=== PATIENT | male | born 1965 | race Caucasian/White ===

== ENCOUNTER 2019-10-02 16:02 | Emergency (ER) | payer BC, SELFPAY ==
[2019-10-02 16:07] VITALS: BP 136/89; PULSE 62; RESP 18; TEMP 37.1; O2SAT 100
--- NOTE | 2019-10-02 16:33 | ED.GENADULT ---
HPI - General Adult General Chief complaint: Animal Bite Stated complaint: spider bite Time Seen by Provider: 10/02/19 16:09 Source: patient and family History of Present Illness HPI narrative: Patient is 53 years old white male woke up yesterday with some soreness at the back of the right lower leg, patient noticed a bite-like lesion. Patient did not see any insects or anything causing his bite. Patient suspecting spider. Patient denies any fever, chills, nausea, vomiting, abdominal pain, diaphoresis. Patient believes that he have brown recluse spider bite. Patient reports some itching and redness at the site of the bite. Related Data Home Medications Medication Instructions Recorded Confirmed atenolol 25 mg tablet 25 mg PO DAILY 04/25/19 04/25/19 brexpiprazole 0.5 mg tablet 0.5 mg PO DAILY 04/25/19 04/25/19 bupropion HCl 100 mg tablet 3 mg/kg PO DAILY tablet 04/25/19 04/25/19 buspirone 15 mg tablet 15 mg PO QID tablet 04/25/19 04/25/19 clonazepam 0.5 mg tablet 0.5 mg PO BID PRN tablet 04/25/19 04/25/19 dextroamphetamine-amphetamine ER 25 mg PO QAM 04/25/19 04/25/19 25 mg capsule,3 bead,ext release 24hr trazodone 50 mg tablet 50 mg PO DAILY PRN tablet 04/25/19 04/25/19 vilazodone 40 mg tablet 40 mg PO DAILY 04/25/19 04/25/19 vortioxetine 5 mg tablet 5 mg PO DAILY 04/25/19 04/25/19 Allergies Allergy/AdvReac Type Severity Reaction Status Date / Time No Known Allergies Allergy Verified 10/02/19 16:12 Review of Systems Review of Systems: Narrative: CONSTITUTIONAL: Denies fever, chills, or sweats. EYES: Denies visual changes, redness, or discharge. ENT: Denies rhinorrhea, congestion, sore throat, or otalgia. CARDIOVASCULAR: Denies chest pain, palpitations, or edema. RESPIRATORY: Denies cough or dyspnea. GASTROINTESTINAL: Denies abdominal pain, nausea, vomiting, or diarrhea. GENITOURINARY: Denies dysuria or hematuria. SKIN: Denies rash or itching. MUSCULOSKELETAL: Denies back pain, joint pain, or myalgia. NEUROLOGIC: Denies headache, numbness, or weakness. PSYCHIATRIC: Denies anxiety or depression. [facility] Past Medical History Medical History ADD (attention deficit disorder) Depression Hypertension Leukopenia Memory loss Raynauds disease Umbilical hernia Family History Family History Mother Depression Cancer of unknown origin Father Hypertension Esophageal cancer Social History Social History Smoking status: Never smoker Alcohol intake: current Exam Narrative: Exam Narrative: General appearance: Well-developed, well-nourished Skin: A bite-like lesion at the back of the right lower leg, 2 mm size surrounded by 5 x 7 cm erythema, warm to touch, diffusely tender, no discharge Head: Normocephalic, nontraumatic Eyes: Clear conjunctiva ENT: Oropharynx normal, ears normal, nose normal Neck: Supple, nontender Chest and respiratory: Airway patent, no respiratory distress, no accessory muscle use Heart: Regular rate/rhythm Abdomen: Soft, nontender, no organomegaly, quiet bowel sounds Vascular: Normal peripheral pulses, normal capillary refill. Musculoskeletal: Normal range of motion, nontender back Neurologic: Alert and oriented ?3, LAB NURSE is normal as tested, no gross motor deficit Course Course Emergency Course: Unchanged Vital Signs Vital signs: Vital Signs Temperature 37.1 C 10/02/19 16:07 Pulse Rate 62 10/02/19 16:07 Respiratory Rate 18 10/02/19 16:07 Blood Pressure 136/89 10/02/19 16:07 Pulse Oximetry 100 10/02/19 16:07 Temperature 37
== END 2019-10-02 16:54 | disposition home or self-care (01) ==
PROVIDERS: Emergency Provider Emergency Medicine; PCP Internal Medicine
DX: S80.861A Insect bite (nonvenomous), right lower leg, initial encounter (principal); W57.XXXA Bitten or stung by nonvenomous insect and other nonvenomous arthropods, initial encounter; F98.8 Other specified behavioral and emotional disorders with onset usually occurring in childhood and adolescence; F32.9 Major depressive disorder, single episode, unspecified; I10 Essential (primary) hypertension; I73.00 Raynaud's syndrome without gangrene
CPT/HCPCS: 99283

== ENCOUNTER 2019-10-06 11:15 | Emergency (ER) | payer BC, SELFPAY ==
[2019-10-06 11:28] VITALS: BP 141/93; PULSE 91; RESP 18; TEMP 36.9; O2SAT 99
[2019-10-06] MEDS: diphenhydrAMINE HCl INJ 50 MG/ML VIAL 25 MG IV PUSH (11:55)
[2019-10-06 11:59] LABS: Basophils Percent Auto 0.5 % (0.2-1.2); Eosinophils Absolute Auto 0.3 K/mm3 (0-0.3); Eosinophils Percent Auto 5.3 % (0-4.4); Hematocrit 39.9 % (42.0-52.0); Hemoglobin 14.2 g/dL (14.0-18.0); Immature Granulocyte Absolute 0.01 K/mm3 (0.00-0.031); Immature Granulocyte Percent A 0.2 % (0-0.5); Lymphocytes Absolute Auto 1.05 K/mm3 (0.9-3.2); Lymphocytes Percent Auto 17.5 % (18.3-44.2); Mean Corpuscular HGB Conc 35.6 g/dl (32-36); Mean Corpuscular Hemoglobin 32.5 pg (26-34); Mean Corpuscular Volume 91.3 fl (80-100); Mean Platelet Volume 11.1 fl (7.4-10.4); Monocytes Absolute Auto 0.6 K/mm3 (0.1-0.6); Monocytes Percent Auto 9.8 % (2.6-8.5); Neutrophils Percent Auto 66.7 % (45.5-73.1); Platelet Count Result 173 k/mm3 (150-375); Red Blood Count 4.37 M/mm3 (4.6-6.20); Red Cell Distribution Width 12.2 % (11.5-14.5)
[2019-10-06 12:16] LABS: Alanine Aminotransferase 41 U/L (4-50); Albumin Level 4.1 g/dL (3.5-5.1); Alkaline Phosphatase 56 U/L (38-126); Anion Gap 8.1 mmol/L (7-16); Aspartate Amino Transferase 43 U/L (17-59); Bilirubin,Total 0.5 mg/dL (0.2-1.3); Blood Urea Nitrogen 16 mg/dL (9-20); CRP 0.6 mg/dL (<1.0); Calcium 9.1 mg/dL (8.4-10.2); Carbon Dioxide 27 mmol/L (22-30); Chloride 105 mmol/L (98-107); Estimated CRCL calculation 77 ml/min; Estimated Glomerular Filt Rate > 60; Glucose 113 mg/dL (75-110); Potassium 4.1 mmol/L (3.4-5.0); Sodium 136 mmol/L (137-145)
[2019-10-06 12:30] VITALS: BP 126/82; PULSE 61; RESP 18; O2SAT 98
--- NOTE | 2019-10-06 12:35 | ED.SKABFB ---
HPI - Skin/Abscess/Foreign Bdy General Chief complaint: Skin/Abscess/Foreign Body Stated complaint: sent from urgent care/insect bite Time Seen by Provider: 10/06/19 11:25 Source: patient Mode of arrival: ambulatory Limitations: no limitations History of Present Illness HPI narrative: This patient is a 53 year old male who presents for evaluation possible right leg cellulitis. PAtient states he woke up with what appeared to be an insect bite to right calf. He developed redness to right calf at bite site on monday so he was evaluated in ER. He was diagnosed with cellulitis and discharged with keflex. He noticed that he had increased redness to right thigh so he went to a community care clinic. PAtient denies fever, nausea, vomiting or pain. He reports he has itching to the site of redness. MD complaint: rash Related Data Home Medications Medication Instructions Recorded Confirmed atenolol 25 mg tablet 25 mg PO DAILY 04/25/19 04/25/19 vilazodone 40 mg tablet 40 mg PO DAILY 04/25/19 04/25/19 bupropion HCl mg PO 10/06/19 dextroamphetamine-amphetamine PO 10/06/19 [Mydayis] trazodone 10/06/19 vortioxetine [Trintellix] 20 mg PO DAILY 10/06/19 Allergies Allergy/AdvReac Type Severity Reaction Status Date / Time No Known Allergies Allergy Verified 10/02/19 16:12 Review of Systems Review of Systems: All systems reviewed & are unremarkable except as noted in HPI and below Constitutional: Constitutional: Denies chills and Denies fever(s) Respiratory: Respiratory: Denies cough and Denies dyspnea Gastrointestinal: Gastrointestinal: Denies abdominal pain Integumentary/Breasts: Skin/Breast: Reports pruritus, Reports erythema and Reports rash [facility] Social History Social History Smoking status: Never smoker Alcohol intake: current Exam Const: General: no acute distress and alert Orientation/consciousness: patient oriented x3 Chest: Chest palpation & inspection: normal inspection of the chest Resp: Effort & Inspection: normal respiratory effort Auscultation: clear to auscultation bilaterally Cardio: Rate: regular rate Rhythm: regular rhythm Back/Spine/Pelvis: Back: no CVA tenderness Neuro: General: patient oriented x3 and moves all extremities Extrem: Other: right lower extremity with wound to right calf with mild erythema surround and blanching well demarcated area erythema to right thigh , no induration or tenderness. Psych: Mental Status: mental status grossly normal Affect: normal affect Course Reevaluation(s) Reevaluation #1: I have discussed wiht patient that this appears to be more of allergic/inflammatory rash than cellulitis. He will be discharged with clindamycin. I also discussed treatment of allergic reaction. His rash appears clearer. Date: 10/06/19 Time: 15:39 Vital Signs Vital signs: Vital Signs Temperature 98.5 F 10/06/19 11:28 Pulse Rate 91 10/06/19 11:28 Respiratory Rate 18 10/06/19 11:28 Blood Pressure 141/93 H 10/06/19 11:28 Pulse Oximetry 99 10/06/19 11:28 Temperature 98 F 10/06/19 16:21 Pulse Rate 63 10/06/19 16:21 Respiratory Rate 16 10/06/19 16:21 Blood Pressure 119/89 10/06/19 16:21 Pulse Oximetry 97 10/06/19 16:21 MDM - Skin/Abscess/Foreign Bdy Lab Data Result diagrams: 10/06/19 11:51 10/06/19 11:51 Labs: Lab Results 10/06/19 10/06/19 Range/Units 11:51 11:51 WBC 6.0 (4.5-10.0) K/mm3 RBC 4.37 L (4.6-6.20) M/mm3 Hgb 14.2 (14.0-18.0) g/dL Hct 39.9 L (42.0-52.0) % MCV 91.3 (80-100) fl MCH 32.5 (26-34) pg MCHC 35.6 (32-36) g/dl RDW 12.2 (11.5-14.5) % Plt Count 173 (150-375) k/mm3 MPV 11.1 H (7.4-10.4) fl Immature Gran % (Auto) 0.2 (0-0.5) % Neut % (Auto) 66.7 (45.5-73.1) % Lymph % (Auto) 17.5 L (18.3-44.2) % [place] % (Auto) 9.8 H (2.6-8.5) % Eos % (Auto) 5.3 H (0-4.4)
[2019-10-06] MEDS: CLINDAMYCIN 900 MG/NS 50 ML 900 MG/50 ML PIGGYBACK 50 MG IVPB (13:18)
[2019-10-06 13:30] VITALS: BP 130/91; PULSE 63; RESP 18; O2SAT 98
[2019-10-06 14:31] VITALS: BP 131/85; PULSE 64; RESP 16; TEMP 36.9; O2SAT 98
--- NOTE | 2019-10-06 15:00 | PC.NURSE ---
Updated patient and family. they have no concerns at this time.
[2019-10-06 16:21] VITALS: BP 119/89; PULSE 63; RESP 16; TEMP 36.6; O2SAT 97
== END 2019-10-06 16:22 | disposition home or self-care (01) ==
PROVIDERS: Emergency Provider General Practice; PCP Internal Medicine
DX: L03.115 Cellulitis of right lower limb (principal); R21 Rash and other nonspecific skin eruption
CPT/HCPCS: 36415; 80053; 85025; 86140; 96365; 96375; 99284; J1100; J1200

== ENCOUNTER 2022-01-28 08:10 | Outpatient (CLI) | payer BC, SELFPAY ==
[2022-01-28 13:05] LABS: Basophils Absolute Auto 0.1 K/mm3 (0.0-0.1); Basophils Percent Auto 1.1 % (0.2-1.2); Eosinophils Absolute Auto 0.2 K/mm3 (0-0.3); Eosinophils Percent Auto 3.5 % (0-4.4); Hemoglobin 15.1 g/dL (14.0-18.0); Immature Granulocyte Absolute 0.01 K/mm3 (0.00-0.031); Immature Granulocyte Percent A 0.2 % (0-0.5); Lymphocytes Absolute Auto 1.27 K/mm3 (0.9-3.2); Lymphocytes Percent Auto 23.4 % (18.3-44.2); Mean Corpuscular HGB Conc 33.6 g/dl (32-36); Mean Corpuscular Hemoglobin 31.9 pg (26-34); Mean Corpuscular Volume 94.9 fl (80-100); Monocytes Absolute Auto 0.5 K/mm3 (0.1-0.6); Monocytes Percent Auto 9.2 % (2.6-8.5); Neutrophils Absolute Auto 3.4 K/mm3 (1.3-6.7); Neutrophils Percent Auto 62.6 % (45.5-73.1); Platelet Count Result 193 k/mm3 (150-375); Red Blood Count 4.74 M/mm3 (4.6-6.20); Red Cell Distribution Width 12.1 % (11.5-14.5); White Blood Count 5.4 K/mm3 (4.5-10.0)
[2022-01-28 13:06] LABS: Alanine Aminotransferase 27 U/L (6-50); Albumin Level 4.3 g/dL (3.5-5.1); Alkaline Phosphatase 48 U/L (38-126); Anion Gap 9 mmol/L (8-16); Aspartate Amino Transferase 42 U/L (17-59); Bilirubin,Total 0.6 mg/dL (0.2-1.3); Blood Urea Nitrogen 21 mg/dL (9-20); Calcium 9.2 mg/dL (8.4-10.2); Carbon Dioxide 27 mmol/L (22-30); Chloride 103 mmol/L (98-107); Cholesterol 193 mg/dL (0-200); Estimated Glomerular Filt Rate > 60; Glucose 119 mg/dL (65-110); HDL Direct 50 mg/dL; Potassium 4.4 mmol/L (3.4-5.0); Sodium 139 mmol/L (137-145); Triglycerides 77 mg/dL (<150)
[2022-01-28 13:17] LABS: LDL Cholesterol Direct 111 mg/dL
[2022-01-28 13:37] LABS: Prostate Specific Antigen 0.9 ng/mL (< OR = 4.0)
[2022-01-31 11:54] LABS: Hemoglobin A1C 5.6 % (<5.7)
== END 2022-01-28 08:11 | disposition home or self-care (01) ==
LOC: ANHGOSHLAB 08:12
PROVIDERS: PCP Internal Medicine; Visit Provider Nurse Practitioner
DX: Z13.29 Encounter for screening for other suspected endocrine disorder (principal); Z13.220 Encounter for screening for lipoid disorders; Z12.5 Encounter for screening for malignant neoplasm of prostate; R73.09 Other abnormal glucose
CPT/HCPCS: 36415; 80053; 80061; 83036; 84153; 85025; G0103

== ENCOUNTER → 2022-01-28 08:33 | Outpatient (CLI) | payer BC, SELFPAY ==
--- NOTE | ~2022-01-28 | XR_ITS ---
XR knee LT 2V DATE: 01/28/2022 08:52 INDICATION: Left knee pain TECHNIQUE: [place] and lateral and standing AP views COMPARISON: None FINDINGS: Medial and lateral compartment joint spaces are well preserved. There is slight particular spurring of the medial femoral condyle and patella. Small suprapatellar knee joint effusion is sugges sim. No fracture or dislocation, periosteal reaction or bone destruction, radiopaque intra-articular loose body or chondrocalcinosis. IMPRESSION: Slight medial and patellofemoral osteoarthritis and small knee joint effusion Reviewed, dictated and finalized at location B. [facility] [employer] IMPRESSION: Slight medial and patellofemoral osteoarthritis and small knee join t effusion
== END ==
PROVIDERS: PCP Nurse Practitioner; Visit Provider Nurse Practitioner
DX: M17.12 Unilateral primary osteoarthritis, left knee (principal)
CPT/HCPCS: 73560

== ENCOUNTER 2023-02-07 10:13 | Outpatient (CLI) | payer BC, SELFPAY ==
[2023-02-07 14:06] LABS: Appearance Urine Clear (Clear); Bilirubin Urine Negative (Negative); Blood Urine Negative (Negative); Color Urine Yellow (Yellow); Glucose Urine UA Negative (Negative); Ketones Urine Negative (Negative); Leukocyte Esterase Ur Negative LEU/UL (NEGATIVE); Nitrate Urine Negative (Negative); Protein Urine Negative (Negative); Specific Grav Ur 1.018 (1.001-1.035); Urobilinogen Urine 0.2 mg/dL (<2.0); pH Urine 6.5 (5.0-9.0)
[2023-02-07 14:21] LABS: Add Urine Microscopic? NO
== END 2023-02-07 10:14 | disposition home or self-care (01) ==
LOC: ANHGOSHLAB 10:14
PROVIDERS: PCP Internal Medicine; Visit Provider Internal Medicine
DX: R30.0 Dysuria (principal)
CPT/HCPCS: 81003

== ENCOUNTER 2024-05-31 00:10 | Day surgery (SDC) | payer BC, SELFPAY ==
[2024-04-05 11:55] VITALS: BMI 28.5
[2024-05-27 12:09] VITALS: BMI 27.8
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
--- OUTSIDE RECORDS SUMMARY | 2024-05-31 00:12 | XMS_ITS | Clinical Summary ---
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 CONSUELO ZUNIGA MD Active Last Documented On 3 9:12AM ; [facility] Dissociative Identity Disorder 10/11/2017 WADE ZUNIGA MD Active Last Documented On 8 11:58PM ; [facility] Panic Disorder 07/11/2016 CONSUELO Colon Active Last Documented On 7 5:47PM ; [facility] Psychophysiological Insomnia 10/12/2015 CONSUELO ZUNIGA MD Active Last Documented On 7 6:07PM ; [facility] Col[facility] 03/27/2015 CONSUELO ZUNIGA MD Ac tive Last Documented On 6 10:15AM ; [facility] Chronic Fatigue Syndrome 10/03/2014 CONSUELO ZUNIGA MD Active Last Documented On 5 4:03PM ; [facility] Raynaud's Syndrome 10/03/2014 CONSUELO FLORES MD Active Last Documented On 5 3:39PM ; [facility] Systemic Lupus Erythematosus 10/03/2014 CONSUELO ZUNIGA MD Active Last Documented On 5 3:38PM ; [facility] Attention Deficit Disorder W ithout Hyperactivity 09/11/2012 CONSUELO ZUNIGA MD Active Last Documented On 5 6:05PM ; [facility] Dysthymic Disorder (Depressive Neurosis) 09/11/2012 CONSUELO ZUNIGA MD Active Last Documented On 3 10:29PM ; [facility] Generalized Anxiety Disorder 09/11/2012 CONSUELO ZUNIGA MD Active Last Documented On 4 11:21AM ; [facility] Major Depression, Recurrent 09/11/2012 CONSUELO ZUNIGA MD Active Last Documented On 3 4:50PM ; [facility] Plan of Treatment No Plan of Treatment Recorded Assessments Includes: Assessments from this encounter No Assessments Recorded Medical Equipment - Implanted Devices Includes: Current Devices No Medical Equipment Recorded Medications Includes: Medications discussed during this encounter and other current Medications Current Medications (continue as prescribed) Mydayis 37.5 MG Oral Capsule Extended Release 24 Hour 06/10/2022 Provider: CONSUELO ZUNIGA MD Diagnosis: Attention-defici t hyperactivity disorder, unspecified type 1 Capsule every morning Last Documented On 06/10/2022 3:26PM By Nelda Zuniga MD ; [facility] traZODone HCl 100 MG Oral Tablet 05/23/2022 Provider: CONSUELO ZUNIGA MD Diagnosis: Psychophysiologi c insomnia TAKE ONE AND ONE-HALF TABLET S AT BEDTIME DIRECTED Last Documented On 3 11:48AM By Nelda Zuniga MD ; [facility] KlonoPIN 0.5 MG Oral Tablet 05/16/2022 Provider: CONSUELO ZUNIGA MD Diagnosis: Panic disorder [ episodic paroxysmal anxiety] as directed 1 tab once a day as needed for severe anxiety/panic Last Documented On 05/16/2022 6:39PM By Nelda Zuniga MD ; [facility] Modafinil 200 MG Oral Tablet 05/16/2022 Provider: CONSUELO ZUNIGA MD Diagnosis: Obstructive slee p apnea (adult) (pediatric) as directed - 1 tab in am, 1 tab at noon Last Documented On 05/16/2022 6:39PM By Nelda Zuniga MD ; [facility] Atenolol 25 MG Oral Tablet 05/16/2022 Provider: CONSUELO ZUNIGA MD Diagnosis: Generalized anxi ety disorder One tablet three times a day Last Documented On 05/16/2022 6:34PM By Nelda Zuniga MD ; [facility] Mirtazapine 15 MG Oral Tablet 03/02/2022 Provider: CONSUELO ZUNIGA MD Diagnosis: Dysthymic disord er One tablet at bed time Last Documented On 03/02/2022 8:21PM By Nelda Zuniga MD ; [facility] Remeron 15 MG Oral Tablet 03/02/2022 Provider: CONSUELO ZUNIGA MD Diagnosis: Generalized anxi ety disorder One tablet at bed time Last Documented On 03/02/2022 8:20PM By Nelda Zuniga MD ; [facility] busPIRone HCl 15 MG Oral Tablet 11/11/2021 Provider: CONSUELO ZUNIGA MD Diagnosis: Generalized anxi ety disorder TAKE 1 TABLET FOUR TIMES A DAY Last Documented On 11/11/2021 5:17PM By Nelda Zuniga MD ; [facility] buPROPion HCl ER (XL) 150 MG Oral Tablet Extended Release 24 Hour 11/11/2021 Provider: CONSUELO ZUNIGA MD Diagnosis: Major depressive disorder, recurrent, moderate TAKE 3 TABLETS IN THE MORNIN G DIRECTED Last Documented On 11/11/2021 5:19PM By Nelda Zuniga MD ; [facility] Trintellix 20 MG Oral Tablet 08/20/2021 Provider: CONSUELO ZUNIGA MD Diagnosis: TAKE 1 TABLET EVERY MORNING Last Documented On 08/20/2021 8:58AM By Nelda Zuniga MD ; [facility] Viibryd 40 MG Oral Tablet 08/20/2021 Provider: CONSUELO ZUNIGA MD Diagnosis: Major depressive disorder, recurrent, unspecified 1 tablet every morning with food Last Documented On 08/20/2021 8:59AM By Nelda Zuniga MD ; [facility] Rexulti 1 MG Oral Tablet 04/06/2021 Provider: MET DANIELLE ZUNIGA MD Diagnosis: Major depressive disorder, recurrent, moderate One tablet daily Last Documented On 2 11:15AM By Nelda Zuniga MD ; [facility] Atenolol 25 MG Oral Tablet 11/10/2019 Provider: CONSUELO ZUNIGA MD Diagnosis: Generalized anxi ety disorder One tablet twice a day Last Documented On 11/10/2019 3:38PM By Nelda Zuniga MD ; [facility] buPROPion HCl ER (XL) 150 MG Oral Tablet Extended Release 24 Hour 10/24/2019 Provider: CONSUELO ZUNIGA MD Diagnosis: Major depressive disorder, recurrent, moderate TAKE 3 TABLETS IN THE MORNIN G DIRECTED Last Documented On 10/24/2019 3:42PM By Nelda Zuniga MD ; [facility] Trintellix 20 MG Oral Tablet 07/01/2019 Provider: CONSULEO ZUNIGA MD Diagnosis: Dysthymic disord er 1 tablet every morning Last Documented On 07/01/2019 2:34PM By Nelda Zuniga MD ; [facility] Glucosamine Sulfate 1000MG Oral Capsule 05/22/2017 Provider: Diagnosis: 1 a day Last Documented On 05/22/2017 5:23PM By Nelda Zuniga MD ; [facility] AmLODIPine Besylate 5 MG Tablet 01/15/2016 Provider: KELLI CAMPOS MD Diagnosis: 1 daily Last Documented On 7 8:48AM By DIONE LOVE LPN ; [facility] Medications Administered Includes: Administered Medications from this encounter No Administered Medications Recorded Results Includes: Results discussed during this encounter No Results Recorded For Specified Dates History of Present Illness Includes: History of Present Illness from this encounter No History of Present Illness Recorded Social History No Social History Recorded - Smoking Status Unknown Medical History Includes: Medical History addressed during this encounter No Medical History Recorded Family History Includes: Family History addressed during this encounter No Family History Recorded Review of Systems Includes: Review of Systems from this encounter No Review of Systems Recorded Mental Status Includes: Mental Status from this encounter No Mental Status Recorded Functional Status Includes: Functional Status from this encounter No Functional Status Recorded Physical Exam Includes: Physical Exam from this encounter No Physical Exam Recorded Allergies Includes: Active Allergies No Known Allergies Encounters Encounter Provider Location Date Check-In Time Check-Out Time Diagnosis TELEHEALTH CONSUELO ZUNIGA MD [facility] 3 4:30PM 11:59PM Insurance Includes: Active Insurance Policies Plan Name Member ID Group # Subscriber Relationship Effect sunday Dates 1 - [facility] [id number] DANIEL FLOWERS Self Clinical Notes Includes: Clinical Notes from this encounter No Clinical Notes Recorded
--- OUTSIDE RECORDS SUMMARY | 2024-05-31 00:12 | XMS_ITS ---
Care Plan - [facility] Created on: May 31, 2024 DANIEL FLOWERS : 1965 Sex: Male Author Organization [facility] Address [address] [place] [address] Phone Care Team Providers Care Cooker Chip Name Role Phone CHRISTOPHE MOODY, CONSUELO Conroy [phone] ANDRES MOODY, KELLI العراقي Primary Care Provider [phone]
--- OUTSIDE RECORDS SUMMARY | 2024-05-31 00:12 | XMS_ITS | Clinical Summary ---
Author Organization [facility] Address [address] [place] [address] Phone Care Team Providers Care Asphalt Paver Name Role Phone CONSUELO ZUNIGA MD Unavailable [phone] Reason for Visit and Chief Complaint * PHONE CALL Problems Includes: Problems addressed during this encounter and other active Problems Current Visit Onset Date Resolved Date Provider Conditio n Status Major Depression, Recurrent 09/11/2012 Active Last Documented On 3 5:46PM ; [facility] Past Visits Onset Date Resolved Date Provider Condition Status 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 Active Last Documented On 3 5:50PM ; [facility] Dissociative Identity Disorder 10/11/2017 Active Last Documented On 3 5:51PM ; [facility] Panic Disorder 07/11/2016 Active Last Documented On 3 5:50PM ; [facility] Psychophysiological Insomnia 10/12/2015 Active Last Documented On 3 5:50PM ; [facility] Colitis 03/27/2015 Active Last Documented On 3 5:49PM ; [facility] Chronic Fatigue Syndrome 10/03/2014 Active Last Documented On 3 5:48PM ; [facility] Raynaud's Syndrome 10/03/2014 Active Last Documented On 3 5:48PM ; [facility] Systemic Lupus Erythematosus 10/03/2014 Active Last Documented On 3 5:48PM ; [facility] Attention Deficit Disorder Without Hyperactivity 3 Active Last Documented On 3 5:46PM ; [facility] Dysthymic Disorder (Depressive Neurosis) 09/11/2012 Active Last Documented On 3 5:46PM ; [facility] Generalized Anxiety Disorder 09/11/2012 Active Last Documented On 3 5:46PM ; [facility] Plan of Treatment Future Appointments Date Time Location Provi gerald TELEHEALTH ADULT PSYCH ESTABLISHED 06/20/2024 4:40PM [facility] ZUNIGA MD Last Documented On 4 5:40PM ; [facility] Assessments Includes: Assessments from this encounter Findings - Major depression, recurrent - Last Documented On 05/01/2023 5:10PM ; [facility] Medical Equipment - Implanted Devices Includes: Current Devices No Medical Equipment Recorded Medications Includes: Medications discussed during this encounter and other current Medications New / Renewed during this visit CONSUELO ZUNIGA MD on 05/01/2023 Wellbutrin XL 150 MG Oral Tablet Extended Release 24 Hour Provider: CONSUELO ZUNIGA MD 30 day supply: 30 tablet, 0 refills Diagnosis: Major depressive disorder, recurrent, moderate 1 tablet every morning Pharmacy: [facility] ([facility]) [address], [id number] - Last Documented On 07/27/2023 3:54AM By Nelda Zuniga MD ; [facility] Wellbutrin XL 150 MG Oral Tablet Extended Release 24 Hour Provider: CONSUELO ZUNIGA MD 90 day supply: 90 tablet, 0 refills Diagnosis: Major depressive disorder, recurrent, moderate 1 tablet every morning Pharmacy: [facility] [address], [address] - Last Documented On 06/22/2023 2:13PM By Nelda Zuniga MD ; [facility] Current Medications (continue as prescribed) Mydayis 37.5 MG Oral Capsule Extended Release 24 Hour 08/31/2023 Provider: CONSUELO ZUNIGA MD Diagnosis: Attention-defici t hyperactivity disorder, unspecified type 1 Capsule every morning Last Documented On 08/31/2023 8:26PM By Nelda Zuniga MD ; [facility] buPROPion HCl ER (XL) 150 MG Oral Tablet Extended Release 24 Hour 07/26/2023 Provider: CONSUELO ZUNIGA MD Diagnosis: Major depressive disorder, recurrent, moderate TAKE 3 TABLETS IN THE MORNIN G DIRECTED Last Documented On 07/26/2023 5:41PM By Nelda Zuniga MD ; [facility] Modafinil 200 MG Oral Tablet 07/26/2023 Provider: CONSUELO ZUNIGA MD Diagnosis: Obstructive slee p apnea (adult) (pediatric) as directed - 1 tab in am, 1 tab at noon Last Documented On 07/26/2023 5:42PM By Nelda Zuniga MD ; [facility] Testosterone Cypionate 200 M G/ML Intramuscular Solution 07/11/2023 Provider: THALIA Valle Diagnosis: Last Documented On 07/27/2023 3:52AM By Nelda Zuniga MD ; [facility] KlonoPIN 0.5 MG Oral Tablet 07/05/2023 Provider: CONSUELO ZUNIGA MD Diagnosis: Panic disorder [ episodic paroxysmal anxiety] as directed 1 tab once a day as needed for severe anxiety/panic Last Documented On 07/06/2023 3:30AM By Nelda Zuniga MD ; [facility] Meloxicam 15 MG Oral Tablet 06/24/2023 Provider: LEOPOLDO SORENSON MD Diagnosis: 1 daily prn Last Documented On 07/26/2023 4:54PM By SIMONA DOUGLAS ; [facility] busPIRone HCl 15 MG Oral Tablet 06/22/2023 Provider: CONSUELO ZUNIGA MD Diagnosis: Generalized anxi ety disorder TAKE 1 TABLET FOUR TIMES A DAY Last Documented On 06/22/2023 2:12PM By Nelda Zuniga MD ; [facility] Atenolol 25 MG Oral Tablet 05/16/2023 Provider: CONSUELO ZUNIGA MD Diagnosis: Generalized anxi ety disorder TAKE 1 TABLET THREE TIMES A DAY Last Documented On 05/16/2023 12:20PM By Nelda Zuniga MD ; [facility] traZODone HCl 100 MG Oral Tablet 05/16/2023 Provider: CONSUELO ZUNIGA MD Diagnosis: Psychophysiologi c insomnia TAKE ONE AND ONE-HALF TABLET S AT BEDTIME DIRECTED Last Documented On 05/16/2023 12:20PM By Nelda Zuniga MD ; [facility] Testosterone Cypionate 200 M G/ML Intramuscular Solution 11/15/2022 Provider: KELLI CAMPOS MD Diagnosis: inject once a week Last Documented On 11/25/2022 5:34PM By Nelda Zuniga MD ; [facility] Glucosamine Sulfate 1000 MG OR CAPS 05/22/2017 Tori tonio: Diagnosis: 1 a day Last Documented On 07/09/2022 5:37PM By Nelda Zuniga MD ; [facility] amLODIPine Besylate 5 MG OR TABS 01/15/2016 Provider : Diagnosis: 1 daily Last Documented On 07/09/2022 5:37PM By DIONE LOVE LPN ; [facility] Past Medications on file Vilazodone HCl 40 MG Oral Tablet 11/25/2022 - 11/20/2023 Provider: CONSUELO ZUNIGA MD Diagnosis: Major depressive disorder, recurrent, unspecified 1 tablet every morning with food Last Documented On 11/25/2022 1:55PM By Nelda Zuniga MD ; [facility] Trintellix 20 MG Oral Tablet 09/20/2022 - 09/15/2023 Provider: CONSUELO ZUNIGA MD Diagnosis: Major depressive disorder, recurrent, moderate 1 tablet every morning Last Documented On 09/20/2022 3:33PM By Nelda Zuniga MD ; [facility] Sunosi 75 MG OR TABS 02/01/2021 - 03/03/2021 Provider: CONSUELO ZUNIGA MD Diagnosis: Narcolepsy witho ut cataplexy 1 tablet every morning Last Documented On 07/09/2022 5:37PM By Nelda Zuniga MD ; [facility] Rexulti 2 MG OR TABS 02/01/2021 - 03/03/2021 Provider: CONSUELO ZUNIGA MD Diagnosis: Major depressive disorder, recurrent, moderate One tablet daily Last Documented On 07/09/2022 5:37PM By Nelda Zuniga MD ; [facility] Medications Administered Includes: Administered Medications from this [...] Location Date Check-In Time Check-Out Time Diagnosis * PHONE CALL CONSUELO ZUNIGA MD [facility] 05/01/19 24 2:11PM 11:59PM Major Depression, Recurrent Insurance Includes: Active Insurance Policies Plan Name Member ID Group # Subscriber Relationship Effect sunday Dates 1 - [facility] [id number] DANIEL Perez FLOWERS Self Clinical Notes Includes: Clinical Notes from this encounter * Progress note Date Encounter Last Documented by 05/01/2023 * PHONE CALL Last documented on 05/01/2023; 5:10 PM, CONSUELO ZUNIGA MD; [facility] Active Problems & Conditions - Attention Deficit Disorder Without Hyperactivity - Chronic Fatigue Syndrome - Colitis - Dissociative Identity Disorder - Dysthymic Disorder (Depressive Neurosis) - Generalized Anxiety Disorder - Major Depression, Recurrent - Nonorganic Sleep Apnea Obstructive - Panic Disorder - Psychophysiological Insomnia - Raynaud's Syndrome - Systemic Lupus Erythematosus Chief Complaint Phone Call - Chief Concern: reason for call: Patient calling. He wants to know if Dr. Zuniga can put him back on the Wellbutrin XL. He said that the Auvelity is not working out for him and he would like the Wellbutrin back. pt phone # for return call: [phone] date/initials: 05/01/23 bk Current Medication - amLODIPine Besylate 5 MG Tablet One tablet daily 1 daily, 90 days, 0 refills - Auvelity 45-105 MG Oral Tablet Extended Release as directed - 1 tab in am and 1 tab at 3 pm, 30 days, 3 refills - buPROPion HCl ER (XL) 150 MG Tablet Extended Release 24 Hour TAKE 3 TABLETS IN THE MORNING DIRECTED, 90 days, 3 refills - busPIRone HCl 15 MG Tablet TAKE 1 TABLET FOUR TIMES A DAY, 90 days, 3 refills - [facility] Glucosamine Sulfate 1000 MG Capsule as directed 1 a day, 0 days, 0 refills - Mirtazapine 15 MG Oral Tablet TAKE 1 TABLET AT BEDTIME, 90 days, 3 refills - Modafinil 200 MG Tablet as directed as directed - 1 tab in am, 1 tab at noon, 90 days, 1 refills - Mydayis 37.5 MG Oral Capsule Extended Release 24 Hour 1 Capsule every morning, 30 days, 0 refills - Rexulti 1 MG Tablet One tablet daily One tablet daily, 90 days, 3 refills - Testosterone Cypionate 200 MG/ML Intramuscular Solution as directed inject once a week, 28 days, 0 refills - traZODone HCl 100 MG Oral Tablet as directed 1 and a half tablets at bedtime, 90 days, 1 refills - Trintellix 20 MG Oral Tablet 1 tablet every morning, 90 days, 3 refills - Vilazodone HCl 40 MG Oral Tablet 1 tablet every morning with food, 90 days, 3 refills User Defined 4 Previous Psychiatric Hospitalizations: [place], [place] 10/15/18. Previous Psychiatric Treatments: He saw Eddy Baca for counseling in the past. Andriy Coughlin -- did not help him so he stopped seeing him 12/2018 Ellen Knox - referral made on 01/2021 for therapy/counseling for stress mgt Previous Psychiatric Medications: Sertraline 200 mg daily---felt like a Zombie---but took it from 1992 to 1993---also caused tremors. Prozac -- he had a negative response instead of Zoloft Ambien -- had to be d/c due to occ. sleep related behaviors. Focalin and Strattera -- did not help. Adderall XR -- not helping anymore, developed tolerance to it Rexulti 1 mg -- causing constipation 01/2019 but still taking it Sunosi 75 mg (samples) - did not make much difference -- 02/01/21 - 02/10/21 - discontinued Allergies - No Known Allergies Assessment - Major depression, recurrent Plan StartCited - Major depressive disorder, recurrent, moderate Wellbutrin XL 150 MG tablet 1 tablet every morning, 90 days, 0 refills Wellbutrin XL 150 MG tablet 1 tablet every morning, 30 days, 0 refills EndCited StartCited - Other PHY ORDER/COMMENT That is fine. He may stop the Auvelity but will have to start from scartch with his wellbutrin XL 150 mg 1 tab in am for 2 - 4 weeks then 300 mg 1 tab in am therafter and stay with 300 mg until seen. ROBERT ORDER/COMMENT I sent Wellbutrin XL 150 mg 1 tab in am #90 days to [facility] unless he wants to send it locally to his local pharmacist. Please relay above and let me know. ROBERT ORDER/COMMENT I called patient and left a voicemail about this. I asked him to please return my call. bk ROBERT ORDER/COMMENT I called pt again and this time he answered the phone. I informed him to d/c Ramiro and start Wellbutrin XL 150 mg 1 tab in am until I see him on his next appt on 05/10 since he has to start from scratch to preven side effects. He wanted 1 month supply to be sent to the local pharmacy. Pt voiced understanding of the instruction and appreciated the rtn call. EndCited
--- OUTSIDE RECORDS SUMMARY | 2024-05-31 00:13 | XMS_ITS | Continuity of Care Document ---
Author Organization [facility] Address [address] [place] [address] Phone Care Team Providers Care Physicist [employer] Name Role Phone Temitope Denis Unavailable Unavailable Allergies, Adverse Reactions, Alerts Substance Reaction Status Criticality No Known Allergies Active No Inform ation Medications Medication Instructions Dosage Effective Dates (start - stop) Status Comments Concerta 36 mg tablet,extended release - Active buspirone 15 mg tablet - Active Viibryd 40 mg tablet - Active zolpidem ER 12.5 mg tablet,extended release,multiphase - Active amlodipine 5 mg tablet - Active trazodone 100 mg tablet - Active bupropion HCl SR 150 mg tablet,sustained-release - Active Procedures Procedure Date OFFICE/OUTPATIENT VISIT EST OFFICE/OUTPATIENT VISIT EST OFFICE/OUTPATIENT VISIT [facility] Advance Directives Directive Yes / No Effective Date File Name No Information Encounters Encounter Description Practice Location Reason(s) For Visit Diagnoses Date Provider Providers Copied on Encounter OFFICE/OUTPAT IENT VISIT [facility], [address] [place] [address], [id number], tel:[phone] [facility] Follow Up of Shady elbows (chief complaint) Elbow arthritis 0-201 5 Fezeferino Linn. [address] [place] [address], [id number]. tel:[phone] OFFICE/OUTPAT IENT VISIT EST [facility], [address] [place] [address], [id number], tel:[phone] [facility] f/u bilateral elbows (chief complaint) Elbow arthritis Apr-2 3-201 5 Fehringer Temitope. [address], [place], [place], [id number]. tel:[phone] OFFICE/OUTPAT IENT VISIT [facility], [address], [place], [address], [place] tel:[phone] [facility] eval bilateral elbows (chief complaint) Elbow arthritis b-0 5-201 5 Fehringer Temitope. [address], [place], [place], [id number]. tel:[phone] Referring Provider: Moreno Tanner, [address], [place], [address]. tel:[phone] Family History Family Member Type Diagnosis Age At Onset Father Problem (finding) Alive and well Payers Payer name Insurance type Covered alliance party ID Authoriza tion(s) No Information Social History Type Description Quantity Date Captured Comments Alcohol Use Details Unknown Caffeine Use Details Unknown Tobacco Use Status Never smoked tobacco 2014 Smoking Status Never smoker Non-Smoking Tobacco Use Details : No Details Available : No Details Available Sex Male Chief Complaint And Reason For Visit From encounter dated '05/30/2014 08:00'. Follow Up of Shady elbows (chief complaint) Reason For Referral Reason For Referral No Information History Of Present Illness Encounter Date Complaint History Of Prese nt Illness Follow Up of Shady elbows f/u bilateral elbows eval bilateral elbows Functional Status Date Functional Assessmen t No Information Instructions Date Instruction Additional Infor mation No Information Assessments Type Assessment Date assessment Elbow arthritis Patient Care Teams Name Effective Dates (start - stop) Status Members No Information
--- OUTSIDE RECORDS SUMMARY | 2024-05-31 00:13 | XMS_ITS | Clinical Summary ---
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 Last Documented On 3 5:50PM ; [facility] Dissociative Identity Disorder 10/11/2017 Active Last Documented On 3 5:51PM ; [facility] Panic Disorder 07/11/2016 Active Last Documented On 3 5:50PM ; [facility] Psychophysiological Insomnia 10/12/2015 Active Last Documented On 3 5:50PM ; [facility] Colitis 03/27/2015 Active Last Documented On 3 5:49PM ; [facility] Chronic Fatigue Syndrome 10/03/2014 Active Last Documented On 3 5:48PM ; [facility] Raynaud's Syndrome 10/03/2014 Active Last Documented On 3 5:48PM ; [facility] Systemic Lupus Erythematosus 10/03/2014 Active Last Documented On 3 5:48PM ; [facility] Attention Deficit Disorder Without Hyperactivity 3 Active Last Documented On 3 5:46PM ; [facility] Dysthymic Disorder (Depressive Neurosis) 09/11/2012 Active Last Documented On 3 5:46PM ; [facility] Generalized Anxiety Disorder 09/11/2012 Active Last Documented On 3 5:46PM ; [facility] Major Depression, Recurrent 09/11/2012 Active Last Documented On 3 5:46PM ; [facility] Plan of Treatment Future Appointments Date Time Location Provi gerald [facility] EST[facility]LISHED 06/20/2024 4:40PM [facility] ZUNIGA MD Last Documented On 4 5:40PM ; [facility] Assessments Includes: Assessments from this encounter No Assessments Recorded Medical Equipment - Implanted Devices Includes: Current Devices No Medical Equipment Recorded Medications Includes: Medications discussed during this encounter and other current Medications Discontinued / Stopped on this date CONSUELO ZUNIGA MD on 01/12/2023 Mydayis 37.5 MG Oral Capsule Extended Release 24 Hour Provider: CONSUELO ZUNIGA MD Diagnosis: Attention-defici t hyperactivity disorder, unspecified type Last Documented On 02/28/2023 5:39PM By Nelda Zuniga MD ; [facility] Current Medications (continue as prescribed) Mydayis 37.5 MG Oral Capsule Extended Release 24 Hour 08/31/2023 Provider: CONSUELO ZUNIGA MD Diagnosis: Attention-defici t hyperactivity disorder, unspecified type 1 Capsule every morning Last Documented On 08/31/2023 8:26PM By Nelda Zuniga MD ; [facility] buPROPion HCl ER (XL) 150 MG Oral Tablet Extended Release 24 Hour 07/26/2023 Provider: CONSUELO ZUNIGA MD Diagnosis: Major depressive disorder, recurrent, moderate TAKE 3 TABLETS IN THE MORNIN G DIRECTED Last Documented On 07/26/2023 5:41PM By Nelda Zuniga MD ; [facility] Modafinil 200 MG Oral Tablet 07/26/2023 Provider: CONSUELO ZUNIGA MD Diagnosis: Obstructive slee p apnea (adult) (pediatric) as directed - 1 tab in am, 1 tab at noon Last Documented On 07/26/2023 5:42PM By Nelda Zuniga MD ; [facility] Testosterone Cypionate 200 M G/ML Intramuscular Solution 07/11/2023 Provider: THALIA Valle Diagnosis: Last Documented On 07/27/2023 3:52AM By Nelda Zuniga MD ; [facility] KlonoPIN 0.5 MG Oral Tablet 07/05/2023 Provider: CONSUELO ZUNIGA MD Diagnosis: Panic disorder [ episodic paroxysmal anxiety] as directed 1 tab once a day as needed for severe anxiety/panic Last Documented On 07/06/2023 3:30AM By Nleda Zuniga MD ; [facility] Meloxicam 15 MG Oral Tablet 06/24/2023 Provider: LEOPOLDO SORENSON MD Diagnosis: 1 daily prn Last Documented On 07/26/2023 4:54PM By SIMONA DOUGLAS ; [facility] busPIRone HCl 15 MG Oral Tablet 06/22/2023 Provider: CONSUELO ZUNIGA MD Diagnosis: Generalized anxi ety disorder TAKE 1 TABLET FOUR TIMES A DAY Last Documented On 06/22/2023 2:12PM By Nelda Zuniga MD ; [facility] Atenolol 25 MG Oral Tablet 05/16/2023 Provider: CONSUELO ZUNIGA MD Diagnosis: Generalized anxi ety disorder TAKE 1 TABLET THREE TIMES A DAY Last Documented On 05/16/2023 12:20PM By Nelda Zuniga MD ; [facility] traZODone HCl 100 MG Oral Tablet 05/16/2023 Provider: CONSUELO ZUNIGA MD Diagnosis: Psychophysiologi c insomnia TAKE ONE AND ONE-HALF TABLET S AT BEDTIME DIRECTED Last Documented On 05/16/2023 12:20PM By Nelda Zuniga MD ; [facility] Testosterone Cypionate 200 M G/ML Intramuscular Solution 11/15/2022 Provider: KELLI CAMPOS MD Diagnosis: inject once a week Last Documented On 11/25/2022 5:34PM By Nelda Zuniga MD ; [facility] Glucosamine Sulfate 1000 MG OR CAPS 05/22/2017 Tori hoder: Diagnosis: 1 a day Last Documented On 07/09/2022 5:37PM By Nelda Zuniga MD ; [facility] amLODIPine Besylate 5 MG OR TABS 01/15/2016 Provider : Diagnosis: 1 daily Last Documented On 07/09/2022 5:37PM By DIONE LOVE LPN ; [facility] Medications Administered Includes: Administered Medications from this [...] Allergies Includes: Active Allergies No Known Allergies Insurance Includes: Active Insurance Policies Plan Name Member ID Group # Subscriber Relationship Effect sunday Dates 1 - [facility] [id number] DANIEL FLOWERS Self Clinical Notes Includes: Clinical Notes from this encounter No Clinical Notes Recorded
--- OUTSIDE RECORDS SUMMARY | 2024-05-31 00:13 | XMS_ITS | Referral Summary ---
Author Organization [facility] [address] [facility] Address [address] [place] [address] Care Team Providers Care Rehabilitation Aide/Scheduler Name Role Phone Nikko Lara DO Primary Care Provider [phone] Allergies No known active allergies Medications amLODIPine (NORVASC) 5 mg tablet 07/29/2019 Active atenoloL (TENORMIN) 25 mg tablet 09/23/2019 Active buPROPion XL (WELLBUTRIN XL) 150 mg 24 hr tablet 09/23/2019 Active Mydayis 37.5 mg capsule, ER triphasic 24 hr TK 1 C PO QAM 09/11/2019 Active traZODone (DESYREL) 100 mg tablet 09/23/2019 Active triamcinolone (KENALOG) 0.5 % cream NICHELLE EXT AA BID 10/02/2019 Active Viibryd 40 mg tablet 09/23/2019 Active Trintellix 20 mg tablet 07/01/2019 Active Active Problems Problem Noted Date Diagnosed Date Diverticulitis 01/15/2024 Positive antinuclear antibody 10/29/2014 Lateral epicondylitis 10/29/2014 Immunizations Immunization Administration Dates Next Due Influenza, Trivalent, Preservative Free, Intramu scular 12/19/2023 Social History Tobacco Use Types Packs/Day Years Used Date Smoking Tobacco: Never Smokeless Tobacco: Never Personal Safety Answer Date Recorded Have you ever been in or are you currently in a harmful physical or emotional relationship or is someone making you feel afraid or unsafe? Denies 01/15/2024 Sex and Gender Information Value Date Recorded Sex Assigned at Not on file Legal Sex Male 1:23 AM PICKLE PUMPER Gender Identity Not on file Sexual Orientation Not on file Last Filed Vital Signs Vital Sign Reading Time Taken Comments Blood Pressure 152/84 01/17/2024 9:35 AM PICKLE PUMPER Pulse 67 01/17/2024 9:35 AM PICKLE PUMPER Temperature 36.4 C (97.6 F) 01/17/2024 3:49 AM PICKLE PUMPER Respiratory Rate 16 01/17/2024 3:49 AM PICKLE PUMPER Oxygen Saturation 98% 01/17/2024 3:49 AM PICKLE PUMPER Inhaled Oxygen Concentration - - Weight 91.4 kg (201 lb 9.6 oz) 01/15/2024 6:10 A M PICKLE PUMPER Height 182.9 cm (6') 01/15/2024 6:10 AM PICKLE PUMPER Body Mass Index 27.34 01/15/2024 6:10 AM PICKLE PUMPER Plan of Treatment Not on file Insurance [employer] Advance Directives For more information, please contact: [phone] * Full Code (Latest Code Status on File) Date Activated Date Inactivated Comments 01/15/2024 5:55 AM 01/17/2024 2:31 PM Care Teams Rehabilitation Aide/Scheduler Relationship Specialty Start Date End Date Nikko Lara DO PCP - General 05/14/12
--- OUTSIDE RECORDS SUMMARY | 2024-05-31 00:13 | XMS_ITS | Clinical Summary ---
Author Organization [address] Address [address] [place] [address] Care Team Providers Care Publications Designer Name Role Phone Nikko Lara DO Primary Care Provider [phone] Allergies No known active allergies Medications amLODIPine [...] Influenza, Trivalent, Preservative Free, Intramu scular 12/19/2023 Surgical History Surgery Date Site/Laterality Comments HERNIA REPAIR KELOID EXCISION Medical History Medical History Date Comments Anxiety Depression Disassociation disorder Social History Tobacco Use Types Packs/Day Years [...] on file Legal Sex Male 1:23 AM CLINICAL GENETICIST Gender Identity Not on file Sexual Orientation Not on file Obstetrics History Last Filed Vital Signs Vital Sign Reading Time Taken Comments Blood Pressure 152/84 01/17/2024 9:35 AM CLINICAL GENETICIST Pulse 67 01/17/2024 9:35 AM CLINICAL GENETICIST Temperature 36.4 C (97.6 F) 01/17/2024 3:49 AM CLINICAL GENETICIST Respiratory Rate 16 01/17/2024 3:49 AM CLINICAL GENETICIST Oxygen Saturation 98% 01/17/2024 3:49 AM CLINICAL GENETICIST Inhaled Oxygen Concentration - - Weight 91.4 kg (201 lb 9.6 oz) 01/15/2024 6:10 A M CLINICAL GENETICIST Height 182.9 cm (6') 01/15/2024 6:10 AM CLINICAL GENETICIST Body Mass Index 27.34 01/15/2024 6:10 AM CLINICAL GENETICIST Plan of Treatment Health Maintenance Due Date Last Done Comments Colon Cancer Screening-Colonoscopy 1966 Depression Screening 1966 Hepatitis C Screening 1966 Prostate Cancer Screening-PSA 1966 DTaP/Tdap/Td Vaccine (1 - Tdap) 1977 Hepatitis B Screening 1984 Regular Well Visit/Exam 18-64 1984 Zoster Vaccine (2 of 2) 05/13/2023 03/18/2023 Covid-19 Vaccine ( season) 2023 03/18/2023, 05/08/2021, 06/19/2020, Additional history exists Influenza Vaccine Completed 12/19/2023, 03/18/2023 Pneumococcal vaccine <65 Aged Out No longer eligible based on patient's age to complete this topic [place] [address] [employer] Advance Directives For more information, please contact: [phone] * Full Code (Latest Code Status on File) Date Activated Date Inactivated Comments 01/15/2024 5:55 AM 01/17/2024 2:31 PM Care Teams Publications Designer Relationship Specialty Start Date End Date Nikko Lara DO PCP - General 05/14/12
--- OUTSIDE RECORDS SUMMARY | 2024-05-31 00:13 | XMS_ITS | Clinical Summary ---
Author Organization [facility] Address [address] [place] [address] Phone Care Team Providers Care Nurse Supervisor Name Role Phone Nikko Lara DO Primary Care Provider Active Problems Problem Noted Date Diagnosed Date Dissociative identity disorder 05/15/2018 Persistent depressive disorder 05/04/2018 Social History Tobacco Use Types Packs/Day Years Used Date Smoking Tobacco: Never Smokeless Tobacco: Never Alcohol Use Standard Drinks/Week Comments Yes 2 (1 standard drink = 0.6 oz pure alcohol) drinks maybre two times month 4 beers in social situation Sexually Active Control Partners Comments Yes Female Sex and Gender Information Value Date Recorded Sex Assigned at Not on file Legal Sex Male 7:57 PM CDT Gender Identity Not on file Sexual Orientation Not on file Plan of Treatment Health Maintenance Due Date Last Done Comments Hepatitis C Virus (HCV) Screening 1966 TdaP Immunization 1966 Hepatitis B Immunization (1 of 3 - 19+ 3-dose series) 1985 Colonoscopy 10/20/2011 Colorectal Cancer Screening 10/20/2011 Cologuard 2016 Immunochemical Fecal Occult Blood 2016 Pneumococcal Immunization (5 0+ years) (1 of 1 - PCV) 2016 Zoster Immunization (1 of 2) 2016 Influenza Immunization (#1) 2023 SARS-COV-2 Immunization (3 - 2023-25 season) 2023 06/19/2020, 05/15/2020 Respiratory Syncytial Virus (RSV) Immunization (Adult) (1 - 1-dose 75+ series) 2041 Meningococcal Immunization (ACWY) Aged Out No longer eligible b ased on patient's age to complete this topic Rotavirus Immunization Aged Out No lo nger eligible based on patient's age to complete this topic Insurance [facility] Member Subscriber Plan / Payer (Ef fective 2011-Present) Name:Daniel Flowers Relation to Subscriber:Self Name:Daniel Flowers Payer ID:[id number] Type:Not on file Address: [place] [id number] Care Teams Nurse Supervisor Relationship Specialty Start Date End Date Nikko Lara DO [facility] [place] [address] PCP - General Internal Medicine 04/10/18
--- OUTSIDE RECORDS SUMMARY | 2024-05-31 00:13 | XMS_ITS ---
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 Last Documented On 3 5:50PM ; [facility] Dissociative Identity Disorder 10/11/2017 Active Last Documented On 3 5:51PM ; [facility] Panic Disorder 07/11/2016 Active Last Documented On 3 5:50PM ; [facility] Nonorganic Sleep Apnea Obstructive 12/12/2015 Unknown Resolved Last Documented On 3 5:50PM ; [facility] Psychophysiological Insomnia 10/12/2015 Active Last Documented On 3 5:50PM ; [facility] Colitis 03/27/2015 Active Last Documented On 3 5:49PM ; [facility] Chronic Fatigue Syndrome 10/03/2014 Active Last Documented On 3 5:48PM ; [facility] Raynaud's Syndrome 10/03/2014 Active Last Documented On 3 5:48PM ; [facility] Systemic Lupus Erythematosus 10/03/2014 Active Last Documented On 3 5:48PM ; [facility] Anxiety Disorder Nos 09/11/2012 Inac tive Last Documented On 3 5:46PM ; [facility] Attention Deficit Disorder Without Hyperactivity 3 Active Last Documented On 3 5:46PM ; [facility] Dysthymic Disorder (Depressive Neurosis) 09/11/2012 Active Last Documented On 3 5:46PM ; [facility] Generalized Anxiety Disorder 09/11/2012 Active Last Documented On 3 5:46PM ; [facility] Major Depression, Recurrent 09/11/2012 Active Last Documented On 3 5:46PM ; [facility] Plan of Treatment Findings Encounter Date Clinical summary transmitted to referring provider electronically with reasonable certainty of receipt TELEHEALTH ADULT PSYCH ESTABLISHED with CONSUELO ZUNIGA MD 07/26/2023 Last Documented On 4 3:58AM ; [facility] Referred to: Sleep Specialis t -- Home Sleep Study to r/o [facility] -- [facility] - 07/26/23 TELEHEALTH ADULT PSYCH ESTABLISHED with CONSUELO ZUNIGA MD 07/26/2023 Last Documented On 4 3:58AM ; [facility] Transition in care, clinical summary provided TELEHEALTH ADULT PSYCH ESTABLISHED with CONSUELO ZUNIGA MD 07/26/2023 Last Documented On 4 3:58AM ; [facility] Referrals To Diagnosis [facility] Obstructive slee p apnea (adult) (pediatric) Last Documented On 4 11:00AM ; [facility] Future Appointments Date Time Location Provi gerald TELEHEALTH ADULT PSYCH ESTABLISHED 06/20/2024 4:40PM [facility] ZUNIGA MD Last Documented On 4 5:40PM ; [facility] Education and Decision Aids were provided during visit for: Calming techniques such as b reathing exercises/meditation and other relaxation techniques Last Documented On 4 3:29AM ; [facility] Patient counseling I discuss ed risk, benefits, and side effects of sleep aid - Quviviq including the possibility of sleep related behaviors i.e. sleepwalking, sleeptalking, sleepdriving, etc... Pt verbalized understanding Last Documented On 4 6:12PM ; [facility] Discussed good sleep hygiene habits Last Documented On 4 6:12PM ; [facility] Calming techniques such as b reathing exercises/meditation and other relaxation techniques Last Documented On 3 8:32PM ; [facility] Assessments Includes: Assessments for all patient encounters Findings Encounter Date Attention deficit disorder w ithout hyperactivity TELEHEALTH ADULT PSYCH ESTABLISHED with CONSUELO ZUNIGA MD 07/26/2023 Last Documented On 4 3:58AM ; [facility] Dissociative identity disorder TELEHEALT H ADULT PSYCH ESTABLISHED with CONSUELO ZUNIGA MD 07/26/2023 Last Documented On 4 3:58AM ; [facility] Dysthymic disorder TELEHEALTH ADULT PSY CH ESTABLISHED with CONSUELO ZUNIGA MD 07/26/2023 Last Documented On 4 3:58AM ; [facility] Generalized anxiety disorder TELEHEALTH ADULT PSYCH ESTABLISHED with CONSUELO ZUNIGA MD 07/26/2023 Last Documented On 4 3:58AM ; [facility] Major depression, recurrent TELEHEALTH A DULT PSYCH ESTABLISHED with CONSUELO ZUNIGA MD 07/26/2023 Last Documented On 4 3:58AM ; [facility] Obstructive sleep apnea TELEHEALTH ADULT PSYCH ESTABLISHED with CONSUELO ZUNIGA MD 07/26/2023 Last Documented On 4 3:58AM ; [facility] Panic disorder TELEHEALTH ADULT PSY CH ESTABLISHED with CONSUELO ZUNIGA MD 07/26/2023 Last Documented On 4 3:58AM ; [facility] Psychophysiological insomnia TELEHEALTH ADULT PSYCH ESTABLISHED with CONSUELO ZUNIGA MD 07/26/2023 Last Documented On 4 3:58AM ; [facility] Attention deficit disorder w ithout hyperactivity TELEHEALTH ADULT PSYCH ESTABLISHED with CONSUELO ZUNIGA MD 05/10/2023 Last Documented On 4 6:21PM ; [facility] Dissociative identity disorder TELEHEALT H ADULT PSYCH ESTABLISHED with CONSUELO ZUNIGA MD 05/10/2023 Last Documented On 4 6:21PM ; [facility] Dysthymic disorder TELEHEALTH ADULT PSY CH ESTABLISHED with CONSUELO ZUNIGA MD 05/10/2023 Last Documented On 4 6:21PM ; [facility] Generalized anxiety disorder TELEHEALTH ADULT PSYCH ESTABLISHED with CONSUELO ZUNIGA MD 05/10/2023 Last Documented On 4 6:21PM ; [facility] Major depression, recurrent TELEHEALTH A DULT PSYCH ESTABLISHED with CONSUELO ZUNIGA MD 05/10/2023 Last Documented On 4 6:21PM ; [facility] Obstructive sleep apnea TELEHEALTH ADULT PSYCH ESTABLISHED with CONSUELO ZUNIGA MD 05/10/2023 Last Documented On 4 6:21PM ; [facility] Panic disorder TELEHEALTH ADULT PSY CH ESTABLISHED with CONSUELO ZUNIGA MD 05/10/2023 Last Documented On 4 6:21PM ; [facility] Psychophysiological insomnia TELEHEALTH ADULT PSYCH ESTABLISHED with CONSUELO ZUNIGA MD 05/10/2023 Last Documented On 4 6:21PM ; [facility] Major depression, recurrent * PHONE CALL with ME JESUSITA ZUNIGA MD 05/01/2023 Last Documented On 4 5:10PM ; [facility] Attention deficit disorder w ithout hyperactivity TELEHEALTH ADULT PSYCH ESTABLISHED with CONSUELO ZUNIGA MD 11/25/2022 Last Documented On 3 8:38PM ; [facility] Dissociative identity disorder TELEHEALT H ADULT PSYCH ESTABLISHED with CONSUELO ZUNIGA MD 11/25/2022 Last Documented On 3 8:38PM ; [facility] Dysthymic disorder TELEHEALTH ADULT PSY CH ESTABLISHED with CONSUELO ZUNIGA MD 11/25/2022 Last Documented On 3 8:38PM ; [facility] Generalized anxiety disorder TELEHEALTH ADULT PSYCH ESTABLISHED with CONSUELO ZUNIGA MD 11/25/2022 Last Documented On 3 8:38PM ; [facility] Major depression, recurrent TELEHEALTH A DULT PSYCH ESTABLISHED with CONSUELO ZUNIGA MD 11/25/2022 Last Documented On 3 8:38PM ; [facility] Obstructive sleep apnea TELEHEALTH ADULT PSYCH ESTABLISHED with CONSUELO ZUNIGA MD 11/25/2022 Last Documented On 3 8:38PM ; [facility] Panic disorder TELEHEALTH ADULT PSY CH ESTABLISHED with CONSUELO ZUNIGA MD 11/25/2022 Last Documented On 3 8:38PM ; [facility] Psychophysiological insomnia TELEHEALTH ADULT PSYCH ESTABLISHED with CONSUELO ZUNIGA MD 11/25/2022 Last Documented On 3 8:38PM ; [facility] Attention deficit disorder w ithout hyperactivity TELEHEALTH ADULT PSYCH ESTABLISHED with CONSUELO ZUNIGA MD 10/11/2022 Last Documented On 3 8:24AM ; [facility] Dissociative identity disorder TELEHEALT H ADULT PSYCH ESTABLISHED with CONSUELO ZUNIGA MD 10/11/2022 Last Documented On 3 8:24AM ; [facility] Dysthymic disorder TELEHEALTH ADULT PSY CH ESTABLISHED with CONSUELO ZUNIGA MD 10/11/2022 Last Documented On 3 8:24AM ; [facility] Generalized anxiety disorder TELEHEALTH ADULT PSYCH ESTABLISHED with CONSUELO ZUNIGA MD 10/11/2022 Last Documented On 3 8:24AM ; [facility] Major depression, recurrent TELEHEALTH A DULT PSYCH ESTABLISHED with CONSUELO ZUNIGA MD 10/11/2022 Last Documented On 3 8:24AM ; [facility] Obstructive sleep apnea TELEHEALTH ADULT PSYCH ESTABLISHED with CONSUELO ZUNIGA MD 10/11/2022 Last Documented On 3 8:24AM ; [facility] Panic disorder TELEHEALTH ADULT PSY CH ESTABLISHED with CONSUELO ZUNIGA MD 10/11/2022 Last Documented On 3 8:24AM ; [facility] Psychophysiological insomnia TELEHEALTH ADULT PSYCH ESTABLISHED with CONSUELO ZUNIGA MD 10/11/2022 Last Documented On 3 8:24AM ; [facility] Attention deficit disorder w ithout hyperactivity TELEHEALTH with CONSUELO ZUNIGA MD 07/12/2022 Last Documented On 3 10:43AM ; [facility] Dissociative identity disorder TELEHEALTH with Nayely ZUNIGA MD 07/12/2022 Last Documented On 3 10:43AM ; [facility] Dysthymic disorder TELEHEALTH with CONSUELO PAYAN MD 07/12/2022 Last Documented On 3 10:43AM ; [facility] Generalized anxiety disorder TELEHEALTH with MET DANIELLE ZUNIGA MD 07/12/2022 Last Documented On 3 10:43AM ; [facility] Major depression, recurrent TELEHEALTH with SENA ZUNIGA MD 07/12/2022 Last Documented On 3 10:43AM ; [facility] Obstructive sleep apnea TELEHEALTH with CONSUELO ZUNIGA MD 07/12/2022 Last Documented On 3 10:43AM ; [facility] Panic disorder TELEHEALTH with CONSUELO PAINTING MD 07/12/2022 Last Documented On 3 10:43AM ; [facility] Psychophysiological insomnia TELEHEALTH with MET DANIELLE ZUNIGA MD 07/12/2022 Last Documented On 3 10:43AM ; [facility] Instructions Includes: Instructions for all patient encounters Education and Decision Aids were provided during visit for: Calming techniques such as b reathing exercises/meditation and other relaxation techniques Last Documented On 4 3:29AM ; [facility] Patient counseling I discuss ed risk, benefits, and side effects of sleep aid - Quviviq including the possibility of sleep related behaviors i.e. sleepwalking, sleeptalking, sleepdriving, etc... Pt verbalized understanding Last Documented On 4 6:12PM ; [facility] Discussed good sleep hygiene habits Last Documented On 4 6:12PM ; [facility] Calming techniques such as b reathing exercises/meditation and other relaxation techniques Last Documented On 3 8:32PM ; [facility] Medical Equipment - Implanted Devices Includes: Current and historical Devices No Medical Equipment Recorded Medications Includes: Current and historical Medications Current Medications (continue as prescribed) Mydayis 37.5 MG Oral Capsule Extended Release 24 Hour 08/31/2023 Provider: CONSUELO ZUNIGA MD Diagnosis: Attention-defici t hyperactivity disorder, unspecified type 1 Capsule every morning Last Documented On 08/31/2023 8:26PM By Nelda Zuniga MD ; [facility] buPROPion HCl ER (XL) 150 MG Oral Tablet Extended Release 24 Hour 07/26/2023 Provider: CONSUELO ZUNIGA MD Diagnosis: Major depressive disorder, recurrent, moderate TAKE 3 TABLETS IN THE MORNIN G DIRECTED Last Documented On 07/26/2023 5:41PM By Nelda Zuniga MD ; [facility] Modafinil 200 MG Oral Tablet 07/26/2023 Provider: CONSUELO ZUNIGA MD Diagnosis: Obstructive slee p apnea (adult) (pediatric) as directed - 1 tab in am, 1 tab at noon Last Documented On 07/26/2023 5:42PM By Nelda Zuniga MD ; [facility] Testosterone Cypionate 200 M G/ML Intramuscular Solution 07/11/2023 Provider: THALIA Valle Diagnosis: Last Documented On 07/27/2023 3:52AM By Nelda Zuniga MD ; [facility] KlonoPIN 0.5 MG Oral Tablet 07/05/2023 Provider: CONSUELO ZUNIGA MD Diagnosis: Panic disorder [ episodic paroxysmal anxiety] as directed 1 tab once a day as needed for severe anxiety/panic Last Documented On 07/06/2023 3:30AM By Nelda Zuniga MD ; [facility] Meloxicam 15 MG Oral Tablet 06/24/2023 Provider: LEOPOLDO SORENSON MD Diagnosis: 1 daily prn Last Documented On 07/26/2023 4:54PM By SIMONA DOUGLAS ; [facility] busPIRone HCl 15 MG Oral Tablet 06/22/2023 Provider: CONSUELO ZUNIGA MD Diagnosis: Generalized anxi ety disorder TAKE 1 TABLET FOUR TIMES A DAY Last Documented On 06/22/2023 2:12PM By Nelda Zuniga MD ; [facility] Atenolol 25 MG Oral Tablet 05/16/2023 Provider: CONSUELO ZUNIGA MD Diagnosis: Generalized anxi ety disorder TAKE 1 TABLET THREE TIMES A DAY Last Documented On 05/16/2023 12:20PM By Nelda Zuniga MD ; [facility] traZODone HCl 100 MG Oral Tablet 05/16/2023 Provider: CONSUELO ZUNIGA MD Diagnosis: Psychophysiologi c insomnia TAKE ONE AND ONE-HALF TABLET S AT BEDTIME DIRECTED Last Documented On 05/16/2023 12:20PM By Nelda Zuniga MD ; [facility] Testosterone Cypionate 200 M G/ML Intramuscular Solution 11/15/2022 Provider: KELLI LARA MD Diagnosis: inject once a week Last Documented On 11/25/2022 5:34PM By Nelda Zuniga MD ; [facility] Glucosamine Sulfate 1000 MG OR CAPS 05/22/2017 Tori vicder: Diagnosis: 1 a day Last Documented On 07/09/2022 5:37PM By Nelda Zuniga MD ; [facility] amLODIPine Besylate 5 MG OR TABS 01/15/2016 Provider : Diagnosis: 1 daily Last Documented On 07/09/2022 5:37PM By DIONE LOVE LPN ; [facility] Past Medications on file Mydayis 37.5 MG Oral Capsule Extended Release 24 Hour 07/26/2023 - 08/31/2023 Provider: CONSUELO ZUNIGA MD Diagnosis: Attention-defici t hyperactivity disorder, unspecified type 1 Capsule every morning Last Documented On 08/31/2023 8:22PM By Nelda Zuniga MD ; [facility] Mydayis 37.5 MG Oral Capsule Extended Release 24 Hour 06/23/2023 - 07/26/2023 Provider: CONSUELO ZUNIGA MD Diagnosis: Attention-defici t hyperactivity disorder, unspecified type 1 Capsule every morning Last Documented On 07/26/2023 5:36PM By Nelda Zuniga MD ; [facility] Wellbutrin XL 150 MG Oral Tablet Extended Release 24 Hour 06/22/2023 - 07/27/2023 Provider: CONSUELO ZUNIGA MD Diagnosis: Major depressive disorder, recurrent, moderate 1 tablet every morning Last Documented On 07/27/2023 3:54AM By Nelda Zuniga MD ; [facility] Mydayis 37.5 MG Oral Capsule Extended Release 24 Hour 05/22/2023 - 06/23/2023 Provider: CONSUELO ZUNIGA MD Diagnosis: Attention-defici t hyperactivity disorder, unspecified type 1 Capsule every morning Last Documented On 06/23/2023 1:47PM By Nelda Zuniga MD ; [facility] Quviviq 50 MG Oral Tablet 05/10/2023 - 07/27/2023 Provider: CONSUELO ZUNIGA MD Diagnosis: Psychophysiologi c insomnia as directed - 1 tab at bedti me as needed for sleep Last Documented On 07/27/2023 3:53AM By Nelda Zuniga MD ; [facility] Wellbutrin XL 150 MG Oral Tablet Extended Release 24 Hour 05/01/2023 - 07/27/2023 Provider: CONSUELO ZUNIGA MD Diagnosis: Major depressive disorder, recurrent, moderate 1 tablet every morning Last Documented On 07/27/2023 3:54AM By Nelda Zuniga MD ; [facility] Wellbutrin XL 150 MG Oral Tablet Extended Release 24 Hour 05/01/2023 - 06/22/2023 Provider: CONSUELO ZUNIGA MD Diagnosis: Major depressive disorder, recurrent, moderate 1 tablet every morning Last Documented On 06/22/2023 2:13PM By Nelda Zuniga MD ; [facility] Mydayis 37.5 MG Oral Capsule Extended Release 24 Hour 04/14/2023 - 05/22/2023 Provider: CONSUELO ZUNIGA MD Diagnosis: Attention-defici t hyperactivity disorder, unspecified type 1 Capsule every morning Last Documented On 05/22/2023 4:27PM By Nelda Zuniga MD ; [facility] Mydayis 37.5 MG Oral Capsule Extended Release 24 Hour 02/28/2023 - 04/14/2023 Provider: CONSUELO ZUNIGA MD Diagnosis: Attention-defici t hyperactivity disorder, unspecified type 1 Capsule every morning Last Documented On 04/14/2023 11:23AM By Nelda Zuniga MD ; [facility] Auvelity 45-105 MG Oral Tablet Extended Release 01/23/2023 - 05/10/2023 Provider: CONSUELO PAINTING MD Diagnosis: Major depressive disorder, recurrent, moderate as directed - 1 tab in am and 1 tab at 3 pm Last Documented On 05/10/2023 4:59PM By Nelda Zuniga MD ; [facility] Mydayis 37.5 MG Oral Capsule Extended Release 24 Hour 01/12/2023 - 02/28/2023 Provider: CONSUELO ZUNIGA MD Diagnosis: Attention-defici t hyperactivity disorder, unspecified type 1 Capsule every morning Last Documented On 02/28/2023 5:39PM By Nelda Zuniga MD ; [facility] Mydayis 37.5 MG Oral Capsule Extended Release 24 Hour 12/05/2022 - 01/12/2023 Provider: CONSUELO ZUNIGA MD Diagnosis: Attention-defici t hyperactivity disorder, unspecified type 1 Capsule every morning Last Documented On 01/12/2023 6:38PM By Nelda Zuniga MD ; [facility] Vilazodone HCl 40 MG Oral Tablet 11/25/2022 - 11/20/2023 Provider: CONSUELO ZUNIGA MD Diagnosis: Major depressive disorder, recurrent, unspecified 1 tablet every morning with food Last Documented On 11/25/2022 1:55PM By Nelda Zuniga MD ; [facility] traZODone HCl 100 MG Oral Tablet 11/25/2022 - 05/16/2023 Provider: CONSUELO ZUNIGA MD Diagnosis: Psychophysiologi c insomnia as directed 1 and a half tab lets at bedtime Last Documented On 05/16/2023 12:20PM By Nelda Zuniag MD ; [facility] Vilazodone HCl 40 MG Oral Tablet 11/25/2022 - 11/25/2022 Provider: Diagnosis: Major depressive disorder, recurrent, unspecified 1 tablet every morning with food Last Documented On 11/25/2022 4:42PM By SIMONA DOUGLAS ; [facility] traZODone HCl 100 MG Oral Tablet 11/25/2022 - 11/26/19 Provider: Diagnosis: Psychophysiologi c insomnia 1 and a half tablets at bedtime Last Documented On 11/25/2022 4:42PM By SIMONA DOUGLAS ; [facility] Mydayis 37.5 MG Oral Capsule Extended Release 24 Hour 11/01/2022 - 12/05/2022 Provider: CONSUELO ZUNIGA MD Diagnosis: Attention-defici t hyperactivity disorder, unspecified type 1 Capsule every morning Last Documented On 12/05/2022 3:54PM By Nelda Zuniga MD ; [facility] KlonoPIN 0.5 MG Oral Tablet 10/31/2022 - 07/05/2023 Provider: CONSUELO PAINTING MD Diagnosis: Panic disorder [episodic paroxysmal anxiety] as directed 1 tab once a day as needed for severe anxiety/panic Last Documented On 07/05/2023 3:02PM By Nelda Zuniga MD ; [facility] Auvelity 45-105 MG Oral Tablet Extended Release 10/11/2022 - 01/23/2023 Provider: CONSUELO PAINTING MD Diagnosis: Major depressive disorder, recurrent, moderate as directed - 1 tab in am fo r 2 weeks then 1 tab in am and 1 tab at 3 pm Last Documented On 01/23/2023 10:56AM By Nelda Zuniga MD ; [facility] Mirtazapine 15 MG Oral Tablet 10/03/2022 - 07/27/2023 Provider: CONSUELO PAINTING MD Diagnosis: Dysthymic disord er TAKE 1 TABLET AT BEDTIME Last Documented On 07/27/2023 3:53AM By Nelda Zuniga MD ; [facility] Mydayis 37.5 MG Oral Capsule Extended Release 24 Hour 09/26/2022 - 11/01/2022 Provider: CONSUELO ZUNIGA MD Diagnosis: Attention-defici t hyperactivity disorder, unspecified type 1 Capsule every morning Last Documented On 11/01/2022 8:41AM By Nelda Zuniga MD ; [facility] Trintellix 20 MG Oral Tablet 09/20/2022 - 09/21/2022 P rovider: Diagnosis: Major depressive disorder, recurrent, moderate 1 tablet every morning Last Documented On 09/21/2022 11:11AM By SANDEE KAUR ; [facility] Atenolol 25 MG Oral Tablet 09/20/2022 - 09/21/2022 Pro vider: Diagnosis: Generalized anxi ety disorder 1 tablet three times a day Last Documented On 09/21/2022 11:11AM By SANDEE KAUR ; [facility] Trintellix 20 MG Oral Tablet 09/20/2022 - 09/15/2023 Provider: CONSUELO ZUNIGA MD Diagnosis: Major depressive disorder, recurrent, moderate 1 tablet every morning Last Documented On 09/20/2022 3:33PM By Nelda Zuniga MD ; [facility] Atenolol 25 MG Oral Tablet 09/20/2022 - 05/16/2023 Provider: CONSUELO ZUNIGA MD Diagnosis: Generalized anxi ety disorder One tablet three times a day Last Documented On 05/16/2023 12:20PM By Nelda Zuniga MD ; [facility] KlonoPIN 0.5 MG Oral Tablet 08/23/2022 - 10/31/2022 Provider: CONSUELO PAINTING MD Diagnosis: Panic disorder [episodic paroxysmal anxiety] as directed 1 tab once a day as needed for severe anxiety/panic Last Documented On 10/31/2022 4:51PM By Nelda Zuniga MD ; [facility] Mydayis 37.5 MG Oral Capsule Extended Release 24 Hour 08/23/2022 - 09/26/2022 Provider: CONSUELO ZUNIGA MD Diagnosis: Attention-defici t hyperactivity disorder, unspecified type 1 Capsule every morning Last Documented On 09/26/2022 1:59PM By Nelda Zuniga MD ; [facility] Mirtazapine 15 MG Oral Tablet 07/22/2022 - 10/03/2022 Provider: CONSUELO PAINTING MD Diagnosis: Dysthymic disord er One tablet at bed time Last Documented On 10/03/2022 12:53PM By Nelda Zuniga MD ; [facility] Mydayis 37.5 MG Oral Capsule Extended Release 24 Hour 07/12/2022 - 08/23/2022 Provider: CONSUELO ZUNIGA MD Diagnosis: Attention-defici t hyperactivity disorder, unspecified type 1 Capsule every morning Last Documented On 08/23/2022 8:07AM By Nelda Zuniga MD ; [facility] Mydayis 37.5 MG OR CP24 06/10/2022 - 07/12/2022 Provider: CONSUELO ZUNIGA MD Diagnosis: Attention-defici t hyperactivity disorder, unspecified type 1 Capsule every morning Last Documented On 07/12/2022 5:46PM By Nelda Zuniga MD ; [facility] traZODone HCl 100 MG OR TABS 05/23/2022 - 11/25/2022 Provider: CONSUELO ZUNIGA MD Diagnosis: Psychophysiologi c insomnia TAKE ONE AND ONE-HALF TABLET S AT BEDTIME DIRECTED Last Documented On 11/25/2022 4:44PM By SIMONA DOUGLAS ; [facility] Atenolol 25 MG OR TABS 05/16/2022 - 09/21/2022 Provider: CONSUELO ZUNIGA MD Diagnosis: Generalized anxi ety disorder One tablet three times a day Last Documented On 09/21/2022 11:10AM By SANDEE KAUR ; [facility] Modafinil 200 MG OR TABS 05/16/2022 - 07/26/2023 Provider: CONSUELO ZUNIGA MD Diagnosis: Obstructive slee p apnea (adult) (pediatric) as directed - 1 tab in am, 1 tab at noon Last Documented On 07/26/2023 5:38PM By Nelda Zuniga MD ; [facility] KlonoPIN 0.5 MG OR TABS 05/16/2022 - 08/23/2022 Provider: CONSUELO PAINTING MD Diagnosis: Panic disorder [episodic paroxysmal anxiety] as directed 1 tab once a day as needed for severe anxiety/panic Last Documented On 08/23/2022 8:02AM By Nelda Zuniga MD ; [facility] Modafinil 200 MG OR TABS 05/12/2022 - 05/16/2022 Provider: CONSUELO ZUNIGA MD Diagnosis: Major depressive disorder, recurrent, moderate 1 tablet every morning Last Documented On 07/09/2022 5:37PM By Nelda Zuniga MD ; [facility] Mydayis 37.5 MG OR CP24 05/06/2022 - 06/10/2022 Provider: CONSUELO ZUNIGA MD Diagnosis: Attention-defici t hyperactivity disorder, unspecified type 1 Capsule every morning Last Documented On 07/09/2022 5:37PM By Nedla Zuniga MD ; [facility] Modafinil 200 MG OR TABS 04/11/2022 - 05/12/2022 Provider: CONSUELO ZUNIGA MD Diagnosis: Major depressive disorder, recurrent, moderate 1 tablet every morning Last Documented On 07/09/2022 5:37PM By Nelda Zuniga MD ; [facility] Mydayis 37.5 MG OR CP24 03/31/2022 - 05/06/2022 Provider: CONSUELO ZUNIGA MD Diagnosis: Attention-defici t hyperactivity disorder, unspecified type 1 Capsule every morning Last Documented On 07/09/2022 5:37PM By Nelda Zuniga MD ; [facility] KlonoPIN 0.5 MG OR TABS 03/08/2022 - 05/16/2022 Provider: CONSUELO PAINTING MD Diagnosis: Panic disorder [episodic paroxysmal anxiety] as directed 1 tab 2 x a day as needed for anxiety Last Documented On 07/09/2022 5:37PM By Nelda Zuniga MD ; [facility] Mirtazapine 15 MG OR TABS 03/02/2022 - 07/22/2022 Provider: CONSUELO PAINTING MD Diagnosis: Dysthymic disord er One tablet at bed time Last Documented On 07/22/2022 4:30PM By Nelda Zuniga MD ; [facility] Remeron 15 MG OR TABS 03/02/2022 - 10/20/2022 Provider: CONSUELO PAINTING MD Diagnosis: Generalized anxi ety disorder One tablet at bed time Last Documented On 10/20/2022 4:51PM By SANDEE KAUR ; [facility] Mydayis 37.5 MG OR CP24 02/17/2022 - 03/31/2022 Provider: CONSUELO ZUNIGA MD Diagnosis: Attention-defici t hyperactivity disorder, unspecified type 1 Capsule every morning Last Documented On 07/09/2022 5:37PM By Nelda Zuniga MD ; [facility] KlonoPIN 0.5 MG OR TABS 01/31/2022 - 03/01/2022 Provider: CONSUELO PAINTING MD Diagnosis: Panic disorder [episodic paroxysmal anxiety] as directed 1 tab 2 x a day as needed for anxiety Last Documented On 07/09/2022 5:37PM By Nelda Zuniga MD ; [facility] Mydayis 37.5 MG OR CP24 01/11/2022 - 02/17/2022 Provider: CONSUELO ZUNIGA MD Diagnosis: Attention-defici t hyperactivity disorder, unspecified type 1 Capsule every morning Last Documented On 07/09/2022 5:37PM By Nelda Zuniga MD ; [facility] Mydayis 37.5 MG OR CP24 12/07/2021 - 01/11/2022 Provider: CONSUELO ZUNIGA MD Diagnosis: Attention-defici t hyperactivity disorder, unspecified type 1 Capsule every morning Last Documented On 07/09/2022 5:37PM By Nelda Zuniga MD ; [facility] busPIRone HCl 15 MG OR TABS 11/11/2021 - 06/22/2023 Provider: CONSUELO ZUNIGA MD Diagnosis: Generalized anxi ety disorder TAKE 1 TABLET FOUR TIMES A DAY Last Documented On 06/22/2023 2:11PM By Nelda Zuniga MD ; [facility] buPROPion HCl ER (XL) 150 MG OR TB24 11/11/2021 - 07/26/2023 Provider: CONSUELO ZUNIGA MD Diagnosis: Major depressive disorder, recurrent, moderate TAKE 3 TABLETS IN THE MORNING DIRECTED Last Documented On 07/26/2023 5:40PM By Nelda Zuniga MD ; [facility] Mydayis 37.5 MG OR CP24 10/28/2021 - 12/07/2021 Provider: CONSUELO ZUNIGA MD Diagnosis: Attention-defici t hyperactivity disorder, unspecified type 1 Capsule every morning Last Documented On 07/09/2022 5:37PM By Nelda Zuniga MD ; [facility] Mydayis 37.5 MG OR CP24 09/22/2021 - 10/28/2021 Provider: CONSUELO ZUNIGA MD Diagnosis: Attention-defici t hyperactivity disorder, unspecified type 1 Capsule every morning Last Documented On 07/09/2022 5:37PM By Nelda Zuniga MD ; [facility] Viibryd 40 MG OR TABS 08/20/2021 - 11/25/2022 Provider: CONSUELO PAINTING MD Diagnosis: Major depressive disorder, recurrent, unspecified 1 tablet every morning with food Last Documented On 11/25/2022 4:42PM By SIMONA DOUGLAS ; [facility] Trintellix 20 MG OR TABS 08/20/2021 - 09/21/2022 Provi gerald: CONSUELO ZUNIGA MD Diagnosis: TAKE 1 TABLET EVERY MORNING Last Documented On 09/21/2022 11:11AM By SANDEE KAUR ; [facility] Mydayis 37.5 MG OR CP24 08/20/2021 - 09/22/2021 Provider: CONSUELO ZUNIGA MD Diagnosis: Attention-defici t hyperactivity disorder, unspecified type 1 Capsule every morning Last Documented On 07/09/2022 5:37PM By Nelda Zuniga MD ; [facility] Atenolol 25 MG OR TABS 08/02/2021 - 05/16/2022 Provider: CONSUELO ZUNIGA MD Diagnosis: Generalized anxi ety disorder TAKE 1 TABLET TWICE A DAY Last Documented On 07/09/2022 5:37PM By Nelda Zuniga MD ; [facility] Mydayis 37.5 MG OR CP24 07/16/2021 - 08/20/2021 Provider: CONSUELO ZUNIGA MD Diagnosis: Attention-defici t hyperactivity disorder, unspecified type 1 Capsule every morning Last Documented On 07/09/2022 5:37PM By Nelda Zuniga MD ; [facility] KlonoPIN 0.5 MG OR TABS 06/11/2021 - 01/31/2022 Provider: CONSUELO PAINTING MD Diagnosis: Panic disorder [episodic paroxysmal anxiety] as directed 1 tab 2 x a day as needed for anxiety Last Documented On 07/09/2022 5:37PM By Nelda Zuniga MD ; [facility] Mydayis 37.5 MG OR CP24 06/11/2021 - 07/16/2021 Provider: CONSUELO ZUNIGA MD Diagnosis: Attention-defici t hyperactivity disorder, unspecified type 1 Capsule every morning Last Documented On 07/09/2022 5:37PM By Nelda Zuniga MD ; [facility] Mydayis 37.5 MG OR CP24 05/07/2021 - 06/11/2021 Provider: CONSUELO ZUNIGA MD Diagnosis: Attention-defici t hyperactivity disorder, unspecified type 1 Capsule every morning Last Documented On 07/09/2022 5:37PM By Nelda Zuniga MD ; [facility] Rexulti 1 MG OR TABS 04/06/2021 - 07/27/2023 Provider: CONSUELO ZUNIGA MD Diagnosis: Major depressive disorder, recurrent, moderate One tablet daily Last Documented On 07/27/2023 3:51AM By Nelda Zuniga MD ; [facility] Rexulti 1 MG OR TABS 04/06/2021 - 11/16/2021 Provider: Diagnosis: Major depressive disorder, recurrent, moderate 1 tablet daily Last Documented On 07/09/2022 5:37PM By SANDEE KAUR ; [facility] Rexulti 1 MG OR TABS 04/05/2021 - 11/16/2021 Provider: CONSUELO ZUNIGA MD Diagnosis: Major depressive disorder, recurrent, moderate TAKE 1 TABLET DAILY Last Documented On 07/09/2022 5:37PM By Nelda Zuniga MD ; [facility] Mydayis 37.5 MG OR CP24 03/30/2021 - 05/07/2021 Provider: CONSUELO ZUNIGA MD Diagnosis: Attention-defici t hyperactivity disorder, unspecified type 1 Capsule every morning Last Documented On 07/09/2022 5:37PM By Nelda Zuniga MD ; [facility] Atenolol 25 MG OR TABS 03/25/2021 - 08/02/2021 Provide r: CONSUELO ZUNIGA MD Diagnosis: TAKE 1 TABLET TWICE A DAY Last Documented On 07/09/2022 5:37PM By Nelda Zuniga MD ; [facility] traZODone HCl 100 MG OR TABS 03/01/2021 - 05/23/2022 Provider: CONSUELO ZUNIGA MD Diagnosis: Psychophysiologi c insomnia TAKE ONE AND ONE-HALF TABLET S AT BEDTIME DIRECTED Last Documented On 07/09/2022 5:37PM By Nelda Zuniga MD ; [facility] Mydayis 37.5 MG OR CP24 02/26/2021 - 03/25/2021 Provid er: CONSUELO ZUNIGA MD Diagnosis: 1 Capsule every morning Last Documented On 07/09/2022 5:37PM By Nelda Zuniga MD ; [facility] Sunosi 75 MG OR TABS 02/01/2021 - 03/03/2021 Provider: CONSUELO ZUNIGA MD Diagnosis: Narcolepsy witho ut cataplexy 1 tablet every morning Last Documented On 07/09/2022 5:37PM By Nelda Zuniga MD ; [facility] Rexulti 2 MG OR TABS 02/01/2021 - 03/03/2021 Provider: CONSUELO ZUNIGA MD Diagnosis: Major depressive disorder, recurrent, moderate One tablet daily Last Documented On 07/09/2022 5:37PM By Nelda Zuniag MD ; [facility] KlonoPIN 0.5 MG OR TABS 01/22/2021 - 06/11/2021 Provider: CONSUELO PAINTING MD Diagnosis: Panic disorder [episodic paroxysmal anxiety] as directed 1 tab 2 x a day as needed for anxiety Last Documented On 07/09/2022 5:37PM By Nelda Zuniga MD ; [facility] Mydayis 37.5 MG OR CP24 01/22/2021 - 02/26/2021 Provid er: CONSUELO ZUNIGA MD Diagnosis: 1 Capsule every morning Last Documented On 07/09/2022 5:37PM By Nelda Zuniga MD ; [facility] Mydayis 37.5 MG OR CP24 12/21/2020 - 01/22/2021 Provid er: CONSUELO ZUNIGA MD Diagnosis: 1 Capsule every morning Last Documented On 07/09/2022 5:37PM By Nelda Zuniga MD ; [facility] Mydayis 37.5 MG OR CP24 11/17/2020 - 12/21/2020 Provid er: OCNSUELO ZUNIGA MD Diagnosis: 1 Capsule every morning Last Documented On 07/09/2022 5:37PM By Nelda Zuniga MD ; [facility] busPIRone HCl 15 MG OR TABS 11/16/2020 - 11/11/2021 Provider: CONSUELO ZUNIGA MD Diagnosis: Generalized anxi ety disorder TAKE 1 TABLET FOUR TIMES A DAY Last Documented On 07/09/2022 5:37PM By Nelda Zuniga MD ; [facility] buPROPion HCl ER (XL) 150 MG OR TB24 11/16/2020 - 11/11/2021 Provider: CONSUELO PAINTING MD Diagnosis: TAKE 3 TABLETS IN THE MORNING DIRECTED Last Documented On 07/09/2022 5:37PM By Nelda Zuniga MD ; [facility] Mydayis 37.5 MG OR CP24 2020 - 11/17/2020 Provid er: CONSUELO ZUNIGA MD Diagnosis: 1 Capsule every morning Last Documented On 07/09/2022 5:37PM By Nelda Zuniga MD ; [facility] Mydayis 37.5 MG OR CP24 09/16/2020 - 2020 Provid er: CONSUELO ZUNIGA MD Diagnosis: 1 Capsule every morning Last Documented On 07/09/2022 5:37PM By Nelda Zuniga MD ; [facility] Mydayis 37.5 MG OR CP24 08/12/2020 - 09/16/2020 Provider: CONSUELO ZUNIGA MD Diagnosis: Attention-defici t hyperactivity disorder, unspecified type 1 Capsule every morning Last Documented On 07/09/2022 5:37PM By Nelda Zuniga MD ; [facility] Atenolol 25 MG OR TABS 07/10/2020 - 03/25/2021 Provide r: CONSUELO ZUNIGA MD Diagnosis: TAKE 1 TABLET TWICE A DAY Last Documented On 07/09/2022 5:37PM By Nelda Zuniga MD ; [facility] Trintellix 20 MG OR TABS 07/10/2020 - 08/20/2021 Provi gerald: CONSUELO ZUNIGA MD Diagnosis: 1 tablet every morning Last Documented On 07/09/2022 5:37PM By Nelda Zuniga MD ; [facility] Viibryd 40 MG OR TABS 07/10/2020 - 08/20/2021 Provider: CONSUELO PAINTING MD Diagnosis: Major depressive disorder, recurrent, unspecified TAKE 1 TABLET EVERY MORNING WITH FOOD Last Documented On 07/09/2022 5:37PM By Nelda Zuniga MD ; [facility] Mydayis 37.5 MG OR CP24 07/09/2020 - 08/12/2020 Provider: CONSUELO ZUNIGA MD Diagnosis: Attention-defici t hyperactivity disorder, unspecified type 1 Capsule every morning Last Documented On 07/09/2022 5:37PM By Nelda Zuniga MD ; [facility] Mydayis 37.5 MG OR CP24 06/11/2020 - 07/09/2020 Provider: CONSUELO ZUNIGA MD Diagnosis: Attention-defici t hyperactivity disorder, unspecified type 1 Capsule every morning Last Documented On 07/09/2022 5:37PM By Nelda Zuniga MD ; [facility] KlonoPIN 0.5 MG OR TABS 06/11/2020 - 01/22/2021 Provider: CONSUELO PAINTING MD Diagnosis: Panic disorder [episodic paroxysmal anxiety] as directed 1 tab 2 x a day as needed for anxiety Last Documented On 07/09/2022 5:37PM By Nelda Zuniga MD ; [facility] Mydayis 37.5 MG OR CP24 05/04/2020 - 06/11/2020 Provider: CONSUELO ZUNIGA MD Diagnosis: Attention-defici t hyperactivity disorder, unspecified type 1 Capsule every morning Last Documented On 07/09/2022 5:37PM By Nelda Zuniga MD ; [facility] Rexulti 1 MG OR TABS 04/16/2020 - 03/25/2021 Provider: CONSUELO ZUNIGA MD Diagnosis: Major depressive disorder, recurrent, moderate TAKE 1 TABLET DAILY Last Documented On 07/09/2022 5:37PM By Nleda Zuniga MD ; [facility] Mydayis 37.5 MG OR CP24 03/31/2020 - 05/04/2020 Provider: CONSUELO ZUNIGA MD Diagnosis: Attention-defici t hyperactivity disorder, unspecified type 1 Capsule every morning Last Documented On 07/09/2022 5:37PM By Nelda Zuniga MD ; [facility] Deplin 15 15-90.314 MG OR CAPS 03/16/2020 - 08/02/2021 Provider: CONSUELO ZUNIGA MD Diagnosis: Major depressive disorder, recurrent, unspecified TAKE 1 CAPSULE BY MOUTH EVER Y MORNING DIRECTED Last Documented On 07/09/2022 5:37PM By Nelda Zuniga MD ; [facility] traZODone HCl 100 MG OR TABS 02/24/2020 - 03/01/2021 Provider: COSNUELO ZUNIGA MD Diagnosis: Psychophysiologi c insomnia TAKE ONE AND ONE-HALF TABLET S AT BEDTIME DIRECTED Last Documented On 07/09/2022 5:37PM By Nelda Zuniga MD ; [facility] Mydayis 37.5 MG OR CP24 02/24/2020 - 03/31/2020 Provider: CONSUELO ZUNIGA MD Diagnosis: Attention-defici t hyperactivity disorder, unspecified type 1 Capsule every morning Last Documented On 07/09/2022 5:37PM By Nelda Zuniga MD ; [facility] Mydayis 37.5 MG OR CP24 01/29/2020 - 02/24/2020 Provider: CONSUELO ZUNIGA MD Diagnosis: Attention-defici t hyperactivity disorder, unspecified type 1 Capsule every morning Last Documented On 07/09/2022 5:37PM By Nelda Zuniga MD ; [facility] Mydayis 37.5 MG OR CP24 12/23/2019 - 01/29/2020 Provider: CONSUELO ZUNIGA MD Diagnosis: Attention-defici t hyperactivity disorder, unspecified type 1 Capsule every morning Last Documented On 07/09/2022 5:37PM By Nelda Zuniga MD ; [facility] Mydayis 37.5 MG OR CP24 11/19/2019 - 12/23/2019 Provider: CONSUELO ZUNIGA MD Diagnosis: Attention-defici t hyperactivity disorder, unspecified type 1 Capsule every morning Last Documented On 07/09/2022 5:37PM By Nelda Zuniga MD ; [facility] Mydayis 37.5 MG OR CP24 11/19/2019 - 11/19/2019 Provider: CONSUELO ZUNIGA MD Diagnosis: Attention-defici t hyperactivity disorder, unspecified type 1 Capsule every morning Last Documented On 07/09/2022 5:37PM By Nelda Zuniga MD ; [facility] Atenolol 25 MG OR TABS 11/10/2019 - 09/21/2022 Provider: CONSUELO ZUNIGA MD Diagnosis: Generalized anxi ety disorder One tablet twice a day Last Documented On 09/21/2022 11:11AM By SANDEE KAUR ; [facility] busPIRone HCl 15 MG OR TABS 10/24/2019 - 11/16/2020 Provider: CONSUELO ZUNIGA MD Diagnosis: Generalized anxi ety disorder TAKE 1 TABLET FOUR TIMES A DAY Last Documented On 07/09/2022 5:37PM By Nelda Zuniga MD ; [facility] buPROPion HCl ER (XL) 150 MG OR TB24 10/24/2019 - 11/25/2022 Provider: CONSUELO ZUNIGA MD Diagnosis: Major depressive disorder, recurrent, moderate TAKE 3 TABLETS IN THE MORNING DIRECTED Last Documented On 11/25/2022 4:43PM By SIMONA DOUGLAS ; [facility] Mydayis 37.5 MG OR CP24 10/23/2019 - 11/19/2019 Provider: CONSUELO ZUNIGA MD Diagnosis: Attention-defici t hyperactivity disorder, unspecified type 1 Capsule every morning Last Documented On 07/09/2022 5:37PM By Nelda Zuniga MD ; [facility] Mydayis 37.5 MG OR CP24 09/09/2019 - 10/23/2019 Provider: CONSUELO ZUNIGA MD Diagnosis: Attention-defici t hyperactivity disorder, unspecified type 1 Capsule every morning Last Documented On 07/09/2022 5:37PM By Nedla Zuniga MD ; [facility] Mydayis 25 MG OR CP24 08/30/2019 - 10/23/2019 Provider: CONSUELO ZUNIGA MD Diagnosis: Attention-defici t hyperactivity disorder, unspecified type 1 Capsule every morning Last Documented On 07/09/2022 5:37PM By Nelda Zuniga MD ; [facility] Mydayis 25 MG OR CP24 07/26/2019 - 08/30/2019 Provider: CONSUELO ZUNIGA MD Diagnosis: Attention-defici t hyperactivity disorder, unspecified type 1 Capsule every morning Last Documented On 07/09/2022 5:37PM By Nelda Zuniga MD ; [facility] Trintellix 20 MG OR TABS 07/01/2019 - 11/25/2022 Provider: CONSUELO PAINTING MD Diagnosis: Dysthymic disord er 1 tablet every morning Last Documented On 11/25/2022 4:42PM By SIMONA DOUGLAS ; [facility] Viibryd 40 MG OR TABS 07/01/2019 - 07/10/2020 Provider: CONSUELO PAINTING MD Diagnosis: Major depressive disorder, recurrent, unspecified TAKE 1 TABLET EVERY MORNING WITH FOOD Last Documented On 07/09/2022 5:37PM By Nelda Zuniga MD ; [facility] Mydayis 25 MG OR CP24 06/25/2019 - 07/26/2019 Provider: CONSUELO ZUNIGA MD Diagnosis: Attention-defici t hyperactivity disorder, unspecified type 1 Capsule every morning Last Documented On 07/09/2022 5:37PM By Nelda Zuniga MD ; [facility] buPROPion HCl ER (XL) 150 MG OR TB24 06/03/2019 - 10/24/2019 Provider: CONSUELO ZUNIGA MD Diagnosis: Major depressive disorder, recurrent, moderate TAKE 3 TABLETS IN THE MORNING DIRECTED Last Documented On 07/09/2022 5:37PM By Nelda Zuniga MD ; [facility] buPROPion HCl ER (XL) 150 MG OR TB24 06/01/2019 - 06/03/2019 Provider: CONSUELO ZUNIGA MD Diagnosis: Major depressive disorder, recurrent, moderate as directed 3 tablets in am Last Documented On 07/09/2022 5:37PM By Nelda Zuniga MD ; [facility] KlonoPIN 0.5 MG OR TABS 05/23/2019 - 06/11/2020 Provider: CONSUELO PAINTING MD Diagnosis: Panic disorder [episodic paroxysmal anxiety] as directed 1 tab 2 x a day as needed for anxiety Last Documented On 07/09/2022 5:37PM By Nelda Zuniga MD ; [facility] Deplin 15 15-90.314 MG OR CAPS 05/09/2019 - 03/16/2020 Provider: CONSUELO ZUNIGA MD Diagnosis: Major depressive disorder, recurrent, unspecified TAKE 1 CAPSULE BY MOUTH EVER Y MORNING DIRECTED Last Documented On 07/09/2022 5:37PM By Nelda Zuniga MD ; [facility] Mydayis 25 MG OR CP24 05/07/2019 - 06/25/2019 Provider: CONSUELO ZUNIGA MD Diagnosis: Attention-defici t hyperactivity disorder, unspecified type 1 Capsule every morning Last Documented On 07/09/2022 5:37PM By Nelda Zuniga MD ; [facility] Mydayis 25 MG OR CP24 04/22/2019 - 05/07/2019 Provider: CONSUELO ZUNIGA MD Diagnosis: Attention-defici t hyperactivity disorder, unspecified type 1 Capsule every morning Last Documented On 07/09/2022 5:37PM By Nelda Zuniga MD ; [facility] Rexulti 1 MG OR TABS 04/08/2019 - 04/16/2020 Provider: CONSUELO ZUNIGA MD Diagnosis: Major depressive disorder, recurrent, moderate One tablet daily Last Documented On 07/09/2022 5:37PM By Nelda Zuniga MD ; [facility] Mydayis 25 MG OR CP24 03/21/2019 - 04/22/2019 Provider: CONSUELO ZUNIGA MD Diagnosis: Attention-defici t hyperactivity disorder, unspecified type 1 Capsule every morning Last Documented On 07/09/2022 5:37PM By Nelda Zuniga MD ; [facility] Atenolol 25 MG OR TABS 03/18/2019 - 09/09/2019 Provider: CONSUELO ZUNIGA MD Diagnosis: Generalized anxi ety disorder One tablet twice a day Last Documented On 07/09/2022 5:37PM By Nelda Zuniga MD ; [facility] Rexulti 1 MG OR TABS 03/18/2019 - 04/08/2019 Provider: CONSUELO ZUNIGA MD Diagnosis: Major depressive disorder, recurrent, moderate One tablet daily Last Documented On 07/09/2022 5:37PM By Nelda Zuniga MD ; [facility] Viibryd 40 MG OR TABS 02/25/2019 - 07/01/2019 Provider: CONSUELO PAINTING MD Diagnosis: Major depressive disorder, recurrent, unspecified TAKE 1 TABLET EVERY MORNING WITH FOOD Last Documented On 07/09/2022 5:37PM By Nelda Zuniga MD ; [facility] Trintellix 20 MG OR TABS 02/25/2019 - 07/01/2019 Provider: CONSUELO PAINTING MD Diagnosis: Dysthymic disord er 1 tablet every morning Last Documented On 07/09/2022 5:37PM By Nelda Zuniga MD ; [facility] Mydayis 25 MG OR CP24 02/05/2019 - 03/21/2019 Provider: CONSUELO ZUNIGA MD Diagnosis: Attention-defici t hyperactivity disorder, unspecified type 1 Capsule every morning Last Documented On 07/09/2022 5:37PM By Nelda Zuniga MD ; [facility] Viibryd 40 MG OR TABS 01/14/2019 - 02/05/2019 Provider: CONSUELO PAINTING MD Diagnosis: Major depressive disorder, recurrent, unspecified TAKE 1 TABLET EVERY MORNING WITH FOOD Last Documented On 07/09/2022 5:37PM By Nelda Zuniga MD ; [facility] traZODone HCl 100 MG OR TABS 01/14/2019 - 02/24/2020 Provider: CONSUELO ZUNIGA MD Diagnosis: Psychophysiologi c insomnia TAKE ONE AND ONE-HALF TABLET S AT BEDTIME DIRECTED Last Documented On 07/09/2022 5:37PM By Nelda Zuniga MD ; [facility] busPIRone HCl 15 MG OR TABS 01/14/2019 - 10/24/2019 Provider: CONSUELO ZUNIGA MD Diagnosis: Generalized anxi ety disorder TAKE 1 TABLET FOUR TIMES A DAY Last Documented On 07/09/2022 5:37PM By Nelda Zuniga MD ; [facility] KlonoPIN 0.5 MG OR TABS 01/14/2019 - 05/23/2019 Provider: CONSUELO PAINTING MD Diagnosis: Panic disorder [episodic paroxysmal anxiety] as directed 1 tab 2 x a day as needed for anxiety Last Documented On 07/09/2022 5:37PM By Nelda Zuniga MD ; [facility] buPROPion HCl ER (XL) 150 MG OR TB24 01/14/2019 - 05/07/2019 Provider: CONSUELO ZUNIGA MD Diagnosis: Major depressive disorder, recurrent, moderate as directed 3 tablets in am Last Documented On 07/09/2022 5:37PM By Nelda Zuniga MD ; [facility] Rexulti 1 MG OR TABS 12/10/2018 - 03/18/2019 Provider: CONSUELO ZUNIGA MD Diagnosis: Major depressive disorder, recurrent, moderate One tablet daily -- $0 coupo n given on 12/10/18 Last Documented On 07/09/2022 5:37PM By Nelda Zuniga MD ; [facility] Mydayis 25 MG OR CP24 12/10/2018 - 02/05/2019 Provider: CONSUELO ZUNIGA MD Diagnosis: Attention-defici t hyperactivity disorder, unspecified type 1 Capsule every morning Last Documented On 07/09/2022 5:37PM By Nelda Zuniga MD ; [facility] Trintellix 20 MG OR TABS 12/10/2018 - 02/05/2019 Provider: CONSUELO PAINTING MD Diagnosis: Dysthymic disord er 1 tablet every morning Last Documented On 07/09/2022 5:37PM By Nelda Zuniga MD ; [facility] Mydayis 25 MG OR CP24 12/04/2018 - 12/10/2018 Provider: CONSUELO ZUNIGA MD Diagnosis: Attention-defici t hyperactivity disorder, unspecified type 1 Capsule every morning Last Documented On 07/09/2022 5:37PM By Nelda Zuniga MD ; [facility] Mydayis 25 MG OR CP24 10/23/2018 - 12/04/2018 Provider: CONSUELO ZUNIGA MD Diagnosis: Attention-defici t hyperactivity disorder, unspecified type 1 Capsule every morning Last Documented On 07/09/2022 5:37PM By Nelda Zuniga MD ; [facility] Trintellix 20 MG OR TABS 10/23/2018 - 12/10/2018 Provider: CONSUELO PAINTING MD Diagnosis: Dysthymic disord er 1 tablet every morning Last Documented On 07/09/2022 5:37PM By Nelda Zuniga MD ; [facility] Viibryd 40 MG OR TABS 10/23/2018 - 12/10/2018 Provider: CONSUELO PAINTING MD Diagnosis: Major depressive disorder, recurrent, moderate TAKE 1 TABLET EVERY MORNING WITH FOOD Last Documented On 07/09/2022 5:37PM By Nelda Zuniga MD ; [facility] traZODone HCl 100 MG OR TABS 10/23/2018 - 12/10/2018 Provider: CONSUELO ZUNIGA MD Diagnosis: Psychophysiologi c insomnia TAKE ONE AND ONE-HALF TABLET S AT BEDTIME DIRECTED Last Documented On 07/09/2022 5:37PM By Nelda Zuniga MD ; [facility] busPIRone HCl 15 MG OR TABS 10/23/2018 - 12/10/2018 Provider: CONSUELO ZUNIGA MD Diagnosis: Dissociative sharda ntity disorder TAKE 1 TABLET FOUR TIMES A DAY Last Documented On 07/09/2022 5:37PM By Nelda Zuniga MD ; [facility] Deplin 15 15-90.314 MG OR CAPS 10/23/2018 - 05/09/2019 Provider: CONSUELO ZUNIGA MD Diagnosis: Major depressive disorder, recurrent, unspecified as directed -- 1 cap in am Last Documented On 07/09/2022 5:37PM By Nelda Zuniga MD ; [facility] Atenolol 25 MG OR TABS 10/23/2018 - 03/18/2019 Provider: CONSUELO ZUNIGA MD Diagnosis: Generalized anxi ety disorder One tablet twice a day Last Documented On 07/09/2022 5:37PM By Nelda Zuniga MD ; [facility] buPROPion HCl ER (XL) 150 MG OR TB24 10/23/2018 - 12/10/2018 Provider: CONSUELO ZUNIGA MD Diagnosis: Major depressive disorder, recurrent, unspecified as directed 3 tablets in am Last Documented On 07/09/2022 5:37PM By Nelda Zuniga MD ; [facility] KlonoPIN 0.5 MG OR TABS 10/23/2018 - 12/10/2018 Provider: CONSUELO PAINTING MD Diagnosis: Panic disorder [episodic paroxysmal anxiety] as directed 1 tab 2 x a day as needed for anxiety Last Documented On 07/09/2022 5:37PM By Nelda Zuniga MD ; [facility] Rexulti 0.5 MG OR TABS 10/23/2018 - 02/05/2019 Provider: CONSUELO ZUNIGA MD Diagnosis: Major depressive disorder, recurrent, moderate as directed -- 0.5 mg a day for 1 week then 1 mg a day thereafter given 6 weeks samples Last Documented On 07/09/2022 5:37PM By Nelda Zuniga MD ; [facility] Mydayis 25 MG OR CP24 09/12/2018 - 10/23/2018 Provider: CONSUELO ZUNIGA MD Diagnosis: Attention-defici t hyperactivity disorder, unspecified type 1 Capsule every morning Last Documented On 07/09/2022 5:37PM By Nelda Zuniga MD ; [facility] KlonoPIN 0.5 MG OR TABS 09/12/2018 - 10/23/2018 Provider: CONSUELO PAINTING MD Diagnosis: Panic disorder [episodic paroxysmal anxiety] as directed 1 tab 2 x a day as needed for anxiety Last Documented On 07/09/2022 5:37PM By Nelda Zuniga MD ; [facility] Mydayis 25 MG OR CP24 08/23/2018 - 09/12/2018 Provider: CONSUELO ZUNIGA MD Diagnosis: Attention-defici t hyperactivity disorder, unspecified type 1 Capsule every morning Last Documented On 07/09/2022 5:37PM By Nelda Zuniga MD ; [facility] Mydayis 25 MG OR CP24 07/25/2018 - 08/23/2018 Provider: CONSUELO ZUNIGA MD Diagnosis: Attention-defici t hyperactivity disorder, unspecified type 1 Capsule every morning Last Documented On 07/09/2022 5:37PM By Nelda Zuniga MD ; [facility] Atenolol 25 MG OR TABS 07/05/2018 - 10/23/2018 Provider: CONSUELO ZUNIGA MD Diagnosis: Generalized anxi ety disorder TAKE 1 TABLET DAILY Last Documented On 07/09/2022 5:37PM By Nelda Zuniga MD ; [facility] Viibryd 40 MG OR TABS 06/11/2018 - 10/23/2018 Provider: CONSUELO PAINTING MD Diagnosis: Major depressive disorder, recurrent, moderate TAKE 1 TABLET EVERY MORNING WITH FOOD Last Documented On 07/09/2022 5:37PM By Nelda Zuniga MD ; [facility] traZODone HCl 100 MG OR TABS 06/11/2018 - 10/23/2018 Provider: CONSUELO ZUNIGA MD Diagnosis: Psychophysiologi c insomnia TAKE ONE AND ONE-HALF TABLET S AT BEDTIME DIRECTED Last Documented On 07/09/2022 5:37PM By Nelda Zuniga MD ; [facility] busPIRone HCl 15 MG OR TABS 06/11/2018 - 10/23/2018 Provider: CONSUELO ZUNIGA MD Diagnosis: Generalized anxi ety disorder TAKE 1 TABLET FOUR TIMES A DAY Last Documented On 07/09/2022 5:37PM By Nelda Zuniga MD ; [facility] Deplin 15 15-90.314 MG OR CAPS 06/11/2018 - 10/23/2018 Provider: CONSUELO ZUNIGA MD Diagnosis: Major depressive disorder, recurrent, unspecified as directed -- 1 cap in am Last Documented On 07/09/2022 5:37PM By Nelda Zuniga MD ; [facility] Trintellix 20 MG OR TABS 06/11/2018 - 10/23/2018 Provider: CONSUELO PAINTING MD Diagnosis: Dysthymic disord er 1 tablet every morning Last Documented On 07/09/2022 5:37PM By Nelda Zuniga MD ; [facility] buPROPion HCl ER (XL) 150 MG OR TB24 06/11/2018 - 10/23/2018 Provider: CONSUELO ZUNIGA MD Diagnosis: Major depressive disorder, recurrent, unspecified as directed 3 tablets in am Last Documented On 07/09/2022 5:37PM By Nelda Zuniga MD ; [facility] KlonoPIN 0.5 MG OR TABS 06/11/2018 - 09/12/2018 Provider: CONSUELO PAINTING MD Diagnosis: Panic disorder [episodic paroxysmal anxiety] as directed 1 tab 2 x a day as needed for anxiety Last Documented On 07/09/2022 5:37PM By Nelda Zuniga MD ; [facility] Mydayis 25 MG OR CP24 06/04/2018 - 07/25/2018 Provider: CONSUELO ZUNIGA MD Diagnosis: Attention-defici t hyperactivity disorder, unspecified type 1 Capsule every morning Last Documented On 07/09/2022 5:37PM By Nelda Zuniga MD ; [facility] buPROPion HCl ER (XL) 150 MG OR TB24 05/23/2018 - 06/04/2018 Provider: CONSUELO ZUNIGA MD Diagnosis: Major depressive disorder, recurrent, unspecified as directed 3 tablets in am Last Documented On 07/09/2022 5:37PM By Nelda Zuniga MD ; [facility] KlonoPIN 0.5 MG OR TABS 05/23/2018 - 06/04/2018 Provider: CONSUELO PAINTING MD Diagnosis: Panic disorder [episodic paroxysmal anxiety] as directed 1 tab 2 x a day as needed for anxiety Last Documented On 07/09/2022 5:37PM By Nelda Zuniga MD ; [facility] Mydayis 25 MG OR CP24 05/23/2018 - 06/04/2018 Provider: CONSUELO ZUNIGA MD Diagnosis: Attention-defici t hyperactivity disorder, unspecified type 1 Capsule every morning Last Documented On 07/09/2022 5:37PM By Nelda Zuniga MD ; [facility] buPROPion HCl ER (XL) 150 MG OR TB24 04/03/2018 - 05/23/2018 Provider: CONSUELO ZUNIGA MD Diagnosis: Major depressive disorder, recurrent, unspecified as directed 3 tablets in am Last Documented On 07/09/2022 5:37PM By Nelda Zuniga MD ; [facility] Trintellix 20 MG OR TABS 04/03/2018 - 06/04/2018 Provider: CONSUELO PAINTING MD Diagnosis: Dysthymic disord er 1 tablet every morning Last Documented On 07/09/2022 5:37PM By Nelda Zuniga MD ; [facility] Viibryd 40 MG OR TABS 04/03/2018 - 06/04/2018 Provider: CONSUELO PAINTING MD Diagnosis: Major depressive disorder, recurrent, moderate TAKE 1 TABLET EVERY MORNING WITH FOOD Last Documented On 07/09/2022 5:37PM By Nelda Zuniga MD ; [facility] traZODone HCl 100 MG OR TABS 04/03/2018 - 06/04/2018 Provider: CONSUELO ZUNIGA MD Diagnosis: Psychophysiologi c insomnia TAKE ONE AND ONE-HALF TABLET S AT BEDTIME DIRECTED Last Documented On 07/09/2022 5:37PM By Nelda Zuniga MD ; [facility] busPIRone HCl 15 MG OR TABS 04/03/2018 - 06/04/2018 Provider: CONSUELO ZUNIGA MD Diagnosis: Dissociative sharda ntity disorder TAKE 1 TABLET FOUR TIMES A DAY Last Documented On 07/09/2022 5:37PM By Nelda Zuniga MD ; [facility] Deplin 15 15-90.314 MG OR CAPS 04/03/2018 - 06/04/2018 Provider: CONSUELO ZUNIGA MD Diagnosis: Major depressive disorder, recurrent, unspecified as directed -- 1 cap in am Last Documented On 07/09/2022 5:37PM By Nelda Zuniga MD ; [facility] KlonoPIN 0.5 MG OR TABS 04/03/2018 - 05/23/2018 Provider: CONSUELO PAINTING MD Diagnosis: Panic disorder [episodic paroxysmal anxiety] as directed 1 tab 2 x a day as needed for anxiety Last Documented On 07/09/2022 5:37PM By Nelda Zuniga MD ; [facility] Atenolol 25 MG OR TABS 04/02/2018 - 07/05/2018 Provider: CONSUELO ZUNIGA MD Diagnosis: Generalized anxi ety disorder TAKE 1 TABLET DAILY Last Documented On 07/09/2022 5:37PM By Nelda Zuniga MD ; [facility] Mydayis 25 MG OR CP24 04/02/2018 - 05/23/2018 Provider: CONSUELO ZUNIGA MD Diagnosis: Attention-defici t hyperactivity disorder, unspecified type 1 Capsule every morning Last Documented On 07/09/2022 5:37PM By Nelda Zuniga MD ; [facility] Mydayis 25 MG OR CP24 02/27/2018 - 04/02/2018 Provider: CONSUELO ZUNIGA MD Diagnosis: Attention-defici t hyperactivity disorder, unspecified type 1 Capsule every morning Last Documented On 07/09/2022 5:37PM By Nelda Zuniga MD ; [facility] Trintellix 20 MG OR TABS 02/03/2018 - 04/02/2018 Provider: CONSUELO PAINTING MD Diagnosis: Dysthymic disord er 1 tablet every morning Last Documented On 07/09/2022 5:37PM By Nelda Zuniga MD ; [facility] buPROPion HCl ER (XL) 150 MG OR TB24 01/30/2018 - 04/02/2018 Provider: CONSUELO ZUNIGA MD Diagnosis: Major depressive disorder, recurrent, unspecified as directed 3 tablets in am Last Documented On 07/09/2022 5:37PM By Nelda Zuniga MD ; [facility] Viibryd 40 MG OR TABS 01/30/2018 - 04/02/2018 Provider: CONSUELO PAINTING MD Diagnosis: Generalized anxi ety disorder TAKE 1 TABLET EVERY MORNING WITH FOOD Last Documented On 07/09/2022 5:37PM By Nelda Zuniga MD ; [facility] Trintellix 20 MG OR TABS 01/30/2018 - 01/29/2018 Provider: CONSUELO ZUNIGA MD Diagnosis: Major depressive disorder, recurrent, moderate 1 tablet every morning Last Documented On 07/09/2022 5:37PM By Nelda Zuniga MD ; [facility] traZODone HCl 100 MG OR TABS 01/30/2018 - 04/02/2018 Provider: CONSUELO ZUNIGA MD Diagnosis: Psychophysiologi c insomnia TAKE ONE AND ONE-HALF TABLET S AT BEDTIME DIRECTED Last Documented On 07/09/2022 5:37PM By Nelda Zuniga MD ; [facility] busPIRone HCl 15 MG OR TABS 01/30/2018 - 04/02/2018 Provider: CONSUELO ZUNIGA MD Diagnosis: Generalized anxi ety disorder TAKE 1 TABLET FOUR TIMES A DAY Last Documented On 07/09/2022 5:37PM By Nelda Zuniga MD ; [facility] Deplin 15 15-90.314 MG OR CAPS 01/30/2018 - 04/02/2018 Provider: CONSUELO ZUNIGA MD Diagnosis: Major depressive disorder, recurrent, unspecified as directed -- 1 cap in am Last Documented On 07/09/2022 5:37PM By Nelda Zuniga MD ; [facility] Deplin 15 15-90.314 MG OR CAPS 01/30/2018 - 02/05/2019 Provider: CONSUELO ZUNIGA MD Diagnosis: Major depressive disorder, recurrent, moderate 1 Capsule every morning Last Documented On 07/09/2022 5:37PM By Nelda Zuniga MD ; [facility] KlonoPIN 0.5 MG OR TABS 01/29/2018 - 04/02/2018 Provider: CONSUELO PAINTING MD Diagnosis: Panic disorder [episodic paroxysmal anxiety] as directed 1 tab 2 x a day as needed for anxiety Last Documented On 07/09/2022 5:37PM By Nelda Zuniga MD ; [facility] Mydayis 25 MG OR CP24 01/29/2018 - 02/27/2018 Provider: CONSUELO ZUNIGA MD Diagnosis: Attention-defici t hyperactivity disorder, unspecified type 1 Capsule every morning Last Documented On 07/09/2022 5:37PM By Nelda Zuniga MD ; [facility] Mydayis 25 MG OR CP24 01/08/2018 - 01/29/2018 Provider: CONSUELO ZUNIGA MD Diagnosis: Attention-defici t hyperactivity disorder, unspecified type 1 Capsule every morning Last Documented On 07/09/2022 5:37PM By Nelda Zuniga MD ; [facility] Atenolol 25 MG OR TABS 01/04/2018 - 04/02/2018 Provide r: CONSUELO ZUNIGA MD Diagnosis: TAKE 1 TABLET DAILY Last Documented On 07/09/2022 5:37PM By Nelda Zuniga MD ; [facility] Mydayis 25 MG OR CP24 12/06/2017 - 01/08/2018 Provider: CONSUELO ZUNIGA MD Diagnosis: Attention-defici t hyperactivity disorder, unspecified type 1 Capsule every morning Last Documented On 07/09/2022 5:37PM By Nelda Zuniga MD ; [facility] busPIRone HCl 15 MG OR TABS 11/20/2017 - 01/29/2018 Pr ovider: CONSUELO ZUNIGA MD Diagnosis: TAKE 1 TABLET FOUR TIMES A DAY Last Documented On 07/09/2022 5:37PM By Nelda Zuniga MD ; [facility] Mydayis 25 MG OR CP24 10/31/2017 - 12/06/2017 Provider: CONSUELO ZUNIGA MD Diagnosis: Attention-defici t hyperactivity disorder, unspecified type 1 Capsule every morning Last Documented On 07/09/2022 5:37PM By Nelda Zuniga MD ; [facility] traZODone HCl 100 MG OR TABS 10/01/2017 - 01/29/2018 Provider: CONSUELO ZUNIGA MD Diagnosis: Psychophysiologi c insomnia TAKE ONE AND ONE-HALF TABLET S AT BEDTIME DIRECTED Last Documented On 07/09/2022 5:37PM By Nelda Zuniga MD ; [facility] Trintellix 20 MG OR TABS 10/01/2017 - 01/29/2018 Provider: CONSUELO ZUNIGA MD Diagnosis: Major depressive disorder, recurrent, moderate 1 tablet every morning Last Documented On 07/09/2022 5:37PM By Nelda Zuniga MD ; [facility] Viibryd 40 MG OR TABS 10/01/2017 - 01/29/2018 Provider: CONSUELO PAINTING MD Diagnosis: Major depressive disorder, recurrent, moderate TAKE 1 TABLET EVERY MORNING WITH FOOD Last Documented On 07/09/2022 5:37PM By Nelda Zuniga MD ; [facility] busPIRone HCl 15 MG OR TABS 10/01/2017 - 11/20/2017 Provider: CONSUELO ZUNIGA MD Diagnosis: Generalized anxi ety disorder as directed --1 tab 4 x a day Last Documented On 07/09/2022 5:37PM By Nelda Zuniga MD ; [facility] KlonoPIN 0.5 MG OR TABS 10/01/2017 - 01/29/2018 Provider: CONSUELO ZUNIGA MD Diagnosis: Panic disorder [episodic paroxysmal anxiety] as directed 1 tab 2 x a day as needed only for panic/anxiety -- called in 30 on 09/18/17 to [facility] Last Documented On 07/09/2022 5:37PM By Nelda Zuniga MD ; [facility] Mydayis 25 MG OR CP24 09/28/2017 - 10/31/2017 Provider: CONSUELO ZUNIGA MD Diagnosis: Attention-defici t hyperactivity disorder, unspecified type 1 Capsule every morning Last Documented On 07/09/2022 5:37PM By Nelda Zuniga MD ; [facility] KlonoPIN 0.5 MG OR TABS 09/18/2017 - 09/28/2017 Provider: CONSUELO ZUNIGA MD Diagnosis: Panic disorder [episodic paroxysmal anxiety] as directed 1 tab 2 x a day as needed only for panic/anxiety -- called in 30 on 09/18/17 to [facility] Last Documented On 07/09/2022 5:37PM By Nelda Zuniga MD ; [facility] Mydayis 25 MG OR CP24 09/18/2017 - 09/28/2017 Provider: CONSUELO ZUNIGA MD Diagnosis: Attention-defici t hyperactivity disorder, unspecified type 1 Capsule every morning Last Documented On 07/09/2022 5:37PM By Nelda Zuniga MD ; [facility] traZODone HCl 100 MG OR TABS 08/13/2017 - 09/28/2017 Tori elizalde: CONSUELO ZUNIGA MD Diagnosis: TAKE ONE AND ONE-HALF TABLETS AT BEDTIME DIRE CTED Last Documented On 07/09/2022 5:37PM By Nelda Zuniga MD ; [facility] Mydayis 25 MG OR CP24 08/11/2017 - 09/18/2017 Provider: CONSUELO ZUNIGA MD Diagnosis: Attention-defici t hyperactivity disorder, unspecified type 1 Capsule every morning Last Documented On 07/09/2022 5:37PM By Nelda Zuniga MD ; [facility] KlonoPIN 0.5 MG OR TABS 08/11/2017 - 09/18/2017 Provider: CONSUELO PAINTING MD Diagnosis: Panic disorder [episodic paroxysmal anxiety] as directed 1 tab 2 x a day as needed only for panic/anxiety -- called in 30 on 08/11/17 Last Documented On 07/09/2022 5:37PM By Nelda Zuniga MD ; [facility] Mydayis 25 MG OR CP24 07/10/2017 - 08/11/2017 Provider: CONSUELO ZUNIGA MD Diagnosis: Attention-defici t hyperactivity disorder, unspecified type 1 Capsule every morning Last Documented On 07/09/2022 5:37PM By Nelda Zuniga MD ; [facility] Viibryd 40 MG OR TABS 05/23/2017 - 09/28/2017 Provider: CONSUELO PAINTING MD Diagnosis: Major depressive disorder, recurrent, moderate TAKE 1 TABLET EVERY MORNING WITH FOOD Last Documented On 07/09/2022 5:37PM By Nelda Zuniga MD ; [facility] traZODone HCl 100 MG OR TABS 05/23/2017 - 08/13/2017 Provider: CONSUELO ZUNIGA MD Diagnosis: Psychophysiologi c insomnia TAKE ONE AND ONE-HALF TABLET S AT BEDTIME DIRECTED Last Documented On 07/09/2022 5:37PM By Nelda Zuniga MD ; [facility] busPIRone HCl 15 MG OR TABS 05/23/2017 - 09/28/2017 Provider: CONSUELO ZUNIGA MD Diagnosis: Generalized anxi ety disorder as directed --1 tab 4 x a day Last Documented On 07/09/2022 5:37PM By Nelda Zuniga MD ; [facility] Trintellix 20 MG OR TABS 05/23/2017 - 09/28/2017 Provider: CONSUELO ZUNIGA MD Diagnosis: Major depressive disorder, recurrent, moderate TAKE DIRECTED Last Documented On 07/09/2022 5:37PM By Nelda Zuniga MD ; [facility] KlonoPIN 0.5 MG OR TABS 05/23/2017 - 08/11/2017 Provider: CONSUELO PAINTING MD Diagnosis: Panic disorder [episodic paroxysmal anxiety] as directed 1 tab 2 x a day as needed only for panic/anxiety -- called in 30 on 02/15/17 -- has 20 left as of 05/22/17 Last Documented On 07/09/2022 5:37PM By Nelda Zuniga MD ; [facility] Mydayis 25 MG OR CP24 05/22/2017 - 07/10/2017 Provider: CONSUELO ZUNIGA MD Diagnosis: Attention-defici t hyperactivity disorder, unspecified type 1 Capsule every morning Last Documented On 07/09/2022 5:37PM By Nelda Zuniga MD ; [facility] buPROPion HCl ER (XL) 150 MG OR TB24 05/22/2017 - 01/29/2018 Provider: CONSUELO ZUNIGA MD Diagnosis: Major depressive disorder, recurrent, unspecified as directed 3 tablets in am Last Documented On 07/09/2022 5:37PM By Nelda Zuniga MD ; [facility] Trintellix 20 MG OR TABS 04/26/2017 - 05/22/2017 Provi gerald: CONSUELO ZUNIGA MD Diagnosis: TAKE DIRECTED Last Documented On 07/09/2022 5:37PM By Nelda Zuniga MD ; [facility] Atenolol 25 MG OR TABS 04/26/2017 - 01/04/2018 Provide r: CONSUELO ZUNIGA MD Diagnosis: TAKE 1 TABLET DAILY Last Documented On 07/09/2022 5:37PM By Nelda Zuniga MD ; [facility] Viibryd 40 MG OR TABS 04/26/2017 - 05/22/2017 Provider : CONSUELO ZUNIGA MD Diagnosis: TAKE 1 TABLET EVERY MORNING WITH FOOD Last Documented On 07/09/2022 5:37PM By Nelda Zuniga MD ; [facility] traZODone HCl 100 MG OR TABS 04/26/2017 - 05/22/2017 Tori elizalde: CONSUELO ZUNIGA MD Diagnosis: TAKE ONE AND ONE-HALF TABLETS AT BEDTIME DIRE CTED Last Documented On 07/09/2022 5:37PM By Nelda Zuniga MD ; [facility] Mydayis 25 MG OR CP24 04/25/2017 - 05/22/2017 Provider: CONSUELO ZUNIGA MD Diagnosis: Attention-defici t hyperactivity disorder, unspecified type 1 Capsule every morning Last Documented On 07/09/2022 5:37PM By Nelda Zuniga MD ; [facility] Mydayis 25 MG OR CP24 03/29/2017 - 04/25/2017 Provider: CONSUELO ZUNIGA MD Diagnosis: Attention-defici t hyperactivity disorder, unspecified type 1 Capsule every morning Last Documented On 07/09/2022 5:37PM By Nelda Zuniga MD ; [facility] KlonoPIN 0.5 MG OR TABS 02/16/2017 - 05/22/2017 Provider: CONSUELO PAINTING MD Diagnosis: Panic disorder [episodic paroxysmal anxiety] as directed 1 tab 2 x a day as needed only for panic/anxiety -- called in 30 on 02/15/17 Last Documented On 07/09/2022 5:37PM By Nelda Zuniga MD ; [facility] Mydayis 25 MG OR CP24 02/15/2017 - 03/29/2017 Provider: CONSUELO ZUNIGA MD Diagnosis: Attention-defici t hyperactivity disorder, unspecified type 1 Capsule every morning Last Documented On 07/09/2022 5:37PM By Nelda Zuniga MD ; [facility] buPROPion HCl ER (XL) 150 MG OR TB24 01/16/2017 - 05/22/2017 Provider: CONSUELO ZUNIGA MD Diagnosis: Major depressive disorder, recurrent, unspecified as directed 3 tablets in am Last Documented On 07/09/2022 5:37PM By Nelda Zuniga MD ; [facility] Trintellix 20 MG OR TABS 01/16/2017 - 04/26/2017 Provider: CONSUELO PAINTING MD Diagnosis: Dysthymic disord er One tablet daily Last Documented On 07/09/2022 5:37PM By Nelda Zuniga MD ; [facility] busPIRone HCl 15 MG OR TABS 01/16/2017 - 05/22/2017 Provider: CONSUELO ZUNIGA MD Diagnosis: Generalized anxi ety disorder as directed --1 tab 4 x a day Last Documented On 07/09/2022 5:37PM By Nelda Zuniga MD ; [facility] Viibryd 40 MG OR TABS 01/16/2017 - 04/26/2017 Provider: CONSUELO PAINTING MD Diagnosis: Major depressive disorder, recurrent, moderate 1 tablet every morning with food Last Documented On 07/09/2022 5:37PM By Nelda Zuniga MD ; [facility] Mydayis 25 MG OR CP24 01/12/2017 - 02/15/2017 Provider: CONSUELO ZUNIGA MD Diagnosis: Attention-defici t hyperactivity disorder, unspecified type 1 Capsule every morning Last Documented On 07/09/2022 5:37PM By Nelda Zuniga MD ; [facility] Mydayis 25 MG OR CP24 12/13/2016 - 01/12/2017 Provider: CONSUELO ZUNIGA MD Diagnosis: Attention-defici t hyperactivity disorder, unspecified type 1 Capsule every morning Last Documented On 07/09/2022 5:37PM By Nelda Zuniga MD ; [facility] KlonoPIN 0.5 MG OR TABS 11/11/2016 - 02/16/2017 Provider: CONSUELO PAINTING MD Diagnosis: Panic disorder [episodic paroxysmal anxiety] as directed 1 tab 2 x a day as needed only for panic/anxiety -- called in 30 on 08/24/16 -- has 7 tabs left as of 11/11/16 Last Documented On 07/09/2022 5:37PM By Nelda Zuniga MD ; [facility] buPROPion HCl ER (XL) 150 MG OR TB24 11/11/2016 - 01/12/2017 Provider: CONSUELO ZUNIGA MD Diagnosis: Major depressive disorder, recurrent, unspecified as directed 3 tablets in am Last Documented On 07/09/2022 5:37PM By Nelda Zuniga MD ; [facility] Mydayis 25 MG OR CP24 11/11/2016 - 12/13/2016 Provider: CONSUELO ZUNIGA MD Diagnosis: Attention-defici t hyperactivity disorder, unspecified type 1 Capsule every morning Last Documented On 07/09/2022 5:37PM By Nelda Zuniga MD ; [facility] Atenolol 25 MG OR TABS 11/11/2016 - 04/26/2017 Provider: CONSUELO ZUNIGA MD Diagnosis: Generalized anxi ety disorder TAKE 1 TABLET DAILY Last Documented On 07/09/2022 5:37PM By Nelda Zuniga MD ; [facility] Viibryd 40 MG OR TABS 11/11/2016 - 01/12/2017 Provider: CONSUELO PAINTING MD Diagnosis: Major depressive disorder, recurrent, moderate 1 tablet every morning with food Last Documented On 07/09/2022 5:37PM By Nelda Zuniga MD ; [facility] busPIRone HCl 15 MG OR TABS 11/11/2016 - 01/12/2017 Provider: CONSUELO ZUNIGA MD Diagnosis: Generalized anxi ety disorder as directed --1 tab 4 x a day Last Documented On 07/09/2022 5:37PM By Nelda Zuniga MD ; [facility] Nuvigil 250 MG OR TABS 11/11/2016 - 01/12/2017 Provider: CONSUELO ZUNIGA MD Diagnosis: Obstructive slee p apnea (adult) (pediatric) as directed --1 tab in am -- pt got it in 03/2016 but did not refill again Last Documented On 07/09/2022 5:37PM By Nelda Zuniga MD ; [facility] traZODone HCl 100 MG OR TABS 11/11/2016 - 04/26/2017 Provider: CONSUELO ZUNIGA MD Diagnosis: Psychophysiologi c insomnia as directed -- 1 and 1/2 tab at bedtime Last Documented On 07/09/2022 5:37PM By Nelda Zuniga MD ; [facility] Trintellix 20 MG OR TABS 11/11/2016 - 01/12/2017 Provider: CONSUELO PAINTING MD Diagnosis: Dysthymic disord er One tablet daily Last Documented On 07/09/2022 5:37PM By Nelda Zuniga MD ; [facility] buPROPion HCl ER (XL) 150 MG OR TB24 11/07/2016 - 11/11/2016 Provider: CONSUELO ZUNIGA MD Diagnosis: Major depressive disorder, recurrent, unspecified as directed 3 tablets in am Last Documented On 07/09/2022 5:37PM By Nelda Zuniga MD ; [facility] Atenolol 25 MG OR TABS 11/07/2016 - 11/11/2016 Provider: CONSUELO ZUNIGA MD Diagnosis: Generalized anxi ety disorder TAKE 1 TABLET DAILY Last Documented On 07/09/2022 5:37PM By Nelda Zuniga MD ; [facility] KlonoPIN 0.5 MG OR TABS 10/14/2016 - 11/11/2016 Provider: CONSUELO ZUNIGA MD Diagnosis: Generalized anxi ety disorder as directed 1 tab 2 x a day as needed only for panic/anxiety -- called in 30 on 08/24/16 -- has meds Last Documented On 07/09/2022 5:37PM By Nelda Zuniga MD ; [facility] buPROPion HCl ER (XL) 150 MG OR TB24 10/14/2016 - 11/07/2016 Provider: CONSUELO ZUNIGA MD Diagnosis: Major depressive disorder, recurrent, unspecified as directed 3 tablets in am Last Documented On 07/09/2022 5:37PM By Nelda Zuniga MD ; [facility] Trintellix 20 MG OR TABS 10/14/2016 - 11/11/2016 Provider: CONSUELO PAINTING MD Diagnosis: Dysthymic disord er as directed Last Documented On 07/09/2022 5:37PM By Nelda Zuniga MD ; [facility] traZODone HCl 100 MG OR TABS 10/14/2016 - 11/11/2016 Provider: CONSUELO ZUNIGA MD Diagnosis: Psychophysiologi c insomnia as directed -- 1 and 1/2 tab at bedtime Last Documented On 07/09/2022 5:37PM By Nelda Zuniga MD ; [facility] busPIRone HCl 15 MG OR TABS 10/14/2016 - 11/11/2016 Provider: CONSUELO ZUNIGA MD Diagnosis: Generalized anxi ety disorder as directed --1 tab 4 x a day Last Documented On 07/09/2022 5:37PM By Nelda Zuniga MD ; [facility] Viibryd 40 MG OR TABS 10/14/2016 - 11/11/2016 Provider: CONSUELO PAINTING MD Diagnosis: Major depressive disorder, recurrent, moderate 1 tablet every morning with food Last Documented On 07/09/2022 5:37PM By Nelda Zuniga MD ; [facility] Adderall 20 MG OR TABS 10/13/2016 - 11/11/2016 Provider: CONSUELO ZUNIGA MD Diagnosis: Attention-defici t hyperactivity disorder, unspecified type as directed --- 1 tab in am, 1 tab at noon Last Documented On 07/09/2022 5:37PM By Nelda Zuniga MD ; [facility] Mydayis 25 MG OR CP24 10/13/2016 - 11/11/2016 Provider: CONSUELO ZUNIGA MD Diagnosis: Attention-defici t hyperactivity disorder, unspecified type 1 Capsule every morning Last Documented On 07/09/2022 5:37PM By Nelda Zuniga MD ; [facility] buPROPion HCl ER (XL) 150 MG OR TB24 09/09/2016 - 10/13/2016 Provider: CONSUELO ZUNIGA MD Diagnosis: Major depressive disorder, recurrent, unspecified as directed 3 tablets in am Last Documented On 07/09/2022 5:37PM By Nelda Zuniga MD ; [facility] Adderall 20 MG OR TABS 09/09/2016 - 10/13/2016 Provider: CONSUELO ZUNIGA MD Diagnosis: Attention-defici t hyperactivity disorder, unspecified type as directed --- 1 tab in am, 1 tab at noon Last Documented On 07/09/2022 5:37PM By Nelda Zuniga MD ; [facility] KlonoPIN 0.5 MG OR TABS 09/09/2016 - 10/13/2016 Provider: CONSUELO ZUNIGA MD Diagnosis: Generalized anxi ety disorder as directed 1 tab 2 x a day as needed only for panic/anxiety -- called in on 08/24/16 Last Documented On 07/09/2022 5:37PM By Nelda Zuniga MD ; [facility] traZODone HCl 100 MG OR TABS 09/09/2016 - 10/13/2016 Provider: CONSUELO ZUNIGA MD Diagnosis: Psychophysiologi c insomnia as directed -- 1 and 1/2 tab at bedtime Last Documented On 07/09/2022 5:37PM By Nelda Zuniga MD ; [facility] Trintellix 20 MG OR TABS 09/09/2016 - 10/13/2016 Provider: CONSUELO PAINTING MD Diagnosis: Dysthymic disord er as directed Last Documented On 07/09/2022 5:37PM By Nelda Zuniga MD ; [facility] busPIRone HCl 15 MG OR TABS 09/09/2016 - 10/13/2016 Provider: CONSUELO ZUNIGA MD Diagnosis: Generalized anxi ety disorder as directed --1 tab 4 x a day Last Documented On 07/09/2022 5:37PM By Nelda Zuniga MD ; [facility] Viibryd 40 MG OR TABS 09/09/2016 - 10/13/2016 Provider: CONSUELO PAINTING MD Diagnosis: Major depressive disorder, recurrent, moderate 1 tablet every morning with food Last Documented On 07/09/2022 5:37PM By Nelda Zuniga MD ; [facility] Nuvigil 250 MG OR TABS 09/09/2016 - 11/11/2016 Provider: CONSUELO ZUNIGA MD Diagnosis: Obstructive slee p apnea (adult) (pediatric) as directed --1 tab in am -- pt got it in 03/2016 but did not refill again Last Documented On 07/09/2022 5:37PM By Nelda Zuniga MD ; [facility] KlonoPIN 0.5 MG OR TABS 08/24/2016 - 08/18/2016 Provider: CONSUELO ZUNIGA MD Diagnosis: Generalized anxi ety disorder as directed 1 tab 2 x a day as needed only for panic/anxiety -- called in 30 on 08/24/16 Last Documented On 07/09/2022 5:37PM By Nelda Zuniga MD ; [facility] Focalin 10 MG OR TABS 08/18/2016 - 11/11/2016 Provider: CONSUELO ZUNIGA MD Diagnosis: Attention-defici t hyperactivity disorder, unspecified type as directed -- 1 tab at noon Last Documented On 07/09/2022 5:37PM By Nelda Zuniga MD ; [facility] Adderall 20 MG OR TABS 08/02/2016 - 08/18/2016 Provider: CONSUELO ZUNIGA MD Diagnosis: Attention-defici t hyperactivity disorder, unspecified type as directed --- 1 tab in am, 1 tab at noon Last Documented On 07/09/2022 5:37PM By Nelda Zuniga MD ; [facility] buPROPion HCl ER (XL) 150 MG OR TB24 07/13/2016 - 08/18/2016 Provider: CONSUELO ZUNIGA MD Diagnosis: Major depressive disorder, recurrent, unspecified as directed 3 tablets in am Last Documented On 07/09/2022 5:37PM By Nelda Zuniga MD ; [facility] KlonoPIN 0.5 MG OR TABS 06/19/2016 - 08/24/2016 Provider: CONSUELO ZUNIGA MD Diagnosis: Generalized anxi ety disorder as directed 1 tab 2 x a day as needed only for panic/anxiety --used it only 4 x as of 05/06/16 Last Documented On 07/09/2022 5:37PM By Nelda Zuniga MD ; [facility] buPROPion HCl ER (XL) 150 MG OR TB24 06/19/2016 - 07/13/2016 Provider: CONSUELO ZUNIGA MD Diagnosis: Major depressive disorder, recurrent, unspecified as directed 3 tablets in am Last Documented On 07/09/2022 5:37PM By Nelda Zuniga MD ; [facility] Nuvigil 250 MG OR TABS 06/19/2016 - 08/18/2016 Provider: CONSUELO ZUNIGA MD Diagnosis: Obstructive slee p apnea (adult) (pediatric) as directed --1 tab in am Last Documented On 07/09/2022 5:37PM By Nelda Zuniga MD ; [facility] Trintellix 20 MG OR TABS 06/19/2016 - 08/18/2016 Provider: CONSUELO PAINTING MD Diagnosis: Dysthymic disord er as directed Last Documented On 07/09/2022 5:37PM By Nelda Zuniga MD ; [facility] busPIRone HCl 15 MG OR TABS 06/19/2016 - 08/18/2016 Provider: CONSUELO ZUNIGA MD Diagnosis: Generalized anxi ety disorder as directed --1 tab 4 x a day Last Documented On 07/09/2022 5:37PM By Nelda Zuniga MD ; [facility] Viibryd 40 MG OR TABS 06/19/2016 - 08/18/2016 Provider: CONSUELO PAINTING MD Diagnosis: Major depressive disorder, recurrent, moderate 1 tablet every morning with food Last Documented On 07/09/2022 5:37PM By Nelda Zuniga MD ; [facility] Adderall 20 MG OR TABS 06/16/2016 - 08/02/2016 Provider: CONSUELO ZUNIGA MD Diagnosis: Attention-defici t hyperactivity disorder, unspecified type as directed --- 1 tab in am, 1 tab at noon Last Documented On 07/09/2022 5:37PM By Nelda Zuniga MD ; [facility] Adderall 20 MG OR TABS 05/06/2016 - 06/16/2016 Provider: CONSUELO ZUNIGA MD Diagnosis: Attention-defici t hyperactivity disorder, unspecified type as directed --- 1 tab in am, 1 tab at noon Last Documented On 07/09/2022 5:37PM By Nelda Zuniga MD ; [facility] Belsomra 15 MG OR TABS 05/06/2016 - 08/18/2016 Provider: CONSUELO ZUNIGA MD Diagnosis: Psychophysiologi c insomnia One tablet at bed time -- gi roney 15 tabs samples on 05/06/16 Last Documented On 07/09/2022 5:37PM By Nelda Zuniga MD ; [facility] Viibryd 40 MG OR TABS 04/26/2016 - 05/06/2016 Provider : CONSUELO ZUNIGA MD Diagnosis: Dysthymic disord er 1 tablet every morning with food Last Documented On 07/09/2022 5:37PM By Nelda Zuniga MD ; [facility] Atenolol 25 MG OR TABS 04/26/2016 - 11/07/2016 Provider: CONSUELO ZUNIGA MD Diagnosis: Generalized anxi ety disorder TAKE 1 TABLET DAILY Last Documented On 07/09/2022 5:37PM By Nelda Zuniga MD ; [facility] Belsomra 10 MG OR TABS 03/26/2016 - 06/19/2016 Provider: CONSUELO ZUNIGA MD Diagnosis: Psychophysiologi c insomnia as directed --10 mg at hs or 15 mg at hs or 20 mg at hs -- given 6 tabs each dose --total of 18 tabs samples Last Documented On 07/09/2022 5:37PM By Nelda Zuniga MD ; [facility] Nuvigil 250 MG OR TABS 03/26/2016 - 05/06/2016 Provider: CONSUELO ZUNIGA MD Diagnosis: Obstructive slee p apnea (adult) (pediatric) as directed --1 tab in am Last Documented On 07/09/2022 5:37PM By Nelda Zuniga MD ; [facility] traZODone HCl 100 MG OR TABS 03/25/2016 - 08/18/2016 Provider: CONSUELO PAINTING MD Diagnosis: Oth insomnia not due to a substance or known physiol cond as directed -- 1 and 1/2 tab at bedtime Last Documented On 07/09/2022 5:37PM By Nelda Zuniga MD ; [facility] Adderall 20 MG OR TABS 03/25/2016 - 05/06/2016 Provider: CONSUELO ZUNIGA MD Diagnosis: Attention-defici t hyperactivity disorder, unspecified type as directed --- 1 tab in am, 1 tab at noon Last Documented On 07/09/2022 5:37PM By Nelda Zuniga MD ; [facility] Nuvigil 250 MG OR TABS 03/25/2016 - 03/25/2016 Provider: CONSUELO ZUNIGA MD Diagnosis: Attention-defici t hyperactivity disorder, unspecified type as directed --1 tab in am Last Documented On 07/09/2022 5:37PM By Nelda Zuniga MD ; [facility] Trintellix 20 MG OR TABS 03/25/2016 - 05/06/2016 Provider: CONSUELO ZUNIGA MD Diagnosis: Major depressive disorder, recurrent, moderate as directed Last Documented On 07/09/2022 5:37PM By Nelda Zuniga MD ; [facility] KlonoPIN 0.5 MG OR TABS 03/25/2016 - 05/06/2016 Provider: CONSUELO ZUNIGA MD Diagnosis: Generalized anxi ety disorder as directed 1 tab 2 x a day as needed only for panic/anxiety Last Documented On 07/09/2022 5:37PM By Nelda Zuniga MD ; [facility] Adderall XR 20 MG OR CP24 03/01/2016 - 03/25/2016 Provider: CONSUELO ZUNIGA MD Diagnosis: Attention-defici t hyperactivity disorder, unspecified type 1 Capsule every morning Last Documented On 07/09/2022 5:37PM By Nelda Zuniga MD ; [facility] Adderall XR 20 MG OR CP24 01/27/2016 - 03/01/2016 Provider: CONSUELO ZUNIGA MD Diagnosis: Attention-defici t hyperactivity disorder, unspecified type 1 Capsule every morning Last Documented On 07/09/2022 5:37PM By Nelda Zuniga MD ; [facility] Viibryd 40 MG OR TABS 12/28/2015 - 04/26/2016 Provider : CONSUELO ZUNIGA MD Diagnosis: Dysthymic disord er 1 tablet every morning with food Last Documented On 07/09/2022 5:37PM By Nelda Zuniga MD ; [facility] Trintellix 10 MG OR TABS 12/28/2015 - 06/19/2016 Provider: CONSUELO ZUNIGA MD Diagnosis: Major depressive disorder, recurrent, moderate One tablet daily Last Documented On 07/09/2022 5:37PM By Nelda Zuniga MD ; [facility] KlonoPIN 0.5 MG OR TABS 12/25/2015 - 03/25/2016 Provider: CONSUELO ZUNIGA MD Diagnosis: Generalized anxi ety disorder as directed 1 tab a day as n eeded only for panic/anxiety Last Documented On 07/09/2022 5:37PM By Nelda Zuniga MD ; [facility] Adderall XR 20 MG OR CP24 12/25/2015 - 01/27/2016 Provider: CONSUELO ZUNIGA MD Diagnosis: Attention-defici t hyperactivity disorder, unspecified type 1 Capsule every morning Last Documented On 07/09/2022 5:37PM By Nelda Zuniga MD ; [facility] Adderall XR 20 MG OR CP24 11/17/2015 - 12/25/2015 Provider: CONSUELO ZUNIGA MD Diagnosis: Attention-defici t hyperactivity disorder, unspecified type 1 Capsule every morning Last Documented On 07/09/2022 5:37PM By Nelda Zuniga MD ; [facility] busPIRone HCl 15 MG OR TABS 10/23/2015 - 05/06/2016 Provider: CONSUELO ZUNIGA MD Diagnosis: Generalized anxi ety disorder as directed --1 tab 4 x a day Last Documented On 07/09/2022 5:37PM By Nelda Zuniga MD ; [facility] Atenolol 25 MG OR TABS 10/23/2015 - 04/26/2016 Provider: CONSUELO ZUNIGA MD Diagnosis: Generalized anxi ety disorder One tablet daily Last Documented On 07/09/2022 5:37PM By Nelda Zuniga MD ; [facility] Viibryd 40 MG OR TABS 10/22/2015 - 12/25/2015 Provider : CONSUELO ZUNIGA MD Diagnosis: Dysthymic disord er 1 tablet every morning with food Last Documented On 07/09/2022 5:37PM By Nelda Zuniga MD ; [facility] Trintellix 10 MG OR TABS 10/22/2015 - 12/25/2015 Provider: CONSUELO ZUNIGA MD Diagnosis: Major depressive disorder, recurrent, moderate One tablet daily Last Documented On 07/09/2022 5:37PM By Nelda Zuniga MD ; [facility] buPROPion HCl ER (XL) 150 MG OR TB24 10/21/2015 - 05/06/2016 Provider: CONSUELO ZUNIGA MD Diagnosis: Major depressive disorder, recurrent, unspecified as directed 3 tablets in am Last Documented On 07/09/2022 5:37PM By Nelda Zuniga MD ; [facility] busPIRone HCl 15 MG OR TABS 10/21/2015 - 10/23/2015 Provider: CONSUELO ZUNIGA MD Diagnosis: Generalized anxi ety disorder One tablet four times a day Last Documented On 07/09/2022 5:37PM By Nelda Zuniga MD ; [facility] Adderall XR 20 MG OR CP24 10/21/2015 - 11/17/2015 Provider: CONSUELO ZUNIGA MD Diagnosis: Attention-defici t hyperactivity disorder, unspecified type 1 Capsule every morning Last Documented On 07/09/2022 5:37PM By Nelda Zuniga MD ; [facility] Nuvigil 150 MG OR TABS 10/21/2015 - 03/25/2016 Provider: CONSUELO ZUNIGA MD Diagnosis: Attention-defici t hyperactivity disorder, unspecified type 1 tablet every morning Last Documented On 07/09/2022 5:37PM By Nelda Zuniga MD ; [facility] KlonoPIN 0.5 MG OR TABS 09/23/2015 - 12/25/2015 Provider: CONSUELO ZUNIGA MD Diagnosis: Generalized anxi ety disorder as directed 1 tab a day as n eeded only for panic/anxiety -- called in 30 to [facility] on 09/08/15 by BK Last Documented On 07/09/2022 5:37PM By Nelda Zuniga MD ; [facility] buPROPion HCl ER (XL) 150 MG OR TB24 09/23/2015 - 10/21/2015 Provider: CONSUELO ZUNIGA MD Diagnosis: Major depressive disorder, recurrent, unspecified as directed 3 tablets in am Last Documented On 07/09/2022 5:37PM By Nelda Zuniga MD ; [facility] Trintellix 10 MG OR TABS 09/23/2015 - 10/21/2015 Provider: CONSUELO ZUNIGA MD Diagnosis: Major depressive disorder, recurrent, moderate One tablet daily Last Documented On 07/09/2022 5:37PM By Nelda Zuniga MD ; [facility] Adderall XR 20 MG OR CP24 09/23/2015 - 12/25/2015 Provider: CONSUELO ZUNIGA MD Diagnosis: Attention-defici t hyperactivity disorder, unspecified type 1 Capsule every morning Last Documented On 07/09/2022 5:37PM By Nelda Zuniga MD ; [facility] KlonoPIN 0.5 MG OR TABS 09/08/2015 - 09/23/2015 Provider: CONSUELO ZUNIGA MD Diagnosis: Generalized anxi ety disorder as directed 1 tab a day as n eeded only for panic/anxiety -- called in 30 to [facility] on 09/08/15 by BK Last Documented On 07/09/2022 5:37PM By Nelda Zuniga MD ; [facility] Concerta 36 MG OR TBCR 09/07/2015 - 10/21/2015 Provider: CONSUELO ZUNIGA MD Diagnosis: Attn-defct hyper activity disorder, predom inattentive type as directed 1 tab in am then 1 tab at noon Last Documented On 07/09/2022 5:37PM By Nelda Zuniga MD ; [facility] Brintellix 10 MG OR TABS 08/06/2015 - 10/21/2015 Provider: CONSUELO ZUNIGA MD Diagnosis: Major depressive disorder, recurrent, unspecified One tablet daily Last Documented On 07/09/2022 5:37PM By Nelda Zuniga MD ; [facility] KlonoPIN 0.5 MG OR TABS 08/06/2015 - 09/07/2015 Provider: CONSUELO ZUNIGA MD Diagnosis: Generalized anxi ety disorder as directed 1 tab a day as n eeded only for panic/anxiety ---[facility] -- pt requesting 30 tabs next time Last Documented On 07/09/2022 5:37PM By Nelda Zungia MD ; [facility] Concerta 36 MG OR TBCR 08/06/2015 - 09/07/2015 Provider: CONSUELO ZUNIGA MD Diagnosis: Attn-defct hyper activity disorder, predom inattentive type as directed 1 tab in am then 1 tab at noon Last Documented On 07/09/2022 5:37PM By Nelda Zuniga MD ; [facility] Concerta 36 MG OR TBCR 07/30/2015 - 08/05/2015 Provider: CONSUELO ZUNIGA MD Diagnosis: Attn-defct hyper activity disorder, predom inattentive type as directed 1 tab in am then 1 tab at noon Last Documented On 07/09/2022 5:37PM By Nelda Zuniga MD ; [facility] KlonoPIN 0.5 MG OR TABS 07/17/2015 - 08/05/2015 Provider: CONSUELO ZUNIGA MD Diagnosis: Generalized anxi ety disorder as directed 1 tab a day as n eeded only for panic/anxiety ---[facility] 07/[facility]/15 Last Documented On 07/09/2022 5:37PM By Nelda Zuniga MD ; [facility] buPROPion HCl ER (XL) 150 MG OR TB24 07/17/2015 - 09/23/2015 Provider: CONSUELO ZUNIGA MD Diagnosis: Major depressive disorder, recurrent, unspecified as directed 3 tablets in am Last Documented On 07/09/2022 5:37PM By Nelda Zuniga MD ; [facility] traZODone HCl 100 MG OR TABS 07/16/2015 - 03/25/2016 Provider: CONSUELO PAINTING MD Diagnosis: Oth insomnia not due to a substance or known physiol cond as directed -- 1 and 1/2 tab at bedtime Last Documented On 07/09/2022 5:37PM By Nelda Zuniga MD ; [facility] Concerta 36 MG OR TBCR 06/23/2015 - 07/30/2015 Provider: CONSUELO ZUNIGA MD Diagnosis: Attn-defct hyper activity disorder, predom inattentive type as directed 1 tab in am then 1 tab at noon Last Documented On 07/09/2022 5:37PM By Nelda Zuniga MD ; [facility] Concerta 36 MG OR TBCR 05/14/2015 - 06/23/2015 Provider: CONSUELO ZUNIGA MD Diagnosis: Attn-defct hyper activity disorder, predom inattentive type as directed 1 tab in am then 1 tab at noon Last Documented On 07/09/2022 5:37PM By Nelda Zuniga MD ; [facility] Silenor 6 MG OR TABS 04/13/2015 - 08/05/2015 Provider: CONSUELO ZUNIGA MD Diagnosis: Psychophysiologi c insomnia One tablet at bed time as ne eded for sleep Last Documented On 07/09/2022 5:37PM By Nelda Zuniga MD ; [facility] Concerta 36 MG OR TBCR 04/13/2015 - 05/14/2015 Provider: CONSUELO ZUNIGA MD Diagnosis: Attn-defct hyper activity disorder, predom inattentive type as directed 1 tab in am then 1 tab at noon Last Documented On 07/09/2022 5:37PM By Nelda Zuniga MD ; [facility] KlonoPIN 0.5 MG OR TABS 04/12/2015 - 07/17/2015 Provider: CONSUELO ZUNIGA MD Diagnosis: Generalized anxi ety disorder as directed 1 tab a day as n eeded only for panic/anxiety ---[facility] Last Documented On 07/09/2022 5:37PM By Nelda Zuniga MD ; [facility] Atenolol 25 MG OR TABS 04/10/2015 - 10/23/2015 Provider: CONSUELO ZUNIGA MD Diagnosis: Generalized anxi ety disorder One tablet daily Last Documented On 07/09/2022 5:37PM By Nelda Zuniga MD ; [facility] Viibryd 40 MG OR TABS 04/10/2015 - 10/21/2015 Provider : CONSUELO ZUNIGA MD Diagnosis: Dysthymic disord er 1 tablet every morning with food Last Documented On 07/09/2022 5:37PM By Nelda Zuniga MD ; [facility] KlonoPIN 0.5 MG OR TABS 03/30/2015 - 04/12/2015 Provider: CONSUELO ZUNIGA MD Diagnosis: Generalized anxi ety disorder as directed 1 tab a day as n eeded only for panic/anxiety --phoned in 15 on 02/10/15 Last Documented On 07/09/2022 5:37PM By Nelda Zuniga MD ; [facility] Brintellix 10 MG OR TABS 03/27/2015 - 08/05/2015 Provider: CONSUELO ZUNIGA MD Diagnosis: Major depressive disorder, recurrent, unspecified One tablet daily Last Documented On 07/09/2022 5:37PM By Nelda Zuniga MD ; [facility] busPIRone HCl 15 MG OR TABS 03/27/2015 - 10/21/2015 Provider: CONSUELO ZUNIGA MD Diagnosis: Generalized anxi ety disorder One tablet four times a day Last Documented On 07/09/2022 5:37PM By Nelda Zuniga MD ; [facility] traZODone HCl 100 MG OR TABS 03/27/2015 - 07/16/2015 Provider: CONSUELO PAINTING MD Diagnosis: Oth insomnia not due to a substance or known physiol cond as directed 1 and 1/2 at bedtime Last Documented On 07/09/2022 5:37PM By Nelda Zuniga MD ; [facility] buPROPion HCl ER (XL) 150 MG OR TB24 03/27/2015 - 07/17/2015 Provider: CONSUELO ZUNIGA MD Diagnosis: Major depressive disorder, recurrent, unspecified as directed 3 tablets in am Last Documented On 07/09/2022 5:37PM By Nelda Zuniga MD ; [facility] Concerta 36 MG OR TBCR 03/27/2015 - 04/13/2015 Provider: CONSUELO ZUNIGA MD Diagnosis: Attn-defct hyper activity disorder, predom inattentive type as directed 1 tab in am then 1 tab at noon Last Documented On 07/09/2022 5:37PM By Nelda Zuniga MD ; [facility] Concerta 36 MG OR TBCR 02/20/2015 - 03/27/2015 Provider: CONSUELO ZUNIGA MD Diagnosis: Attn-defct hyper activity disorder, predom inattentive type as directed 1 tab in am then 1 tab at noon Last Documented On 07/09/2022 5:37PM By Nelda Zuniga MD ; [facility] Concerta 36 MG OR TBCR 02/16/2015 - 02/20/2015 Provider: CONSUELO ZUNIGA MD Diagnosis: Attn-defct hyper activity disorder, predom inattentive type as directed 1 tab in am then 1 tab at noon Last Documented On 07/09/2022 5:37PM By Nelda Zuniga MD ; [facility] KlonoPIN 0.5 MG OR TABS 02/10/2015 - 03/27/2015 Provider: CONSUELO ZUNIGA MD Diagnosis: Generalized anxi ety disorder as directed 1 tab a day as n eeded only for panic/anxiety --phoned in 15 on 02/10/15 Last Documented On 07/09/2022 5:37PM By Nelda Zuniga MD ; [facility] Brintellix 10 MG OR TABS 02/09/2015 - 03/27/2015 Provider: CONSUELO ZUNIGA MD Diagnosis: Major depressive disorder, recurrent, unspecified One tablet daily Last Documented On 07/09/2022 5:37PM By Nelda Zuniga MD ; [facility] Concerta 36 MG OR TBCR 01/08/2015 - 02/16/2015 Provider: CONSUELO ZUNIGA MD Diagnosis: Attn-defct hyper activity disorder, predom inattentive type as directed 1 tab in am then 1 tab at noon Last Documented On 07/09/2022 5:37PM By Nelda Zuniga MD ; [facility] Silenor 6 MG OR TABS 12/12/2014 - 04/13/2015 Provider: CONSUELO ZUNIGA MD Diagnosis: Psychophysiologi c insomnia One tablet at bed time as ne eded for sleep Last Documented On 07/09/2022 5:37PM By Nelda Zuniga MD ; [facility] Concerta 36 MG OR TBCR 12/02/2014 - 01/08/2015 Provider: CONSUELO ZUNIGA MD Diagnosis: Attn-defct hyper activity disorder, predom inattentive type as directed 1 tab in am then 1 tab at noon Last Documented On 07/09/2022 5:37PM By Nelda Zuniga MD ; [facility] KlonoPIN 0.5 MG OR TABS 11/26/2014 - 02/10/2015 Provider: CONSUELO ZUNIGA MD Diagnosis: Generalized anxi ety disorder as directed 1 tab a day as n eeded only for panic/anxiety --phoned in 15 on 11/26/14 Last Documented On 07/09/2022 5:37PM By Nelda Zuniga MD ; [facility] Concerta 36 MG OR TBCR 10/27/2014 - 12/02/2014 Provider: CONSUELO ZUNIGA MD Diagnosis: ATTN DEFIC NONHY PERACT as directed 1 tab in am then 1 tab at noon Last Documented On 07/09/2022 5:37PM By Nelda Zuniga MD ; [facility] KlonoPIN 0.5 MG OR TABS 10/17/2014 - 11/26/2014 Provider: CONSUELO ZUNIGA MD Diagnosis: GENERALIZED ANXI ETY DIS as directed 1 tab a day as n eeded only for panic/anxiety --phoned in 20 on 10/17/14 Last Documented On 07/09/2022 5:37PM By Nelda Zuniga MD ; [facility] Concerta 36 MG OR TBCR 10/04/2014 - 10/27/2014 Provider: CONSUELO ZUNIGA MD Diagnosis: ATTN DEFIC NONHY PERACT as directed 1 tab in am then 1 tab at noon Last Documented On 07/09/2022 5:37PM By Nelda Zuniga MD ; [facility] traZODone HCl 100 MG OR TABS 10/04/2014 - 03/27/2015 Provider: CONSUELO PAINTING MD Diagnosis: PERSISTENT INSOM DORETHA as directed 1 and 1/2 at bedtime Last Documented On 07/09/2022 5:37PM By Nelda Zuniga MD ; [facility] Viibryd 40 MG OR TABS 10/04/2014 - 04/10/2015 Provider : CONSUELO ZUNIGA MD Diagnosis: DYSTHYMIC DISORD ER 1 tablet every morning with food Last Documented On 07/09/2022 5:37PM By Nelda Zuniga MD ; [facility] Nuvigil 150 MG OR TABS 10/03/2014 - 03/27/2015 Provider: CONSUELO PAINTING MD Diagnosis: CHRONIC FATIGUE SYNDROME 1 tablet every morning Last Documented On 07/09/2022 5:37PM By Nelda Zuniga MD ; [facility] busPIRone HCl 15 MG OR TABS 10/03/2014 - 03/27/2015 Provider: CONSUELO ZUNIGA MD Diagnosis: GENERALIZED ANXI ETY DIS One tablet four times a day Last Documented On 07/09/2022 5:37PM By Nelda Zuniga MD ; [facility] Brintellix 10 MG OR TABS 10/03/2014 - 02/09/2015 Provider: CONSUELO ZUNIGA MD Diagnosis: MAJOR DEPRESSION DISORDER/RECURRENT One tablet daily Last Documented On 07/09/2022 5:37PM By Nelda Zuniga MD ; [facility] Concerta 36 MG OR TBCR 09/24/2014 - 10/03/2014 Provider: CONSUELO ZUNIGA MD Diagnosis: ATTN DEFIC NONHY PERACT as directed 1 tab in am then 1 tab at noon Last Documented On 07/09/2022 5:37PM By Nelda Zuniga MD ; [facility] Atenolol 25 MG OR TABS 08/20/2014 - 04/10/2015 Provider: CONSUELO ZUNIGA MD Diagnosis: GENERALIZED ANXI ETY DIS One tablet daily Last Documented On 07/09/2022 5:37PM By Nelda Zuniga MD ; [facility] KlonoPIN 0.5 MG OR TABS 08/20/2014 - 10/17/2014 Provider: CONSUELO ZUNIGA MD Diagnosis: GENERALIZED ANXI ETY DIS as directed 1 tab a day as n eeded only for panic/anxiety --phoned in 20 on 08/20/14 Last Documented On 07/09/2022 5:37PM By Nelda Zuniga MD ; [facility] Concerta 36 MG OR TBCR 08/20/2014 - 09/24/2014 Provider: CONSUELO ZUNIGA MD Diagnosis: ATTN DEFIC NONHY PERACT as directed 1 tab in am then 1 tab at noon Last Documented On 07/09/2022 5:37PM By Nelda Zuniga MD ; [facility] KlonoPIN 0.5 MG OR TABS 07/14/2014 - 08/20/2014 Provider: CONSUELO ZUNIGA MD Diagnosis: GENERALIZED ANXI ETY DIS as directed 1 tab a day as n eeded only for panic/anxiety --phoned in 20 on 07/14/14 Last Documented On 07/09/2022 5:37PM By Nelda Zuniga MD ; [facility] Atenolol 25 MG OR TABS 07/10/2014 - 08/20/2014 Provider: CONSUELO ZUNIGA MD Diagnosis: GENERALIZED ANXI ETY DIS One tablet daily Last Documented On 07/09/2022 5:37PM By Nelda Zuniga MD ; [facility] buPROPion HCl ER (XL) 150 MG OR TB24 06/26/2014 - 03/27/2015 Provider: CONSUELO ZUNIGA MD Diagnosis: MAJOR DEPRESSION DISORDER/RECURRENT as directed 3 tablets in am Last Documented On 07/09/2022 5:37PM By Nelda Zuniga MD ; [facility] Silenor 6 MG OR TABS 06/26/2014 - 12/12/2014 Provider: CONSUELO ZUNIGA MD Diagnosis: PERSISTENT INSOM DORETHA 1 at bedtime as needed for sleep Last Documented On 07/09/2022 5:37PM By Nelda Zuniga MD ; [facility] Viibryd 40 MG OR TABS 06/26/2014 - 10/03/2014 Provider: CONSUELO PAINTING MD Diagnosis: MAJOR DEPRESSION DISORDER/RECURRENT 1 tablet every morning with food Last Documented On 07/09/2022 5:37PM By Nelda Zuniga MD ; [facility] busPIRone HCl 15 MG OR TABS 06/26/2014 - 10/03/2014 Provider: CONSUELO ZUNIGA MD Diagnosis: GENERALIZED ANXI ETY DIS One tablet four times a day Last Documented On 07/09/2022 5:37PM By Nelda Zuniga MD ; [facility] KlonoPIN 0.5 MG OR TABS 06/26/2014 - 07/14/2014 Provider: CONSUELO ZUNIGA MD Diagnosis: GENERALIZED ANXI ETY DIS as directed 1 tab a day as n eeded only for panic/anxiety -- has meds Last Documented On 07/09/2022 5:37PM By Nelda Zuniga MD ; [facility] Concerta 36 MG OR TBCR 06/26/2014 - 08/20/2014 Provider: CONSUELO ZUNIGA MD Diagnosis: ATTN DEFIC NONHY PERACT as directed 1 tab in am then 1 tab at noon Last Documented On 07/09/2022 5:37PM By Nelda Zuniga MD ; [facility] Concerta 36 MG OR TBCR 06/17/2014 - 06/26/2014 Provider: CONSUELO ZUNIGA MD Diagnosis: ATTN DEFIC NONHY PERACT as directed 1 tab in am then 1 tab at noon Last Documented On 07/09/2022 5:37PM By Nelda Zuniga MD ; [facility] KlonoPIN 0.5 MG OR TABS 05/16/2014 - 06/26/2014 Provider: CONSUELO ZUNIGA MD Diagnosis: GENERALIZED ANXI ETY DIS 1 tab a day as needed only f or panic/anxiety Last Documented On 07/09/2022 5:37PM By Nelda Zuniga MD ; [facility] Zolpidem Tartrate ER 12.5 MG OR TBCR 05/02/2014 - 06/26/2014 Provider: CONSUELO PAINTING MD Diagnosis: PERSISTENT INSOM DORETHA faxed to pharmacy that this was stopped due to sleep eating Last Documented On 07/09/2022 5:37PM By Nelda Zuniga MD ; [facility] buPROPion HCl ER (XL) 150 MG OR TB24 04/30/2014 - 06/26/2014 Provider: CONSUELO ZUNIGA MD Diagnosis: MAJOR DEPRESSION DISORDER/RECURRENT 3 tablets in am Last Documented On 07/09/2022 5:37PM By Nelda Zuniga MD ; [facility] busPIRone HCl 15 MG OR TABS 04/30/2014 - 06/26/2014 Provider: CONSUELO ZUNIGA MD Diagnosis: GENERALIZED ANXI ETY DIS Last Documented On 07/09/2022 5:37PM By Nelda Zuniga MD ; [facility] Concerta 36 MG OR TBCR 04/30/2014 - 06/17/2014 Provider: CONSUELO ZUNIGA MD Diagnosis: ATTN DEFIC NONHY PERACT 1 tab in am then 1 tab at noon Last Documented On 07/09/2022 5:37PM By Nelda Zuniga MD ; [facility] Silenor 6 MG OR TABS 04/30/2014 - 06/26/2014 Provider: CONSUELO ZUNIGA MD Diagnosis: PERSISTENT INSOM DORETHA 1/2 to 1 at bedtime as needed for sleep Last Documented On 07/09/2022 5:37PM By Nelda Zuniga MD ; [facility] traZODone HCl 100 MG OR TABS 04/30/2014 - 10/03/2014 Provider: CONSUELO PAINTING MD Diagnosis: PERSISTENT INSOM DORETHA 1 and 1/2 at bedtime Last Documented On 07/09/2022 5:37PM By Nelda Zuniga MD ; [facility] KlonoPIN 0.5 MG OR TABS 03/31/2014 - 05/16/2014 Provider: CONSUELO ZUNIGA MD Diagnosis: GENERALIZED ANXI ETY DIS 1 tab a day as needed only f or panic/anxiety Last Documented On 07/09/2022 5:37PM By Nelda Zuniga MD ; [facility] Concerta 36 MG OR TBCR 03/29/2014 - 04/30/2014 Provider: CONSUELO ZUNIGA MD Diagnosis: ATTN DEFIC NONHY PERACT 1 tab in am then 1 tab at noon Last Documented On 07/09/2022 5:37PM By Nelda Zuniga MD ; [facility] Atenolol 25 MG OR TABS 03/14/2014 - 07/10/2014 Provider: CONSUELO ZUNIGA MD Diagnosis: GENERALIZED ANXI ETY DIS Last Documented On 07/09/2022 5:37PM By Nelda Zuniga MD ; [facility] Atenolol 25 MG OR TABS 03/10/2014 - 03/14/2014 Provider: CONSUELO ZUNIGA MD Diagnosis: GENERALIZED ANXI ETY DIS Last Documented On 07/09/2022 5:37PM By Nelda Zuniga MD ; [facility] buPROPion HCl ER (XL) 150 MG OR TB24 02/26/2014 - 04/30/2014 Provider: CONSUELO ZUNIGA MD Diagnosis: MAJOR DEPRESSION DISORDER/RECURRENT 3 tablets in am Last Documented On 07/09/2022 5:37PM By Nelda Zuniga MD ; [facility] Viibryd 40 MG OR TABS 02/26/2014 - 06/26/2014 Provider: CONSUELO PAINTING MD Diagnosis: MAJOR DEPRESSION DISORDER/RECURRENT Last Documented On 07/09/2022 5:37PM By Nelda Zuniga MD ; [facility] KlonoPIN 0.5 MG OR TABS 02/26/2014 - 03/31/2014 Provider: CONSUELO ZUNIGA MD Diagnosis: GENERALIZED ANXI ETY DIS 1 tab a day as needed only f or panic/anxiety Last Documented On 07/09/2022 5:37PM By Nelda Zuniga MD ; [facility] Concerta 36 MG OR TBCR 02/26/2014 - 03/29/2014 Provider: CONSUELO ZUNIGA MD Diagnosis: ATTN DEFIC NONHY PERACT 1 tab in am then 1 tab at noon Last Documented On 07/09/2022 5:37PM By Nelda Zuniga MD ; [facility] traZODone HCl 100 MG OR TABS 02/26/2014 - 04/30/2014 Provider: CONSUELO PAINTING MD Diagnosis: PERSISTENT INSOM DORETHA 2 at bedtime as needed for s leep -- takes 1 at night Last Documented On 07/09/2022 5:37PM By Nelda Zuniga MD ; [facility] busPIRone HCl 15 MG OR TABS 01/31/2014 - 04/30/2014 Provider: CONSUELO ZUNIGA MD Diagnosis: GENERALIZED ANXI ETY DIS Last Documented On 07/09/2022 5:37PM By Nelda Zuniga MD ; [facility] busPIRone HCl 15 MG OR TABS 01/30/2014 - 01/31/2014 Provider: CONSUELO ZUNIGA MD Diagnosis: GENERALIZED ANXI ETY DIS Last Documented On 07/09/2022 5:37PM By Nelda Zuniga MD ; [facility] KlonoPIN 0.5 MG OR TABS 01/27/2014 - 02/26/2014 Provider: CONSUELO ZUNIGA MD Diagnosis: GENERALIZED ANXI ETY DIS 1 tab a day as needed only f or panic/anxiety Last Documented On 07/09/2022 5:37PM By Nelda Zuniga MD ; [facility] Atenolol 25 MG OR TABS 01/03/2014 - 03/10/2014 Provider: CONSUELO ZUNIGA MD Diagnosis: GENERALIZED ANXI ETY DIS Last Documented On 07/09/2022 5:37PM By Nelda Zuniga MD ; [facility] Viibryd 40 MG OR TABS 01/03/2014 - 02/26/2014 Provider: CONSUELO PAINTING MD Diagnosis: MAJOR DEPRESSION DISORDER/RECURRENT Last Documented On 07/09/2022 5:37PM By Nelda Zuniga MD ; [facility] traZODone HCl 100 MG OR TABS 01/03/2014 - 02/26/2014 Provider: CONSUELO PAINTING MD Diagnosis: PERSISTENT INSOM DORETHA 2 at bedtime as needed for s leep -- will try 1 and 1/2 tab at night since 2 is too much for him Last Documented On 07/09/2022 5:37PM By Nelda Zuniga MD ; [facility] Concerta 36 MG OR TBCR 01/03/2014 - 02/26/2014 Provider: CONSUELO ZUNIGA MD Diagnosis: ATTN DEFIC NONHY PERACT 1 tab in am then 1 tab at noon Last Documented On 07/09/2022 5:37PM By Nelda Zuniga MD ; [facility] busPIRone HCl 15 MG OR TABS 09/27/2013 - 01/30/2014 Provider: CONSUELO ZUNIGA MD Diagnosis: GENERALIZED ANXI ETY DIS Last Documented On 07/09/2022 5:37PM By Nelda Zuniga MD ; [facility] Zolpidem Tartrate ER 12.5 MG OR TBCR 09/27/2013 - 05/02/2014 Provider: CONSUELO PAINTING MD Diagnosis: PERSISTENT INSOM DORETHA Last Documented On 07/09/2022 5:37PM By Nelda Zuniga MD ; [facility] Concerta 36 MG OR TBCR 09/27/2013 - 01/03/2014 Provider: CONSUELO ZUNIGA MD Diagnosis: ATTN DEFIC NONHY PERACT 1 tab in am then 1 tab at noon Last Documented On 07/09/2022 5:37PM By Nelda Zuniga MD ; [facility] Viibryd 40 MG OR TABS 09/27/2013 - 01/03/2014 Provider: CONSUELO PAINTING MD Diagnosis: MAJOR DEPRESSION DISORDER/RECURRENT Last Documented On 07/09/2022 5:37PM By Nelda Zuniga MD ; [facility] buPROPion HCl ER (XL) 150 MG OR TB24 09/27/2013 - 02/26/2014 Provider: CONSUELO ZUNIGA MD Diagnosis: MAJOR DEPRESSION DISORDER/RECURRENT 3 tablets in am Last Documented On 07/09/2022 5:37PM By Nelda Zuniga MD ; [facility] traZODone HCl 100 MG OR TABS 09/27/2013 - 01/03/2014 Provider: CONSUELO PAINTING MD Diagnosis: PERSISTENT INSOM DORETHA 2 at bedtime as needed for s leep -- will try 1 and 1/2 tab at night since 2 is too much for him Last Documented On 07/09/2022 5:37PM By Nelda Zuniga MD ; [facility] busPIRone HCl 15 MG OR TABS 09/16/2013 - 09/27/2013 Provider: CONSUELO ZUNIGA MD Diagnosis: GENERALIZED ANXI ETY DIS TAKE 1 TABLET FOUR TIMES A DAY Last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
--- OUTSIDE RECORDS SUMMARY | 2024-05-31 00:13 | XMS_ITS | Clinical Summary ---
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 Name Role Phone CONSUELO ZUNIGA MD Unavailable [phone] Reason for Visit and Chief Complaint The Chief Complaint is: follow up for depression, anxiety and panic Problems Includes: Problems addressed during this encounter and other active Problems Current Visit Onset Date Resolved Date Provider Conditio n Status 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 Active Last Documented On 3 5:50PM ; [facility] Dissociative Identity Disorder 10/11/2017 Active Last Documented On 3 5:51PM ; [facility] Panic Disorder 07/11/2016 Active Last Documented On 3 5:50PM ; [facility] Nonorganic Sleep Apnea Obstructive 12/12/2015 Unknown Resolved Last Documented On 3 5:50PM ; [facility] Psychophysiological Insomnia 10/12/2015 Active Last Documented On 3 5:50PM ; [facility] Attention Deficit Disorder Without Hyperactivity 3 Active Last Documented On 3 5:46PM ; [facility] Dysthymic Disorder (Depressive Neurosis) 09/11/2012 Active Last Documented On 3 5:46PM ; [facility] Generalized Anxiety Disorder 09/11/2012 Active Last Documented On 3 5:46PM ; [facility] Major Depression, Recurrent 09/11/2012 Active Last Documented On 3 5:46PM ; [facility] Past Visits Onset Date Resolved Date Provider Condition Status Colitis 03/27/2015 Active Last Documented On 3 5:49PM ; [facility] Chronic Fatigue Syndrome 10/03/2014 Active Last Documented On 3 5:48PM ; [facility] Raynaud's Syndrome 10/03/2014 Active Last Documented On 3 5:48PM ; [facility] Systemic Lupus Erythematosus 10/03/2014 Active Last Documented On 3 5:48PM ; [facility] Plan of Treatment Major Depressive Disorder - Rexulti 1 mg 1 tab daily, Auvelity 1 tab 2 x a day, Viibryd 40 mg 1 tab in the morning Dysthymic Disorder - Trintellix 20 mg 1 tab in the morning Generalized Anxiety Disorder - Buspar 15 mg 1 tab 4 times a day and Atenolol 25 mg 1 tab 3 x a day (increased on 05/16/22), Mirtazapine 15 mg 1 tab at bedtime for mood/anxiety, to help with appetite since he lost 14 lbs as of 03/01/22 and to also help counteract/relieve GI issues associated with his anxiety - he now gained 7 lbs back -- may use as needed only since he said that he tends to get hungry Attention Deficit Disorder - Mydayis 37.5 mg 1 capsule in the morning Panic Disorder - Klonopin 0.5 mg 1 tab a day as needed for anxiety/panic Mild Cognitive Impairment - L-methylfolate 15 mg 1 tab in am Psychophysiological Insomnia - Trazodone 100 mg 1 and 1/2 tabs at bedtime R/O FUENTES - pt snores and has hypersomnia - Modafinil 200 mg 1 tab in am as needed for alertness/motivation Pt was referred to [facility] last 01/2021 for counseling/stress mgt. - Last Documented On 11/25/2022 8:38PM ; [facility] Future Appointments Date Time Location Provi gerald TELEHEALTH ADULT PSYCH ESTABLISHED 06/20/2024 4:40PM [facility]TABATHA ZUNIGA MD Last Documented On 4 5:40PM ; [facility] Education and Decision Aids were provided during visit for: Calming techniques such as b reathing exercises/meditation and other relaxation techniques Last Documented On 3 8:32PM ; [facility] Assessments Includes: Assessments from this encounter Findings - Obstructive sleep apnea - Last Documented On 11/25/2022 8:38PM ; [facility] - Attention deficit disorder without hyperactivity - Last Documented On 11/25/2022 8:38PM ; [facility] - Major depression, recurrent - Last Documented On 11/25/2022 8:38PM ; [facility] - Dysthymic disorder - Last Documented On 11/25/2022 8:38PM ; [facility] - Psychophysiological insomnia - Last Documented On 11/25/2022 8:38PM ; [facility] - Generalized anxiety disorder - Last Documented On 11/25/2022 8:38PM ; [facility] - Panic disorder - Last Documented On 11/25/2022 8:38PM ; [facility] - Dissociative identity disorder - Last Documented On 11/25/2022 8:38PM ; [facility] Instructions Includes: Instructions from this encounter Education and Decision Aids were provided during visit for: Calming techniques such as b reathing exercises/meditation and other relaxation techniques Last Documented On 8:32PM ; [facility] Medical Equipment - Implanted Devices Includes: Current Devices No Medical Equipment Recorded Medications Includes: Medications discussed during this encounter and other current Medications Discontinued / Stopped on this date on 11/25/2022 Vilazodone HCl 40 MG Oral Tablet Provider : Diagnosis: Major depressive disorder, recurrent, unspecified Last Documented On 11/25/2022 4:42PM By SIMONA DOUGLAS ; [facility] traZODone HCl 100 MG Oral Tablet Provider : Diagnosis: Psychophysiologi c insomnia Last Documented On 11/25/2022 4:42PM By SIMONA DOUGLAS ; [facility] traZODone HCl 100 MG OR TABS Provider: CONSUELO ZUNIGA MD Diagnosis: Psychophysiologi c insomnia Last Documented On 11/25/2022 4:44PM By SIMONA DOUGLAS ; [facility] Viibryd 40 MG OR TABS Provider: ROSALIA ZUNIGA MD Diagnosis: Major depressive disorder, recurrent, unspecified Last Documented On 11/25/2022 4:42PM By SIMONA DOUGLAS ; [facility] buPROPion HCl ER (XL) 150 MG OR TB24 Provider: CONSUELO ZUNIGA MD Diagnosis: Major depressive disorder, recurrent, moderate Last Documented On 11/25/2022 4:43PM By SIMONA DOUGLAS ; [facility] Trintellix 20 MG OR TABS Provider: MET DANIELLE ZUNIGA MD Diagnosis: Dysthymic disord er Last Documented On 11/25/2022 4:42PM By SIMONA DOUGLAS ; [facility] Current Medications (continue as prescribed) Mydayis 37.5 MG Oral Capsule Extended Release 24 Hour 08/31/2023 Provider: CONSUELO ZUNIGA MD Diagnosis: Attention-defici t hyperactivity disorder, unspecified type 1 Capsule every morning Last Documented On 08/31/2023 8:26PM By Nelda Zuniga MD ; [facility] buPROPion HCl ER (XL) 150 MG Oral Tablet Extended Release 24 Hour 07/26/2023 Provider: CONSUELO ZUNIGA MD Diagnosis: Major depressive disorder, recurrent, moderate TAKE 3 TABLETS IN THE MORNIN G DIRECTED Last Documented On 07/26/2023 5:41PM By Nelda Zuniga MD ; [facility] Modafinil 200 MG Oral Tablet 07/26/2023 Provider: CONSUELO ZUNIGA MD Diagnosis: Obstructive slee p apnea (adult) (pediatric) as directed - 1 tab in am, 1 tab at noon Last Documented On 07/26/2023 5:42PM By Nelda Zuniga MD ; [facility] Testosterone Cypionate 200 M G/ML Intramuscular Solution 07/11/2023 Provider: THALIA Valle Diagnosis: Last Documented On 07/27/2023 3:52AM By Nelda Zuniga MD ; [facility] KlonoPIN 0.5 MG Oral Tablet 07/05/2023 Provider: CONSUELO ZUNIGA MD Diagnosis: Panic disorder [ episodic paroxysmal anxiety] as directed 1 tab once a day as needed for severe anxiety/panic Last Documented On 07/06/2023 3:30AM By Nelda Zuniga MD ; [facility] Meloxicam 15 MG Oral Tablet 06/24/2023 Provider: LEOPOLDO SORENSON MD Diagnosis: 1 daily prn Last Documented On 07/26/2023 4:54PM By SIMONA DOUGLAS ; [facility] busPIRone HCl 15 MG Oral Tablet 06/22/2023 Provider: CONSUELO ZUNIGA MD Diagnosis: Generalized anxi ety disorder TAKE 1 TABLET FOUR TIMES A DAY Last Documented On 06/22/2023 2:12PM By Nelda Zuniga MD ; [facility] Atenolol 25 MG Oral Tablet 05/16/2023 Provider: CONSUELO ZUNIGA MD Diagnosis: Generalized anxi ety disorder TAKE 1 TABLET THREE TIMES A DAY Last Documented On 05/16/2023 12:20PM By Nelda Zuniga MD ; [facility] traZODone HCl 100 MG Oral Tablet 05/16/2023 Provider: CONSUELO ZUNIGA MD Diagnosis: Psychophysiologi c insomnia TAKE ONE AND ONE-HALF TABLET S AT BEDTIME DIRECTED Last Documented On 05/16/2023 12:20PM By Nelda Zuniga MD ; [facility] Testosterone Cypionate 200 M G/ML Intramuscular Solution 11/15/2022 Provider: KELLI LARA MD Diagnosis: inject once a week Last Documented On 11/25/2022 5:34PM By Nelda Zuniga MD ; [facility] Glucosamine Sulfate 1000 MG OR CAPS 05/22/2017 P vicder: Diagnosis: 1 a day Last Documented On 07/09/2022 5:37PM By Nelda Zuniga MD ; [facility] amLODIPine Besylate 5 MG OR TABS 01/15/2016 Provider : Diagnosis: 1 daily Last Documented On 07/09/2022 5:37PM By DIONE LOVE LPN ; [facility] Past Medications on file Vilazodone HCl 40 MG Oral Tablet 11/25/2022 - 11/20/2023 Provider: CONSUELO ZUNIGA MD Diagnosis: Major depressive disorder, recurrent, unspecified 1 tablet every morning with food Last Documented On 11/25/2022 1:55PM By Nelda Zuniga MD ; [facility] Trintellix 20 MG Oral Tablet 09/20/2022 - 09/15/2023 Provider: CONSUELO ZUNIGA MD Diagnosis: Major depressive disorder, recurrent, moderate 1 tablet every morning Last Documented On 09/20/2022 3:33PM By Nelda Zuniga MD ; [facility] Sunosi 75 MG OR TABS 02/01/2021 - 03/03/2021 Provider: CONSUELO ZUNIGA MD Diagnosis: Narcolepsy witho ut cataplexy 1 tablet every morning Last Documented On 07/09/2022 5:37PM By Nelda Zuniga MD ; [facility] Rexulti 2 MG OR TABS 02/01/2021 - 03/03/2021 Provider: CONSUELO ZUNIGA MD Diagnosis: Major depressive disorder, recurrent, moderate One tablet daily Last Documented On 07/09/2022 5:37PM By Nelda Zuniga MD ; [facility] Medications Administered Includes: Administered Medications from this encounter No Administered Medications Recorded Vital Signs Includes: Vital Signs from this encounter Vital Name 11/25/2022 04:46P Blood Pressure Sitting L 150/107 BP Cuff Size Regular Pulse Rate-Sitting (bpm) 62 Pulse Rhythm Regular Height (in) 72 Weight (lb) 205 Body Mass Index 27.8 Body Surface Area 2.2 Note: self reported vitals Last Documented: On 11/25/2022 4:46PM ; [facility] Results Includes: Results discussed during this encounter No Results Recorded For Specified Dates History of Present Illness Includes: History of Present Illness from this encounter EFRAIN FLOWERS is a 57 year old male. - Allergy list reviewed - Past medical history reviewed - Medication list reviewed Pt is just stressed with work since there were quite a few workers who have quit. 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 The morale of his workplace has gone down. Elier thinks that there is lack of manpower/management support in his work place. He has reported work issues to the higher ups but nothing has been done about it. He only gets depressed when he thinks about work. When he come home, he tries not to affect his since she is already burdened with caring for his parents who has moved to his house. He gets anxious/stressed but more due to work situation. He takes Klonopin prn 1 - 2 week, but at times he may not take any. He still has about 20 left from 30 tabs from last 10/2022. Overall his psych meds Trintellix, Auvelity etc... are helping. He was asked to go ahead and taper off the Wellbutrin XL. At times he is not as motivated david when tired. He has been overeating snacks like oreos when stressed out. He can concentrate and focus with the Mydayis but he gets distracted and inattentive when stressed out. He denied panic attacks. He denied suicidal thoughts. No delusions/hallucinations. He is hoping to take a vacation break in Nov since he still has the pack up and organize his previous old house to sell. MENTAL STATUS EXAM: Sensorium - alert, oriented to name, place, and time Attitude - cooperative Gait - ambulatory Sleep - good Interest/Energy/Motivation - good - but some says tired and not as motivated Guilt/Worthlessness - absent Concentration/Attention Span - able to focus and concentrate unless stressed Memory Recall - fairly good Appetite - good - tends to overeat when stressed, on 10/11/22 pt weighed 195 lbs and on 11/25/22 he weighed 205 lbs so he gained 10 lbs Suicidal Thoughts - absent Homicidal Thoughts - absent Delusions - absent Hallucinations - absent Appearance - casually groomed Motor Behavior - calm Eye Contact - intermittent Speech - fluent Mood - gets stressed and down but more due to work situation otherwise mood is fine Affect - anxious about work issues Thought Process - coherent Insight and Judgment - intact Social History Description Last Updated Caffeine use: Daily coffee c onsumption -- drinks 1 cup of coffee every morning, no soda or tea.Alcohol: Alcohol use - will 3-6 beers every night and was asked to please abstain from alcohol since ETOH is a [employer] depressant.Drug Use: Drug use marijuana he tried a couple of times but has not used for quite awhile.Work: 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 11/25/2022 Last Documented On 3 4:32PM ; [facility] Tobacco non-user 11/25/2022 Last Documented On 3 8:38PM ; [facility] Smoking Status Unknown Procedures and Surgical History Includes: Procedures from this encounter Procedures Code Diagnosis Performing Provider Service L ocation Service Date education and instructions Last Documented On 3 4:32PM ; [facility] supportive care and encourag ement--given positive reinforcement to keep patient motivated and active Last Documented On 3 4:50PM ; [facility] ~* Call [phone] and /or go t o the nearest emergency room or call me if suicidal/homicidal ideation or other serious concerns arise. ~ ~* I gave instructions to call me should there be any questions or concerns. ~ ~* Patient voiced understanding and agreed to treatment plan Last Documented On 3 4:45PM ; [facility] dangerousness assessment: no suicide risk 3085F Last Documented On 3 4:32PM ; [facility] use of tobacco assessment performed 1000F Last Documented On 3 4:32PM ; [facility] patient screened for future fall risk: documentation of any fall with injury in past year - no recent falls 1100F Last Documented On 3 4:32PM ; [facility] review of medications documented 1160F Last Documented On 3 4:32PM ; [facility] assessment of suicide risk performed - n ot suicidal Last Documented On 3 4:45PM ; [facility] screening for adult depressi on: impression and score - please see above for treatment and PHQ score Last Documented On 3 4:32PM ; [facility] standardized depression screening: posit sunday for symptoms Last Documented On 3 4:32PM ; [facility] encouragement to exercise - balanced rhonda l plan, low fat low carb diet Last Documented On 3 8:32PM ; [facility] Clinical summary provided to patient Last Documented On 3 4:32PM ; [facility] PHQ-9: total score 6 Last Documented On 3 8:32PM ; [facility] Medical History Includes: Medical History addressed during this encounter Description Last Updated Primary Care Provider: Dr. Darlene Hernandez, DMD -- Dentist.Diagnoses:Low testosterone levels -- started injections 10/2022 Mouth cyst - growth in mouth removed 06/02/20 -- given Amoxil 875 mg, Ibuprofen 800 mg and Tramadol 50 mg. Raynaud's syndrome --taking amlodipine for this --given by Dr. Lara. ColitisIrritable bowel syndrome. Keloid scar -- removal ( on left ear lobe) 03/[address] Rivers in [place], [place]. Systemic lupus erythematosus. 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 Pt had PT for both arms and elbow -- 04/2014ScoliosisBunion -- right foot. Dysthymic disorder. Toxic reaction to venom of spider - on 10/02/19 -- given Keflex 500 mg and Triamcinolone cream 0.05 % by Dr. Valente and on 10/06/19 he was seen at [facility] ER by Dr. Self and given Clindamycin 150 mg -- for spider bite on right calfProcedural: Coronavirus 2019-nCoV vaccine - Moderna #1 06/2020 #2 07/2020 #3 2Procedural: Colonoscopy - 2018 -- no polyps 11/25/2022 Last Documented On 3 4:48PM ; [facility] Family History Includes: Family History addressed during this encounter Description Last Updated Maternal: Depression -- [facility], Dx with Lymphoma, DEBORAH Polyneuropathy and Waldenstroms Disorder 11/25/2022 Last Documented On 3 4:32PM ; [facility] Review of Systems Includes: Review of Systems from this encounter Systemic: Not feeling poorly (malaise). No fever, no chills, and no night sweats. Recent weight change. Head: No headache and no sinus pain. [...] TELEHEALTH ADULT PSYCH ESTABLISHED CONSUELO ZUNIGA MD [facility] 11/26/19 4:31PM 11:59PM Major Depression, Recurrent,Dys thymic Disorder (Depressive Neurosis),Gen eralized Anxiety Disorder,Diss ociative Identity Disorder,Nono rganic Sleep Apnea Obstructive,P sychophysiolo gical Insomnia,Atte ntion Deficit Disorder Without Hyperactivity ,Panic Disorder Insurance Includes: Active Insurance Policies Plan Name Member ID Group # Subscriber Relationship Effect sunday Dates 1 - [facility] [id number] DANIEL FLOWERS Self Clinical Notes Includes: Clinical Notes from this encounter * Progress note Date Encounter Last Documented by 11/25/2022 TELEHEALTH ADULT PSYCH ESTABLISH ED Last documented on 11/25/2022; 8:38 PM, CONSUELO ZUNIGA MD; [facility] Top of Document Medication psychotherapy 30 minutes Patient gave verbal consent for Telehealth 11/25/22. Location of patient: patient's home Location of provider: provider's office Patient was alone for the session. This visit was conducted with use of interactive audio and video telecommunication system with real time communication between the patient and the provider. Patient consent for virtual visit obtained today. Total time spent with patient via audio and video telecommunication 30 minutes. Active Problems & Conditions - Attention [...] history reviewed - Medication list reviewed Pt is just stressed with work since there were quite a few workers who have quit. 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 The morale of his workplace has gone down. Elier thinks that there is lack of manpower/management support in his work place. He has reported work issues to the higher ups but nothing has been done about it. He only gets depressed when he thinks about work. When he come home, he tries not to affect his since she is already burdened with caring for his parents who has moved to his house. He gets anxious/stressed but more due to work situation. He takes Klonopin prn 1 - 2 week, but at times he may not take any. He still has about 20 left from 30 tabs from last 10/2022. Overall his psych meds Trintellix, Auvelity etc... are helping. He was asked to go ahead and taper off the Wellbutrin XL. At times he is not as motivated david when tired. He has been overeating snacks like oreos when stressed out. He can concentrate and focus with the Mydayis but he gets distracted and inattentive when stressed out. He denied panic attacks. He denied suicidal thoughts. No delusions/hallucinations. He is hoping to take a vacation break in Nov since he still has the pack up and organize his previous old house to sell. MENTAL STATUS EXAM: Sensorium - alert, oriented to name, place, and time Attitude - cooperative Gait - ambulatory Sleep - good Interest/Energy/Motivation - good - but some says tired and not as motivated Guilt/Worthlessness - absent Concentration/Attention Span - able to focus and concentrate unless stressed Memory Recall - fairly good Appetite - good - tends to overeat when stressed, on 10/11/22 pt weighed 195 lbs and on 11/25/22 he weighed 205 lbs so he gained 10 lbs Suicidal Thoughts - absent Homicidal Thoughts - absent Delusions - absent Hallucinations - absent Appearance - casually groomed Motor Behavior - calm Eye Contact - intermittent Speech - fluent Mood - gets stressed and down but more due to work situation otherwise mood is fine Affect - anxious about work issues Thought Process - coherent Insight and Judgment - intact Current Medication - amLODIPine Besylate 5 MG Tablet One tablet daily 1 daily, 90 days, 0 refills - Atenolol 25 MG Oral Tablet One tablet three times a day, 90 days, 1 refills - Auvelity 45-105 MG Oral Tablet Extended Release as directed - 1 tab in am for 2 weeks then 1 tab in am and 1 tab at 3 pm, 30 days, 1 refills - buPROPion HCl ER (XL) 150 [...] severe anxiety/panic, 30 days, 0 refills - Mirtazapine 15 [...] with food, 90 days, 3 refills - - No side effects reported- No motor side effects reported i.e., no extrapyramidal side effects and no tardive dyskinesia. AIMS - 0 Past Medical/Surgical History Primary Care Provider: Dr. Kelli Hernandez, DMD -- Dentist. Diagnoses: Low testosterone levels -- started injections 10/2022 Mouth cyst - growth in mouth removed 06/02/20 -- given Amoxil 875 mg, Ibuprofen 800 mg and Tramadol 50 mg. Raynaud's syndrome --taking amlodipine for this --given by Dr. Lara. Colitis Irritable bowel syndrome. Keloid scar -- removal ( on left ear lobe) 03/[address] Rivers in [place], [place]. Systemic lupus erythematosus. Strain of muscle, [...] and on 10/06/19 he was seen at [facility] ER by Dr. Self and given Clindamycin 150 mg -- for spider bite on right calf Procedural: - Coronavirus 2019-nCoV vaccine - Moderna #1 06/2020 #2 07/2020 #3 04/2021 Procedural: - Colonoscopy - 2018 -- no polyps User Defined 4 Previous Psychiatric Hospitalizations: [place], [place] 10/15/18. Previous Psychiatric Treatments: He saw [...] difference -- 02/01/21 - 02/10/21 - discontinued Social History Tobacco use: Tobacco non-user. Caffeine use: Daily coffee consumption -- drinks 1 cup of coffee every morning, no soda or tea. Alcohol: Alcohol use - will 3-6 beers every night and was asked to please abstain from alcohol since ETOH is a [employer] depressant. Drug Use: Drug use marijuana he tried a couple of times but has not used for quite awhile. 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 Marital: Marital history -- . He was born in [facility] and raised in [place]. 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 Allergies - No Known Allergies Family History Maternal: Depression -- mother, Dx with Lymphoma, DEBORAH Polyneuropathy and Waldenstroms Disorder Review Of Systems Systemic: Not feeling poorly (malaise). No fever, no chills, and no night sweats. Recent weight change. Head: No headache and no sinus pain. [...] no rash. Physical Findings - Vitals taken 11/25/2022 04:46 pm self reported vitals BP-Sitting L 150/107 mmHg BP Cuff Size Regular Pulse Rate-Sitting 62 bpm Pulse Rhythm Regular Height 72 in Weight 205 lbs Body Mass Index 27.8 kg/m2 Body Surface Area 2.2 m2 Tests Educational Testing: Questionnaires PHQ-9: Value PHQ-9: total score 6 Assessment - Obstructive sleep apnea - Attention deficit disorder without hyperactivity - Major depression, recurrent - Dysthymic disorder - Psychophysiological insomnia - Generalized anxiety disorder - Panic disorder - Dissociative identity disorder Therapy - Dangerousness assessment: no suicide risk. - Supportive care and encouragement--given positive reinforcement to keep patient motivated and active. - Encouragement to exercise - balanced meal plan, low fat low carb diet. - Education and instructions. - Assessment of suicide risk performed - not suicidal - Clinical summary provided to patient. * Call [phone] and /or go to the nearest emergency room or call me if suicidal/homicidal ideation or other serious concerns arise. * I gave instructions to call me should there be any questions or concerns. * Patient voiced understanding and agreed to treatment plan. Counseling/Education - Calming techniques such as breathing exercises/meditation and other relaxation techniques Plan StartCited - Other Follow-up 02/28/23 EndCited Major Depressive Disorder - Rexulti 1 mg 1 tab daily, Auvelity 1 tab 2 x a day, Viibryd 40 mg 1 tab in the morning Dysthymic Disorder - Trintellix 20 mg 1 tab in the morning Generalized Anxiety Disorder - Buspar 15 mg 1 tab 4 times a day and Atenolol 25 mg 1 tab 3 x a day (increased on 05/16/22), Mirtazapine 15 mg 1 tab at bedtime for mood/anxiety, to help with appetite since he lost 14 lbs as of 03/01/22 and to also help counteract/relieve GI issues associated with his anxiety - he now gained 7 lbs back -- may use as needed only since he said that he tends to get hungry Attention Deficit Disorder - Mydayis 37.5 mg 1 capsule in the morning Panic Disorder - Klonopin 0.5 mg 1 tab a day as needed for anxiety/panic Mild Cognitive Impairment - L-methylfolate 15 mg 1 tab in am Psychophysiological Insomnia - Trazodone 100 mg 1 and 1/2 tabs at bedtime R/O FUENTES - pt snores and has [...]
--- OUTSIDE RECORDS SUMMARY | 2024-05-31 00:13 | XMS_ITS | Clinical Summary ---
Author Organization [facility] Address [address] [place] [address] Phone Care Team Providers Care Biomedical Specialist Name Role Phone CHRISTOPHE MOODY, CONSUELO LEE Unavailable [phone] KELLI LARA MD Primary Care Provider [phone] Reason for Visit and Chief Complaint The Chief Complaint is: follow up for depression, anxiety and panic Problems Includes: Problems addressed during this encounter and other active Problems Current Visit Onset Date Resolved Date Provider Conditio n Status 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 CONSUELO ZUNIGA MD Active Last Documented On 3 9:12AM ; [facility] Dissociative Identity Disorder 10/11/2017 WADE ZUNIGA MD Active Last Documented On 8 11:58PM ; [facility] Panic Disorder 07/11/2016 CONSUELO Colon Active Last Documented On 7 5:47PM ; [facility] Nonorganic Sleep Apnea Obstructive 12/12/2015 Unknown M YELITZA ZUNIGA MD Resolved Last Documented On 9 5:03PM ; [facility] Psychophysiological Insomnia 10/12/2015 CONSUELO ZUNIGA MD Active Last Documented On 7 6:07PM ; [facility] Attention Deficit Disorder W ithout Hyperactivity 09/11/2012 CONSUELO ZUNIGA MD Active Last Documented On 5 6:05PM ; [facility] Dysthymic Disorder (Depressive Neurosis) 09/11/2012 CONSUELO ZUNIGA MD Active Last Documented On 3 10:29PM ; [facility] Generalized Anxiety Disorder 09/11/2012 CONSUELO ZUNIGA MD Active Last Documented On 4 11:21AM ; [facility] Major Depression, Recurrent 09/11/2012 CONSUELO ZUNIGA MD Active Last Documented On 3 4:50PM ; [facility] Past Visits Onset Date Resolved Date Provider Condition Status Colitis 03/27/2015 CONSUELO ZUNIGA MD Ac tive Last Documented On 6 10:15AM ; [facility] Chronic Fatigue Syndrome 10/03/2014 CONSUELO ZUNIGA MD Active Last Documented On 5 4:03PM ; [facility] Raynaud's Syndrome 10/03/2014 CONSUELO FLORES MD Active Last Documented On 5 3:39PM ; [facility] Systemic Lupus Erythematosus 10/03/2014 CONSUELO ZUNIGA MD Active Last Documented On 5 3:38PM ; [facility] Plan of Treatment Major Depressive Disorder - Rexulti 1 mg 1 tab daily and Bupropion XL 150 mg 3 tablets in the morning, Viibryd 40 mg 1 tab in the morning Dysthymic Disorder - Trintellix 20 mg 1 tab in the morning, add Modafinil 200 mg 1/2 - 1 tab in am to help with alertness/motivation (04/11/22) Generalized Anxiety Disorder - Buspar 15 mg 1 tab 4 times a day and Atenolol 25 mg 1 tab twice a day, Mirtazapine 15 mg 1 tab at bedtime for mood/anxiety, to help with appetite since he lost 14 lbs as of 03/01/22 and to also help counteract/relieve GI issues associated with his anxiety - he now gained 7 lbs back -- may use as needed only. Attention Deficit Disorder - Mydayis 37.5 mg 1 capsule in the morning Panic Disorder - Klonopin 0.5 mg 1 tab a day as needed for anxiety/panic Psychophysiological Insomnia - Trazodone 100 mg 1 and 1/2 tabs at bedtime R/O FUENTES - pt snores and has hypersomnia - Modafinil 200 mg 1 tab in am as needed for alertness/motivation Pt was referred to [facility] last 01/2021 for counseling/stress mgt. 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 Last Documented On 3 9:15AM ; [facility] Assessments Includes: Assessments from this encounter Findings - Obstructive sleep apnea - Last Documented On 04/12/2022 9:17AM ; [facility] - Attention deficit disorder without hyperactivity - Last Documented On 04/12/2022 9:17AM ; [facility] - Major depression, recurrent - Last Documented On 04/12/2022 9:17AM ; [facility] - Dysthymic disorder - Last Documented On 04/12/2022 9:17AM ; [facility] - Psychophysiological insomnia - Last Documented On 04/12/2022 9:17AM ; [facility] - Generalized anxiety disorder - Last Documented On 04/12/2022 9:17AM ; [facility] - Panic disorder - Last Documented On 04/12/2022 9:17AM ; [facility] - Dissociative identity disorder - Last Documented On 04/12/2022 9:17AM ; [facility] Instructions Includes: Instructions from this encounter Education and Decision Aids were provided during visit for: Discussed calming techniques such as breathing exercises and other relaxation techniques Last Documented On 3 5:13PM ; [facility] Discussed good sleep hygiene habits - abstain from alcohol even though it is just casual since this cannot be combined with psych meds and 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 Last Documented On 3 9:15AM ; [facility] Medical Equipment - Implanted Devices Includes: Current Devices No Medical Equipment Recorded Medications Includes: Medications discussed during this encounter and other current Medications New / Renewed during this visit CONSUELO ZUNIGA MD on 04/11/2022 Modafinil 200 MG Oral Tablet Provider: CONSUELO ZUNIGA MD 30 day supply: 30 tablet, 3 refills Diagnosis: Major depressive disorder, recurrent, moderate 1 tablet every morning Pharmacy: [facility], [id number] - Last Documented On 12:30PM By Nelda Zuniga MD ; [facility] Current Medications (continue as prescribed) Mydayis 37.5 MG Oral Capsule Extended Release 24 Hour 06/10/2022 Provider: CONSUELO ZUNIGA MD Diagnosis: Attention-defici t hyperactivity disorder, unspecified type 1 Capsule every morning Last Documented On 06/10/2022 3:26PM By Nelda Zuniga MD ; [facility] traZODone HCl 100 MG Oral Tablet 05/23/2022 Provider: CONSUELO ZUNIGA MD Diagnosis: Psychophysiologi c insomnia TAKE ONE AND ONE-HALF TABLET S AT BEDTIME DIRECTED Last Documented On 11:48AM By Nelda Zuniga MD ; [facility] KlonoPIN 0.5 MG Oral Tablet 05/16/2022 Provider: CONSUELO ZUNIGA MD Diagnosis: Panic disorder [ episodic paroxysmal anxiety] as directed 1 tab once a day as needed for severe anxiety/panic Last Documented On 05/16/2022 6:39PM By Nelda Zuniga MD ; [facility] Modafinil 200 MG Oral Tablet 05/16/2022 Provider: CONSUELO ZUNIGA MD Diagnosis: Obstructive slee p apnea (adult) (pediatric) as directed - 1 tab in am, 1 tab at noon Last Documented On 05/16/2022 6:39PM By Nelda Zuniga MD ; [facility] Atenolol 25 MG Oral Tablet 05/16/2022 Provider: CONSUELO ZUNIGA MD Diagnosis: Generalized anxi ety disorder One tablet three times a day Last Documented On 05/16/2022 6:34PM By Nelda Zuniga MD ; [facility] Mirtazapine 15 MG Oral Tablet 03/02/2022 Provider: CONSUELO ZUNIGA MD Diagnosis: Dysthymic disord er One tablet at bed time Last Documented On 03/02/2022 8:21PM By Nelda Zuniga MD ; [facility] Remeron 15 MG Oral Tablet 03/02/2022 Provider: CONSUELO ZUNIGA MD Diagnosis: Generalized anxi ety disorder One tablet at bed time Last Documented On 03/02/2022 8:20PM By Nelda Zuniga MD ; [facility] busPIRone HCl 15 MG Oral Tablet 11/11/2021 Provider: CONSUELO ZUNIGA MD Diagnosis: Generalized anxi ety disorder TAKE 1 TABLET FOUR TIMES A DAY Last Documented On 11/11/2021 5:17PM By Nelda Zuniga MD ; [facility] buPROPion HCl ER (XL) 150 MG Oral Tablet Extended Release 24 Hour 11/11/2021 Provider: CONSUELO ZUNIGA MD Diagnosis: Major depressive disorder, recurrent, moderate TAKE 3 TABLETS IN THE MORNIN G DIRECTED Last Documented On 11/11/2021 5:19PM By Nelda Zuniga MD ; [facility] Trintellix 20 MG Oral Tablet 08/20/2021 Provider: CONSUELO ZUNIGA MD Diagnosis: TAKE 1 TABLET EVERY MORNING Last Documented On 08/20/2021 8:58AM By Nelda Zuniga MD ; [facility] Viibryd 40 MG Oral Tablet 08/20/2021 Provider: CONSUELO ZUNIGA MD Diagnosis: Major depressive disorder, recurrent, unspecified 1 tablet every morning with food Last Documented On 08/20/2021 8:59AM By Nelda Zuniga MD ; [facility] Rexulti 1 MG Oral Tablet 04/06/2021 Provider: MET DANIELLE ZUNIGA MD Diagnosis: Major depressive disorder, recurrent, moderate One tablet daily Last Documented On 11:15AM By Nelda Zuniga MD ; [facility] Atenolol 25 MG Oral Tablet 11/10/2019 Provider: CONSUELO ZUNIGA MD Diagnosis: Generalized anxi ety disorder One tablet twice a day Last Documented On 11/10/2019 3:38PM By Nelda Zuniga MD ; [facility] buPROPion HCl ER (XL) 150 MG Oral Tablet Extended Release 24 Hour 10/24/2019 Provider: CONSUELO ZUNIGA MD Diagnosis: Major depressive disorder, recurrent, moderate TAKE 3 TABLETS IN THE MORNIN G DIRECTED Last Documented On 10/24/2019 3:42PM By Nelda Zuniga MD ; [facility] Trintellix 20 MG Oral Tablet 07/01/2019 Provider: CONSUELO ZUNIGA MD Diagnosis: Dysthymic disord er 1 tablet every morning Last Documented On 07/01/2019 2:34PM By Nelda Zuniga MD ; [facility] Glucosamine Sulfate 1000MG Oral Capsule 05/22/2017 Provider: Diagnosis: 1 a day Last Documented On 05/22/2017 5:23PM By Nelda Zuniga MD ; [facility] AmLODIPine Besylate 5 MG Tablet 01/15/2016 Provider: KELLI LARA MD Diagnosis: 1 daily Last Documented On 7 8:48AM By DIONE LOVE LPN ; [facility] Past Medications on file Sunosi 75 MG Oral Tablet 02/01/2021 - 03/03/2021 Provider: CONSUELO PAINTING MD Diagnosis: Narcolepsy witho ut cataplexy 1 tablet every morning Last Documented On 02/01/2021 7:54PM By Nelda Zuniga MD ; [facility] Rexulti 2 MG Oral Tablet 02/01/2021 - 03/03/2021 Provider: CONSUELO PAINTING MD Diagnosis: Major depressive disorder, recurrent, moderate One tablet daily Last Documented On 02/01/2021 7:53PM By Nelda Zuniga MD ; [facility] Medications Administered Includes: Administered Medications from this encounter No Administered Medications Recorded Vital Signs Includes: Vital Signs from this encounter Vital Name 04/11/2022 05:32P Blood Pressure Sitting L 115/105 BP Cuff Size Regular Pulse Rate-Sitting (bpm) 60 Pulse Rhythm Regular Height (in) 72 Weight (lb) 202 Body Mass Index 27.4 Body Surface Area 2.1 Note: self reported vitals Last Documented: On 04/11/2022 5:34PM ; [facility] Results Includes: Results discussed during this encounter No Results Recorded For Specified Dates History of Present Illness Includes: History of Present Illness from this encounter EFRAIN FLOWERS is a 56 year old male. - Allergy list reviewed - Past medical history reviewed - Medication list reviewed Pt has been feeling depressed and anxious due to situation with her mother and stepfather who are still in [place]. The plan was to have them move back to his home but his just told him earlier that his mother had a stroke and is in the hospital so his mother may need to go to a half-way facility for rehab. Elier said that his mother has right sided weakness and if so he said that he and his cannot take care of his mother in that health situation and this is making him more stressed/anxious. His stepfather has COPD and is on 02. He had to take Klonopin at least on 4 episodes the past 2 weeks which helped calm him down. Pt denied having any mood swings. Pt has been easily annoyed/short tempered more so around people when they do stupid things or when he hears something in social media. Pt has not been as motivated in general in doing daily tasks. He still goes to work but his interest in hobbies like photography has gone down. Sleep has been good but at times has trouble staying asleep. Pt has been napping/sleeping too much during the daytime on weekends. Pt has been feeling tired. Appetite is getting better. He gained 7 lbs since last visit due to the Remeron given for anxiety. Pt at times feels bad about self. Pt is able to focus and concentrate for the most part with Mydayis but at times can get distracted and inattentive david when stressed. Pt denied having any psychomotor restlessness. Pt feels helpless at times but denied suicidal thoughts. Pt denied having any delusions/hallucinations. Overall the combination of Trintellix, Viibryd, Bupropion are still helping his mood along with Buspar for anxiety. He had to stop the Remeron since he was hungry all the time but it helped counteract the nausea and other GI issues relating to his anxiety so he can take it as needed for anxiety relating to GI issues. 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 I discussed about adding Modafinil as needed only to see if this will help him maintain alertness and indirectly help with his motivation. He said that he occ snores and has excessive daytime tiredness/sleepiness. Pt denied motor side effects from Rexulti. NO TD noted/reported. MENTAL STATUS EXAM: Sensorium - alert, oriented to name, place, and time Attitude - cooperative Gait - ambulatory Sleep - difficulty staying asleep at times Interest/Energy/Motivation - not as motivated, hard to get up out of bed david on weekends but still goes to work Guilt/Worthlessness - absent Concentration/Attention Span - able to focus and concentrate with Mydayis except when anxious Memory Recall - fairly good Appetite - better - on 03/01/22 pt weighed 195 lbs and on 04/11/22 he weighed 202 lbs so he gained 5 lbs Suicidal Thoughts - absent Homicidal Thoughts - absent Delusions - absent Hallucinations - absent Appearance - casually groomed Motor Behavior - somewhat tense Eye Contact - intermittent Speech - fluent Mood - still gets down and anxious due to her mother's health situation Affect - anxious, worried about her mother Thought Process - coherent Insight and Judgment - intact Social History Description Last Updated Alcohol use - will drink a 1 2 pack of beer over 3 days time in a week and was asked to please abstain from alcohol 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 He has completed trade school. 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[employer] 02/02/2018 Last Documented On 3 5:13PM ; [facility] Marital history -- 03/27/2015 Last Documented On 3 5:13PM ; [facility] Smoking status : Never smoked 09/11/2012 Last Documented On 3 5:13PM ; [facility] Procedures and Surgical History Includes: Procedures from this encounter Procedures Code Diagnosis Performing Provider Service L ocation Service Date education and instructions Last Documented On 3 5:13PM ; [facility] I discussed the risks, benef its and side effects of Rexulti to the patient including the possibility of metabolic and motor side effects such as tardive dyskinesia Last Documented On 3 5:31PM ; [facility] dangerousness assessment: suicide risk -not suic idal 3085F Last Documented On 3 5:13PM ; [facility] use of tobacco assessment performed 1000F Last Documented On 3 5:13PM ; [facility] patient screened for future fall risk - no recen t falls 3288F Last Documented On 3 5:13PM ; [facility] review of medications documented 1160F Last Documented On 3 5:13PM ; [facility] screening for adult depressi on: impression and score - please see above treatment and PHQ score Last Documented On 3 5:13PM ; [facility] standardized depression screening: posit sunday for symptoms Last Documented On 3 5:13PM ; [facility] encouragement to exercise Last Documented On 3 5:13PM ; [facility] Counseling on new medication : I discussed the risks, benefits and side effects of Modafinil . Patient verbalized understanding and agreed to treatment Last Documented On 3 9:13AM ; [facility] Clinical summary provided to patient Last Documented On 3 5:13PM ; [facility] PHQ-9: total score 10 Last Documented On 3 9:13AM ; [facility] Medical History Includes: Medical History addressed during this encounter Description Last Updated History of coronavirus 2019- nCoV vaccine - Moderna #1 06/2020 #2 07/2020 #3 04/202108/02/2021 Last Documented On 3 5:13PM ; [facility] History of mouth cyst - grow th in mouth removed 06/02/20 -- given Amoxil 875 mg, Ibuprofen 800 mg and Tramadol 50 mg 09/29/2020 Last Documented On 3 5:13PM ; [facility] Primary Care Provider: Dr. Darlene Lara ~Dr. Len Hernandez, [facility] -- Dentist 09/29/2020 Last Documented On 3 5:13PM ; [facility] History of toxic reaction to venom of spider - on 10/02/19 -- given Keflex 500 mg and Triamcinolone cream 0.05 % by Dr. Valente and on 10/06/19 he was seen at [facility] ER by Dr. Hopkins and given Clindaymycin 150 mg -- for spider bite on right calf 10/23/2019 Last Documented On 3 5:13PM ; [facility] History of colonoscopy - 2017 -- no poly ps 02/25/2019 Last Documented On 3 5:13PM ; [facility] History of irritable bowel syndrome 01/12 Last Documented On 3 5:13PM ; [facility] History of keloid scar -- re moval ( on left ear lobe) 03/[address] 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 Pt had PT for both arms and elbow -- 04/201401/29/2018 Last Documented On 3 5:13PM ; [facility] History of Raynaud's syndrom e --taking amlodipine for this --given by Dr. Barcenas 11/11/2016 Last Documented On 3 5:13PM ; [facility] History of colitis 03/27/2015 Last Documented On 3 5:13PM ; [facility] History of systemic lupus erythematosus 10/03/2014 Last Documented On 3 5:13PM ; [facility] History of dysthymic disorder 12/12/2012 Last Documented On 3 5:13PM ; [facility] Family History Includes: Family History addressed during this encounter Description Last Updated Maternal history of depressi on -- mother, Dx with Lymphoma, DEBORAH Polyneuropathy and Waldenstroms Disorder 09/28/2017 Last Documented On 3 5:13PM ; [facility] Review of Systems Includes: Review of Systems from this encounter Systemic: Feeling poorly (malaise) - occasionally tired. No fever and no chills. Night sweats. Head: No headache and no sinus pain. Neck: No neck pain. Neck stiffness. Eyes: Vision problems. No itching of the eyes and no eye pain. Otolaryngeal: No hearing loss and no earache. Tinnitus. No nasal discharge. Postnasal drip. No hoarseness and no sore throat. Cardiovascular: No chest pain or discomfort, no palpitations, and the heart rate was not fast. Pulmonary: No dyspnea. Cough. No wheezing. Gastrointestinal: No heartburn. Nausea, vomiting, and diarrhea. No constipation. Genitourinary: No increase in urinary frequency. No dysuria. Endocrine: No polydipsia and no excessive sweating. Libido has changed. Musculoskeletal: No muscle aches and no localized joint pain. Stiffness localized to one or more joints. Neurological: No dizziness, no vertigo, no fainting, [...] Check-Out Time Diagnosis [employer] CONSUELO ZUNIGA MD [facility] 04/11/19 23 5:13PM 11:59PM Major Depression, Recurrent,Dysth ymic Disorder (Depressive Neurosis),Gener alized Anxiety Disorder,Dissoc iative Identity Disorder,Psycho physiological Insomnia,Attent ion Deficit Disorder Without Hyperactivity,P anic Disorder,Nonorg anic Sleep Apnea Obstructive Insurance Includes: Active Insurance Policies Plan Name Member ID Group # Subscriber Relationship Effect sunday Dates 1 - [facility] [id number] DANIEL FLOWERS Self Clinical Notes Includes: Clinical Notes from this encounter No Clinical Notes Recorded
--- OUTSIDE RECORDS SUMMARY | 2024-05-31 00:14 | XMS_ITS ---
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
--- OUTSIDE RECORDS SUMMARY | 2024-05-31 00:14 | XMS_ITS | Clinical Summary ---
Author Organization [facility] Address [address] [place] [address] Phone Care Team Providers Care Vice President Regulatory Name Role Phone CONSUELO ZUNIGA MD Unavailable [phone] Reason for Visit and Chief Complaint The Chief Complaint is: follow up for depression, anxiety and panic Problems Includes: Problems addressed during this encounter and other active Problems Current Visit Onset Date Resolved Date Provider Conditio n Status 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 Active Last Documented On 3 5:50PM ; [facility] Dissociative Identity Disorder 10/11/2017 Active Last Documented On 3 5:51PM ; [facility] Panic Disorder 07/11/2016 Active Last Documented On 3 5:50PM ; [facility] Nonorganic Sleep Apnea Obstructive 12/12/2015 Unknown Resolved Last Documented On 3 5:50PM ; [facility] Psychophysiological Insomnia 10/12/2015 Active Last Documented On 3 5:50PM ; [facility] Attention Deficit Disorder Without Hyperactivity 3 Active Last Documented On 3 5:46PM ; [facility] Dysthymic Disorder (Depressive Neurosis) 09/11/2012 Active Last Documented On 3 5:46PM ; [facility] Generalized Anxiety Disorder 09/11/2012 Active Last Documented On 3 5:46PM ; [facility] Major Depression, Recurrent 09/11/2012 Active Last Documented On 3 5:46PM ; [facility] Past Visits Onset Date Resolved Date Provider Condition Status Colitis 03/27/2015 Active Last Documented On 3 5:49PM ; [facility] Chronic Fatigue Syndrome 10/03/2014 Active Last Documented On 3 5:48PM ; [facility] Raynaud's Syndrome 10/03/2014 Active Last Documented On 3 5:48PM ; [facility] Systemic Lupus Erythematosus 10/03/2014 Active Last Documented On 3 5:48PM ; [facility] Plan of Treatment Major Depressive Disorder - Rexulti 1 mg 1 tab daily, Bipropion XL 150 mg 1 tab in am, Viibryd 40 mg 1 tab [...] 1 tab in am Psychophysiological Insomnia - Quviviq 50 mg 1 tab at bedtime as needed for sleep, Trazodone 100 mg 1 and 1/2 tabs at bedtime R/O FUENTES - pt snores and has hypersomnia - Modafinil 200 mg 1 tab in am as needed for alertness/motivation Pt was referred to [facility] last 01/2021 for counseling/stress mgt. - Last Documented On 05/24/2023 6:21PM ; [facility] Future Appointments Date Time Location [facility] TELEHEALTH ADULT PSYCH ESTABLISHED 06/20/2024 4:40PM [facility]-TABATHA ZUNIGA MD Last Documented On 4 5:40PM ; [facility] Education and Decision Aids were provided during visit for: Patient counseling I discuss ed risk, benefits, and side effects of sleep aid - Quviviq including the possibility of sleep related behaviors i.e. sleepwalking, sleeptalking, sleepdriving, etc... Pt verbalized understanding Last Documented On 4 6:12PM ; [facility] Discussed good sleep hygiene habits Last Documented On 4 6:12PM ; [facility] Assessments Includes: Assessments from this encounter Findings - Obstructive sleep apnea - Last Documented On 05/24/2023 6:21PM ; [facility] - Attention deficit disorder without hyperactivity - Last Documented On 05/24/2023 6:21PM ; [facility] - Major depression, recurrent - Last Documented On 05/24/2023 6:21PM ; [facility] - Dysthymic disorder - Last Documented On 05/24/2023 6:21PM ; [facility] - Psychophysiological insomnia - Last Documented On 05/24/2023 6:21PM ; [facility] - Generalized anxiety disorder - Last Documented On 05/24/2023 6:21PM ; [facility] - Panic disorder - Last Documented On 05/24/2023 6:21PM ; [facility] - Dissociative identity disorder - Last Documented On 05/24/2023 6:21PM ; [facility] Instructions Includes: Instructions from this encounter Education and Decision Aids were provided during visit for: Patient counseling I discuss ed risk, benefits, and side effects of sleep aid - Quviviq including the possibility of sleep related behaviors i.e. sleepwalking, sleeptalking, sleepdriving, etc... Pt verbalized understanding Last Documented On 6:12PM ; [facility] Discussed good sleep hygiene habits Last Documented On 6:12PM ; [facility] Medical Equipment - Implanted Devices Includes: Current Devices No Medical Equipment Recorded Medications Includes: Medications discussed during this encounter and other current Medications Discontinued / Stopped on this date CONSUELO ZUNIGA MD on 01/23/2023 Auvelity 45-105 MG Oral Tablet Extended Release Provider: CONSUELO PAINTING MD Diagnosis: Major depressive disorder, recurrent, moderate Last Documented On 05/10/2023 4:59PM By Nelda Zuniga MD ; [facility] New / Renewed during this visit CONSUELO ZUNIGA MD on 05/10/2023 Quviviq 50 MG Oral Tablet Provider: CONSUELO ZUNIGA MD 30 day supply: 30 tablet, 3 refills Diagnosis: Psychophysiologic insomnia as directed - 1 tab at bedti dc as needed for sleep Pharmacy: [facility] [address] , [facility], [phone] - Last Documented On 07/27/2023 3:53AM By Nelda Zuniga MD ; [facility] Current Medications (continue as prescribed) Mydayis 37.5 MG Oral Capsule Extended Release 24 Hour 08/31/2023 Provider: CONSUELO ZUNIGA MD Diagnosis: Attention-defici t hyperactivity disorder, unspecified type 1 Capsule every morning Last Documented On 08/31/2023 8:26PM By Nelda Zuniga MD ; [facility] buPROPion HCl ER (XL) 150 MG Oral Tablet Extended Release 24 Hour 07/26/2023 Provider: CONSUELO ZUNIGA MD Diagnosis: Major depressive disorder, recurrent, moderate TAKE 3 TABLETS IN THE MORNIN G DIRECTED Last Documented On 07/26/2023 5:41PM By Nelda Zuniga MD ; [facility] Modafinil 200 MG Oral Tablet 07/26/2023 Provider: CONSUELO ZUNIGA MD Diagnosis: Obstructive slee p apnea (adult) (pediatric) as directed - 1 tab in am, 1 tab at noon Last Documented On 07/26/2023 5:42PM By Nelda Zuniga MD ; [facility] Testosterone Cypionate 200 M G/ML Intramuscular Solution 07/11/2023 Provider: THALIA Valle Diagnosis: Last Documented On 07/27/2023 3:52AM By Nelda Zuniga MD ; [facility] KlonoPIN 0.5 MG Oral Tablet 07/05/2023 Provider: CONSUELO ZUNIGA MD Diagnosis: Panic disorder [ episodic paroxysmal anxiety] as directed 1 tab once a day as needed for severe anxiety/panic Last Documented On 07/06/2023 3:30AM By Nelad Zuniga MD ; [facility] Meloxicam 15 MG Oral Tablet 06/24/2023 Provider: LEOPOLDO SORENSON MD Diagnosis: 1 daily prn Last Documented On 07/26/2023 4:54PM By SIMONA DOUGLAS ; [facility] busPIRone HCl 15 MG Oral Tablet 06/22/2023 Provider: CONSUELO ZUNIGA MD Diagnosis: Generalized anxi ety disorder TAKE 1 TABLET FOUR TIMES A DAY Last Documented On 06/22/2023 2:12PM By Nelda Zuniga MD ; [facility] Atenolol 25 MG Oral Tablet 05/16/2023 Provider: CONSUELO ZUNIGA MD Diagnosis: Generalized anxi ety disorder TAKE 1 TABLET THREE TIMES A DAY Last Documented On 05/16/2023 12:20PM By Nelda Zuniga MD ; [facility] traZODone HCl 100 MG Oral Tablet 05/16/2023 Provider: CONSUELO ZUNIGA MD Diagnosis: Psychophysiologi c insomnia TAKE ONE AND ONE-HALF TABLET S AT BEDTIME DIRECTED Last Documented On 05/16/2023 12:20PM By Nelda Zuniga MD ; [facility] Testosterone Cypionate 200 M G/ML Intramuscular Solution 11/15/2022 Provider: KELLI LARA MD Diagnosis: inject once a week Last Documented On 11/25/2022 5:34PM By Nelda Zuniga MD ; [facility] Glucosamine Sulfate 1000 MG OR CAPS 05/22/2017 P vicder: Diagnosis: 1 a day Last Documented On 07/09/2022 5:37PM By Nelda Zuniga MD ; [facility] amLODIPine Besylate 5 MG OR TABS 01/15/2016 Provider : Diagnosis: 1 daily Last Documented On 07/09/2022 5:37PM By DIONE LOVE LPN ; [facility] Past Medications on file Vilazodone HCl 40 MG Oral Tablet 11/25/2022 - 11/20/2023 Provider: CONSUELO ZUNIGA MD Diagnosis: Major depressive disorder, recurrent, unspecified 1 tablet every morning with food Last Documented On 11/25/2022 1:55PM By Nelda Zuniga MD ; [facility] Trintellix 20 MG Oral Tablet 09/20/2022 - 09/15/2023 Provider: CONSUELO ZUNIGA MD Diagnosis: Major depressive disorder, recurrent, moderate 1 tablet every morning Last Documented On 09/20/2022 3:33PM By Nelda Zuniga MD ; [facility] Sunosi 75 MG OR TABS 02/01/2021 - 03/03/2021 Provider: CONSUELO ZUNIGA MD Diagnosis: Narcolepsy witho ut cataplexy 1 tablet every morning Last Documented On 07/09/2022 5:37PM By Nelda Zuniga MD ; [facility] Rexulti 2 MG OR TABS 02/01/2021 - 03/03/2021 Provider: CONSUELO ZUNIGA MD Diagnosis: Major depressive disorder, recurrent, moderate One tablet daily Last Documented On 07/09/2022 5:37PM By Nelda Zuniga MD ; [facility] Medications Administered Includes: Administered Medications from this encounter No Administered Medications Recorded Vital Signs Includes: Vital Signs from this encounter Vital Name 05/10/2023 04:47P Blood Pressure Sitting L 147/97 BP Cuff Size Regular Pulse Rate-Sitting (bpm) 74 Pulse Rhythm Regular Height (in) 72 Weight (lb) 210 Body Mass Index 28.5 Body Surface Area 2.2 Note: self reported vitals Last Documented: On 05/10/2023 4:47PM ; [facility] Results Includes: Results discussed during this encounter No Results Recorded For Specified Dates History of Present Illness Includes: History of Present Illness from this encounter EFRAIN FLOWERS is a 57 year old male. - Allergy list reviewed - Past medical history reviewed - Medication list reviewed Myles reported that he has been stressed and anxious but more so because he has to take care of his mother and step-father who are now living at his place because he and his moved them from [place] to his place. However, it is hard at times, especially on weekends to adjust since his parents are consuming the whole house, i.e. they would just stay in the living room and watch TV all day so he and his really do not have any type of privacy. At times he gets frustrated and irritated with his home situation. He said that he has been busy with work while his Nikky is the one making the sacrifice to take care of his mother who has dementia and at times, can be repetitive and hard to get along with. About 2 months ago, he said that he changed job to a smaller company so he said that he is less stressed and the job is not as demanding as what he had before with the larger company. 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 Overall, his psych meds are helping. There are days where he is tired and not as motivated. At times, he has trouble falling asleep and staying asleep. He gets tired. Appetite is good. He tends to overeat at times. He is still able to focus and concentrate with Mydayis. He denied having any psychomotor restlessness. He denied having any suicidal thoughts. No delusions or hallucinations. He said that he is taking Trazodone but there are nights where he is really not sleeping so I discussed about a trial of Quviviq 50 mg one at bedtime as needed for sleep. He was asked to still watch out for any sleep related behaviors but if he has side effects such as what he had with the Ambien that he needs to stop it immediately. MENTAL STATUS EXAM: Sensorium - alert, oriented to name, place, and time Attitude - cooperative Gait - ambulatory Sleep - difficulty falling asleep and staying asleep -- bad dreams -- night sweats Interest/Energy/Motivation - tired and at times not as motivated Guilt/Worthlessness - absent Concentration/Attention Span - able to focus and concentrate Memory Recall - fairly good Appetite - good - overeating at times, on 11/25/22 pt weighed 205 lbs and on 05/10/23 he weighed 210 lbs so he gained 5 lbs Suicidal Thoughts - absent Homicidal Thoughts - absent Delusions - absent Hallucinations - absent Appearance - casually groomed Motor Behavior - calm Eye Contact - intermittent Speech - fluent Mood - not as down although he still gets anxious and stressed Affect - somewhat anxious Thought Process - coherent Insight and Judgment - intact Social History Description Last Updated Caffeine use: Daily coffee c onsumption -- drinks 1 cup of coffee on Monday and Monday mornings, no soda or tea.Alcohol: Alcohol use - will have an occasional beer on the weekend and was asked to please abstain from alcohol since ETOH is a ROAD OILER depressant.Drug Use: Drug use marijuana he tried a couple of times but has not used for quite awhile.Work: 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 05/10/2023 Last Documented On 4 4:50PM ; [facility] Tobacco non-user 05/10/2023 Last Documented On 4 6:21PM ; [facility] Smoking Status Unknown Procedures and Surgical History Includes: Procedures from this encounter Procedures Code Diagnosis Performing Provider Service L ocation Service Date education and instructions Last Documented On 4 4:32PM ; [facility] supportive care and encourag ement--given positive reinforcement to keep patient motivated and active, supportive listening provided, continue calming techniques - meditation, breathing exercises, reinforced some coping strategies, encouraged good sleep hygiene habits Last Documented On 4 6:08PM ; [facility] ~* Call [phone] and /or go t o the nearest emergency room or call me if suicidal/homicidal ideation or other serious concerns arise. ~ ~* I gave instructions to call me should there be any questions or concerns. ~ ~* Patient voiced understanding and agreed to treatment plan Last Documented On 4 4:46PM ; [facility] dangerousness assessment: no suicide risk 3085F Last Documented On 4 4:32PM ; [facility] use of tobacco assessment performed 1000F Last Documented On 4 4:46PM ; [facility] patient screened for future fall risk: documentation of any fall with injury in past year - no recent falls 1100F Last Documented On 4 4:46PM ; [facility] review of medications documented 1160F Last Documented On 4 4:46PM ; [facility] assessment of suicide risk performed - n ot suicidal Last Documented On 4 4:46PM ; [facility] screening for adult depressi on: impression and score - please see above for treatment and PHQ score Last Documented On 4 4:46PM ; [facility] standardized depression screening: posit sunday for symptoms Last Documented On 4 4:46PM ; [facility] encouragement to exercise - balanced rhonda l plan, low fat low carb diet Last Documented On 4 4:46PM ; [facility] Clinical summary provided to patient Last Documented On 4 4:32PM ; [facility] PHQ-9: total score 10 Last Documented On 4 2:51PM ; [facility] Medical History Includes: Medical History addressed during this encounter Description Last Updated Primary Care Provider: Dr. Darlene Hernandez, [facility] -- Dentist.Diagnoses:Low testosterone levels -- started injections 10/2022 Mouth cyst - growth in mouth removed 06/02/20 -- given Amoxil 875 mg, Ibuprofen 800 mg and Tramadol 50 mg. Raynaud's syndrome --taking amlodipine for this --given by Dr. Lara. ColitisIrritable bowel syndrome. Keloid scar -- removal ( on left ear lobe) 03/[address] Rivers in [place], [place]. Systemic lupus erythematosus. Strain of muscle, [...] and on 10/06/19 he was seen at [facility] ER by Dr. Self and given Clindamycin 150 mg -- for spider bite on right calfCold symptoms -- given Augmentin 875 mg and Tessalon Perles 100 mg 03/22/23 and given Cipro 500 mg and Flagyl 500 mg 01/17/23Procedural: Coronavirus 2019-nCoV vaccine - Moderna #1 06/2020 #2 07/2020 #3 2Procedural: Colonoscopy - 2018 -- no polyps 05/10/2023 Last Documented On 4 4:54PM ; [facility] Family History Includes: Family History addressed during this encounter Description Last Updated Maternal: Depression -- moth er, Dx with Lymphoma, DEBORAH Polyneuropathy and Waldenstroms Disorder 05/10/2023 Last Documented On 4 4:32PM ; [facility] Review of Systems Includes: Review of Systems from this encounter Systemic: Not feeling poorly (malaise). No fever and no chills. Night sweats. Head: No headache and no sinus pain. Neck: No neck pain and no neck stiffness. Eyes: No vision problems, no itching of the eyes, and no eye pain. Otolaryngeal: No hearing loss and no earache. Tinnitus. No nasal discharge, no hoarseness, and no sore throat. Cardiovascular: No chest pain or discomfort, no palpitations, and the heart rate was not fast. Pulmonary: No dyspnea, no cough, and no wheezing. Gastrointestinal: No heartburn. No nausea, no vomiting, no diarrhea, and no constipation. Genitourinary: No increase in urinary frequency. No dysuria. Endocrine: No polydipsia and no excessive sweating. Musculoskeletal: Muscle aches, pain localized to one or more joints, and joint stiffness localized to one or more joints. Neurological: [...] TELEHEALTH ADULT PSYCH ESTABLISHED CONSUELO ZUNIGA MD [facility] 05/10/19 24 4:31PM 11:59PM Major Depression, Recurrent,Dys thymic Disorder (Depressive Neurosis),Gen eralized Anxiety Disorder,Diss ociative Identity Disorder,Nono rganic Sleep Apnea Obstructive,P sychophysiolo gical Insomnia,Atte ntion Deficit Disorder Without Hyperactivity ,Panic Disorder Insurance Includes: Active Insurance Policies Plan Name Member ID Group # Subscriber Relationship Effect sunday Dates 1 - [facility] [id number] MYLES FLOWERS Self Clinical Notes Includes: Clinical Notes from this encounter * Progress note Date Encounter Last Documented by 05/10/2023 TELEHEALTH ADULT PSYCH ESTABLISH ED Last documented on 05/24/2023; 6:21 PM, CONSUELO ZUNIGA MD; [facility] Top of Document Medication psychotherapy 45 minutes Patient gave verbal consent for Telehealth 04/20/23. Location of patient: patient's home Location of [...] anxiety and panic. History of Present Illness MYLES FLOWERS is a 57 year old male. - Allergy list reviewed - Past medical history reviewed - Medication list reviewed Myles reported that he has been stressed and anxious but more so because he has to take care of his mother and step-father who are now living at his place because he and his moved them from [place] to his place. However, it is hard at times, especially on weekends to adjust since his parents are consuming the whole house, i.e. they would just stay in the living room and watch TV all day so he and his really do not have any type of privacy. At times he gets frustrated and irritated with his home situation. He said that he has been busy with work while his Nikky is the one making the sacrifice to take care of his mother who has dementia and at times, can be repetitive and hard to get along with. About 2 months ago, he said that he changed job to a smaller company so he said that he is less stressed and the job is not as demanding as what he had before with the larger company. 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 Overall, his psych meds are helping. There are days where he is tired and not as motivated. At times, he has trouble falling asleep and staying asleep. He gets tired. Appetite is good. He tends to overeat at times. He is still able to focus and concentrate with Mydayis. He denied having any psychomotor restlessness. He denied having any suicidal thoughts. No delusions or hallucinations. He said that he is taking Trazodone but there are nights where he is really not sleeping so I discussed about a trial of Quviviq 50 mg one at bedtime as needed for sleep. He was asked to still watch out for any sleep related behaviors but if he has side effects such as what he had with the Ambien that he needs to stop it immediately. MENTAL STATUS EXAM: Sensorium - alert, oriented to name, place, and time Attitude - cooperative Gait - ambulatory Sleep - difficulty falling asleep and staying asleep -- bad dreams -- night sweats Interest/Energy/Motivation - tired and at times not as motivated Guilt/Worthlessness - absent Concentration/Attention Span - able to focus and concentrate Memory Recall - fairly good Appetite - good - overeating at times, on 11/25/22 pt weighed 205 lbs and on 05/10/23 he weighed 210 lbs so he gained 5 lbs Suicidal Thoughts - absent Homicidal Thoughts - absent Delusions - absent Hallucinations - absent Appearance - casually groomed Motor Behavior - calm Eye Contact - intermittent Speech - fluent Mood - not as down although he still gets anxious and stressed Affect - somewhat anxious Thought Process - coherent Insight and Judgment - intact Current Medication - amLODIPine Besylate 5 MG Tablet One tablet daily 1 daily, 90 days, 0 refills - buPROPion HCl ER (XL) 150 [...] Hour 1 tablet every morning, 90 days, 0 refills - - No side effects reported Past Medical/Surgical History Primary Care Provider: Dr. Kelli Hernandez, [facility] -- Dentist. Diagnoses: Low testosterone levels -- started injections 10/2022 Mouth cyst - growth in mouth removed 06/02/20 -- given Amoxil 875 mg, Ibuprofen 800 mg and Tramadol 50 mg. Raynaud's syndrome --taking amlodipine for this --given by Dr. Lara. Colitis Irritable bowel syndrome. Keloid scar -- removal ( on left ear lobe) 03/[address] Rivers in [place], [place]. Systemic lupus erythematosus. Strain of muscle, [...] and on 10/06/19 he was seen at [facility] ER by Dr. Self and given Clindamycin [...] polyps User Defined 4 Previous Psychiatric Hospitalizations: [place], [place] 10/15/18. Previous Psychiatric Treatments: He saw [...] Rexulti 1 mg -- causing constipation 01/2019 -- not taking 04/2023 Sunosi 75 mg (samples) - did not make much difference -- 02/01/21 - 02/10/21 - discontinued Auvelity -- did not help -- stopped 05/01/2023 Modafinil 200 mg -- not taking -- 04/2023 Mirtazapine - 03/04 -- has discontinued Social History Tobacco use: Tobacco non-user. Caffeine use: Daily coffee consumption -- drinks 1 cup of coffee on Monday and Monday mornings, no soda or tea. Alcohol: Alcohol use - will have an occasional beer on the weekend and was asked to please abstain from alcohol since ETOH is a ROAD OILER depressant. Drug Use: Drug use marijuana he tried a couple of times but has not used for quite awhile. 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 Marital: Marital history -- . He was born in [facility] and raised in [place]. 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 Allergies - No Known Allergies Family History Maternal: Depression -- mother, Dx with Lymphoma, DEBORAH Polyneuropathy and Waldenstroms Disorder Review Of Systems Systemic: Not feeling poorly (malaise). No fever and no chills. Night sweats. Head: No headache and no sinus pain. Neck: No neck pain and no neck stiffness. Eyes: No vision problems, no itching of the eyes, and no eye pain. Otolaryngeal: No hearing loss and no earache. Tinnitus. No nasal discharge, no hoarseness, and no sore throat. Cardiovascular: No chest pain or discomfort, no palpitations, and the heart rate was not fast. Pulmonary: No dyspnea, no cough, and no wheezing. Gastrointestinal: No heartburn. No nausea, no vomiting, no diarrhea, and no constipation. Genitourinary: No increase in urinary frequency. No dysuria. Endocrine: No polydipsia and no excessive sweating. Musculoskeletal: Muscle aches, pain localized to one or more joints, and joint stiffness localized to one or more joints. Neurological: No dizziness, no vertigo, no fainting, and no motor disturbances. Skin: No pruritus. No skin lesions and no rash. Physical Findings - Vitals taken 05/10/2023 04:47 pm self reported vitals BP-Sitting L 147/97 mmHg BP Cuff Size Regular Pulse Rate-Sitting 74 bpm Pulse Rhythm Regular Height 72 in Weight 210 lbs Body Mass Index 28.5 kg/m2 Body Surface Area 2.2 m2 Tests Educational Testing: Questionnaires PHQ-9: Value PHQ-9: total score 10 Assessment - Obstructive sleep apnea - Attention deficit disorder without hyperactivity - Major depression, recurrent - Dysthymic disorder - Psychophysiological insomnia - Generalized anxiety disorder - Panic disorder - Dissociative identity disorder Therapy - Dangerousness assessment: no suicide risk. - Supportive care and encouragement--given positive reinforcement to keep patient motivated and active, supportive listening provided, continue calming techniques - meditation, breathing exercises, reinforced some coping strategies, encouraged good sleep hygiene habits. - Encouragement to exercise - balanced meal plan, low fat low carb diet. - Education and instructions. - Assessment of suicide risk performed - not suicidal - Clinical summary provided to patient. * Call [phone] and /or go to the nearest emergency room or call me if suicidal/homicidal ideation or other serious concerns arise. * I gave instructions to call me should there be any questions or concerns. * Patient voiced understanding and agreed to treatment plan. Counseling/Education - Discussed good sleep hygiene habits - Patient counseling I discussed risk, benefits, and side effects of sleep aid - Quviviq including the possibility of sleep related behaviors i.e. sleepwalking, sleeptalking, sleepdriving, etc... Pt verbalized understanding Plan StartCited - Other Follow-up 07/26/23 EndCited StartCited - Psychophysiologic insomnia Quviviq 50 MG tablet as directed - 1 tab at bedtime as needed for sleep, 30 days, 3 refills EndCited Major Depressive Disorder - Rexulti 1 mg 1 tab daily, Bipropion XL 150 mg 1 tab in am, Viibryd 40 mg 1 tab [...] 1 tab in am Psychophysiological Insomnia - Quviviq 50 mg 1 tab at bedtime as needed for sleep, Trazodone 100 mg 1 and 1/2 tabs [...]
--- OUTSIDE RECORDS SUMMARY | 2024-05-31 00:14 | XMS_ITS | Clinical Summary ---
Author Organization [facility] Address [address] [place] [address] Phone Care Team Providers Care Environmental Sustainability Manager Name Role Phone CONSUELO ZUNIGA MD Unavailable [phone] Reason for Visit and Chief Complaint The Chief Complaint is: follow up for depression, anxiety and panic Problems Includes: Problems addressed during this encounter and other active Problems Current Visit Onset Date Resolved Date Provider Conditio n Status 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 Active Last Documented On 3 5:50PM ; [facility] Dissociative Identity Disorder 10/11/2017 Active Last Documented On 3 5:51PM ; [facility] Panic Disorder 07/11/2016 Active Last Documented On 3 5:50PM ; [facility] Nonorganic Sleep Apnea Obstructive 12/12/2015 Unknown Resolved Last Documented On 3 5:50PM ; [facility] Psychophysiological Insomnia 10/12/2015 Active Last Documented On 3 5:50PM ; [facility] Attention Deficit Disorder Without Hyperactivity 3 Active Last Documented On 3 5:46PM ; [facility] Dysthymic Disorder (Depressive Neurosis) 09/11/2012 Active Last Documented On 3 5:46PM ; [facility] Generalized Anxiety Disorder 09/11/2012 Active Last Documented On 3 5:46PM ; [facility] Major Depression, Recurrent 09/11/2012 Active Last Documented On 3 5:46PM ; [facility] Past Visits Onset Date Resolved Date Provider Condition Status Colitis 03/27/2015 Active Last Documented On 3 5:49PM ; [facility] Chronic Fatigue Syndrome 10/03/2014 Active Last Documented On 3 5:48PM ; [facility] Raynaud's Syndrome 10/03/2014 Active Last Documented On 3 5:48PM ; [facility] Systemic Lupus Erythematosus 10/03/2014 Active Last Documented On 3 5:48PM ; [facility] Plan of Treatment - Referred to: Sleep Specialist -- Home Sleep Study to r/o FUENTES -- [facility] - 07/26/23 - Last Documented On 07/27/2023 3:58AM ; [facility] - Transition in care, clinical summary provided - Last Documented On 07/27/2023 3:58AM ; [facility] - Clinical summary transmitted to referring provider electronically with reasonable certainty of receipt - Last Documented On 07/27/2023 3:58AM ; [facility] Major Depressive Disorder - Rexulti 1 mg [...] for counseling/stress mgt. - Last Documented On 07/27/2023 3:58AM ; [facility] Referrals To Diagnosis Sleep Study-[facility] Obstructive slee p apnea (adult) (pediatric) Last Documented On 4 11:00AM ; [facility] Future Appointments Date Time Location Provi gerald TELEHEALTH ADULT PSYCH ESTABLISHED 06/20/2024 4:40PM [facility]-TABATHA ZUNIGA MD Last Documented On 4 5:40PM ; [facility] Education and Decision Aids were provided during visit for: Calming techniques such as b reathing exercises/meditation and other relaxation techniques Last Documented On 4 3:29AM ; [facility] Assessments Includes: Assessments from this encounter Findings - Obstructive sleep apnea - Last Documented On 07/27/2023 3:58AM ; [facility] - Attention deficit disorder without hyperactivity - Last Documented On 07/27/2023 3:58AM ; [facility] - Major depression, recurrent - Last Documented On 07/27/2023 3:58AM ; [facility] - Dysthymic disorder - Last Documented On 07/27/2023 3:58AM ; [facility] - Psychophysiological insomnia - Last Documented On 07/27/2023 3:58AM ; [facility] - Generalized anxiety disorder - Last Documented On 07/27/2023 3:58AM ; [facility] - Panic disorder - Last Documented On 07/27/2023 3:58AM ; [facility] - Dissociative identity disorder - Last Documented On 07/27/2023 3:58AM ; [facility] Instructions Includes: Instructions from this encounter Education and Decision Aids were provided during visit for: Calming techniques such as b reathing exercises/meditation and other relaxation techniques Last Documented On 4 3:29AM ; [facility] Medical Equipment - Implanted Devices Includes: Current Devices No Medical Equipment Recorded Medications Includes: Medications discussed during this encounter and other current Medications New / Renewed during this visit CONSUELO ZUNIGA MD on 07/26/2023 buPROPion HCl ER (XL) 150 MG Oral Tablet Extended Release 24 Hour Provider: CONSUELO ZUNIGA MD 90 day supply: 270 tablet, 3 refills Diagnosis: Major depressive disorder, recurrent, moderate TAKE 3 TABLETS IN THE MORNIN G DIRECTED Pharmacy: [facility] [address] [place] [address], [phone] - Last Documented On 07/26/2023 5:41PM By Nelda Zuniga MD ; [facility] Modafinil 200 MG Oral Tablet Provider: CONSUELO ZUNIGA MD 90 day supply: 180 tablet, 1 refills Diagnosis: Obstructive sleep apnea (adult) (pediatric) as directed - 1 tab in am, 1 tab at noon Pharmacy: [facility] [address] [place] [address], [phone] - Last Documented On 07/26/2023 5:42PM By Nelda Zuniga MD ; [facility] Mydayis 37.5 MG Oral Capsule Extended Release 24 Hour Provider: CONSUELO ZUNIGA MD 30 day supply: 30 capsule, 0 refills Diagnosis: Attention-deficit hyperactivity disorder, unspecified type 1 Capsule every morning Pharmacy: [facility] [address] [place] [address], [phone] - Last Documented On 08/31/2023 8:22PM By Nelda Zuniga MD ; [facility] Current Medications (continue as prescribed) Mydayis 37.5 MG Oral Capsule Extended Release 24 Hour 08/31/2023 Provider: CONSUELO ZUNIGA MD Diagnosis: Attention-defici t hyperactivity disorder, unspecified type 1 Capsule every morning Last Documented On 08/31/2023 8:26PM By Nelda Zuniga MD ; [facility] Testosterone Cypionate 200 M G/ML Intramuscular Solution 07/11/2023 Provider: THALIA Valle Diagnosis: Last Documented On 07/27/2023 3:52AM By Nelda Zuniga MD ; [facility] KlonoPIN 0.5 MG Oral Tablet 07/05/2023 Provider: CONSUELO ZUNIGA MD Diagnosis: Panic disorder [ episodic paroxysmal anxiety] as directed 1 tab once a day as needed for severe anxiety/panic Last Documented On 07/06/2023 3:30AM By Nelda Zuniga MD ; [facility] Meloxicam 15 MG Oral Tablet 06/24/2023 Provider: LEOPOLDO COOMBS MD Diagnosis: 1 daily prn Last Documented On 07/26/2023 4:54PM By SIMONA DOUGLAS ; [facility] busPIRone HCl 15 MG Oral Tablet 06/22/2023 Provider: CONSUELO ZUNIGA MD Diagnosis: Generalized anxi ety disorder TAKE 1 TABLET FOUR TIMES A DAY Last Documented On 06/22/2023 2:12PM By Nelda Zuniga MD ; [facility] Atenolol 25 MG Oral Tablet 05/16/2023 Provider: CONSUELO ZUNIGA MD Diagnosis: Generalized anxi ety disorder TAKE 1 TABLET THREE TIMES A DAY Last Documented On 05/16/2023 12:20PM By Nelda Zuniga MD ; [facility] traZODone HCl 100 MG Oral Tablet 05/16/2023 Provider: CONSUELO ZUNIGA MD Diagnosis: Psychophysiologi c insomnia TAKE ONE AND ONE-HALF TABLET S AT BEDTIME DIRECTED Last Documented On 05/16/2023 12:20PM By Nelda Zuniga MD ; [facility] Testosterone Cypionate 200 M G/ML Intramuscular Solution 11/15/2022 Provider: KELLI LARA MD Diagnosis: inject once a week Last Documented On 11/25/2022 5:34PM By Nelda Zuniga MD ; [facility] Glucosamine Sulfate 1000 MG OR CAPS 05/22/2017 P roxiomyder: Diagnosis: 1 a day Last Documented On 07/09/2022 5:37PM By Nelda Zuniga MD ; [facility] amLODIPine Besylate 5 MG OR TABS 01/15/2016 Provider : Diagnosis: 1 daily Last Documented On 07/09/2022 5:37PM By DIONE LOVE LPN ; [facility] Past Medications on file Vilazodone HCl 40 MG Oral Tablet 11/25/2022 - 11/20/2023 Provider: CONSUELO ZUNIGA MD Diagnosis: Major depressive disorder, recurrent, unspecified 1 tablet every morning with food Last Documented On 11/25/2022 1:55PM By Nelda Zuniga MD ; [facility] Trintellix 20 MG Oral Tablet 09/20/2022 - 09/15/2023 Provider: CONSUELO ZUNIGA MD Diagnosis: Major depressive disorder, recurrent, moderate 1 tablet every morning Last Documented On 09/20/2022 3:33PM By Nelda Zuniga MD ; [facility] Sunosi 75 MG OR TABS 02/01/2021 - 03/03/2021 Provider: CONSUELO ZUNIGA MD Diagnosis: Narcolepsy witho ut cataplexy 1 tablet every morning Last Documented On 07/09/2022 5:37PM By Nelda Zuniga MD ; [facility] Rexulti 2 MG OR TABS 02/01/2021 - 03/03/2021 Provider: CONSUELO ZUNIGA MD Diagnosis: Major depressive disorder, recurrent, moderate One tablet daily Last Documented On 07/09/2022 5:37PM By Nelda Zuniga MD ; [facility] Medications Administered Includes: Administered Medications from this encounter No Administered Medications Recorded Vital Signs Includes: Vital Signs from this encounter Vital Name 07/26/2023 04:57P Blood Pressure Sitting L 135/86 BP Cuff Size Regular Pulse Rate-Sitting (bpm) 70 Pulse Rhythm Regular Height (in) 72 Weight (lb) 215 Body Mass Index 29.2 Body Surface Area 2.2 Note: self reported vitals Last Documented: On 07/26/2023 4:58PM ; [facility] Results Includes: Results discussed during [...] recommended getting a home sleep study through [facility] to r/o FUENTES and PLMs. 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 He has completed trade school. 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 07/27/2023 Last Documented On 4 3:51AM ; [facility] Tobacco non-user 07/26/2023 Last Documented On 4 3:58AM ; [facility] Smoking Status Unknown Procedures and Surgical History Includes: Procedures from this encounter Procedures Code Diagnosis Performing Provider Service Location Service Date PSYCHOTHERAPY 45 MIN W/ PT-WHEN PERFMD WITH E/ (TELEMEDICINE SERVICE [facility]IA [employer]) 59693 Major depressive disorder, recurrent, moderate, Dysthymic disorder, Generalized anxiety disorder, Attention-deficit hyperactivity disorder, unspecified type CONSUELO ZUNIGA MD [facility]-PSY 07/26/2023 Last Documented On 4 9:25AM ; [facility] education and instructions Last Documented On 4 4:41PM ; [facility] supportive care and encourag ement--given positive reinforcement to keep patient motivated and active, supportive listening, continue meditation, walking, exercise, breathing exercises etc.. Last Documented On 4 3:40AM ; [facility] ~* Call [phone] and /or go t o the nearest emergency room or call me if suicidal/homicidal ideation or other serious concerns arise. ~ ~* I gave instructions to call me should there be any questions or concerns. ~ ~* Patient voiced understanding and agreed to treatment plan Last Documented On 4 4:56PM ; [facility] dangerousness assessment: no suicide risk 3085F Last Documented On 4 4:41PM ; [facility] use of tobacco assessment performed 1000F Last Documented On 4 4:41PM ; [facility] patient screened for future fall risk: documentation of any fall with injury in past year - no recent falls 1100F Last Documented On 4 4:41PM ; [facility] review of medications documented 1160F Last Documented On 4 4:41PM ; [facility] assessment of suicide risk performed - n ot suicidal Last Documented On 4 4:56PM ; [facility] screening for adult depressi on: impression and score - please see above for treatment and PHQ score Last Documented On 4 4:41PM ; [facility] standardized depression screening: posit sunday for symptoms Last Documented On 4 4:41PM ; [facility] encouragement to exercise - balanced rhonda l plan, low fat low carb diet Last Documented On 4 4:56PM ; [facility] Clinical summary provided to patient Last Documented On 4 4:41PM ; [facility] PHQ-9: total score 12 Last Documented On 4 3:29AM ; [facility] Medical History Includes: Medical History addressed during this encounter Description Last Updated Primary Care Provider: Dr. Darlene Hernandez, [facility] -- Dentist.Dr. Leopoldo Coombs -- OrthopedistDiagnoses:Low testosterone levels -- started injections 10/2022 Mouth cyst - growth in mouth removed 06/02/20 -- given Amoxil 875 mg, Ibuprofen 800 mg and Tramadol 50 mg. Raynaud's syndrome --taking amlodipine for this --given by Dr. Lara. ColitisIrritable bowel syndrome. Keloid scar -- removal ( on left ear lobe) 03/[address] Rivers in [place], [place]. Systemic lupus erythematosus. Strain of muscle, [...] and on 10/06/19 he was seen at [facility] ER by Dr. Self and given Clindamycin 150 mg -- for spider bite on right calfCold symptoms -- given Augmentin 875 mg and Tessalon Perles 100 mg 03/22/23 and given Cipro 500 mg and Flagyl 500 mg 01/17/23Procedural: Coronavirus 2019-nCoV vaccine - Moderna #1 06/2020 #2 07/2020 #3 2Procedural: Colonoscopy - 2018 -- no polyps 07/26/2023 Last Documented On 4 5:00PM ; [facility] Family History Includes: Family History addressed during this encounter Description Last Updated Maternal: Depression -- moth er, Dx with Lymphoma, DEBORAH Polyneuropathy and Waldenstroms Disorder 07/26/2023 Last Documented On 4 4:41PM ; [facility] Review of Systems Includes: Review of Systems from this encounter Systemic: Feeling poorly (malaise) - occasionally. No [...] TELEHEALTH ADULT PSYCH ESTABLISHED CONSUELO ZUNIGA MD [facility]-PSY 07/26/19 24 4:41PM 11:59PM Major Depression, Recurrent,Dys thymic Disorder (Depressive Neurosis),Gen eralized Anxiety Disorder,Diss ociative Identity Disorder,Nono rganic Sleep Apnea Obstructive,P sychophysiolo gical Insomnia,Atte ntion Deficit Disorder Without Hyperactivity ,Panic Disorder Insurance Includes: Active Insurance Policies Plan Name Member ID Group # Subscriber Relationship Effect sunday Dates 1 - [facility] [id number] DANIEL FLOWERS Self Clinical Notes Includes: Clinical Notes from this encounter * Progress note Date Encounter Last Documented by 07/26/2023 TELEHEALTH ADULT PSYCH ESTABLISH ED Last documented on 07/27/2023; 3:58 AM, CONSUELO ZUNIGA MD; [facility] Top of Document [...] recommended getting a home sleep study through [facility] to r/o FUENTES and PLMs. The Buspar [...] History Primary Care Provider: Dr. Kelli Hernandez, [facility] -- Dentist. Dr. Leopoldo Coombs -- Orthopedist Diagnoses: Low testosterone levels -- started injections 10/2022 Mouth cyst - growth in mouth removed 06/02/20 -- given Amoxil 875 mg, Ibuprofen 800 mg and Tramadol 50 mg. Raynaud's syndrome --taking amlodipine for this --given by Dr. Lara. Colitis Irritable bowel syndrome. Keloid scar -- removal ( on left ear lobe) 03/[address] Rivers in [place]. Systemic lupus erythematosus. Strain of muscle, [...] and on 10/06/19 he was seen at [facility] ER by Dr. Self and given [...] polyps User Defined 4 Previous Psychiatric Hospitalizations: [place], [place] 10/15/18. 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 Drug Use: Drug use marijuana he tried a couple of times but has not used for quite awhile. 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 Marital: Marital history -- . He was born in [facility] and raised in [place]. 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 He has completed trade school. He is [...] Clinical summary provided to patient. * Call [phone] and /or go to the nearest emergency [...] Obstructive sleep apnea (adult) (pediatric) Referral: Sleep Study-[facility] Modafinil 200 MG tablet as directed - 1 tab in am, 1 tab at noon, 90 days, 1 refills EndCited StartCited - Other Follow-up 10/26/23 EndCited - Referred to: Sleep Specialist -- Home Sleep Study to r/o FUENTES -- [facility] - 07/26/23 - Transition in care, clinical [...]
--- OUTSIDE RECORDS SUMMARY | 2024-05-31 00:14 | XMS_ITS | Clinical Summary ---
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 Role Phone CHRISTOPHE MOODY, CONSUELO LEE Unavailable [phone] KELLI LARA MD Primary Care Provider [phone] Reason for Visit and Chief Complaint The Chief Complaint is: follow up for depression, anxiety and panic Problems Includes: Problems addressed during this encounter and other active Problems Current Visit Onset Date Resolved Date Provider Conditio n Status 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 CONSUELO ZUNIGA MD Active Last Documented On 3 9:12AM ; [facility] Dissociative Identity Disorder 10/11/2017 WADE ZUNIGA MD Active Last Documented On 8 11:58PM ; [facility] Panic Disorder 07/11/2016 CONSUELO Colon Active Last Documented On 7 5:47PM ; [facility] Nonorganic Sleep Apnea Obstructive 12/12/2015 Unknown M YELITZA ZUNIGA MD Resolved Last Documented On 9 5:03PM ; [facility] Psychophysiological Insomnia 10/12/2015 CONSUELO ZUNIGA MD Active Last Documented On 7 6:07PM ; [facility] Attention Deficit Disorder W ithout Hyperactivity 09/11/2012 CONSUELO ZUNIGA MD Active Last Documented On 5 6:05PM ; [facility] Dysthymic Disorder (Depressive Neurosis) 09/11/2012 CONSUELO ZUNIGA MD Active Last Documented On 3 10:29PM ; [facility] Generalized Anxiety Disorder 09/11/2012 CONSUELO ZUNIGA MD Active Last Documented On 4 11:21AM ; [facility] Major Depression, Recurrent 09/11/2012 CONSUELO ZUNIGA MD Active Last Documented On 3 4:50PM ; [facility] Past Visits Onset Date Resolved Date Provider Condition Status Colitis 03/27/2015 CONSUELO ZUNIGA MD Ac tive Last Documented On 6 10:15AM ; [facility] Chronic Fatigue Syndrome 10/03/2014 CONSUELO ZUNIGA MD Active Last Documented On 5 4:03PM ; [facility] Raynaud's Syndrome 10/03/2014 CONSUELO FLORES MD Active Last Documented On 5 3:39PM ; [facility] Systemic Lupus Erythematosus 10/03/2014 CONSUELO ZUNIGA MD Active Last Documented On 5 3:38PM ; [facility] Plan of Treatment Major Depressive Disorder [...] for counseling/stress mgt. - Last Documented On 05/29/2022 11:26PM ; [facility] Education and Decision Aids were provided during visit for: Patient education about medi cation ---Education was given on medication(s) and diagnosis. I reviewed the risks, benefits and side effects of patient's medications Last Documented On 3 4:44PM ; [facility] Discussed calming techniques such as breathing exercises and other relaxation techniques Last Documented On 3 4:44PM ; [facility] Discussed good sleep hygiene habits Last Documented On 3 5:04PM ; [facility] Assessments Includes: Assessments from this encounter Findings - Obstructive sleep apnea - Last Documented On 05/29/2022 11:26PM ; [facility] - Attention deficit disorder without hyperactivity - Last Documented On 05/29/2022 11:26PM ; [facility] - Major depression, recurrent - Last Documented On 05/29/2022 11:26PM ; [facility] - Dysthymic disorder - Last Documented On 05/29/2022 11:26PM ; [facility] - Psychophysiological insomnia - Last Documented On 05/29/2022 11:26PM ; [facility] - Generalized anxiety disorder - Last Documented On 05/29/2022 11:26PM ; [facility] - Panic disorder - Last Documented On 05/29/2022 11:26PM ; [facility] - Dissociative identity disorder - Last Documented On 05/29/2022 11:26PM ; [facility] Instructions Includes: Instructions from this encounter Education and Decision Aids were provided during visit for: Patient education about medi cation ---Education was given on medication(s) and diagnosis. I reviewed the risks, benefits and side effects of patient's medications Last Documented On 3 4:44PM ; [facility] Discussed calming techniques such as breathing exercises and other relaxation techniques Last Documented On 3 4:44PM ; [facility] Discussed good sleep hygiene habits Last Documented On 5:04PM ; [facility] Medical Equipment - Implanted Devices Includes: Current Devices No Medical Equipment Recorded Medications Includes: Medications discussed during this encounter and other current Medications Discontinued / Stopped on this date CONSUELO ZUNIGA MD on 05/12/2022 Modafinil 200 MG Oral Tablet Provider: CONSUELO ZUNIGA MD Diagnosis: Major depressive disorder, recurrent, moderate Last Documented On 05/16/2022 6:33PM By Nelda Zuniga MD ; [facility] KlonoPIN 0.5 MG Oral Tablet Provider: CONSUELO ZUNIGA MD Diagnosis: Panic disorder [ episodic paroxysmal anxiety] Last Documented On 05/16/2022 6:36PM By Nelda Zuniga MD ; [facility] New / Renewed during this visit CONSUELO ZUNIGA MD on 05/16/2022 KlonoPIN 0.5 MG Oral Tablet Provider: CONSUELO ZUNIGA MD 30 day supply: 30 tablet, 0 refills Diagnosis: Panic disorder [episodic paroxysmal anxiety] as directed 1 tab once a day as needed for severe anxiety/panic [facility]: [facility] [address], [id number] - Last Documented On 05/16/2022 6:39PM By Nelda Zuniga MD ; [facility] Modafinil 200 MG Oral Tablet Provider: CONSUELO ZUNIGA MD 90 day supply: 180 tablet, 1 refills Diagnosis: Obstructive sleep apnea (adult) (pediatric) as directed - 1 tab in am, 1 tab at noon Pharmacy: [facility] [place] [id number] [facility], [address] - Last Documented On 05/16/2022 6:39PM By Nelda Zuniga MD ; [facility] Atenolol 25 MG Oral Tablet Provider: CONSUELO ZUNIGA MD 90 day supply: 270 tablet, 0 refills Diagnosis: Generalized anxiety disorder One tablet three times a day Last Documented On 05/16/2022 6:34PM By Nelda Zuniga MD ; [facility] Current Medications (continue as prescribed) Mydayis 37.5 MG Oral Capsule Extended Release 24 Hour 06/10/2022 Provider: CONSUELO ZUNIGA MD Diagnosis: Attention-defici t hyperactivity disorder, unspecified type 1 Capsule every morning Last Documented On 06/10/2022 3:26PM By Nelda Zuniga MD ; [facility] traZODone HCl 100 MG Oral Tablet 05/23/2022 Provider: CONSUELO ZUNIGA MD Diagnosis: Psychophysiologi c insomnia TAKE ONE AND ONE-HALF TABLET S AT BEDTIME DIRECTED Last Documented On 11:48AM By Nelda Zuniga MD ; [facility] Mirtazapine 15 MG Oral Tablet 03/02/2022 Provider: CONSUELO ZUNIGA MD Diagnosis: Dysthymic disord er One tablet at bed time Last Documented On 03/02/2022 8:21PM By Nelda Zuniga MD ; [facility] Remeron 15 MG Oral Tablet 03/02/2022 Provider: CONSUELO ZUNIGA MD Diagnosis: Generalized anxi ety disorder One tablet at bed time Last Documented On 03/02/2022 8:20PM By Nelda Zuniga MD ; [facility] busPIRone HCl 15 MG Oral Tablet 11/11/2021 Provider: CONSUELO ZUNIGA MD Diagnosis: Generalized anxi ety disorder TAKE 1 TABLET FOUR TIMES A DAY Last Documented On 11/11/2021 5:17PM By Nelda Zuniga MD ; [facility] buPROPion HCl ER (XL) 150 MG Oral Tablet Extended Release 24 Hour 11/11/2021 Provider: CONSUELO ZUNIGA MD Diagnosis: Major depressive disorder, recurrent, moderate TAKE 3 TABLETS IN THE MORNIN G DIRECTED Last Documented On 11/11/2021 5:19PM By Nelda Zuniga MD ; [facility] Trintellix 20 MG Oral Tablet 08/20/2021 Provider: CONSUELO ZUNIGA MD Diagnosis: TAKE 1 TABLET EVERY MORNING Last Documented On 08/20/2021 8:58AM By Nelda Zuniga MD ; [facility] Viibryd 40 MG Oral Tablet 08/20/2021 Provider: CONSUELO ZUNIGA MD Diagnosis: Major depressive disorder, recurrent, unspecified 1 tablet every morning with food Last Documented On 08/20/2021 8:59AM By Nelda Zuniga MD ; [facility] Rexulti 1 MG Oral Tablet 04/06/2021 Provider: MET DANIELLE ZUNIGA MD Diagnosis: Major depressive disorder, recurrent, moderate One tablet daily Last Documented On 2 11:15AM By Nelda Zuniga MD ; [facility] Atenolol 25 MG Oral Tablet 11/10/2019 Provider: CONSUELO ZUNIGA MD Diagnosis: Generalized anxi ety disorder One tablet twice a day Last Documented On 11/10/2019 3:38PM By Nelda Zuniga MD ; [facility] buPROPion HCl ER (XL) 150 MG Oral Tablet Extended Release 24 Hour 10/24/2019 Provider: CONSUELO ZUNIGA MD Diagnosis: Major depressive disorder, recurrent, moderate TAKE 3 TABLETS IN THE MORNIN G DIRECTED Last Documented On 10/24/2019 3:42PM By Nelda Zuniga MD ; [facility] Trintellix 20 MG Oral Tablet 07/01/2019 Provider: CONSUELO ZUNIGA MD Diagnosis: Dysthymic disord er 1 tablet every morning Last Documented On 07/01/2019 2:34PM By Nelda Zuniga MD ; [facility] Glucosamine Sulfate 1000MG Oral Capsule 05/22/2017 Provider: Diagnosis: 1 a day Last Documented On 05/22/2017 5:23PM By Nelda Zuniga MD ; [facility] AmLODIPine Besylate 5 MG Tablet 01/15/2016 Provider: KELLI LARA MD Diagnosis: 1 daily Last Documented On 7 8:48AM By DIONE LOVE LPN ; [facility] Past Medications on file Sunosi 75 MG Oral Tablet 02/01/2021 - 03/03/2021 Provider: CONSUELO PAINTING MD Diagnosis: Narcolepsy witho ut cataplexy 1 tablet every morning Last Documented On 02/01/2021 7:54PM By Nelda Zuniga MD ; [facility] Rexulti 2 MG Oral Tablet 02/01/2021 - 03/03/2021 Provider: CONSUELO PAINTING MD Diagnosis: Major depressive disorder, recurrent, moderate One tablet daily Last Documented On 02/01/2021 7:53PM By Nelda Zuniga MD ; [facility] Medications Administered Includes: Administered Medications from this encounter No Administered Medications Recorded Vital Signs Includes: Vital Signs from this encounter Vital Name 05/16/2022 05:06P Blood Pressure Sitting L 157/104 BP Cuff Size Regular Pulse Rate-Sitting (bpm) 67 Pulse Rhythm Regular Height (in) 72 Weight (lb) 200 Body Mass Index 27.1 Body Surface Area 2.1 Note: self reported vitals Last Documented: On 05/16/2022 5:07PM ; [facility] Results Includes: Results discussed during this encounter No Results Recorded For Specified Dates History of Present Illness Includes: History of Present Illness from this encounter HPI MYLES FLOWERS is a 56 year old male. - Allergy list reviewed - Past medical history reviewed - Medication list reviewed Myles has been stressed out with his mother who is living in [place]. His mother recently had a stroke so his has been staying in [place] to take care of his mother and also his step-father. At times, his step-father will do his best to take care of his mother but his step-father is on oxygen and suffers from COPD. He said that he gets somewhat down, stressed and anxious because he and his do not stay apart for a long time usually but this is the longest time that they have been staying apart. He understands that his had to be in [place] to take care of his mother. The plan is for his mother and step-father to move to his house but he has to remodel the house to make it conducive for their living quarters but that entails money and right now he does not have the budget and he does not plan to retire soon and he cannot retire in 4 years because of the situation. He said that his brother will try to help out financially whenever he can. 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 He said that he just gets stressed out and had to use more Klonopin the past 3 months. The Mydayis is still helping with his concentration. He is just not motivated to do much of anything because of the stress. I recommended increasing Modafinil to 200 mg one in the morning and one at noon to see if this will help indirectly with his motivation. He stopped the Remeron since he was gorging food; although, his appetite is still down. The Bupropion is still helping with his mood along with the Buspar 15 mg four times a day for his day to day anxiety. The combination of Trintellix and Viibryd is still helping. I expressed concern that he has high blood pressure today at 157/104 with pulse of 67. I recommended increasing temporarily Atenolol to 25 mg three times a day for 1 month and then will reassess. He denied motor side effects from the Rexulti. The Trazodone 150 mg at bedtime is still helping with his sleep. He denied having any psychomotor restlessness. He denied having any suicidal thoughts. No delusions or hallucinations. He is just coping the best that he could, given the situation with his mother. He also said that his mother has 6 aneurysms and has history of brain bleed in the past and so his mother's condition is getting worse. I discussed about trying to give him some rest and relaxation time or break to help reduce his anxiety. He said that he will be attending a photo safari for at least a day in [place] just to help him relax. He also reported that his 34 year old son who is pursuing electrical engineering at [employer] has a full-time job at [employer]. His son is staying with him but may plan to get an apartment in [place]. MENTAL STATUS EXAM: Sensorium - alert, oriented to name, place, and time Attitude - cooperative Gait - ambulatory Sleep - good Interest/Energy/Motivation - not as motivated, occasionally tired Guilt/Worthlessness - absent Concentration/Attention Span - able to focus and concentrate for the most part but can get dstracted Memory Recall - fairly good Appetite - somewhat down - on 04/01/22 pt weighed 202 lbs and on 05/16/22 he weighed 200 lbs so he lost 2 lbs Suicidal Thoughts - absent Homicidal Thoughts - absent Delusions - absent Hallucinations - absent Appearance - casually groomed Motor Behavior - calm Eye Contact - intermittent Speech - fluent Mood - depressed Affect - anxious, worried Thought Process - coherent Insight and Judgment - intact Social History Description Last Updated Alcohol use - will 3-6 beers every night and was asked to please abstain from alcohol since ETOH is a [employer] depressant 05/16/2022 Last Documented On 3 11:26PM ; [facility] Drug use dayne he tried a couple of times but has not used for quite awhile 03/13/2022 Last Documented On 3 4:43PM ; [facility] Daily coffee consumption -- drinks 1 cup of coffee every morning, no soda or tea 09/29/2020 Last Documented On 3 4:43PM ; [facility] Non-smoker 09/09/2019 Last Documented On 3 4:43PM ; [facility] He was born in [facility] and raised in [place]. 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 He has completed trade school. 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 [employer] 02/02/2018 Last Documented On 3 4:43PM ; [facility] Marital history -- 03/27/2015 Last Documented On 3 4:43PM ; [facility] Smoking Status Unknown Procedures and Surgical History Includes: Procedures from this encounter Procedures Code Diagnosis Performing Provider Service L ocation Service Date education and instructions Last Documented On 3 4:44PM ; [facility] dangerousness assessment: suicide risk -not suic idal 3085F Last Documented On 3 4:44PM ; [facility] use of tobacco assessment performed 1000F Last Documented On 3 4:44PM ; [facility] patient screened for future fall risk - no recen t falls 3288F Last Documented On 3 4:44PM ; [facility] review of medications documented 1160F Last Documented On 3 4:44PM ; [facility] screening for adult depressi on: impression and score - please see above treatment and PHQ score Last Documented On 3 4:44PM ; [facility] standardized depression screening: posit sunday for symptoms Last Documented On 3 4:44PM ; [facility] encouragement to exercise Last Documented On 3 4:44PM ; [facility] Clinical summary provided to patient Last Documented On 3 4:44PM ; [facility] PHQ-9: total score 7 Last Documented On 3 6:14PM ; [facility] Medical History Includes: Medical History addressed during this encounter Description Last Updated History of coronavirus 2019- nCoV vaccine - Moderna #1 06/2020 #2 07/2020 #3 04/202108/02/2021 Last Documented On 3 4:43PM ; [facility] History of mouth cyst - grow th in mouth removed 06/02/20 -- given Amoxil 875 mg, Ibuprofen 800 mg and Tramadol 50 mg 09/29/2020 Last Documented On 3 4:43PM ; [facility] Primary Care Provider: Dr. Darlene Lara ~Dr. Len Hernandez, [facility] -- Dentist 09/29/2020 Last Documented On 3 4:43PM ; [facility] History of toxic reaction to venom of spider - on 10/02/19 -- given Keflex 500 mg and Triamcinolone cream 0.05 % by Dr. Valente and on 10/06/19 he was seen at [facility] ER by Dr. Hopkins and given Clindaymycin 150 mg -- for spider bite on right calf 10/23/2019 Last Documented On 3 4:43PM ; [facility] History of colonoscopy - 2017 -- no poly ps 02/25/2019 Last Documented On 3 4:43PM ; [facility] History of irritable bowel syndrome 01/12 Last Documented On 3 4:43PM ; [facility] History of keloid scar -- re moval ( on left ear lobe) 03/[address] 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 Pt had PT for both arms and elbow -- 04/201401/29/2018 Last Documented On 3 4:43PM ; [facility] History of Raynaud's syndrom e --taking amlodipine for this --given by Dr. Barcenas 11/11/2016 Last Documented On 3 4:43PM ; [facility] History of colitis 03/27/2015 Last Documented On 3 4:43PM ; [facility] History of systemic lupus erythematosus 10/03/2014 Last Documented On 3 4:43PM ; [facility] History of dysthymic disorder 12/12/2012 Last Documented On 3 4:43PM ; [facility] Family History Includes: Family History addressed during this encounter Description Last Updated Maternal history of depressi on -- mother, Dx with Lymphoma, DEBORAH Polyneuropathy and Waldenstroms Disorder 09/28/2017 Last Documented On 3 4:43PM ; [facility] Review of Systems Includes: Review of [...] Encounters Encounter Provider Location Date Check-In Time Check- Out Time Diagnosis [employer] CONSUELO ZUNIGA MD [facility] 3 4:43PM 11:59PM Major Depression, Recurrent,Dys thymic Disorder (Depressive Neurosis),Gen eralized Anxiety Disorder,Diss ociative Identity Disorder,Nono rganic Sleep Apnea Obstructive,P sychophysiolo gical Insomnia,Atte ntion Deficit Disorder Without Hyperactivity ,Panic Disorder Insurance Includes: Active Insurance Policies Plan Name Member ID Group # Subscriber Relationship Effect sunday Dates 1 - [facility] [id number] MYLES FLOWERS Self Clinical Notes Includes: Clinical Notes from this encounter No Clinical Notes Recorded
--- OUTSIDE RECORDS SUMMARY | 2024-05-31 00:14 | XMS_ITS | Clinical Summary ---
Author Organization [facility] Address [address] [place] [address] Phone Care Team Providers Care Edger Hand Name Role Phone CHRISTOPHE MOODY, CONSUELO LEE Unavailable [phone] KELLI LAAR MD Primary Care Provider [phone] Reason for Visit and Chief Complaint The Chief Complaint is: follow up for depression, anxiety and panic Problems Includes: Problems addressed during this encounter and other active Problems Current Visit Onset Date Resolved Date Provider Conditio n Status Dissociative Identity Disorder 10/11/2017 CONSUELO ZUNIGA MD Active Last Documented On 8 11:58PM ; [facility] Panic Disorder 07/11/2016 CONSUELO Colon Active Last Documented On 7 5:47PM ; [facility] Psychophysiological Insomnia 10/12/2015 CONSUELO ZUNIGA MD Active Last Documented On 7 6:07PM ; [facility] Attention Deficit Disorder W ithout Hyperactivity 09/11/2012 CONSUELO ZUNIGA MD Active Last Documented On 5 6:05PM ; [facility] Dysthymic Disorder (Depressive Neurosis) 09/11/2012 CONSUELO ZUNIGA MD Active Last Documented On 3 10:29PM ; [facility] Generalized Anxiety Disorder 09/11/2012 CONSUELO ZUNIGA MD Active Last Documented On 4 11:21AM ; [facility] Major Depression, Recurrent 09/11/2012 CONSUELO ZUNIGA MD Active Last Documented On 3 4:50PM ; [facility] Past Visits Onset Date Resolved Date Provider Condition Status 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 CONSUELO ZUNIGA MD Active Last Documented On 3 9:12AM ; [facility] Colitis 03/27/2015 CONSUELO ZUNIGA MD Ac tive Last Documented On 6 10:15AM ; [facility] Chronic Fatigue Syndrome 10/03/2014 CONSUELO ZUNIGA MD Active Last Documented On 5 4:03PM ; [facility] Raynaud's Syndrome 10/03/2014 CONSUELO FLORES MD Active Last Documented On 5 3:39PM ; [facility] Systemic Lupus Erythematosus 10/03/2014 CONSUELO ZUNIGA MD Active Last Documented On 5 3:38PM ; [facility] Plan of Treatment Major Depressive Disorder - [...] counteract/relieve GI issues associated with his anxiety Attention Deficit Disorder - Mydayis 37.5 mg 1 capsule in the morning Panic Disorder - Klonopin 0.5 mg 1 tab a day as needed for anxiety/panic Psychophysiological Insomnia - Trazodone 100 mg 1 and 1/2 tabs at bedtime Pt was referred to [facility] last 01/2021 for counseling/stress mgt. - Last Documented On 03/13/2022 7:48PM ; [facility] Education and Decision Aids were provided during visit for: Patient education about medi cation ---Education was given on medication(s) and diagnosis. 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 He cannot combine alcohol with any of his psych meds since this will cause drug drug interaction and will exacerbate his depression/anxiety Last Documented On 3 7:41PM ; [facility] Assessments Includes: Assessments from this encounter Findings - Attention deficit disorder without hyperactivity - Last Documented On 03/13/2022 7:48PM ; [facility] - Major depression, recurrent - Last Documented On 03/13/2022 7:48PM ; [facility] - Dysthymic disorder - Last Documented On 03/13/2022 7:48PM ; [facility] - Psychophysiological insomnia - Last Documented On 03/13/2022 7:48PM ; [facility] - Generalized anxiety disorder - Last Documented On 03/13/2022 7:48PM ; [facility] - Panic disorder - Last Documented On 03/13/2022 7:48PM ; [facility] - Dissociative identity disorder - Last Documented On 03/13/2022 7:48PM ; [facility] Instructions Includes: Instructions from this encounter Education and Decision Aids were provided during visit for: Patient education about [facility] ---Education was given on medication(s) and diagnosis. 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 He cannot combine alcohol with any of his psych meds since this will cause drug drug interaction and will exacerbate his depression/anxiety Last Documented On 3 7:41PM ; [facility] Medical Equipment - Implanted Devices Includes: Current Devices No Medical Equipment Recorded Medications Includes: Medications discussed during this encounter and other current Medications Discontinued / Stopped on this date CONSUELO ZUNIGA MD on 01/31/2022 KlonoPIN 0.5 MG Oral Tablet Provider: CONSUELO ZUNIGA MD Diagnosis: Panic disorder [ episodic paroxysmal anxiety] Last Documented On 03/08/2022 5:15PM By Nelda Zuniga MD ; [facility] Current Medications (continue as prescribed) Mydayis 37.5 MG Oral Capsule Extended Release 24 Hour 06/10/2022 Provider: CONSUELO ZUNIGA MD Diagnosis: Attention-defici t hyperactivity disorder, unspecified type 1 Capsule every morning Last Documented On 06/10/2022 3:26PM By Nelda Zuniga MD ; [facility] traZODone HCl 100 MG Oral Tablet 05/23/2022 Provider: CONSUELO ZUNIGA MD Diagnosis: Psychophysiologi c insomnia TAKE ONE AND ONE-HALF TABLET S AT BEDTIME DIRECTED Last Documented On 11:48AM By Nelda Zuniga MD ; [facility] KlonoPIN 0.5 MG Oral Tablet 05/16/2022 Provider: CONSUELO ZUNIGA MD Diagnosis: Panic disorder [ episodic paroxysmal anxiety] as directed 1 tab once a day as needed for severe anxiety/panic Last Documented On 05/16/2022 6:39PM By Nelda Zuniga MD ; [facility] Modafinil 200 MG Oral Tablet 05/16/2022 Provider: CONSUELO ZUNIGA MD Diagnosis: Obstructive slee p apnea (adult) (pediatric) as directed - 1 tab in am, 1 tab at noon Last Documented On 05/16/2022 6:39PM By Nelda Zuniga MD ; [facility] Atenolol 25 MG Oral Tablet 05/16/2022 Provider: CONSUELO ZUNIGA MD Diagnosis: Generalized anxi ety disorder One tablet three times a day Last Documented On 05/16/2022 6:34PM By Nelda Zuniga MD ; [facility] Mirtazapine 15 MG Oral Tablet 03/02/2022 Provider: CONSUELO ZUNIGA MD Diagnosis: Dysthymic disord er One tablet at bed time Last Documented On 03/02/2022 8:21PM By Nelda Zuniga MD ; [facility] Remeron 15 MG Oral Tablet 03/02/2022 Provider: CONSUELO ZUNIGA MD Diagnosis: Generalized anxi ety disorder One tablet at bed time Last Documented On 03/02/2022 8:20PM By Nelda Zuniga MD ; [facility] busPIRone HCl 15 MG Oral Tablet 11/11/2021 Provider: CONSUELO ZUNIGA MD Diagnosis: Generalized anxi ety disorder TAKE 1 TABLET FOUR TIMES A DAY Last Documented On 11/11/2021 5:17PM By Nelda Zuniga MD ; [facility] buPROPion HCl ER (XL) 150 MG Oral Tablet Extended Release 24 Hour 11/11/2021 Provider: CONSUELO ZUNIGA MD Diagnosis: Major depressive disorder, recurrent, moderate TAKE 3 TABLETS IN THE MORNIN G DIRECTED Last Documented On 11/11/2021 5:19PM By Nelda Zuniga MD ; [facility] Trintellix 20 MG Oral Tablet 08/20/2021 Provider: CONSUELO ZUNIGA MD Diagnosis: TAKE 1 TABLET EVERY MORNING Last Documented On 08/20/2021 8:58AM By Nelda Zuniga MD ; [facility] Viibryd 40 MG Oral Tablet 08/20/2021 Provider: CONSUELO ZUNIGA MD Diagnosis: Major depressive disorder, recurrent, unspecified 1 tablet every morning with food Last Documented On 08/20/2021 8:59AM By Nelda Zuniga MD ; [facility] Rexulti 1 MG Oral Tablet 04/06/2021 Provider: MET DANIELLE ZUNIGA MD Diagnosis: Major depressive disorder, recurrent, moderate One tablet daily Last Documented On 11:15AM By Nelda Zuniga MD ; [facility] Atenolol 25 MG Oral Tablet 11/10/2019 Provider: CONSUELO ZUNIGA MD Diagnosis: Generalized anxi ety disorder One tablet twice a day Last Documented On 11/10/2019 3:38PM By Nelda Zuniga MD ; [facility] buPROPion HCl ER (XL) 150 MG Oral Tablet Extended Release 24 Hour 10/24/2019 Provider: CONSUELO ZUNIGA MD Diagnosis: Major depressive disorder, recurrent, moderate TAKE 3 TABLETS IN THE MORNIN G DIRECTED Last Documented On 10/24/2019 3:42PM By Nelda Zuniga MD ; [facility] Trintellix 20 MG Oral Tablet 07/01/2019 Provider: CONSUELO ZUNIGA MD Diagnosis: Dysthymic disord er 1 tablet every morning Last Documented On 07/01/2019 2:34PM By Nelda Zuniga MD ; [facility] Glucosamine Sulfate 1000MG Oral Capsule 05/22/2017 Provider: Diagnosis: 1 a day Last Documented On 05/22/2017 5:23PM By Nelda Zuniga MD ; [facility] AmLODIPine Besylate 5 MG Tablet 01/15/2016 Provider: KELLI LARA MD Diagnosis: 1 daily Last Documented On 7 8:48AM By DIONE LOVE LPN ; [facility] Past Medications on file Sunosi 75 MG Oral Tablet 02/01/2021 - 03/03/2021 Provider: CONSUELO PAINTING MD Diagnosis: Narcolepsy witho ut cataplexy 1 tablet every morning Last Documented On 02/01/2021 7:54PM By Nelda Zuniga MD ; [facility] Rexulti 2 MG Oral Tablet 02/01/2021 - 03/03/2021 Provider: CONSUELO PAINTING MD Diagnosis: Major depressive disorder, recurrent, moderate One tablet daily Last Documented On 02/01/2021 7:53PM By Nelda Zuniga MD ; [facility] Medications Administered Includes: Administered Medications from this encounter No Administered Medications Recorded Vital Signs Includes: Vital Signs from this encounter Vital Name 03/01/2022 04:49P Blood Pressure Sitting L 154/106 BP Cuff Size Regular Pulse Rate-Sitting (bpm) 67 Pulse Rhythm Regular Height (in) 72 Weight (lb) 195 Body Mass Index 26.4 Body Surface Area 2.1 Note: self reported vitals Last Documented: On 03/01/2022 4:50PM ; [facility] Results Includes: Results discussed during this encounter No Results Recorded For Specified Dates History of Present Illness Includes: History of Present Illness from this encounter HPI DANIEL FLOWERS is a 56 year old male. - Allergy list reviewed - Past medical history reviewed - Medication list reviewed Daniel reported that he has been feeling down and depressed lately. He has been stressed and anxious. He gets easily annoyed. He has not been having as much motivation to do his day to day tasks, although he continues to do his work or job. He said that he found out that he and his will become caregivers to both of his parents. His mother suffers from a chronic medical condition i.e., Lymphoma, Waldenstrom's disorder and has not been able to move/walk around much and his father was the one taking care of his mother but his father has also has also gotten weak and ill himself since his father suffers from emphysema and is on 02. Daniel and his are planning on picking them up from [place] to live at their home. He will have to build an additional room and it will cost quite a bit of money to do that. He said that his brother who lives in [place] will help with the finances but cannot help with the caregiving responsibilities and so he has been really stressed out but he's trying to manage. Sleep has been good. He has been tired lately. Appetite is somewhat down due to stress. He is still able to focus and concentrate with the Mydayis but at times he can get distracted. He denied having any psychomotor restlessness. He denied having any suicidal thoughts. No delusions or hallucinations. He still takes his Atenolol 25 twice a day off label use for anxiety. Overall his Rexulti, Trintellix, Viibryd are all helping him cope with this stressful situation. His depression and aggravation are more situational at this point where he and his will do these caregiving responsibilities. It's really more his 's responsibility especially during the day since he has to work during the day. He had to take Klonopin more often the past few weeks since he requested 15 tablets last January 31, 2022 to help calm him down which did help him calm down. He has had poor appetite since he is experiencing some nausea, vomiting, diarrhea and other GI issues but he thought that these sx are all associated with his anxiety. Since he is already on multiple psychiatric medications especially for depression/anxiety, I am hesitant to add another psych med. However, I suggested to temporarily add Mirtazapine 15 mg at bedtime to see if this will help improve mood, appetite and anxiety and at least relieve or counteract some of his GI issues since he has been exhibiting nausea secondary to anxiety. The Mirtazapine can hopefully counteract the GI issues such as nausea, stomach upset secondary to his anxiety. I reviewed the risks, benefits and side effects of Mirtazapine and patient voiced understanding. He was reminded to do his breathing exercises/meditation and other calming techniques. MENTAL STATUS EXAM: Sensorium - alert, oriented to name, place, and time Attitude - cooperative Gait - ambulatory Sleep - good Interest/Energy/Motivation - not as motivated, feeling tired Guilt/Worthlessness - absent Concentration/Attention Span - able to focus and concentrate with the Mydayis unless he is very stressed and anxious Memory Recall - fairly good Appetite - decreased due to nausea, stomach upset etc.. associated with anxiety, on 11/11/21 pt weighed 209 lbs and on 03/01/22 he weighed 195 lbs so he lost 14 lbs Suicidal Thoughts - absent Homicidal Thoughts - absent Delusions - absent Hallucinations - absent Appearance - casually groomed Motor Behavior - calm Eye Contact - intermittent Speech - fluent Mood - depressed, stressed, overwhelmed, irritable lately Affect - anxious stressed overwhelmed lately Thought Process - coherent Insight and Judgment - intact Social History Description Last Updated Alcohol use - will drink a 1 2 pack of beer over 3 days time in the past week and was asked to please abstain from alcohol since ETOH is a COFFEE ROAST[employer] HELPER depressant 03/13/2022 Last Documented On 3 7:48PM ; [facility] Drug use mabetheluana he tried a couple of times but has not used for quite awhile 03/13/2022 Last Documented On 3 7:48PM ; [facility] Daily coffee consumption -- drinks 1 cup of coffee every morning, no soda or tea 09/29/2020 Last Documented On 2 4:38PM ; [facility] He was born in [facility] and raised in [place]. 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 He has completed trade school. 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[employer] 02/02/2018 Last Documented On 2 4:38PM ; [facility] Marital history -- 03/27/2015 Last Documented On 2 4:38PM ; [facility] Smoking status : Never smoked 09/11/2012 Last Documented On 2 4:38PM ; [facility] Procedures and Surgical History Includes: Procedures from this encounter Procedures Code Diagnosis Performing Provider Service L ocation Service Date education and instructions Last Documented On 2 4:39PM ; [facility] I discussed the risks, benef its and side effects of Rexulti to the patient including the possibility of metabolic and motor side effects such as tardive dyskinesia Last Documented On 2 4:48PM ; [facility] dangerousness assessment: suicide risk -not suic idal 3085F Last Documented On 2 4:39PM ; [facility] use of tobacco assessment performed 1000F Last Documented On 2 4:39PM ; [facility] patient screened for future fall risk - no recen t falls 3288F Last Documented On 2 4:39PM ; [facility] review of medications documented 1160F Last Documented On 2 4:39PM ; [facility] screening for adult depressi on: impression and score - please see above treatment and PHQ score Last Documented On 2 4:39PM ; [facility] standardized depression screening: posit sunday for symptoms Last Documented On 2 4:39PM ; [facility] Counseling on new medication : I discussed the risks, benefits and side effects of Remeron . Patient verbalized understanding and agreed to treatment Last Documented On 3 7:39PM ; [facility] Clinical summary provided to patient Last Documented On 2 4:39PM ; [facility] PHQ-9: total score 12 Last Documented On 2 3:43PM ; [facility] Medical History Includes: Medical History addressed during this encounter Description Last Updated History of coronavirus 2019- nCoV vaccine - Moderna #1 06/2020 #2 07/2020 #3 04/202108/02/2021 Last Documented On 2 4:38PM ; [facility] History of mouth cyst - grow th in mouth removed 06/02/20 -- given Amoxil 875 mg, Ibuprofen 800 mg and Tramadol 50 mg 09/29/2020 Last Documented On 2 4:38PM ; [facility] Primary Care Provider: Dr. Darlene Lara ~Dr. Len Hernandez, [facility] -- Dentist 09/29/2020 Last Documented On 2 4:38PM ; [facility] History of toxic reaction to venom of spider - on 10/02/19 -- given Keflex 500 mg and Triamcinolone cream 0.05 % by Dr. Valente and on 10/06/19 he was seen at [facility] ER by Dr. Hopkins and given Clindaymycin 150 mg -- for spider bite on right calf 10/23/2019 Last Documented On 2 4:38PM ; [facility] History of colonoscopy - 2017 -- no poly ps 02/25/2019 Last Documented On 2 4:38PM ; [facility] History of irritable bowel syndrome 01/12 Last Documented On 2 4:38PM ; [facility] History of keloid scar -- re moval ( on left ear lobe) 03/[address] 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 Pt had PT for both arms and elbow -- 04/201401/29/2018 Last Documented On 2 4:38PM ; [facility] No evidence of nonorganic sleep apnea -- pt has never had a sleep study 09/28/2017 Last Documented On 2 4:38PM ; [facility] History of Raynaud's syndrom e --taking amlodipine for this --given by Dr. Barcenas 11/11/2016 Last Documented On 2 4:38PM ; [facility] History of colitis 03/27/2015 Last Documented On 2 4:38PM ; [facility] History of systemic lupus erythematosus 10/03/2014 Last Documented On 2 4:38PM ; [facility] History of dysthymic disorder 12/12/2012 Last Documented On 2 4:38PM ; [facility] Family History Includes: Family History addressed during this encounter Description Last Updated Maternal history of depressi on -- mother, Dx with Lymphoma, DEBORAH Polyneuropathy and Waldenstroms Disorder 09/28/2017 Last Documented On 2 4:38PM ; [facility] Review of Systems Includes: Review of Systems [...] sweating. Libido has changed. Musculoskeletal: No muscle aches, no localized joint [...] Out Time Diagnosis [employer] CONSUELO ZUNIGA MD [facility] 2 4:37PM 11:59PM Major Depression, Recurrent,Dys thymic Disorder (Depressive Neurosis),Gen eralized Anxiety Disorder,Diss ociative Identity Disorder,Psyc hophysiologic al Insomnia,Atte ntion Deficit Disorder Without Hyperactivity ,Panic Disorder Insurance Includes: Active Insurance Policies Plan Name Member ID Group # Subscriber Relationship Effect sunday Dates 1 - [facility] [id number] DANIEL FLOWERS Self Clinical Notes Includes: Clinical Notes from this encounter No Clinical Notes Recorded
--- OUTSIDE RECORDS SUMMARY | 2024-05-31 00:15 | XMS_ITS ---
Author Organization [facility] S Address [address] [place] [address] Phone Care Team Providers Care Buffer Chrome Name Role Phone CHRISTOPHE MOODY, CONSUELO LEE Unavailable [phone] ANDRES MOODY, KELLI العراقي Primary Care Provider [phone] Reason for Referral Date Encounter Description Provider Reason for Referral 01/29/18 GENERAL OFFICE VISIT CONSUELO ZUNIGA MD Request Consultation By Mental Health Counselor - --referred to Sarah Jones -- stress mgt 08/18/16 GENERAL OFFICE VISIT CONSUELO ZNUIGA MD Request Consultation By Mental Health Counselor - -- pt will contact Eddy Baca-- therapist for stress mgt 03/25/16 GENERAL OFFICE VISIT CONSUELO ZUNIGA MD Request Consultation By Mental Health Counselor - --referred to Ellen Knox/Liberty Jones if he cannot get back with Eddy Baca. 10/03/14 GENERAL OFFICE VISIT CONSUELO ZUNIGA MD Request Consultation By Mental Health Counselor - -- will get back to counseling -- Eddy Baca --his counselor that he saw before 01/03/14 GENERAL OFFICE VISIT CONSUELO ZUNIGA MD Request Consultation By Mental Health Counselor - --Pt sees Eddy Baca 09/27/13 GENERAL OFFICE VISIT CONSUELO ZUNIGA MD Request Consultation By Mental Health Counselor - --pt sees a therapist 04/05/13 GENERAL OFFICE VISIT CONSUELO ZUNIGA MD Request Consultation By Mental Health Counselor 10/11/12 GENERAL OFFICE VISIT CONSUELO ZUNIGA MD Request Consultation By Mental Health Counselor - or Therapist Problems Includes: Active, inactive, and resolved Problems All Visits Onset Date Resolved Date Provider Condition S tatus 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 CONSUELO ZUNIGA MD Active Last Documented On 3 9:12AM ; [facility] Dissociative Identity Disorder 10/11/2017 WADE ZUNIGA MD Active Last Documented On 8 11:58PM ; [facility] Panic Disorder 07/11/2016 CONSUELO Adler D Active Last Documented On 7 5:47PM ; [facility] Nonorganic Sleep Apnea Obstructive 12/12/2015 Unknown M YELITZA ZUNIGA MD Resolved Last Documented On 9 5:03PM ; [facility] Psychophysiological Insomnia 10/12/2015 CONSUELO ZUNIGA MD Active Last Documented On 7 6:07PM ; [facility] Colitis 03/27/2015 CONSUELO ZUNIGA MD Ac tive Last Documented On 6 10:15AM ; [facility] Chronic Fatigue Syndrome 10/03/2014 CONSUELO ZUNIGA MD Active Last Documented On 5 4:03PM ; [facility] Raynaud's Syndrome 10/03/2014 CONSUELO FLORES MD Active Last Documented On 5 3:39PM ; [facility] Systemic Lupus Erythematosus 10/03/2014 CONSUELO ZUNIGA MD Active Last Documented On 5 3:38PM ; [facility] Anxiety Disorder Nos 09/11/2012 CONSUELO AGUIAR MD Inactive Last Documented On 3 3:59PM ; [facility] Attention Deficit Disorder W ithout Hyperactivity 09/11/2012 CONSUELO ZUNIGA MD Active Last Documented On 5 6:05PM ; [facility] Dysthymic Disorder (Depressive Neurosis) 09/11/2012 CONSUELO ZUNIGA MD Active Last Documented On 3 10:29PM ; [facility] Generalized Anxiety Disorder 09/11/2012 CONSUELO ZUNIGA MD Active Last Documented On 4 11:21AM ; [facility] Major Depression, Recurrent 09/11/2012 CONSUELO ZUNIGA MD Active Last Documented On 3 4:50PM ; [facility] Plan of Treatment Findings Encounter Date Clinical summary transmitted to referring provider electronically with reasonable certainty of receipt FOLLOW UP with CONSUELO ZUNIGA MD 03/25/2021 Last Documented On 2 8:32AM ; [facility] Ordered Transition in care, clinical summary provided FOLLOW UP with CONSUELO ZUNIGA MD 03/25/2021 Last Documented On 2 8:32AM ; [facility] Requested Referred to: Ellen tavera mgt/counseling - 02/01/21 FOLLOW UP with CONSUELO ZUNIGA MD 03/25/2021 Last Documented On 2 8:32AM ; [facility] Clinical summary transmitted to referring provider electronically with reasonable certainty of receipt FOLLOW UP with CONSUELO ZUNIGA MD 02/01/2021 Last Documented On 1 9:48AM ; [facility] Ordered Transition in care, clinical summary provided FOLLOW UP with CONSUELO ZUNIGA MD 02/01/2021 Last Documented On 1 9:48AM ; [facility] Requested Referred to: Ellen tavera mgt/counseling - 02/01/21 FOLLOW UP with CONSUELO ZUNIGA MD 02/01/2021 Last Documented On 1 9:48AM ; [facility] Clinical summary transmitted to referring provider electronically GENERAL OFFICE VISIT with CONSUELO ZUNIGA MD 01/29/2018 Last Documented On 8 12:03AM ; [facility] Ordered Transition in care, clinical summary provided GENERAL OFFICE VISIT with CONSUELO ZUNIGA MD 01/29/2018 Last Documented On 8 12:03AM ; [facility] Requested Referred to: Dr. Mary Salazar -- for neuropsychological testing -- [facility] GENERAL OFFICE VISIT with CONSUELO ZUNIGA MD 01/29/2018 Last Documented On 8 12:03AM ; [facility] Instructions to patient Lose weight Last Documented On 2 5:02PM ; [facility] Lose weight Last Documented On 1 4:31PM ; [facility] Lose weight Last Documented On 1 4:40PM ; [facility] Lose weight Last Documented On 0 5:15PM ; [facility] Lose weight Last Documented On 0 4:31PM ; [facility] Lose weight Last Documented On 0 4:53PM ; [facility] Education and Decision Aids were provided during visit for: Patient education about medi cation ---Education was given on medication(s) and diagnosis. I reviewed the risks, benefits and side effects of patient's medications Last Documented On 3 4:44PM ; [facility] Discussed calming techniques such as breathing exercises and other relaxation techniques Last Documented On 3 4:44PM ; [facility] Discussed good sleep hygiene habits Last Documented On 3 5:04PM ; [facility] Discussed calming techniques such as breathing exercises and other relaxation techniques Last Documented On 3 5:13PM ; [facility] Discussed good sleep hygiene habits - abstain from alcohol even though it is just casual since this cannot be combined with psych meds and since ETOH is a MINERAL ECONOMIST depressant Last Documented On 3 9:15AM ; [facility] Patient education about medi cation ---Education was given on medication(s) and diagnosis. I reviewed the risks, benefits and side effects of patient's medications Last Documented On 2 4:39PM ; [facility] Discussed calming techniques such as breathing exercises and other relaxation techniques, he was reminded NOT to self medicate with alcohol since alcohol is a MINERAL ECONOMIST depressant and may worsen his mood/anxiety. He cannot combine alcohol with any of his psych meds since this will cause drug drug interaction and will exacerbate his depression/anxiety Last Documented On 3 7:41PM ; [facility] Discussed calming techniques such as breathing exercises and other relaxation techniques - pt said he is proactive in helping himself manage his mood/anxiety Last Documented On 2 6:00AM ; [facility] Discussed good sleep hygiene habits Last Documented On 2 4:58PM ; [facility] Patient education about medi cation --- I educated patient on medication(s) and diagnosis. I reviewed the risks, benefits and side effects of patient's medications Last Documented On 2 4:33PM ; [facility] Discussed calming techniques such as breathing exercises and other relaxation techniques Last Documented On 2 4:33PM ; [facility] Patient education about medi cation --- I educated patient on medication(s) and diagnosis. I reviewed the risks, benefits and side effects of patient's medications Last Documented On 2 4:54PM ; [facility] Discussed calming techniques such as breathing exercises and other relaxation techniques Last Documented On 2 4:54PM ; [facility] Counseling for nutrition/fany ght management provided Last Documented On 2 5:02PM ; [facility] Discussed good sleep hygiene habits Last Documented On 2 5:02PM ; [facility] Patient education about medi cation --- I educated patient on medication(s) and diagnosis. I reviewed the risks, benefits and side effects of patient's medications Last Documented On 1 4:15PM ; [facility] Discussed calming techniques such as breathing exercises and other relaxation techniques Last Documented On 1 4:15PM ; [facility] Counseling for nutrition/fany ght management provided Last Documented On 1 4:31PM ; [facility] Discussed good sleep hygiene habits Last Documented On 1 4:31PM ; [facility] Patient education about medi cation --- I educated patient on medication(s) and diagnosis. I reviewed the risks, benefits and side effects of patient's medications Last Documented On 1 4:27PM ; [facility] Discussed calming techniques such as breathing exercises and other relaxation techniques Last Documented On 1 4:27PM ; [facility] Counseling for nutrition/fany ght management provided Last Documented On 1 4:42PM ; [facility] Discussed good sleep hygiene habits Last Documented On 1 4:42PM ; [facility] Patient education about medi cation --- I educated patient on medication(s) and diagnosis. I reviewed the risks, benefits and side effects of patient's medications Last Documented On 1 4:36PM ; [facility] Discussed calming techniques such as breathing exercises and other relaxation techniques Last Documented On 1 4:36PM ; [facility] Counseling for nutrition/fany ght management provided Last Documented On 1 4:40PM ; [facility] Patient education about medi cation --- I educated patient on medication(s) and diagnosis. I reviewed the risks, benefits and side effects of patient's medications Last Documented On 0 4:53PM ; [facility] Discussed calming techniques such as breathing exercises and other relaxation techniques Last Documented On 0 4:53PM ; [facility] Counseling for nutrition/fany ght management provided Last Documented On 0 5:15PM ; [facility] Patient education about medi cation --- I educated patient on medication(s) and diagnosis. I reviewed the risks, benefits and side effects of patient's medications Last Documented On 0 4:17PM ; [facility] Discussed calming techniques such as breathing exercises and other relaxation techniques Last Documented On 0 4:17PM ; [facility] Counseling for nutrition/fany ght management provided Last Documented On 0 4:31PM ; [facility] Patient education about medi cation --- I educated patient on medication(s) and diagnosis. I reviewed the risks, benefits and side effects of patient's medications Last Documented On 0 4:32PM ; [facility] Discussed calming techniques such as breathing exercises and other relaxation techniques Last Documented On 0 4:32PM ; [facility] Counseling for nutrition/fany ght management provided Last Documented On 0 4:53PM ; [facility] Patient education about a pr oper diet Last Documented On 0 4:20PM ; [facility] Patient education about medi cation --- I educated patient on medication(s) and diagnosis. I reviewed the risks, benefits and side effects of patient's medications Last Documented On 0 4:05PM ; [facility] Discussed calming techniques such as breathing exercises and other relaxation techniques Last Documented On 0 4:05PM ; [facility] Counseling for nutrition/fany ght management provided Last Documented On 0 4:20PM ; [facility] Patient education about a pr oper diet Last Documented On 9 5:16PM ; [facility] Patient education about medi cation --- I educated patient on medication(s) and diagnosis. I reviewed the risks, benefits and side effects of patient's medications Last Documented On 9 4:53PM ; [facility] Discussed calming techniques such as breathing exercises and other relaxation techniques Last Documented On 9 4:53PM ; [facility] Counseling for nutrition/fany ght management provided Last Documented On 9 5:16PM ; [facility] Patient education about a pr oper diet Last Documented On 9 5:52AM ; [facility] Patient education about medi cation --- I educated patient on medication(s) and diagnosis. I reviewed the risks, benefits and side effects of patient's medications Last Documented On 9 4:32PM ; [facility] Discussed calming techniques such as breathing exercises and other relaxation techniques Last Documented On 9 4:32PM ; [facility] Counseling for nutrition/fany ght management provided Last Documented On 9 5:52AM ; [facility] Patient education about a pr oper diet Last Documented On 9 4:52PM ; [facility] Patient education about medi cation --- I educated patient on medication(s) and diagnosis. I reviewed the risks, benefits and side effects of patient's medications Last Documented On 9 4:33PM ; [facility] Discussed calming techniques such as breathing exercises and other relaxation techniques Last Documented On 9 4:33PM ; [facility] Counseling for nutrition/fany ght management provided Last Documented On 9 4:52PM ; [facility] Discussed good sleep hygiene habits Last Documented On 9 7:15PM ; [facility] Patient education about a pr oper diet Last Documented On 9 4:31PM ; [facility] Patient education about medi cation --- I educated patient on medication(s) and diagnosis. I reviewed the risks, benefits and side effects of patient's medications Last Documented On 9 4:27PM ; [facility] Discussed calming techniques such as breathing exercises and other relaxation techniques Last Documented On 9 4:27PM ; [facility] Counseling for nutrition/fany ght management provided Last Documented On 9 4:31PM ; [facility] Patient education about a pr oper diet Last Documented On 9 4:24PM ; [facility] Patient education about medi cation --- I educated patient on medication(s) and diagnosis. I reviewed the risks, benefits and side effects of patient's medications Last Documented On 9 4:16PM ; [facility] Discussed calming techniques such as breathing exercises and other relaxation techniques Last Documented On 9 4:16PM ; [facility] Counseling for nutrition/fany ght management provided Last Documented On 9 4:24PM ; [facility] Patient education about a pr oper diet Last Documented On 8 4:25PM ; [facility] Patient education about medi cation --- I educated patient on medication(s) and diagnosis. I reviewed the risks, benefits and side effects of patient's medications Last Documented On 8 4:24PM ; [facility] Counseling for nutrition/fany ght management provided Last Documented On 8 4:25PM ; [facility] Patient education about medi cation --- I educated patient on medication(s) and diagnosis. I reviewed the risks, benefits and side effects of patient's medications Last Documented On 8 4:43PM ; [facility] Discussed calming techniques such as breathing exercises and other relaxation techniques Last Documented On 8 4:43PM ; [facility] Patient education about medi cation --- I educated patient on medication(s) and diagnosis. I reviewed the risks, benefits and side effects of patient's medications Last Documented On 8 4:52PM ; [facility] Discussed calming techniques such as breathing exercises and other relaxation techniques Last Documented On 8 4:52PM ; [facility] Counseling for nutrition/fany ght management provided Last Documented On 8 12:09AM ; [facility] Patient education about medi cation --- I educated patient on medication(s) and diagnosis. I reviewed the risks, benefits and side effects of patient's medications Last Documented On 7 3:24PM ; [facility] Discussed calming techniques such as breathing exercises and other relaxation techniques Last Documented On 7 3:24PM ; [facility] Counseling for nutrition/fany ght management provided Last Documented On 7 1:31AM ; [facility] Patient education about medi cation --- I educated patient on medication(s) and diagnosis. I reviewed the risks, benefits and side effects of patient's medications Last Documented On 7 3:40PM ; [facility] Discussed calming techniques such as breathing exercises and other relaxation techniques Last Documented On 7 3:40PM ; [facility] Counseling for nutrition/fany ght management provided Last Documented On 7 5:36PM ; [facility] Patient education about medi cation --- I educated patient on medication(s) and diagnosis. I reviewed the risks, benefits and side effects of patient's medications Last Documented On 7 4:14PM ; [facility] Discussed calming techniques such as breathing exercises and other relaxation techniques Last Documented On 7 4:14PM ; [facility] Counseling for nutrition/fany ght management provided Last Documented On 7 11:47AM ; [facility] Patient education about medi cation --- I educated patient on medication(s) and diagnosis. I reviewed the risks, benefits and side effects of patient's medications Last Documented On 7 3:43PM ; [facility] Discussed calming techniques such as breathing exercises and other relaxation techniques Last Documented On 7 3:43PM ; [facility] Counseling for nutrition/fany ght management provided Last Documented On 7 4:14PM ; [facility] Discussed good sleep hygiene habits Last Documented On 7 4:14PM ; [facility] Patient education about medi cation --- I educated patient on medication(s) and diagnosis. I reviewed the risks, benefits and side effects of patient's medications Last Documented On 7 2:53PM ; [facility] Discussed calming techniques such as breathing exercises/meditation and other relaxation techniques Last Documented On 7 2:53PM ; [facility] Patient counseling I discuss ed risk, benefits, and side effects of sleep aid -belsomra including the possibility of sleep related behaviors i.e. sleepwalking, sleeptalking, sleepdriving, etc... Pt verbalized understanding Last Documented On 7 3:13PM ; [facility] Discussed good sleep hygiene habits Last Documented On 7 3:40PM ; [facility] Patient education about medi cation --- I educated patient on medication(s) and diagnosis. I reviewed the risks, benefits and side effects of patient's medications Last Documented On 7 8:58AM ; [facility] Discussed calming techniques such as breathing exercises/meditation and other relaxation techniques Last Documented On 7 8:58AM ; [facility] Patient counseling I discuss ed risk, benefits, and side effects of sleep aid - belsomra including the possibility of sleep related behaviors i.e. sleepwalking, sleeptalking, sleepdriving, etc... Pt verbalized understanding Last Documented On 7 5:00PM ; [facility] Counseling for nutrition/fany ght management provided Last Documented On 7 5:00PM ; [facility] Discussed good sleep hygiene habits Last Documented On 7 5:00PM ; [facility] Patient education about medi cation --- I educated patient on medication(s) and diagnosis. I reviewed the risks, benefits and side effects of patient's medications Last Documented On 6 9:58AM ; [facility] Discussed calming techniques such as breathing exercises/meditation and other relaxation techniques Last Documented On 6 9:58AM ; [facility] Counseling for nutrition/fany ght management provided Last Documented On 6 8:18AM ; [facility] Patient education about medi cation --- I educated patient on medication(s) and diagnosis. I reviewed the risks, benefits and side effects of patient's medications. --- nuvigil Last Documented On 6 8:21AM ; [facility] Discussed calming techniques such as breathing exercises/meditation and other relaxation techniques Last Documented On 6 10:02AM ; [facility] Counseling for nutrition/fany ght management provided Last Documented On 6 8:21AM ; [facility] Patient education about medi cation --- I educated patient on medication(s) and diagnosis. I reviewed the risks, benefits and side effects of patient's medications Last Documented On 6 3:59PM ; [facility] Discussed calming techniques such as breathing exercises/meditation and other relaxation techniques Last Documented On 6 3:59PM ; [facility] Patient education about medi cation --- I educated patient on medication(s) and diagnosis. I reviewed the risks, benefits and side effects of patient's medications Last Documented On 6 3:23PM ; [facility] Discussed calming techniques such as breathing exercises/meditation and other relaxation techniques Last Documented On 6 3:23PM ; [facility] Discussed good sleep hygiene habits Last Documented On 6 8:16PM ; [facility] Patient education about medi cation --- I educated patient on medication(s) and diagnosis. I reviewed the risks, benefits and side effects of patient's medications Last Documented On 6 9:57AM ; [facility] Discussed calming techniques such as breathing exercises/meditation and other relaxation techniques Last Documented On 6 9:57AM ; [facility] Patient education about medi cation --- I educated patient on medication(s) and diagnosis. I reviewed the risks, benefits and side effects of patient's medications Last Documented On 5 5:30PM ; [facility] Discussed calming techniques such as breathing exercises/meditation and other relaxation techniques Last Documented On 5 3:30PM ; [facility] Patient education about medi cation --- I educated patient on medication(s) and diagnosis. I reviewed the risks, benefits and side effects of patient's medications Last Documented On 5 6:10AM ; [facility] Discussed calming techniques such as breathing exercises/meditation and other relaxation techniques Last Documented On 5 2:47PM ; [facility] Discussed good sleep hygiene habits Last Documented On 5 6:10AM ; [facility] Patient education about medi cation --- I educated patient on medication(s) and diagnosis. I reviewed the risks, benefits and side effects of patient's medications Last Documented On 5 11:06PM ; [facility] Discussed calming techniques such as breathing exercises/meditation and other relaxation techniques Last Documented On 5 3:02PM ; [facility] Counseling for nutrition/fany ght management provided Last Documented On 5 11:06PM ; [facility] Patient education about medi cation --- I educated patient on medication(s) and diagnosis. I reviewed the risks, benefits and side effects of patient's medications Last Documented On 4 8:05PM ; [facility] Discussed calming techniques such as breathing exercises/meditation and other relaxation techniques Last Documented On 4 3:14PM ; [facility] Discussed calming techniques such as yoga meditation to help relieve some anxiety symptoms Last Documented On 4 8:05PM ; [facility] Patient counseling I discuss ed risk, benefits, and side effects of sleep aid - , Ambien including the possibility of sleep related behaviors i.e. sleepwalking, sleeptalking, sleepdriving, etc... Pt verbalized understanding Last Documented On 4 8:05PM ; [facility] Patient education about medi cation --- I educated patient on medication(s) and diagnosis. I reviewed the risks, benefits and side effects of patient's medications Last Documented On 4 5:25PM ; [facility] Discussed calming techniques such as breathing exercises/meditation and other relaxation techniques Last Documented On 4 3:27PM ; [facility] Patient education about medi cation --- I educated patient on medication(s) and diagnosis. I reviewed the risks, benefits and side effects of patient's medications Last Documented On 4 12:52AM ; [facility] Discussed calming techniques such as breathing exercises/meditation and other relaxation techniques Last Documented On 4 2:06PM ; [facility] Patient counseling I discuss ed risk, benefits, and side effects of sleep aid - Ambien CR including the possibility of sleep related behaviors i.e. sleepwalking, sleeptalking, sleepdriving, etc... Pt verbalized understanding Last Documented On 4 12:52AM ; [facility] Patient education about medi cation --- I educated patient on medication(s) and diagnosis. I reviewed the risks, benefits and side effects of patient's medications Last Documented On 4 4:55PM ; [facility] Discussed calming techniques such as breathing exercises/meditation and other relaxation techniques Last Documented On 4 2:53PM ; [facility] Counseling for nutrition/fany ght management provided Last Documented On 4 4:55PM ; [facility] Patient education about medi cation --- I educated patient on medication(s) and diagnosis Last Documented On 4 5:30PM ; [facility] Discussed calming techniques such as breathing exercises/meditation and other relaxation techniques Last Documented On 4 2:21PM ; [facility] Counseling for nutrition/fany ght management provided Last Documented On 4 5:30PM ; [facility] Reviewed side effects and Ri sks/Benefits analysis Last Documented On 4 5:30PM ; [facility] Patient education about medi cation --- I educated patient on medication(s) and diagnosis Last Documented On 3 5:44PM ; [facility] Patient education about adve rse reactions to medication Last Documented On 3 5:44PM ; [facility] Discussed calming techniques such as breathing exercises/meditation and other relaxation techniques Last Documented On 3 2:03PM ; [facility] Counseling for nutrition/fany ght management provided Last Documented On 4 5:53PM ; [facility] Reviewed side effects and Ri sks/Benefits analysis Last Documented On 3 5:44PM ; [facility] Discussed good sleep hygiene habits Last Documented On 3 2:03PM ; [facility] I recommended cognitive exer cises such as reading and/or word search puzzles, etc.. Last Documented On 3 5:44PM ; [facility] Patient education about medi cation --- I educated patient on medication(s) and diagnosis Last Documented On 3 5:49AM ; [facility] Discussed calming techniques such as breathing exercises/meditation and other relaxation techniques Last Documented On 3 2:04PM ; [facility] Discussed good sleep hygiene habits Last Documented On 3 5:49AM ; [facility] Patient education about medi cation --- I educated patient on medication(s) and diagnosis Last Documented On 3 11:13PM ; [facility] Discussed calming techniques such as breathing exercises/meditation and other relaxation techniques Last Documented On 3 3:58PM ; [facility] Reviewed side effects and Ri sks/Benefits analysis Last Documented On 3 11:13PM ; [facility] Discussed good sleep hygiene habits Last Documented On 3 11:13PM ; [facility] Discussed calming techniques such as breathing exercises/meditation and other relaxation techniques Last Documented On 3 1:00PM ; [facility] Patient education about medi cation --- I educated patient on medication(s) and diagnosis Last Documented On 3 10:31PM ; [facility] Discussed calming techniques such as breathing exercises/meditation and other relaxation techniques Last Documented On 3 3:36PM ; [facility] Discussed good sleep hygiene habits Last Documented On 3 10:31PM ; [facility] Assessments Includes: Assessments for all patient encounters Findings Encounter Date Attention deficit disorder w ithout hyperactivity TELEHEALTH with CONSUELO ZUNIGA MD 05/16/2022 Last Documented On 3 11:26PM ; [facility] Dissociative identity disorder TELEHEALTH with Nayely ZUNIGA MD 05/16/2022 Last Documented On 3 11:26PM ; [facility] Dysthymic disorder TELEHEALTH with CONSUELO PAYAN MD 05/16/2022 Last Documented On 3 11:26PM ; [facility] Generalized anxiety disorder TELEHEALTH with MET DANIELLE ZUNIGA MD 05/16/2022 Last Documented On 3 11:26PM ; [facility] Major depression, recurrent TELEHEALTH with SENA ZUNIGA MD 05/16/2022 Last Documented On 3 11:26PM ; [facility] Obstructive sleep apnea TELEHEALTH with CONSUELO ZUNIGA MD 05/16/2022 Last Documented On 3 11:26PM ; [facility] Panic disorder TELEHEALTH with CONSUELO PAINTING MD 05/16/2022 Last Documented On 3 11:26PM ; [facility] Psychophysiological insomnia TELEHEALTH with MET DANIELLE ZUNIGA MD 05/16/2022 Last Documented On 3 11:26PM ; [facility] Attention deficit disorder w ithout hyperactivity TELEHEALTH with CONSUELO ZUNIGA MD 04/11/2022 Last Documented On 3 9:17AM ; [facility] Dissociative identity disorder TELEHEALTH with Nayely ZUNIGA MD 04/11/2022 Last Documented On 3 9:17AM ; [facility] Dysthymic disorder TELEHEALTH with CONSUELO PAYAN MD 04/11/2022 Last Documented On 3 9:17AM ; [facility] Generalized anxiety disorder TELEHEALTH with MET DANIELLE ZUNIGA MD 04/11/2022 Last Documented On 3 9:17AM ; [facility] Major depression, recurrent TELEHEALTH with SENA ZUNIGA MD 04/11/2022 Last Documented On 3 9:17AM ; [facility] Obstructive sleep apnea TELEHEALTH with CONSUELO ZUNIGA MD 04/11/2022 Last Documented On 3 9:17AM ; [facility] Panic disorder TELEHEALTH with CONSUELO PAINTING MD 04/11/2022 Last Documented On 3 9:17AM ; [facility] Psychophysiological insomnia TELEHEALTH with MET DANIELLE ZUNIGA MD 04/11/2022 Last Documented On 3 9:17AM ; [facility] Attention deficit disorder w ithout hyperactivity TELEHEALTH with CONSUELO ZUNIGA MD 03/01/2022 Last Documented On 3 7:48PM ; [facility] Dissociative identity disorder TELEHEALTH with Nayely ZUNIGA MD 03/01/2022 Last Documented On 3 7:48PM ; [facility] Dysthymic disorder TELEHEALTH with CONSUELO PAYAN MD 03/01/2022 Last Documented On 3 7:48PM ; [facility] Generalized anxiety disorder TELEHEALTH with MET DANIELLE ZUNIGA MD 03/01/2022 Last Documented On 3 7:48PM ; [facility] Major depression, recurrent TELEHEALTH with SENA ZUNIGA MD 03/01/2022 Last Documented On 3 7:48PM ; [facility] Panic disorder TELEHEALTH with CONSUELO PAINTING MD 03/01/2022 Last Documented On 3 7:48PM ; [facility] Psychophysiological insomnia TELEHEALTH with MET DANIELLE ZUNIGA MD 03/01/2022 Last Documented On 3 7:48PM ; [facility] Attention deficit disorder w ithout hyperactivity FOLLOW UP with CONSUELO ZUNIGA MD 11/11/2021 Last Documented On 2 6:03AM ; [facility] Dissociative identity disorder FOLLOW UP with ME JESUSITA ZUNIGA MD 11/11/2021 Last Documented On 2 6:03AM ; [facility] Dysthymic disorder FOLLOW UP with CONSUELO BLACK MD 11/11/2021 Last Documented On 2 6:03AM ; [facility] Generalized anxiety disorder FOLLOW UP with SENA ZUNIGA MD 11/11/2021 Last Documented On 2 6:03AM ; [facility] Major depression, recurrent FOLLOW UP with WADE ZUNIGA MD 11/11/2021 Last Documented On 2 6:03AM ; [facility] Panic disorder FOLLOW UP with CONSUELO FLORES MD 11/11/2021 Last Documented On 2 6:03AM ; [facility] Psychophysiological insomnia FOLLOW UP with SENA ZUNIGA MD 11/11/2021 Last Documented On 2 6:03AM ; [facility] Attention deficit disorder w ithout hyperactivity FOLLOW UP with CONSUELO ZUNIGA MD 08/02/2021 Last Documented On 2 10:31AM ; [facility] Dissociative identity disorder FOLLOW UP with ME JESUSITA ZUNIGA MD 08/02/2021 Last Documented On 2 10:31AM ; [facility] Dysthymic disorder FOLLOW UP with CONSUELO BLACK MD 08/02/2021 Last Documented On 2 10:31AM ; [facility] Generalized anxiety disorder FOLLOW UP with SENA ZUNIGA MD 08/02/2021 Last Documented On 2 10:31AM ; [facility] Major depression, recurrent FOLLOW UP with WADE ZUNIGA MD 08/02/2021 Last Documented On 2 10:31AM ; [facility] Panic disorder FOLLOW UP with CONSUELO FLORES MD 08/02/2021 Last Documented On 2 10:31AM ; [facility] Psychophysiological insomnia FOLLOW UP with SENA ZUNIGA MD 08/02/2021 Last Documented On 2 10:31AM ; [facility] Attention deficit disorder w ithout hyperactivity FOLLOW UP with CONSUELO ZUNIGA MD 03/25/2021 Last Documented On 2 8:32AM ; [facility] Dissociative identity disorder FOLLOW UP with ME JESUSITA ZUNIGA MD 03/25/2021 Last Documented On 2 8:32AM ; [facility] Dysthymic disorder FOLLOW UP with CONSUELO BLACK MD 03/25/2021 Last Documented On 2 8:32AM ; [facility] Generalized anxiety disorder FOLLOW UP with SENA ZUNIGA MD 03/25/2021 Last Documented On 2 8:32AM ; [facility] Major depression, recurrent FOLLOW UP with WADE ZUNIGA MD 03/25/2021 Last Documented On 2 8:32AM ; [facility] Panic disorder FOLLOW UP with CONSUELO FLORES MD 03/25/2021 Last Documented On 2 8:32AM ; [facility] Psychophysiological insomnia FOLLOW UP with SENA ZUNIGA MD 03/25/2021 Last Documented On 2 8:32AM ; [facility] Attention deficit disorder w ithout hyperactivity FOLLOW UP with CONSUELO ZUNIGA MD 02/01/2021 Last Documented On 1 9:48AM ; [facility] Dissociative identity disorder FOLLOW UP with ME JESUSITA ZUNIGA MD 02/01/2021 Last Documented On 1 9:48AM ; [facility] Dysthymic disorder FOLLOW UP with CONSUELO BLACK MD 02/01/2021 Last Documented On 1 9:48AM ; [facility] Generalized anxiety disorder FOLLOW UP with SENA ZUNIGA MD 02/01/2021 Last Documented On 1 9:48AM ; [facility] Major depression, recurrent FOLLOW UP with WADE ZUNIGA MD 02/01/2021 Last Documented On 1 9:48AM ; [facility] Panic disorder FOLLOW UP with CONSUELO FLORES MD 02/01/2021 Last Documented On 1 9:48AM ; [facility] Psychophysiological insomnia FOLLOW UP with SENA ZUNIGA MD 02/01/2021 Last Documented On 1 9:48AM ; [facility] Attention deficit disorder w ithout hyperactivity FOLLOW UP with CONSUELO ZUNIGA MD 09/29/2020 Last Documented On 1 1:46PM ; [facility] Dissociative identity disorder FOLLOW UP with ME JESUSITA ZUNIGA MD 09/29/2020 Last Documented On 1 1:46PM ; [facility] Dysthymic disorder FOLLOW UP with CONSUELO BLACK MD 09/29/2020 Last Documented On 1 1:46PM ; [facility] Generalized anxiety disorder FOLLOW UP with SENA ZUNIGA MD 09/29/2020 Last Documented On 1 1:46PM ; [facility] Major depression, recurrent FOLLOW UP with WADE ZUNIGA MD 09/29/2020 Last Documented On 1 1:46PM ; [facility] Panic disorder FOLLOW UP with CONSUELO FLORES MD 09/29/2020 Last Documented On 1 1:46PM ; [facility] Psychophysiological insomnia FOLLOW UP with SENA ZUNIGA MD 09/29/2020 Last Documented On 1 1:46PM ; [facility] Attention deficit disorder w ithout hyperactivity FOLLOW UP with CONSUELO ZUNIGA MD 05/28/2020 Last Documented On 1 8:27AM ; [facility] Dissociative identity disorder FOLLOW UP with ME JESUSITA ZUNIGA MD 05/28/2020 Last Documented On 1 8:27AM ; [facility] Dysthymic disorder FOLLOW UP with CONSUELO BLACK MD 05/28/2020 Last Documented On 1 8:27AM ; [facility] Generalized anxiety disorder FOLLOW UP with SENA ZUNIGA MD 05/28/2020 Last Documented On 1 8:27AM ; [facility] Major depression, recurrent FOLLOW UP with WADE ZUNIGA MD 05/28/2020 Last Documented On 1 8:27AM ; [facility] Panic disorder FOLLOW UP with CONSUELO FLORES MD 05/28/2020 Last Documented On 1 8:27AM ; [facility] Psychophysiological insomnia FOLLOW UP with SENA ZUNIGA MD 05/28/2020 Last Documented On 1 8:27AM ; [facility] Attention deficit disorder w ithout hyperactivity GENERAL OFFICE VISIT with CONSUELO ZUNIGA MD 01/29/2020 Last Documented On 0 9:49PM ; [facility] Dissociative identity disorder GENERAL O FFICE VISIT with CONSUELO ZUNIGA MD 01/29/2020 Last Documented On 0 9:49PM ; [facility] Dysthymic disorder GENERAL OFFICE VISIT with MET DANIELLE ZUNIGA MD 01/29/2020 Last Documented On 0 9:49PM ; [facility] Generalized anxiety disorder GENERAL OFF ICE VISIT with CONSUELO ZUNIGA MD 01/29/2020 Last Documented On 0 9:49PM ; [facility] Major depression, recurrent GENERAL OFFI CE VISIT with CONSUELO ZUNIGA MD 01/29/2020 Last Documented On 0 9:49PM ; [facility] Panic disorder GENERAL OFFICE VISIT with ROSALIA ZUNIGA MD 01/29/2020 Last Documented On 0 9:49PM ; [facility] Psychophysiological insomnia GENERAL OFF ICE VISIT with CONSUELO ZUNIGA MD 01/29/2020 Last Documented On 0 9:49PM ; [facility] Attention deficit disorder w ithout hyperactivity * PHONE CALL with CONSUELO ZUNIGA MD 11/19/2019 Last Documented On 0 7:26PM ; [facility] Attention deficit disorder w ithout hyperactivity GENERAL OFFICE VISIT with CONSUELO ZUNIGA MD 10/23/2019 Last Documented On 0 2:22AM ; [facility] Dissociative identity disorder GENERAL O FFICE VISIT with CONSUELO ZUNIGA MD 10/23/2019 Last Documented On 0 2:22AM ; [facility] Dysthymic disorder GENERAL OFFICE VISIT with MET DANIELLE ZUNIGA MD 10/23/2019 Last Documented On 0 2:22AM ; [facility] Generalized anxiety disorder GENERAL OFF ICE VISIT with CONSUELO ZUNIGA MD 10/23/2019 Last Documented On 0 2:22AM ; [facility] Major depression, recurrent GENERAL OFFI CE VISIT with CONSUELO ZUNIGA MD 10/23/2019 Last Documented On 0 2:22AM ; [facility] Panic disorder GENERAL OFFICE VISIT with ROSALIA ZUNIGA MD 10/23/2019 Last Documented On 0 2:22AM ; [facility] Psychophysiological insomnia GENERAL OFF ICE VISIT with CONSUELO ZUNIGA MD 10/23/2019 Last Documented On 0 2:22AM ; [facility] Attention deficit disorder w ithout hyperactivity GENERAL OFFICE VISIT with CONSUELO ZUNIGA MD 09/09/2019 Last Documented On 0 3:48PM ; [facility] Dissociative identity disorder GENERAL O FFICE VISIT with CONSUELO ZUNIGA MD 09/09/2019 Last Documented On 0 3:48PM ; [facility] Dysthymic disorder GENERAL OFFICE VISIT with MET DANIELLE ZUNIGA MD 09/09/2019 Last Documented On 0 3:48PM ; [facility] Generalized anxiety disorder GENERAL OFF ICE VISIT with CONSUELO ZUNIGA MD 09/09/2019 Last Documented On 0 3:48PM ; [facility] Major depression, recurrent GENERAL OFFI CE VISIT with CONSUELO ZUNIGA MD 09/09/2019 Last Documented On 0 3:48PM ; [facility] Panic disorder GENERAL OFFICE VISIT with ROSALIA ZUNIGA MD 09/09/2019 Last Documented On 0 3:48PM ; [facility] Psychophysiological insomnia GENERAL OFF ICE VISIT with CONSUELO ZUNIGA MD 09/09/2019 Last Documented On 0 3:48PM ; [facility] Attention deficit disorder w ithout hyperactivity GENERAL OFFICE VISIT with CONSUELO ZUNIGA MD 05/07/2019 Last Documented On 0 11:00PM ; [facility] Dissociative identity disorder GENERAL O FFICE VISIT with CONSUELO ZUNIGA MD 05/07/2019 Last Documented On 0 11:00PM ; [facility] Dysthymic disorder GENERAL OFFICE VISIT with MET DANIELLE ZUNIGA MD 05/07/2019 Last Documented On 0 11:00PM ; [facility] Generalized anxiety disorder GENERAL OFF ICE VISIT with CONSUELO ZUNIGA MD 05/07/2019 Last Documented On 0 11:00PM ; [facility] Major depression, recurrent GENERAL OFFI CE VISIT with CONSUELO ZUNIGA MD 05/07/2019 Last Documented On 0 11:00PM ; [facility] Panic disorder GENERAL OFFICE VISIT with ROSALIA ZUNIGA MD 05/07/2019 Last Documented On 0 11:00PM ; [facility] Psychophysiological insomnia GENERAL OFF ICE VISIT with CONSUELO ZUNIGA MD 05/07/2019 Last Documented On 0 11:00PM ; [facility] Attention deficit disorder w ithout hyperactivity GENERAL OFFICE VISIT with CONSUELO ZUNIGA MD 02/05/2019 Last Documented On 9 12:00AM ; [facility] Dissociative identity disorder GENERAL O FFICE VISIT with CONSUELO ZUNIGA MD 02/05/2019 Last Documented On 9 12:00AM ; [facility] Dysthymic disorder GENERAL OFFICE VISIT with MET DANIELLE ZUNIGA MD 02/05/2019 Last Documented On 9 12:00AM ; [facility] Generalized anxiety disorder GENERAL OFF ICE VISIT with CONSUELO ZUNIGA MD 02/05/2019 Last Documented On 9 12:00AM ; [facility] Major depression, recurrent GENERAL OFFI CE VISIT with CONSUELO ZUNIGA MD 02/05/2019 Last Documented On 9 12:00AM ; [facility] Panic disorder GENERAL OFFICE VISIT with ROSALIA ZUNIGA MD 02/05/2019 Last Documented On 9 12:00AM ; [facility] Psychophysiological insomnia GENERAL OFF ICE VISIT with CONSUELO ZUNIGA MD 02/05/2019 Last Documented On 9 12:00AM ; [facility] Attention deficit disorder w [facility] hyperactivity GENERAL OFFICE VISIT with CONSUELO ZUNIGA MD 12/10/2018 Last Documented On 9 5:53AM ; [facility] Dissociative identity disorder GENERAL O FFICE VISIT with CONSUELO ZUNIGA MD 12/10/2018 Last Documented On 9 5:53AM ; [facility] Dysthymic disorder GENERAL OFFICE VISIT with MET DANIELLE ZUNIGA MD 12/10/2018 Last Documented On 9 5:53AM ; [facility] Generalized anxiety disorder GENERAL OFF ICE VISIT with CONSUELO ZUNIGA MD 12/10/2018 Last Documented On 9 5:53AM ; [facility] Major depression, recurrent GENERAL OFFI CE VISIT with CONSUELO ZUNIGA MD 12/10/2018 Last Documented On 9 5:53AM ; [facility] Panic disorder GENERAL OFFICE VISIT with ROSALIA ZUNIGA MD 12/10/2018 Last Documented On 9 5:53AM ; [facility] Psychophysiological insomnia GENERAL OFF ICE VISIT with CONSUELO ZUNIGA MD 12/10/2018 Last Documented On 9 5:53AM ; [facility] Attention deficit disorder w ithout hyperactivity GENERAL OFFICE VISIT with CONSUELO ZUNIGA MD 10/23/2018 Last Documented On 9 7:19PM ; [facility] Dissociative identity disorder GENERAL O FFICE VISIT with CONSUELO ZUNIGA MD 10/23/2018 Last Documented On 9 7:19PM ; [facility] Dysthymic disorder GENERAL OFFICE VISIT with MET DANIELLE ZUNIGA MD 10/23/2018 Last Documented On 9 7:19PM ; [facility] Generalized anxiety disorder GENERAL OFF ICE VISIT with CONSUELO ZUNIGA MD 10/23/2018 Last Documented On 9 7:19PM ; [facility] Major depression, recurrent GENERAL OFFI CE VISIT with CONSUELO ZUNIGA MD 10/23/2018 Last Documented On 9 7:19PM ; [facility] Panic disorder GENERAL OFFICE VISIT with ROSALIA ZUNIGA MD 10/23/2018 Last Documented On 9 7:19PM ; [facility] Psychophysiological insomnia GENERAL OFF ICE VISIT with CONSUELO ZUNIGA MD 10/23/2018 Last Documented On 9 7:19PM ; [facility] Attention deficit disorder w ithout hyperactivity GENERAL OFFICE VISIT with CONSUELO ZUNIGA MD 06/04/2018 Last Documented On 9 3:20AM ; [facility] Dissociative identity disorder GENERAL O FFICE VISIT with CONSUELO ZUNIGA MD 06/04/2018 Last Documented On 9 3:20AM ; [facility] Dysthymic disorder GENERAL OFFICE VISIT with MET DANIELLE ZUNIGA MD 06/04/2018 Last Documented On 9 3:20AM ; [facility] Generalized anxiety disorder GENERAL OFF ICE VISIT with CONSUELO ZUNIGA MD 06/04/2018 Last Documented On 9 3:20AM ; [facility] Major depression, recurrent GENERAL OFFI CE VISIT with CONSUELO ZUNIGA MD 06/04/2018 Last Documented On 9 3:20AM ; [facility] Obstructive sleep apnea GENERAL OFFICE VISIT wit h CONSUELO ZUNIGA MD 06/04/2018 Last Documented On 9 3:20AM ; [facility] Panic disorder GENERAL OFFICE VISIT with ROSALIA ZUNIGA MD 06/04/2018 Last Documented On 9 3:20AM ; [facility] Psychophysiological insomnia GENERAL OFF ICE VISIT with CONSUELO ZUNIGA MD 06/04/2018 Last Documented On 9 3:20AM ; [facility] Attention deficit disorder w ithout hyperactivity * PHONE CALL with CONSUELO ZUNIGA MD 05/07/2018 Last Documented On 9 11:49AM ; [facility] Dissociative identity disorder * PHONE CALL with CONSUELO ZUNGIA MD 05/07/2018 Last Documented On 9 11:49AM ; [facility] Dysthymic disorder * PHONE CALL with CONSUELO ZUNIGA MD 05/07/2018 Last Documented On 9 11:49AM ; [facility] Generalized anxiety disorder * PHONE CALL with Nayely ZUNIGA MD 05/07/2018 Last Documented On 9 11:49AM ; [facility] Major depression, recurrent * PHONE CALL with ME JESUSITA ZUNIGA MD 05/07/2018 Last Documented On 9 11:49AM ; [facility] Obstructive sleep apnea * PHONE CALL with ROSALIA ZUNIGA MD 05/07/2018 Last Documented On 9 11:49AM ; [facility] Panic disorder * PHONE CALL with CONSUELO BLACK MD 05/07/2018 Last Documented On 9 11:49AM ; [facility] Psychophysiological insomnia * PHONE CALL with Nayely ZUNIGA MD 05/07/2018 Last Documented On 9 11:49AM ; [facility] Attention deficit disorder w ithout hyperactivity GENERAL OFFICE VISIT with CONSUELO ZUNIGA MD 04/02/2018 Last Documented On 9 3:26PM ; [facility] Dissociative identity disorder GENERAL O FFICE VISIT with CONSUELO ZUNIGA MD 04/02/2018 Last Documented On 9 3:26PM ; [facility] Dysthymic disorder GENERAL OFFICE VISIT with MET DANIELLE ZUNIGA MD 04/02/2018 Last Documented On 9 3:26PM ; [facility] Generalized anxiety disorder GENERAL OFF ICE VISIT with CONSUELO ZUNIGA MD 04/02/2018 Last Documented On 9 3:26PM ; [facility] Major depression, recurrent GENERAL OFFI CE VISIT with CONSUELO ZUNIGA MD 04/02/2018 Last Documented On 9 3:26PM ; [facility] Obstructive sleep apnea GENERAL OFFICE VISIT wit h CONSUELO ZUNIGA MD 04/02/2018 Last Documented On 9 3:26PM ; [facility] Panic disorder GENERAL OFFICE VISIT with ROSALIA ZUNIGA MD 04/02/2018 Last Documented On 9 3:26PM ; [facility] Psychophysiological insomnia GENERAL OFF ICE VISIT with CONSUELO ZUNIGA MD 04/02/2018 Last Documented On 9 3:26PM ; [facility] Attention deficit disorder w ithout hyperactivity GENERAL OFFICE VISIT with CONSUELO ZUNIGA MD 01/29/2018 Last Documented On 8 12:03AM ; [facility] Dissociative identity disorder GENERAL O FFICE VISIT with CONSUELO ZUNIGA MD 01/29/2018 Last Documented On 8 12:03AM ; [facility] Dysthymic disorder GENERAL OFFICE VISIT with MET DANIELLE ZUNIGA MD 01/29/2018 Last Documented On 8 12:03AM ; [facility] Generalized anxiety disorder GENERAL OFF ICE VISIT with CONSUELO ZUNIGA MD 01/29/2018 Last Documented On 8 12:03AM ; [facility] Major depression, recurrent GENERAL OFFI CE VISIT with CONSUELO ZUNIGA MD 01/29/2018 Last Documented On 8 12:03AM ; [facility] Obstructive sleep apnea GENERAL OFFICE VISIT wit h CONSUELO ZUNIGA MD 01/29/2018 Last Documented On 8 12:03AM ; [facility] Panic disorder GENERAL OFFICE VISIT with ROSALIA ZUNIGA MD 01/29/2018 Last Documented On 8 12:03AM ; [facility] Psychophysiological insomnia GENERAL OFF ICE VISIT with CONSUELO ZUNIGA MD 01/29/2018 Last Documented On 8 12:03AM ; [facility] Attention deficit disorder w ithout hyperactivity GENERAL OFFICE VISIT with CONSUELO ZUNIGA MD 09/28/2017 Last Documented On 8 11:13PM ; [facility] Generalized anxiety disorder GENERAL OFF ICE VISIT with CONSUELO ZUNIGA MD 09/28/2017 Last Documented On 8 11:13PM ; [facility] Major depression, recurrent GENERAL OFFI CE VISIT with CONSUELO ZUNIGA MD 09/28/2017 Last Documented On 8 11:13PM ; [facility] Panic disorder GENERAL OFFICE VISIT with ROSALIA ZUNIGA MD 09/28/2017 Last Documented On 8 11:13PM ; [facility] Psychophysiological insomnia GENERAL OFF ICE VISIT with CONSUELO ZUNIGA MD 09/28/2017 Last Documented On 8 11:13PM ; [facility] Attention deficit disorder w ithout hyperactivity GENERAL OFFICE VISIT with CONSUELO ZUNIGA MD 05/22/2017 Last Documented On 8 12:17AM ; [facility] Generalized anxiety disorder GENERAL OFF ICE VISIT with CONSUELO ZUNIGA MD 05/22/2017 Last Documented On 8 12:17AM ; [facility] Major depression, recurrent GENERAL OFFI CE VISIT with CONSUELO ZUNIGA MD 05/22/2017 Last Documented On 8 12:17AM ; [facility] Panic disorder GENERAL OFFICE VISIT with ROSALIA ZUNIGA MD 05/22/2017 Last Documented On 8 12:17AM ; [facility] Psychophysiological insomnia GENERAL OFF ICE VISIT with CONSUELO ZUNIGA MD 05/22/2017 Last Documented On 8 12:17AM ; [facility] Attention deficit disorder w ithout hyperactivity GENERAL OFFICE VISIT with CONSUELO ZUNIGA MD 01/12/2017 Last Documented On 7 1:36AM ; [facility] Generalized anxiety disorder GENERAL OFF ICE VISIT with CONSUELO ZUNIGA MD 01/12/2017 Last Documented On 7 1:36AM ; [facility] Major depression, recurrent GENERAL OFFI CE VISIT with CONSUELO ZUNIGA MD 01/12/2017 Last Documented On 7 1:36AM ; [facility] Obstructive sleep apnea GENERAL OFFICE VISIT wit h CONSUELO ZUNIGA MD 01/12/2017 Last Documented On 7 1:36AM ; [facility] Panic disorder GENERAL OFFICE VISIT with ROSALIA ZUNIGA MD 01/12/2017 Last Documented On 7 1:36AM ; [facility] Psychophysiological insomnia GENERAL OFF ICE VISIT with CONSUELO ZUNIGA MD 01/12/2017 Last Documented On 7 1:36AM ; [facility] Attention deficit disorder w ithout hyperactivity GENERAL OFFICE VISIT with CONSUELO ZUNIGA MD 11/11/2016 Last Documented On 7 5:52PM ; [facility] Generalized anxiety disorder GENERAL OFF ICE VISIT with CONSUELO ZUNIGA MD 11/11/2016 Last Documented On 7 5:52PM ; [facility] Major depression, recurrent GENERAL OFFI CE VISIT with CONSUELO ZUNIGA MD 11/11/2016 Last Documented On 7 5:52PM ; [facility] Obstructive sleep apnea GENERAL OFFICE VISIT wit h CONSUELO ZUNIGA MD 11/11/2016 Last Documented On 7 5:52PM ; [facility] Panic disorder GENERAL OFFICE VISIT with ROSALIA ZUNIGA MD 11/11/2016 Last Documented On 7 5:52PM ; [facility]ophys[facility] insomnia GENERAL OFF ICE VISIT with CONSUELO ZUNIGA MD 11/11/2016 Last Documented On 7 5:52PM ; [facility] Attention deficit disorder w ithout hyperactivity GENERAL OFFICE VISIT with CONSUELO ZUNIGA MD 10/13/2016 Last Documented On 7 11:52AM ; [facility] Generalized anxiety disorder GENERAL OFF ICE VISIT with CONSUELO ZUNIGA MD 10/13/2016 Last Documented On 7 11:52AM ; [facility] Major depression, recurrent GENERAL OFFI CE VISIT with CONSUELO ZUNIGA MD 10/13/2016 Last Documented On 7 11:52AM ; [facility] Obstructive sleep apnea GENERAL OFFICE VISIT wit h CONSUELO ZUNIGA MD 10/13/2016 Last Documented On 7 11:52AM ; [facility] Psychophysiological insomnia GENERAL OFF ICE VISIT with CONSUELO ZUNIGA MD 10/13/2016 Last Documented On 7 11:52AM ; [facility] Attention deficit disorder w ithout hyperactivity GENERAL OFFICE VISIT with CONSUELO ZUNIGA MD 08/18/2016 Last Documented On 7 4:40PM ; [facility] Generalized anxiety disorder GENERAL OFF ICE VISIT with CONSUELO ZUNIGA MD 08/18/2016 Last Documented On 7 4:40PM ; [facility] Major depression, recurrent GENERAL OFFI CE VISIT with CONSUELO ZUNIGA MD 08/18/2016 Last Documented On 7 4:40PM ; [facility] Obstructive sleep apnea GENERAL OFFICE VISIT wit h CONSUELO ZUNIGA MD 08/18/2016 Last Documented On 7 4:40PM ; [facility] Psychophysiological insomnia GENERAL OFF ICE VISIT with CONSUELO ZUNIGA MD 08/18/2016 Last Documented On 7 4:40PM ; [facility] Attention deficit disorder w ithout hyperactivity GENERAL OFFICE VISIT with CONSUELO ZUNIGA MD 05/06/2016 Last Documented On 7 3:46PM ; [facility] Generalized anxiety disorder GENERAL OFF ICE VISIT with CONSUELO ZUNIGA MD 05/06/2016 Last Documented On 7 3:46PM ; [facility] Major depression, recurrent GENERAL OFFI CE VISIT with CONSUELO ZUNIGA MD 05/06/2016 Last Documented On 7 3:46PM ; [facility] Obstructive sleep apnea GENERAL OFFICE VISIT wit h CONSUELO ZUNIGA MD 05/06/2016 Last Documented On 7 3:46PM ; [facility] Psychophysiological insomnia GENERAL OFF ICE VISIT with CONSUELO ZUNIGA MD 05/06/2016 Last Documented On 7 3:46PM ; [facility] Attention deficit disorder w ithout hyperactivity GENERAL OFFICE VISIT with CONSUELO ZUNIGA MD 03/25/2016 Last Documented On 7 6:14PM ; [facility] Generalized anxiety disorder GENERAL OFF ICE VISIT with CONSUELO ZUNIGA MD 03/25/2016 Last Documented On 7 6:14PM ; [facility] Major depression, recurrent GENERAL OFFI CE VISIT with CONSUELO ZUNIGA MD 03/25/2016 Last Documented On 7 6:14PM ; [facility] Obstructive sleep apnea GENERAL OFFICE VISIT wit h CONSUELO ZUNIGA MD 03/25/2016 Last Documented On 7 6:14PM ; [facility] Psychophysiological insomnia GENERAL OFF ICE VISIT with CONSUELO ZUNIGA MD 03/25/2016 Last Documented On 7 6:14PM ; [facility] Attention deficit disorder w ithout hyperactivity GENERAL OFFICE VISIT with CONSUELO ZUNIGA MD 12/25/2015 Last Documented On 6 8:22AM ; [facility] Generalized anxiety disorder GENERAL OFF ICE VISIT with CONSUELO ZUNIGA MD 12/25/2015 Last Documented On 6 8:22AM ; [facility] Major depression, recurrent GENERAL OFFI CE VISIT with CONSUELO ZUNIGA MD 12/25/2015 Last Documented On 6 8:22AM ; [facility] Attention deficit disorder w ithout hyperactivity GENERAL OFFICE VISIT with CONSUELO ZUNIGA MD 10/21/2015 Last Documented On 6 8:23AM ; [facility] Generalized anxiety disorder GENERAL OFF ICE VISIT with CONSUELO ZUNIGA MD 10/21/2015 Last Documented On 6 8:23AM ; [facility] Major depression, recurrent GENERAL OFFI CE VISIT with CONSUELO ZUNIGA MD 10/21/2015 Last Documented On 6 8:23AM ; [facility] Attention deficit disorder w ithout hyperactivity GENERAL OFFICE VISIT with CONSUELO ZUNIGA MD 09/23/2015 Last Documented On 6 8:51PM ; [facility] Generalized anxiety disorder GENERAL OFF ICE VISIT with CONSUELO ZUNIGA MD 09/23/2015 Last Documented On 6 8:51PM ; [facility] Major depression, recurrent GENERAL OFFI CE VISIT with CONSUELO ZUNIGA MD 09/23/2015 Last Documented On 6 8:51PM ; [facility] Attention deficit disorder w ithout hyperactivity * PHONE CALL with CONSUELO ZUNIGA MD 09/07/2015 Last Documented On 6 11:09AM ; [facility] Generalized anxiety disorder * PHONE CALL with Nayely ZUNIGA MD 09/07/2015 Last Documented On 6 11:09AM ; [facility] Attention deficit disorder w ithout hyperactivity GENERAL OFFICE VISIT with CONSUELO ZUNIGA MD 08/05/2015 Last Documented On 6 8:21PM ; [facility] Dysthymic disorder GENERAL OFFICE VISIT with MET DANIELLE ZUNIGA MD 08/05/2015 Last Documented On 6 8:21PM ; [facility] Major depression, recurrent GENERAL OFFI CE VISIT with CONSUELO ZUNIGA MD 08/05/2015 Last Documented On 6 8:21PM ; [facility] Persistent insomnia GENERAL OFFICE VISIT with ME JESUSITA ZUNIGA MD 08/05/2015 Last Documented On 6 8:21PM ; [facility] Attention deficit disorder w ithout hyperactivity GENERAL OFFICE VISIT with CONSUELO ZUNIGA MD 03/27/2015 Last Documented On 6 10:47PM ; [facility] Chronic fatigue syndrome GENERAL OFFICE VISIT wi th CONSUELO ZUINGA MD 03/27/2015 Last Documented On 6 10:47PM ; [facility] Dysthymic disorder GENERAL OFFICE VISIT with MET DANIELLE ZUNIGA MD 03/27/2015 Last Documented On 6 10:47PM ; [facility] Major depression, recurrent GENERAL OFFI CE VISIT with CONSUELO ZUNIGA MD 03/27/2015 Last Documented On 6 10:47PM ; [facility] Persistent insomnia GENERAL OFFICE VISIT with ME JESUSITA ZUNIGA MD 03/27/2015 Last Documented On 6 10:47PM ; [facility] OFFICE VISIT with CONSUELO ZUNIGA MD 10/03/2014 Last Documented On 5 6:09PM ; [facility] Chronic fatigue syndrome GENERAL OFFICE VISIT wi th CONSUELO ZUNIGA MD 10/03/2014 Last Documented On 5 6:09PM ; [facility] Dysthymic disorder GENERAL OFFICE VISIT with MET DANIELLE ZUNIGA MD 10/03/2014 Last Documented On 5 6:09PM ; [facility] Major depression, recurrent GENERAL OFFI CE VISIT with CONSUELO ZUNIGA MD 10/03/2014 Last Documented On 5 6:09PM ; [facility] Persistent insomnia GENERAL OFFICE VISIT with ME JESUSITA ZUNIGA MD 10/03/2014 Last Documented On 5 6:09PM ; [facility] Major depression, recurrent GENERAL OFFI CE VISIT with CONSUELO ZUNIGA MD 06/26/2014 Last Documented On 5 6:14AM ; [facility] GENERAL OFFICE VISIT with CONSUELO ZUNIGA MD 04/30/2014 Last Documented On 5 11:17PM ; [facility] Generalized anxiety disorder GENERAL OFF ICE VISIT with CONSUELO ZUNIGA MD 04/30/2014 Last Documented On 5 11:17PM ; [facility] Major depression, recurrent GENERAL OFFI CE VISIT with CONSUELO ZUNIGA MD 04/30/2014 Last Documented On 5 11:17PM ; [facility] Persistent insomnia GENERAL OFFICE VISIT with ME JESUSITA ZUNIGA MD 04/30/2014 Last Documented On 5 11:17PM ; [facility] Attention deficit disorder w ithout hyperactivity GENERAL OFFICE VISIT with CONSUELO ZUNIGA MD 02/26/2014 Last Documented On 4 8:07PM ; [facility] Generalized anxiety disorder GENERAL OFF ICE VISIT with CONSUELO ZUNIGA MD 02/26/2014 Last Documented On 4 8:07PM ; [facility] Major depression, recurrent GENERAL OFFI CE VISIT with CONSUELO ZUNIGA MD 02/26/2014 Last Documented On 4 8:07PM ; [facility] Persistent insomnia GENERAL OFFICE VISIT with ME JESUSITA ZUNIGA MD 02/26/2014 Last Documented On 4 8:07PM ; [facility] Generalized anxiety disorder * PHONE CALL with Nayely ZUNIGA MD 01/31/2014 Last Documented On 4 11:31AM ; [facility] Attention deficit disorder w ithout hyperactivity GENERAL OFFICE VISIT with CONSUELO ZUNIGA MD 01/03/2014 Last Documented On 4 5:43PM ; [facility] Generalized anxiety disorder GENERAL OFF ICE VISIT with CONSUELO ZUNIGA MD 01/03/2014 Last Documented On 4 5:43PM ; [facility] Major depression, recurrent GENERAL OFFI CE VISIT with CONSUELO ZUNIGA MD 01/03/2014 Last Documented On 4 5:43PM ; [facility] Persistent insomnia GENERAL OFFICE VISIT with ME JESUSITA ZUNIGA MD 01/03/2014 Last Documented On 4 5:43PM ; [facility] Attention deficit disorder w ithout hyperactivity GENERAL OFFICE VISIT with CONSUELO ZUNIGA MD 09/27/2013 Last Documented On 4 12:54AM ; [facility] Generalized anxiety disorder GENERAL OFF ICE VISIT with CONSUELO ZUNIGA MD 09/27/2013 Last Documented On 4 12:54AM ; [facility] Major depression, recurrent GENERAL OFFI CE VISIT with CONSUELO ZUNIGA MD 09/27/2013 Last Documented On 4 12:54AM ; [facility] Persistent insomnia GENERAL OFFICE VISIT with ME JESUSITA ZUNIGA MD 09/27/2013 Last Documented On 4 12:54AM ; [facility] Attention deficit disorder w ithout hyperactivity GENERAL OFFICE VISIT with CONSUELO ZUNIGA MD 06/14/2013 Last Documented On 4 4:57PM ; [facility] Generalized anxiety disorder GENERAL OFF ICE VISIT with CONSUELO ZUNIGA MD 06/14/2013 Last Documented On 4 4:57PM ; [facility] Major depression, recurrent GENERAL OFFI CE VISIT with CONSUELO ZUNIGA MD 06/14/2013 Last Documented On 4 4:57PM ; [facility] Persistent insomnia GENERAL OFFICE VISIT with ME JESUSITA ZUNIGA MD 06/14/2013 Last Documented On 4 4:57PM ; [facility] Attention deficit disorder w ithout hyperactivity GENERAL OFFICE VISIT with CONSUELO ZUNIGA MD 04/05/2013 Last Documented On 4 5:44PM ; [facility] Generalized anxiety disorder GENERAL OFF ICE VISIT with CONSUELO ZUNIGA MD 04/05/2013 Last Documented On 4 5:44PM ; [facility] Major depression, recurrent GENERAL OFFI CE VISIT with CONSUELO ZUNIGA MD 04/05/2013 Last Documented On 4 5:44PM ; [facility] Persistent insomnia GENERAL OFFICE VISIT with ME JESUSITA ZUNIGA MD 04/05/2013 Last Documented On 4 5:44PM ; [facility] Attention deficit disorder w ithout hyperactivity GENERAL OFFICE VISIT with CONSUELO ZUNIGA MD 03/08/2013 Last Documented On 4 5:56PM ; [facility] Generalized anxiety disorder GENERAL OFF ICE VISIT with CONSUELO ZUNIGA MD 03/08/2013 Last Documented On 4 5:56PM ; [facility] Major depression, recurrent GENERAL OFFI CE VISIT with CONSUELO ZUNIGA MD 03/08/2013 Last Documented On 4 5:56PM ; [facility] Persistent insomnia GENERAL OFFICE VISIT with ME JESUSITA ZUNIGA MD 03/08/2013 Last Documented On 4 5:56PM ; [facility] Attention deficit disorder w ithout hyperactivity GENERAL OFFICE VISIT with CONSUELO ZUNIGA MD 01/18/2013 Last Documented On 3 5:54AM ; [facility] Generalized anxiety disorder GENERAL OFF ICE VISIT with CONSUELO ZUNIGA MD 01/18/2013 Last Documented On 3 5:54AM ; [facility] Major depression, recurrent GENERAL OFFI CE VISIT with CONSUELO ZUNIGA MD 01/18/2013 Last Documented On 3 5:54AM ; [facility] Persistent insomnia GENERAL OFFICE VISIT with ME JESUSITA ZUNIGA MD 01/18/2013 Last Documented On 3 5:54AM ; [facility] Attention deficit disorder w ithout hyperactivity GENERAL OFFICE VISIT with CONSUELO ZUNIGA MD 12/12/2012 Last Documented On 3 11:19PM ; [facility] Generalized anxiety disorder GENERAL OFF ICE VISIT with CONSUELO ZUNIGA MD 12/12/2012 Last Documented On 3 11:19PM ; [facility] Major depression, recurrent GENERAL OFFI CE VISIT with CONSUELO ZUNIGA MD 12/12/2012 Last Documented On 3 11:19PM ; [facility] Persistent insomnia GENERAL OFFICE VISIT with ME JESUSITA ZUNIGA MD 12/12/2012 Last Documented On 3 11:19PM ; [facility] Attention deficit disorder w ithout hyperactivity GENERAL OFFICE VISIT with CONSUELO ZUNIGA MD 10/11/2012 Last Documented On 3 4:13PM ; [facility] Generalized anxiety disorder GENERAL OFF ICE VISIT with CONSUELO ZUNIGA MD 10/11/2012 Last Documented On 3 4:13PM ; [facility] Major depression, recurrent GENERAL OFFI CE VISIT with CONSUELO ZUNIGA MD 10/11/2012 Last Documented On 3 4:13PM ; [facility] Persistent insomnia GENERAL OFFICE VISIT with ME JESUSITA ZUNIGA MD 10/11/2012 Last Documented On 3 4:13PM ; [facility] Attention-deficit hyperactivity disorder NEW PATIENT VISIT with CONSUELO ZUNIGA MD 09/11/2012 Last Documented On 3 10:36PM ; [facility] Dysthymic disorder NEW PATIENT VISIT with ROSALIA ZUNIGA MD 09/11/2012 Last Documented On 3 10:36PM ; [facility] Generalized anxiety disorder NEW PATIENT VISIT w ith CONSUELO ZUNIGA MD 09/11/2012 Last Documented On 3 10:36PM ; [facility] Major depression, recurrent NEW PATIENT VISIT wi CONSUELO ZUNIGA MD 09/11/2012 Last Documented On 3 10:36PM ; [facility] Persistent insomnia NEW PATIENT VISIT with WADE ZUNIGA MD 09/11/2012 Last Documented On 3 10:36PM ; [facility] Instructions Includes: Instructions for all patient encounters Instructions to patient Lose weight Last Documented On 2 5:02PM ; [facility] Lose weight Last Documented On 1 4:31PM ; [facility] Lose weight Last Documented On 1 4:40PM ; [facility] Lose weight Last Documented On 0 5:15PM ; [facility] Lose weight Last Documented On 0 4:31PM ; [facility] Lose weight Last Documented On 0 4:53PM ; [facility] Education and Decision Aids were provided during visit for: Patient education about medi cation ---Education was given on medication(s) and diagnosis. I reviewed the risks, benefits and side effects of patient's medications Last Documented On 3 4:44PM ; [facility] Discussed calming techniques such as breathing exercises and other relaxation techniques Last Documented On 3 4:44PM ; [facility] Discussed good sleep hygiene habits Last Documented On 3 5:04PM ; [facility] Discussed calming techniques such as breathing exercises and other relaxation techniques Last Documented On 3 5:13PM ; [facility] Discussed good sleep hygiene habits - abstain from alcohol even though it is just casual since this cannot be combined with psych meds and since ETOH is a MINERAL ECONOMIST depressant Last Documented On 3 9:15AM ; [facility] Patient education about medi cation ---Education was given on medication(s) and diagnosis. I reviewed the risks, benefits and side effects of patient's medications Last Documented On 2 4:39PM ; [facility] Discussed calming techniques such as breathing exercises and other relaxation techniques, he was reminded NOT to self medicate with alcohol since alcohol is a MINERAL ECONOMIST depressant and may worsen his mood/anxiety. He cannot combine alcohol with any of his psych meds since this will cause drug drug interaction and will exacerbate his depression/anxiety Last Documented On 3 7:41PM ; [facility] Discussed calming techniques such as breathing exercises and other relaxation techniques - pt said he is proactive in helping himself manage his mood/anxiety Last Documented On 2 6:00AM ; [facility] Discussed good sleep hygiene habits Last Documented On 2 4:58PM ; [facility] Patient education about medi cation --- I educated patient on medication(s) and diagnosis. I reviewed the risks, benefits and side effects of patient's medications Last Documented On 2 4:33PM ; [facility] Discussed calming techniques such as breathing exercises and other relaxation techniques Last Documented On 2 4:33PM ; [facility] Patient education about medi cation --- I educated patient on medication(s) and diagnosis. I reviewed the risks, benefits and side effects of patient's medications Last Documented On 2 4:54PM ; [facility] Discussed calming techniques such as breathing exercises and other relaxation techniques Last Documented On 2 4:54PM ; [facility] Counseling for nutrition/fany ght management provided Last Documented On 2 5:02PM ; [facility] Discussed good sleep hygiene habits Last Documented On 2 5:02PM ; [facility] Patient education about medi cation --- I educated patient on medication(s) and diagnosis. I reviewed the risks, benefits and side effects of patient's medications Last Documented On 1 4:15PM ; [facility] Discussed calming techniques such as breathing exercises and other relaxation techniques Last Documented On 1 4:15PM ; [facility] Counseling for nutrition/fany ght management provided Last Documented On 1 4:31PM ; [facility] Discussed good sleep hygiene habits Last Documented On 1 4:31PM ; [facility] Patient education about medi cation --- I educated patient on medication(s) and diagnosis. I reviewed the risks, benefits and side effects of patient's medications Last Documented On 1 4:27PM ; [facility] Discussed calming techniques such as breathing exercises and other relaxation techniques Last Documented On 1 4:27PM ; [facility] Counseling for nutrition/fany ght management provided Last Documented On 1 4:42PM ; [facility] Discussed good sleep hygiene habits Last Documented On 1 4:42PM ; [facility] Patient education about medi cation --- I educated patient on medication(s) and diagnosis. I reviewed the risks, benefits and side effects of patient's medications Last Documented On 1 4:36PM ; [facility] Discussed calming techniques such as breathing exercises and other relaxation techniques Last Documented On 1 4:36PM ; [facility] Counseling for nutrition/fany ght management provided Last Documented On 1 4:40PM ; [facility] Patient education about medi cation --- I educated patient on medication(s) and diagnosis. I reviewed the risks, benefits and side effects of patient's medications Last Documented On 0 4:53PM ; [facility] Discussed calming techniques such as breathing exercises and other relaxation techniques Last Documented On 0 4:53PM ; [facility] Counseling for nutrition/fany ght management provided Last Documented On 0 5:15PM ; [facility] Patient education about medi cation --- I educated patient on medication(s) and diagnosis. I reviewed the risks, benefits and side effects of patient's medications Last Documented On 0 4:17PM ; [facility] Discussed calming techniques such as breathing exercises and other relaxation techniques Last Documented On 0 4:17PM ; [facility] Counseling for nutrition/fany ght management provided Last Documented On 0 4:31PM ; [facility] Patient education about medi cation --- I educated patient on medication(s) and diagnosis. I reviewed the risks, benefits and side effects of patient's medications Last Documented On 0 4:32PM ; [facility] Discussed calming techniques such as breathing exercises and other relaxation techniques Last Documented On 0 4:32PM ; [facility] Counseling for nutrition/fany ght management provided Last Documented On 0 4:53PM ; [facility] Patient education about a pr oper diet Last Documented On 0 4:20PM ; [facility] Patient education about medi cation --- I educated patient on medication(s) and diagnosis. I reviewed the risks, benefits and side effects of patient's medications Last Documented On 0 4:05PM ; [facility] Discussed calming techniques such as breathing exercises and other relaxation techniques Last Documented On 0 4:05PM ; [facility] Counseling for nutrition/fany ght management provided Last Documented On 0 4:20PM ; [facility] Patient education about a pr oper diet Last Documented On 9 5:16PM ; [facility] Patient education about medi cation --- I educated patient on medication(s) and diagnosis. I reviewed the risks, benefits and side effects of patient's medications Last Documented On 9 4:53PM ; [facility] Discussed calming techniques such as breathing exercises and other relaxation techniques Last Documented On 9 4:53PM ; [facility] Counseling for nutrition/fany ght management provided Last Documented On 9 5:16PM ; [facility] Patient education about a pr oper diet Last Documented On 9 5:52AM ; [facility] Patient education about medi cation --- I educated patient on medication(s) and diagnosis. I reviewed the risks, benefits and side effects of patient's medications Last Documented On 9 4:32PM ; [facility] Discussed calming techniques such as breathing exercises and other relaxation techniques Last Documented On 9 4:32PM ; [facility] Counseling for nutrition/fany ght management provided Last Documented On 9 5:52AM ; [facility] Patient education about a pr oper diet Last Documented On 9 4:52PM ; [facility] Patient education about medi cation --- I educated patient on medication(s) and diagnosis. I reviewed the risks, benefits and side effects of patient's medications Last Documented On 9 4:33PM ; [facility] Discussed calming techniques such as breathing exercises and other relaxation techniques Last Documented On 9 4:33PM ; [facility] Counseling for nutrition/fany ght management provided Last Documented On 9 4:52PM ; [facility] Discussed good sleep hygiene habits Last Documented On 9 7:15PM ; [facility] Patient education about a pr oper diet Last Documented On 9 4:31PM ; [facility] Patient education about medi cation --- I educated patient on medication(s) and diagnosis. I reviewed the risks, benefits and side effects of patient's medications Last Documented On 9 4:27PM ; [facility] Discussed calming techniques such as breathing exercises and other relaxation techniques Last Documented On 9 4:27PM ; [facility] Counseling for nutrition/fany ght management provided Last Documented On 9 4:31PM ; [facility] Patient education about a pr oper diet Last Documented On 9 4:24PM ; [facility] Patient education about medi cation --- I educated patient on medication(s) and diagnosis. I reviewed the risks, benefits and side effects of patient's medications Last Documented On 9 4:16PM ; [facility] Discussed calming techniques such as breathing exercises and other relaxation techniques Last Documented On 9 4:16PM ; [facility] Counseling for nutrition/fany ght management provided Last Documented On 9 4:24PM ; [facility] Patient education about a pr oper diet Last Documented On 8 4:25PM ; [facility] Patient education about medi cation --- I educated patient on medication(s) and diagnosis. I reviewed the risks, benefits and side effects of patient's medications Last Documented On 8 4:24PM ; [facility] Counseling for nutrition/fany ght management provided Last Documented On 8 4:25PM ; [facility] Patient education about medi cation --- I educated patient on medication(s) and diagnosis. I reviewed the risks, benefits and side effects of patient's medications Last Documented On 8 4:43PM ; [facility] Discussed calming techniques such as breathing exercises and other relaxation techniques Last Documented On 8 4:43PM ; [facility] Patient education about medi cation --- I educated patient on medication(s) and diagnosis. I reviewed the risks, benefits and side effects of patient's medications Last Documented On 8 4:52PM ; [facility] Discussed calming techniques such as breathing exercises and other relaxation techniques Last Documented On 8 4:52PM ; [facility] Counseling for nutrition/fany ght management provided Last Documented On 8 12:09AM ; [facility] Patient education about medi cation --- I educated patient on medication(s) and diagnosis. I reviewed the risks, benefits and side effects of patient's medications Last Documented On 7 3:24PM ; [facility] Discussed calming techniques such as breathing exercises and other relaxation techniques Last Documented On 7 3:24PM ; [facility] Counseling for nutrition/fany ght management provided Last Documented On 7 1:31AM ; [facility] Patient education about medi cation --- I educated patient on medication(s) and diagnosis. I reviewed the risks, benefits and side effects of patient's medications Last Documented On 7 3:40PM ; [facility] Discussed calming techniques such as breathing exercises and other relaxation techniques Last Documented On 7 3:40PM ; [facility] Counseling for nutrition/fany ght management provided Last Documented On 7 5:36PM ; [facility] Patient education about medi cation --- I educated patient on medication(s) and diagnosis. I reviewed the risks, benefits and side effects of patient's medications Last Documented On 7 4:14PM ; [facility] Discussed calming techniques such as breathing exercises and other relaxation techniques Last Documented On 7 4:14PM ; [facility] Counseling for nutrition/fany ght management provided Last Documented On 7 11:47AM ; [facility] Patient education about medi cation --- I educated patient on medication(s) and diagnosis. I reviewed the risks, benefits and side effects of patient's medications Last Documented On 7 3:43PM ; [facility] Discussed calming techniques such as breathing exercises and other relaxation techniques Last Documented On 7 3:43PM ; [facility] Counseling for nutrition/fany ght management provided Last Documented On 7 4:14PM ; [facility] Discussed good sleep hygiene habits Last Documented On 7 4:14PM ; [facility] Patient education about medi cation --- I educated patient on medication(s) and diagnosis. I reviewed the risks, benefits and side effects of patient's medications Last Documented On 7 2:53PM ; [facility] Discussed calming techniques such as breathing exercises/meditation and other relaxation techniques Last Documented On 7 2:53PM ; [facility] Patient counseling I discuss ed risk, benefits, and side effects of sleep aid -belsomra including the possibility of sleep related behaviors i.e. sleepwalking, sleeptalking, sleepdriving, etc... Pt verbalized understanding Last Documented On 7 3:13PM ; [facility] Discussed good sleep hygiene habits Last Documented On 7 3:40PM ; [facility] Patient education about medi cation --- I educated patient on medication(s) and diagnosis. I reviewed the risks, benefits and side effects of patient's medications Last Documented On 7 8:58AM ; [facility] Discussed calming techniques such as breathing exercises/meditation and other relaxation techniques Last Documented On 7 8:58AM ; [facility] Patient counseling I discuss ed risk, benefits, and side effects of sleep aid - belsomra including the possibility of sleep related behaviors i.e. sleepwalking, sleeptalking, sleepdriving, etc... Pt verbalized understanding Last Documented On 7 5:00PM ; [facility] Counseling for nutrition/fany ght management provided Last Documented On 7 5:00PM ; [facility] Discussed good sleep hygiene habits Last Documented On 7 5:00PM ; [facility] Patient education about medi cation --- I educated patient on medication(s) and diagnosis. I reviewed the risks, benefits and side effects of patient's medications Last Documented On 6 9:58AM ; [facility] Discussed calming techniques such as breathing exercises/meditation and other relaxation techniques Last Documented On 6 9:58AM ; [facility] Counseling for nutrition/fany ght management provided Last Documented On 6 8:18AM ; [facility] Patient education about medi cation --- I educated patient on medication(s) and diagnosis. I reviewed the risks, benefits and side effects of patient's medications. --- nuvigil Last Documented On 6 8:21AM ; [facility] Discussed calming techniques such as breathing exercises/meditation and other relaxation techniques Last Documented On 6 10:02AM ; [facility] Counseling for nutrition/fany ght management provided Last Documented On 6 8:21AM ; [facility] Patient education about medi cation --- I educated patient on medication(s) and diagnosis. I reviewed the risks, benefits and side effects of patient's medications Last Documented On 6 3:59PM ; [facility] Discussed calming techniques such as breathing exercises/meditation and other relaxation techniques Last Documented On 6 3:59PM ; [facility] Patient education about medi cation --- I educated patient on medication(s) and diagnosis. I reviewed the risks, benefits and side effects of patient's medications Last Documented On 6 3:23PM ; [facility] Discussed calming techniques such as breathing exercises/meditation and other relaxation techniques Last Documented On 6 3:23PM ; [facility] Discussed good sleep hygiene habits Last Documented On 6 8:16PM ; [facility] Patient education about medi cation --- I educated patient on medication(s) and diagnosis. I reviewed the risks, benefits and side effects of patient's medications Last Documented On 6 9:57AM ; [facility] Discussed calming techniques such as breathing exercises/meditation and other relaxation techniques Last Documented On 6 9:57AM ; [facility] Patient education about medi cation --- I educated patient on medication(s) and diagnosis. I reviewed the risks, benefits and side effects of patient's medications Last Documented On 5 5:30PM ; [facility] Discussed calming techniques such as breathing exercises/meditation and other relaxation techniques Last Documented On 5 3:30PM ; [facility] Patient education about medi cation --- I educated patient on medication(s) and diagnosis. I reviewed the risks, benefits and side effects of patient's medications Last Documented On 5 6:10AM ; [facility] Discussed calming techniques such as breathing exercises/meditation and other relaxation techniques Last Documented On 5 2:47PM ; [facility] Discussed good sleep hygiene habits Last Documented On 5 6:10AM ; [facility] Patient education about medi cation --- I educated patient on medication(s) and diagnosis. I reviewed the risks, benefits and side effects of patient's medications Last Documented On 5 11:06PM ; [facility] Discussed calming techniques such as breathing exercises/meditation and other relaxation techniques Last Documented On 5 3:02PM ; [facility] Counseling for nutrition/fany ght management provided Last Documented On 5 11:06PM ; [facility] Patient education about medi cation --- I educated patient on medication(s) and diagnosis. I reviewed the risks, benefits and side effects of patient's medications Last Documented On 4 8:05PM ; [facility] Discussed calming techniques such as breathing exercises/meditation and other relaxation techniques Last Documented On 4 3:14PM ; [facility] Discussed calming techniques such as yoga meditation to help relieve some anxiety symptoms Last Documented On 4 8:05PM ; [facility] Patient counseling I discuss ed risk, benefits, and side effects of sleep aid - , Ambien including the possibility of sleep related behaviors i.e. sleepwalking, sleeptalking, sleepdriving, etc... Pt verbalized understanding Last Documented On 4 8:05PM ; [facility] Patient education about medi cation --- I educated patient on medication(s) and diagnosis. I reviewed the risks, benefits and side effects of patient's medications Last Documented On 4 5:25PM ; [facility] Discussed calming techniques such as breathing exercises/meditation and other relaxation techniques Last Documented On 4 3:27PM ; [facility] Patient education about medi cation --- I educated patient on medication(s) and diagnosis. I reviewed the risks, benefits and side effects of patient's medications Last Documented On 4 12:52AM ; [facility] Discussed calming techniques such as breathing exercises/meditation and other relaxation techniques Last Documented On 4 2:06PM ; [facility] Patient counseling I discuss ed risk, benefits, and side effects of sleep aid - Ambien CR including the possibility of sleep related behaviors i.e. sleepwalking, sleeptalking, sleepdriving, etc... Pt verbalized understanding Last Documented On 4 12:52AM ; [facility] Patient education about medi cation --- I educated patient on medication(s) and diagnosis. I reviewed the risks, benefits and side effects of patient's medications Last Documented On 4 4:55PM ; [facility] Discussed calming techniques such as breathing exercises/meditation and other relaxation techniques Last Documented On 4 2:53PM ; [facility] Counseling for nutrition/fany ght management provided Last Documented On 4 4:55PM ; [facility] Patient education about medi cation --- I educated patient on medication(s) and diagnosis Last Documented On 4 5:30PM ; [facility] Discussed calming techniques such as breathing exercises/meditation and other relaxation techniques Last Documented On 4 2:21PM ; [facility] Counseling for nutrition/fany ght management provided Last Documented On 4 5:30PM ; [facility] Reviewed side effects and Ri sks/Benefits analysis Last Documented On 4 5:30PM ; [facility] Patient education about medi cation --- I educated patient on medication(s) and diagnosis Last Documented On 3 5:44PM ; [facility] Patient education about adve rse reactions to medication Last Documented On 3 5:44PM ; [facility] Discussed calming techniques such as breathing exercises/meditation and other relaxation techniques Last Documented On 3 2:03PM ; [facility] Counseling for nutrition/fany ght management provided Last Documented On 4 5:53PM ; [facility] Reviewed side effects and Ri sks/Benefits analysis Last Documented On 3 5:44PM ; [facility] Discussed good sleep hygiene habits Last Documented On 3 2:03PM ; [facility] I recommended cognitive exer cises such as reading and/or word search puzzles, etc.. Last Documented On 3 5:44PM ; [facility] Patient education about medi cation --- I educated patient on medication(s) and diagnosis Last Documented On 3 5:49AM ; [facility] Discussed calming techniques such as breathing exercises/meditation and other relaxation techniques Last Documented On 3 2:04PM ; [facility] Discussed good sleep hygiene habits Last Documented On 3 5:49AM ; [facility] Patient education about medi cation --- I educated patient on medication(s) and diagnosis Last Documented On 3 11:13PM ; [facility] Discussed calming techniques such as breathing exercises/meditation and other relaxation techniques Last Documented On 3 3:58PM ; [facility] Reviewed side effects and Ri sks/Benefits analysis Last Documented On 3 11:13PM ; [facility] Discussed good sleep hygiene habits Last Documented On 3 11:13PM ; [facility] Discussed calming techniques such as breathing exercises/meditation and other relaxation techniques Last Documented On 3 1:00PM ; [facility] Patient education about medi cation --- I educated patient on medication(s) and diagnosis Last Documented On 3 10:31PM ; [facility] Discussed calming techniques such as breathing exercises/meditation and other relaxation techniques Last Documented On 3 3:36PM ; [facility] Discussed good sleep hygiene habits Last Documented On 3 10:31PM ; [facility] Medical Equipment - Implanted Devices Includes: Current and historical Devices No Medical Equipment Recorded Medications Includes: Current and historical Medications Current Medications (continue as prescribed) Mydayis 37.5 MG Oral Capsule Extended Release 24 Hour 06/10/2022 Provider: CONSUELO ZUNIGA MD Diagnosis: Attention-defici t hyperactivity disorder, unspecified type 1 Capsule every morning Last Documented On 06/10/2022 3:26PM By Nelda Zuniga MD ; [facility] traZODone HCl 100 MG Oral Tablet 05/23/2022 Provider: CONSUELO ZUNIGA MD Diagnosis: Psychophysiologi c insomnia TAKE ONE AND ONE-HALF TABLET S AT BEDTIME DIRECTED Last Documented On 11:48AM By Nelda Zuniga MD ; [facility] KlonoPIN 0.5 MG Oral Tablet 05/16/2022 Provider: CONSUELO ZUNIGA MD Diagnosis: Panic disorder [ episodic paroxysmal anxiety] as directed 1 tab once a day as needed for severe anxiety/panic Last Documented On 05/16/2022 6:39PM By Nelda Zuniga MD ; [facility] Modafinil 200 MG Oral Tablet 05/16/2022 Provider: CONSUELO ZUNIGA MD Diagnosis: Obstructive slee p apnea (adult) (pediatric) as directed - 1 tab in am, 1 tab at noon Last Documented On 05/16/2022 6:39PM By Nelda Zuniga MD ; [facility] Atenolol 25 MG Oral Tablet 05/16/2022 Provider: CONSUELO ZUNIGA MD Diagnosis: Generalized anxi ety disorder One tablet three times a day Last Documented On 05/16/2022 6:34PM By Nelda Zuniga MD ; [facility] Mirtazapine 15 MG Oral Tablet 03/02/2022 Provider: CONSUELO ZUNIGA MD Diagnosis: Dysthymic disord er One tablet at bed time Last Documented On 03/02/2022 8:21PM By Nelda Zuniga MD ; [facility] Remeron 15 MG Oral Tablet 03/02/2022 Provider: CONSUELO ZUNIGA MD Diagnosis: Generalized anxi ety disorder One tablet at bed time Last Documented On 03/02/2022 8:20PM By Nelda Zuniga MD ; [facility] busPIRone HCl 15 MG Oral Tablet 11/11/2021 Provider: CONSUELO ZUNIGA MD Diagnosis: Generalized anxi ety disorder TAKE 1 TABLET FOUR TIMES A DAY Last Documented On 11/11/2021 5:17PM By Nelda Zuniga MD ; [facility] buPROPion HCl ER (XL) 150 MG Oral Tablet Extended Release 24 Hour 11/11/2021 Provider: CONSUELO ZUNIGA MD Diagnosis: Major depressive disorder, recurrent, moderate TAKE 3 TABLETS IN THE MORNIN G DIRECTED Last Documented On 11/11/2021 5:19PM By Nelda Zuniga MD ; [facility] Trintellix 20 MG Oral Tablet 08/20/2021 Provider: CONSUELO ZUNIGA MD Diagnosis: TAKE 1 TABLET EVERY MORNING Last Documented On 08/20/2021 8:58AM By Nelda Zuniga MD ; [facility] Viibryd 40 MG Oral Tablet 08/20/2021 Provider: CONSUELO ZUNIGA MD Diagnosis: Major depressive disorder, recurrent, unspecified 1 tablet every morning with food Last Documented On 08/20/2021 8:59AM By Nelda Zuniga MD ; [facility] Rexulti 1 MG Oral Tablet 04/06/2021 Provider: MET DANIELLE ZUNIGA MD Diagnosis: Major depressive disorder, recurrent, moderate One tablet daily Last Documented On 11:15AM By Nelda Zuniga MD ; [facility] Atenolol 25 MG Oral Tablet 11/10/2019 Provider: CONSUELO ZUNIGA MD Diagnosis: Generalized anxi ety disorder One tablet twice a day Last Documented On 11/10/2019 3:38PM By Nelda Zuniga MD ; [facility] buPROPion HCl ER (XL) 150 MG Oral Tablet Extended Release 24 Hour 10/24/2019 Provider: CONSUELO ZUNIGA MD Diagnosis: Major depressive disorder, recurrent, moderate TAKE 3 TABLETS IN THE MORNIN G DIRECTED Last Documented On 10/24/2019 3:42PM By Nelda Zuniga MD ; [facility] Trintellix 20 MG Oral Tablet 07/01/2019 Provider: CONSUELO ZUNIGA MD Diagnosis: Dysthymic disord er 1 tablet every morning Last Documented On 07/01/2019 2:34PM By Nelda Zuniga MD ; [facility] Glucosamine Sulfate 1000MG Oral Capsule 05/22/2017 Provider: Diagnosis: 1 a day Last Documented On 05/22/2017 5:23PM By Nelda Zuniga MD ; [facility] AmLODIPine Besylate 5 MG Tablet 01/15/2016 Provider: KELLI LARA MD Diagnosis: 1 daily Last Documented On 7 8:48AM By DIONE LOVE LPN ; [facility] Past Medications on file Modafinil 200 MG Oral Tablet 05/12/2022 - 05/16/2022 Provider: CONSUELO ZUNIGA MD Diagnosis: Major depressive disorder, recurrent, moderate 1 tablet every morning Last Documented On 05/16/2022 6:33PM By Nelda Zuniga MD ; [facility] Mydayis 37.5 MG Oral Capsule Extended Release 24 Hour 05/06/2022 - 06/10/2022 Provider: CONSUELO ZUNIGA MD Diagnosis: Attention-defici t hyperactivity disorder, unspecified type 1 Capsule every morning Last Documented On 06/10/2022 3:25PM By Nelda Zuniga MD ; [facility] Modafinil 200 MG Oral Tablet 04/11/2022 - 05/12/2022 Provider: CONSUELO ZUNIGA MD Diagnosis: Major depressive disorder, recurrent, moderate 1 tablet every morning Last Documented On 3 12:30PM By Nelda Zuniga MD ; [facility] Mydayis 37.5 MG Oral Capsule Extended Release 24 Hour 03/31/2022 - 05/06/2022 Provider: CONSUELO ZUNIGA MD Diagnosis: Attention-defici t hyperactivity disorder, unspecified type 1 Capsule every morning Last Documented On 3 12:11PM By Nelda Zuniga MD ; [facility] KlonoPIN 0.5 MG Oral Tablet 03/08/2022 - 05/16/2022 Provider: CONSUELO PAINTING MD Diagnosis: Panic disorder [episodic paroxysmal anxiety] as directed 1 tab 2 x a day as needed for anxiety Last Documented On 05/16/2022 6:36PM By Nelda Zuniga MD ; [facility] Mydayis 37.5 MG Oral Capsule Extended Release 24 Hour 02/17/2022 - 03/31/2022 Provider: CONSUELO ZUNIGA MD Diagnosis: Attention-defici t hyperactivity disorder, unspecified type 1 Capsule every morning Last Documented On 03/31/2022 4:30PM By Nelda Zuniga MD ; [facility] KlonoPIN 0.5 MG Oral Tablet 01/31/2022 - 03/01/2022 Provider: CONSUELO PAINTING MD Diagnosis: Panic disorder [episodic paroxysmal anxiety] as directed 1 tab 2 x a day as needed for anxiety Last Documented On 03/08/2022 5:15PM By Nelda Zuniga MD ; [facility] Mydayis 37.5 MG Oral Capsule Extended Release 24 Hour 01/11/2022 - 02/17/2022 Provider: CONSUELO ZUNIGA MD Diagnosis: Attention-defici t hyperactivity disorder, unspecified type 1 Capsule every morning Last Documented On 02/17/2022 3:41PM By Nelda Zuniga MD ; [facility] Mydayis 37.5 MG Oral Capsule Extended Release 24 Hour 12/07/2021 - 01/11/2022 Provider: CONSUELO ZUNIGA MD Diagnosis: Attention-defici t hyperactivity disorder, unspecified type 1 Capsule every morning Last Documented On 01/11/2022 3:27PM By Nelda Zuniga MD ; [facility] Mydayis 37.5 MG Oral Capsule Extended Release 24 Hour 10/28/2021 - 12/07/2021 Provider: CONSUELO ZUNIGA MD Diagnosis: Attention-defici t hyperactivity disorder, unspecified type 1 Capsule every morning Last Documented On 12/07/2021 1:22PM By Nelda Zuniga MD ; [facility] Mydayis 37.5 MG Oral Capsule Extended Release 24 Hour 09/22/2021 - 10/28/2021 Provider: CONSUELO ZUNIGA MD Diagnosis: Attention-defici t hyperactivity disorder, unspecified type 1 Capsule every morning Last Documented On 10/28/2021 3:26PM By Nelda Zuniga MD ; [facility] Mydayis 37.5 MG Oral Capsule Extended Release 24 Hour 08/20/2021 - 09/22/2021 Provider: CONSUELO ZUNIGA MD Diagnosis: Attention-defici t hyperactivity disorder, unspecified type 1 Capsule every morning Last Documented On 09/22/2021 4:43PM By Nelda Zuniga MD ; [facility] Atenolol 25 MG Oral Tablet 08/02/2021 - 05/16/2022 Provider: CONSUELO ZUNIGA MD Diagnosis: Generalized anxi ety disorder TAKE 1 TABLET TWICE A DAY Last Documented On 05/16/2022 6:34PM By Nelda Zuniga MD ; [facility] Mydayis 37.5 MG Oral Capsule Extended Release 24 Hour 07/16/2021 - 08/20/2021 Provider: CONSUELO ZUNIGA MD Diagnosis: Attention-defici t hyperactivity disorder, unspecified type 1 Capsule every morning Last Documented On 08/20/2021 2:40PM By Nelda Zuniga MD ; [facility] Mydayis 37.5 MG Oral Capsule Extended Release 24 Hour 06/11/2021 - 07/16/2021 Provider: CONSUELO ZUNIGA MD Diagnosis: Attention-defici t hyperactivity disorder, unspecified type 1 Capsule every morning Last Documented On 07/16/2021 5:54PM By Nelda Zuniga MD ; [facility] KlonoPIN 0.5 MG Oral Tablet 06/11/2021 - 01/31/2022 Provider: CONSUELO PAINTING MD Diagnosis: Panic disorder [episodic paroxysmal anxiety] as directed 1 tab 2 x a day as needed for anxiety Last Documented On 01/31/2022 1:52PM By Nelda Zuniga MD ; [facility] Mydayis 37.5 MG Oral Capsule Extended Release 24 Hour 05/07/2021 - 06/11/2021 Provider: CONSUELO ZUNIGA MD Diagnosis: Attention-defici t hyperactivity disorder, unspecified type 1 Capsule every morning Last Documented On 06/11/2021 2:59PM By Nelda Zuniga MD ; [facility] Rexulti 1 MG Oral Tablet 04/06/2021 - 11/16/2021 Provi gerald: Diagnosis: Major depressive disorder, recurrent, moderate 1 tablet daily Last Documented On 11/16/2021 6:00AM By Nelda Zuniga MD ; [facility] Rexulti 1 MG Oral Tablet 04/05/2021 - 11/16/2021 Provider: CONSUELO PAINTING MD Diagnosis: Major depressive disorder, recurrent, moderate TAKE 1 TABLET DAILY Last Documented On 11/16/2021 6:00AM By Nelda Zuniga MD ; [facility] Mydayis 37.5 MG Oral Capsule Extended Release 24 Hour 03/30/2021 - 05/07/2021 Provider: CONSUELO ZUNIGA MD Diagnosis: Attention-defici t hyperactivity disorder, unspecified type 1 Capsule every morning Last Documented On 2 10:58AM By Nelda Zuniga MD ; [facility] Atenolol 25 MG Oral Tablet 03/25/2021 - 08/02/2021 Pro vider: CONSUELO ZUNIGA MD Diagnosis: TAKE 1 TABLET TWICE A DAY Last Documented On 08/02/2021 5:09PM By Nelda Zuniga MD ; [facility] traZODone HCl 100 MG Oral Tablet 03/01/2021 - 05/23/2022 Provider: CONSUELO ZUNIGA MD Diagnosis: Psychophysiologi c insomnia TAKE ONE AND ONE-HALF TABLET S AT BEDTIME DIRECTED Last Documented On 11:48AM By Nelda Zuniga MD ; [facility] Mydayis 37.5 MG Oral Capsule Extended Release 24 Hour 02/26/2021 - 03/25/2021 Provider: CONSUELO ZUNIGA MD Diagnosis: 1 Capsule every morning Last Documented On 2 10:23AM By Nelda Zuniga MD ; [facility] Sunosi 75 MG Oral Tablet 02/01/2021 - 03/03/2021 Provider: CONSUELO PAINTING MD Diagnosis: Narcolepsy witho ut cataplexy 1 tablet every morning Last Documented On 02/01/2021 7:54PM By Nelda Zuniga MD ; [facility] Rexulti 2 MG Oral Tablet 02/01/2021 - 03/03/2021 Provider: CONSUELO PAINTING MD Diagnosis: Major depressive disorder, recurrent, moderate One tablet daily Last Documented On 02/01/2021 7:53PM By Nelda Zuniga MD ; [facility] KlonoPIN 0.5 MG Oral Tablet 01/22/2021 - 06/11/2021 Provider: CONSUELO PAINTING MD Diagnosis: Panic disorder [episodic paroxysmal anxiety] as directed 1 tab 2 x a day as needed for anxiety Last Documented On 06/11/2021 5:29PM By Nelda Zuniga MD ; [facility] Mydayis 37.5 MG Oral Capsule Extended Release 24 Hour 01/22/2021 - 02/26/2021 Provider: CONSUELO ZUNIGA MD Diagnosis: 1 Capsule every morning Last Documented On 02/26/2021 2:59PM By Nelda Zuniga MD ; [facility] Mydayis 37.5 MG Oral Capsule Extended Release 24 Hour 12/21/2020 - 01/22/2021 Provider: CONSUELO ZUNIGA MD Diagnosis: 1 Capsule every morning Last Documented On 01/22/2021 1:31PM By Nelda Zuniga MD ; [facility] Mydayis 37.5 MG Oral Capsule Extended Release 24 Hour 11/17/2020 - 12/21/2020 Provider: CONSUELO ZUNIGA MD Diagnosis: 1 Capsule every morning Last Documented On 12/21/2020 2:00PM By Nelda Zuniga MD ; [facility] busPIRone HCl 15 MG Oral Tablet 11/16/2020 - 11/11/2021 Provider: CONSUELO ZUNIGA MD Diagnosis: Generalized anxi ety disorder TAKE 1 TABLET FOUR TIMES A DAY Last Documented On 11/11/2021 5:16PM By Nelda Zuniga MD ; [facility] buPROPion HCl ER (XL) 150 MG Oral Tablet Extended Release 24 Hour 11/16/2020 - 11/11/2021 Provider: CONSUELO PAINTING MD Diagnosis: TAKE 3 TABLETS IN THE MORNING DIRECTED Last Documented On 11/11/2021 5:19PM By Nelda Zuniga MD ; [facility] Mydayis 37.5 MG Oral Capsule Extended Release 24 Hour 2020 - 11/17/2020 Provider: CONSUELO ZUNIGA MD Diagnosis: 1 Capsule every morning Last Documented On 12:52PM By Nelda Zuniga MD ; [facility] Mydayis 37.5 MG Oral Capsule Extended Release 24 Hour 09/16/2020 - 2020 Provider: CONSUELO ZUNIGA MD Diagnosis: 1 Capsule every morning Last Documented On 12:28PM By Nelda Zuniga MD ; [facility] Mydayis 37.5 MG Oral Capsule Extended Release 24 Hour 08/12/2020 - 09/16/2020 Provider: CONSUELO ZUNIGA MD Diagnosis: Attention-defici t hyperactivity disorder, unspecified type 1 Capsule every morning Last Documented On 09/16/2020 2:54PM By Nelda Zuniga MD ; [facility] Viibryd 40 MG Oral Tablet 07/10/2020 - 08/20/2021 Provider: CONSUELO PAINTING MD Diagnosis: Major depressive disorder, recurrent, unspecified TAKE 1 TABLET EVERY MORNING WITH FOOD Last Documented On 08/20/2021 8:59AM By Nelda Zuniga MD ; [facility] Atenolol 25 MG Oral Tablet 07/10/2020 - 03/25/2021 Pro vider: CONSUELO ZUNIGA MD Diagnosis: TAKE 1 TABLET TWICE A DAY Last Documented On 03/25/2021 5:46PM By Nelda Zuniga MD ; [facility] Trintellix 20 MG Oral Tablet 07/10/2020 - 08/20/2021 Tori elizalde: CONSUELO ZUNIGA MD Diagnosis: 1 tablet every morning Last Documented On 08/20/2021 8:58AM By Nelda Zuniga MD ; [facility] Mydayis 37.5 MG Oral Capsule Extended Release 24 Hour 07/09/2020 - 08/12/2020 Provider: CONSUELO ZUNIGA MD Diagnosis: Attention-defici t hyperactivity disorder, unspecified type 1 Capsule every morning Last Documented On 08/12/2020 3:08PM By Nelda Zuniga MD ; [facility] Mydayis 37.5 MG Oral Capsule Extended Release 24 Hour 06/11/2020 - 07/09/2020 Provider: CONSUELO ZUNIGA MD Diagnosis: Attention-defici t hyperactivity disorder, unspecified type 1 Capsule every morning Last Documented On 07/09/2020 2:36PM By Nelda Zuniga MD ; [facility] KlonoPIN 0.5 MG Oral Tablet 06/11/2020 - 01/22/2021 Provider: CONSUELO PAINTING MD Diagnosis: Panic disorder [episodic paroxysmal anxiety] as directed 1 tab 2 x a day as needed for anxiety Last Documented On 01/22/2021 2:07PM By Nelda Zuniga MD ; [facility] Mydayis 37.5 MG Oral Capsule Extended Release 24 Hour 05/04/2020 - 06/11/2020 Provider: CONSUELO ZUNIGA MD Diagnosis: Attention-defici t hyperactivity disorder, unspecified type 1 Capsule every morning Last Documented On 10:36AM By Nelda Zuniga MD ; [facility] Rexulti 1 MG Oral Tablet 04/16/2020 - 03/25/2021 Provider: CONSUELO PAINTING MD Diagnosis: Major depressive disorder, recurrent, moderate TAKE 1 TABLET DAILY Last Documented On 04/05/2021 8:21AM By Nelda Zuniga MD ; [facility] Mydayis 37.5 MG Oral Capsule Extended Release 24 Hour 03/31/2020 - 05/04/2020 Provider: CONSUELO ZUNIGA MD Diagnosis: Attention-defici t hyperactivity disorder, unspecified type 1 Capsule every morning Last Documented On 05/04/2020 4:39PM By Nelda Zuniga MD ; [facility] Deplin 15 15-90.314 MG Oral Capsule 03/16/2020 - 08/02/2021 Provider: CONSUELO ZUNIGA MD Diagnosis: Major depressive disorder, recurrent, unspecified TAKE 1 CAPSULE BY MOUTH EVER Y MORNING DIRECTED Last Documented On 08/02/2021 5:25PM By Nelda Zuniga MD ; [facility] Mydayis 37.5 MG Oral Capsule Extended Release 24 Hour 02/24/2020 - 03/31/2020 Provider: CONSUELO ZUNIGA MD Diagnosis: Attention-defici t hyperactivity disorder, unspecified type 1 Capsule every morning Last Documented On 03/31/2020 5:23PM By Nelda Zuniga MD ; [facility] traZODone HCl 100 MG Oral Tablet 02/24/2020 - 03/01/2021 Provider: CONSUELO ZUNIGA MD Diagnosis: Psychophysiologi c insomnia TAKE ONE AND ONE-HALF TABLET S AT BEDTIME DIRECTED Last Documented On 03/01/2021 8:40AM By Nelda Zuniga MD ; [facility] Mydayis 37.5 MG Oral Capsule Extended Release 24 Hour 01/29/2020 - 02/24/2020 Provider: CONSUELO ZUNIGA MD Diagnosis: Attention-defici t hyperactivity disorder, unspecified type 1 Capsule every morning Last Documented On 02/24/2020 1:51PM By Nelda Zuniga MD ; [facility] Mydayis 37.5 MG Oral Capsule Extended Release 24 Hour 12/23/2019 - 01/29/2020 Provider: CONSUELO ZUNIGA MD Diagnosis: Attention-defici t hyperactivity disorder, unspecified type 1 Capsule every morning Last Documented On 01/29/2020 5:49PM By Nelda Zuniga MD ; [facility] Mydayis 37.5 MG Oral Capsule Extended Release 24 Hour 11/19/2019 - 12/23/2019 Provider: CONSUELO ZUNIGA MD Diagnosis: Attention-defici t hyperactivity disorder, unspecified type 1 Capsule every morning Last Documented On 12/23/2019 3:58PM By Nelda Zuniga MD ; [facility] Mydayis 37.5 MG Oral Capsule Extended Release 24 Hour 11/19/2019 - 11/19/2019 Provider: CONSUELO ZUNIGA MD Diagnosis: Attention-defici t hyperactivity disorder, unspecified type 1 Capsule every morning Last Documented On 11/19/2019 7:11PM By Nelda Zuniga MD ; [facility] busPIRone HCl 15 MG Oral Tablet 10/24/2019 - 11/16/2020 Provider: CONSUELO ZUNIGA MD Diagnosis: Generalized anxi ety disorder TAKE 1 TABLET FOUR TIMES A DAY Last Documented On 11/16/2020 8:58PM By Nelda Zuniga MD ; [facility] Mydayis 37.5 MG Oral Capsule Extended Release 24 Hour 10/23/2019 - 11/19/2019 Provider: CONSUELO ZUNIGA MD Diagnosis: Attention-defici t hyperactivity disorder, unspecified type 1 Capsule every morning Last Documented On 11/19/2019 6:20PM By Nelda Zuniga MD ; [facility] Mydayis 37.5 MG Oral Capsule Extended Release 24 Hour 09/09/2019 - 10/23/2019 Provider: CONSUELO ZUNIGA MD Diagnosis: Attention-defici t hyperactivity disorder, unspecified type 1 Capsule every morning Last Documented On 10/23/2019 5:00PM By Nelda Zuniga MD ; [facility] Mydayis 25 MG Oral Capsule Extended Release 24 Hour 08/30/2019 - 10/23/2019 Provider: CONSUELO ZUNIGA MD Diagnosis: Attention-defici t hyperactivity disorder, unspecified type 1 Capsule every morning Last Documented On 10/23/2019 5:14PM By Nelda Zuniga MD ; [facility] Mydayis 25 MG Oral Capsule Extended Release 24 Hour 07/26/2019 - 08/30/2019 Provider: CONSUELO ZUNIGA MD Diagnosis: Attention-defici t hyperactivity disorder, unspecified type 1 Capsule every morning Last Documented On 08/30/2019 4:05PM By Nelda Zuniga MD ; [facility] Viibryd 40 MG Oral Tablet 07/01/2019 - 07/10/2020 Provider: CONSUELO PAINTING MD Diagnosis: Major depressive disorder, recurrent, unspecified TAKE 1 TABLET EVERY MORNING WITH FOOD Last Documented On 07/10/2020 8:06PM By Nelda Zuniga MD ; [facility] Mydayis 25 MG Oral Capsule Extended Release 24 Hour 06/25/2019 - 07/26/2019 Provider: CONSUELO ZUNIGA MD Diagnosis: Attention-defici t hyperactivity disorder, unspecified type 1 Capsule every morning Last Documented On 07/26/2019 1:39PM By Nelda Zuniga MD ; [facility] buPROPion HCl ER (XL) 150 MG Oral Tablet Extended Release 24 Hour 06/03/2019 - 10/24/2019 Provider: CONSUELO ZUNIGA MD Diagnosis: Major depressive disorder, recurrent, moderate TAKE 3 TABLETS IN THE MORNING DIRECTED Last Documented On 10/24/2019 3:42PM By Nelda Zuniga MD ; [facility] buPROPion HCl ER (XL) 150 MG Oral Tablet Extended Release 24 Hour 06/01/2019 - 06/03/2019 Provider: CONSUELO ZUNIGA MD Diagnosis: Major depressive disorder, recurrent, moderate as directed 3 tablets in am Last Documented On 06/03/2019 9:44AM By Nelda Zuniga MD ; [facility] KlonoPIN 0.5 MG Oral Tablet 05/23/2019 - 06/11/2020 Provider: CONSUELO PAINTING MD Diagnosis: Panic disorder [episodic paroxysmal anxiety] as directed 1 tab 2 x a day as needed for anxiety Last Documented On 06/11/2020 3:50PM By Nelda Zuniga MD ; [facility] Deplin 15 15-90.314 MG Oral Capsule 05/09/2019 - 03/16/2020 Provider: CONSUELO ZUNIGA MD Diagnosis: Major depressive disorder, recurrent, unspecified TAKE 1 CAPSULE BY MOUTH EVER Y MORNING DIRECTED Last Documented On 03/16/2020 4:05PM By Nelda Zuniga MD ; [facility] Mydayis 25 MG Oral Capsule Extended Release 24 Hour 05/07/2019 - 06/25/2019 Provider: CONSUELO ZUNIGA MD Diagnosis: Attention-defici t hyperactivity disorder, unspecified type 1 Capsule every morning Last Documented On 06/25/2019 2:14PM By Nelda Zuniga MD ; [facility] Mydayis 25 MG Oral Capsule Extended Release 24 Hour 04/22/2019 - 05/07/2019 Provider: CONSUELO ZUNIGA MD Diagnosis: Attention-defici t hyperactivity disorder, unspecified type 1 Capsule every morning Last Documented On 05/07/2019 5:15PM By Nelda Zuniga MD ; [facility] Rexulti 1 MG Oral Tablet 04/08/2019 - 04/16/2020 Provider: CONSUELO PAINTING MD Diagnosis: Major depressive disorder, recurrent, moderate One tablet daily Last Documented On 04/16/2020 7:14PM By Nelda Zuniga MD ; [facility] Mydayis 25 MG Oral Capsule Extended Release 24 Hour 03/21/2019 - 04/22/2019 Provider: CONSUELO ZUNIGA MD Diagnosis: Attention-defici t hyperactivity disorder, unspecified type 1 Capsule every morning Last Documented On 04/22/2019 3:35PM By Nelda Zuniga MD ; [facility] Rexulti 1 MG Oral Tablet 03/18/2019 - 04/08/2019 Provider: CONSUELO PAINTING MD Diagnosis: Major depressive disorder, recurrent, moderate One tablet daily Last Documented On 0 10:59AM By Nelda Zuniga MD ; [facility] Atenolol 25 MG Oral Tablet 03/18/2019 - 09/09/2019 Provider: CONSUELO ZUNIGA MD Diagnosis: Generalized anxi ety disorder One tablet twice a day Last Documented On 11/10/2019 3:38PM By Nelda Zuniga MD ; [facility] Trintellix 20 MG Oral Tablet 02/25/2019 - 07/01/2019 Provider: CONSUELO PAINTING MD Diagnosis: Dysthymic disord er 1 tablet every morning Last Documented On 07/01/2019 2:34PM By Nelda Zuniga MD ; [facility] Viibryd 40 MG Oral Tablet 02/25/2019 - 07/01/2019 Provider: CONSUELO PAINTING MD Diagnosis: Major depressive disorder, recurrent, unspecified TAKE 1 TABLET EVERY MORNING WITH FOOD Last Documented On 07/01/2019 2:33PM By Nelda Zuniga MD ; [facility] Mydayis 25 MG Oral Capsule Extended Release 24 Hour 02/05/2019 - 03/21/2019 Provider: CONSUELO ZUNIGA MD Diagnosis: Attention-defici t hyperactivity disorder, unspecified type 1 Capsule every morning Last Documented On 0 10:13AM By Nelda Zuniga MD ; [facility] buPROPion HCl ER (XL) 150 MG Oral Tablet Extended Release 24 Hour 01/14/2019 - 05/07/2019 Provider: CONSUELO ZUNIGA MD Diagnosis: Major depressive disorder, recurrent, moderate as directed 3 tablets in am Last Documented On 0 10:59PM By Nelda Zuniga MD ; [facility] busPIRone HCl 15 MG Oral Tablet 01/14/2019 - 10/24/2019 Provider: CONSUELO ZUNIGA MD Diagnosis: Generalized anxi ety disorder TAKE 1 TABLET FOUR TIMES A DAY Last Documented On 10/24/2019 3:43PM By Nelda Zuniga MD ; [facility] Viibryd 40 MG Oral Tablet 01/14/2019 - 02/05/2019 Provider: CONSUELO PAINTING MD Diagnosis: Major depressive disorder, recurrent, unspecified TAKE 1 TABLET EVERY MORNING WITH FOOD Last Documented On 9 11:59PM By Nelda Zuniga MD ; [facility] KlonoPIN 0.5 MG Oral Tablet 01/14/2019 - 05/23/2019 Provider: CONSUELO PAINTING MD Diagnosis: Panic disorder [episodic paroxysmal anxiety] as directed 1 tab 2 x a day as needed for anxiety Last Documented On 05/23/2019 2:53PM By Nelda Zuniga MD ; [facility] traZODone HCl 100 MG Oral Tablet 01/14/2019 - 02/24/2020 Provider: CONSUELO ZUNIGA MD Diagnosis: Psychophysiologi c insomnia TAKE ONE AND ONE-HALF TABLET S AT BEDTIME DIRECTED Last Documented On 02/24/2020 1:54PM By Nelda Zuniga MD ; [facility] Mydayis 25 MG Oral Capsule Extended Release 24 Hour 12/10/2018 - 02/05/2019 Provider: CONSUELO ZUNIGA MD Diagnosis: Attention-defici t hyperactivity disorder, unspecified type 1 Capsule every morning Last Documented On 02/05/2019 5:44PM By Nelda Zuniga MD ; [facility] Trintellix 20 MG Oral Tablet 12/10/2018 - 02/05/2019 Provider: CONSUELO PAINTING MD Diagnosis: Dysthymic disord er 1 tablet every morning Last Documented On 9 11:59PM By Nelda Zuniga MD ; [facility] Rexulti 1 MG Oral Tablet 12/10/2018 - 03/18/2019 Provider: CONSUELO PAINTING MD Diagnosis: Major depressive disorder, recurrent, moderate One tablet daily -- $0 coupo n given on 12/10/18 Last Documented On 03/18/2019 3:35PM By Nelda Zuniga MD ; [facility] Mydayis 25 MG Oral Capsule Extended Release 24 Hour 12/04/2018 - 12/10/2018 Provider: CONSUELO ZUNIGA MD Diagnosis: Attention-defici t hyperactivity disorder, unspecified type 1 Capsule every morning Last Documented On 12/10/2018 5:27PM By Nelda Zuniga MD ; [facility] Rexulti 0.5MG Oral Tablet 10/23/2018 - 02/05/2019 Provider: CONSUELO ZUNIGA MD Diagnosis: Major depressive disorder, recurrent, moderate as directed -- 0.5 mg a day for 1 week then 1 mg a day thereafter given 6 weeks samples Last Documented On 02/05/2019 5:07PM By SIMONA DOUGLAS ; [facility] traZODone HCl 100MG Oral Tablet 10/23/2018 - 12/10/2018 Provider: CONSUELO ZUNIGA MD Diagnosis: Psychophysiologi c insomnia TAKE ONE AND ONE-HALF TABLET S AT BEDTIME DIRECTED Last Documented On 01/14/2019 5:47AM By Nelda Zuniga MD ; [facility] Deplin 15 15-90.314MG Oral Capsule 10/23/2018 - 05/09/2019 Provider: CONSUELO ZUNIGA MD Diagnosis: Major depressive disorder, recurrent, unspecified as directed -- 1 cap in am Last Documented On 05/09/2019 1:39PM By Nelda Zuniga MD ; [facility] buPROPion HCl ER (XL) 150MG Oral Tablet Extended Release 24 Hour 10/23/2018 - 12/10/2018 Provider: CONSUELO ZUNIGA MD Diagnosis: Major depressive disorder, recurrent, unspecified as directed 3 tablets in am Last Documented On 01/14/2019 5:47AM By Nelda Zuniga MD ; [facility] busPIRone HCl 15MG Oral Tablet 10/23/2018 - 12/10/2018 Provider: CONSUELO ZUNIGA MD Diagnosis: Dissociative sharda ntity disorder TAKE 1 TABLET FOUR TIMES A DAY Last Documented On 01/14/2019 5:47AM By Nelda Zuniga MD ; [facility] Trintellix 20MG Oral Tablet 10/23/2018 - 12/10/2018 Provider: CONSUELO PAINTING MD Diagnosis: Dysthymic disord er 1 tablet every morning Last Documented On 12/10/2018 5:28PM By Nelda Zuniga MD ; [facility] Viibryd 40MG Oral Tablet 10/23/2018 - 12/10/2018 Provider: CONSUELO PAINTING MD Diagnosis: Major depressive disorder, recurrent, moderate TAKE 1 TABLET EVERY MORNING WITH FOOD Last Documented On 01/14/2019 5:47AM By Nelda Zuniga MD ; [facility] KlonoPIN 0.5MG Oral Tablet 10/23/2018 - 12/10/2018 Provider: CONSUELO PAINTING MD Diagnosis: Panic disorder [episodic paroxysmal anxiety] as directed 1 tab 2 x a day as needed for anxiety Last Documented On 01/14/2019 5:47AM By Nelda Zuniga MD ; [facility] Atenolol 25MG Oral Tablet 10/23/2018 - 03/18/2019 Provider: CONSUELO ZUNIGA MD Diagnosis: Generalized anxi ety disorder One tablet twice a day Last Documented On 03/18/2019 3:36PM By Nelda Zuniga MD ; [facility] Mydayis 25MG Oral Capsule Extended Release 24 Hour 10/23/2018 - 12/04/2018 Provider: CONSUELO ZUNIGA MD Diagnosis: Attention-defici t hyperactivity disorder, unspecified type 1 Capsule every morning Last Documented On 12/04/2018 6:40PM By Nelda Zuniga MD ; [facility] Mydayis 25MG Oral Capsule Extended Release 24 Hour 09/12/2018 - 10/23/2018 Provider: CONSUELO ZUNIGA MD Diagnosis: Attention-defici t hyperactivity disorder, unspecified type 1 Capsule every morning Last Documented On 10/23/2018 5:48PM By Nelda Zuniga MD ; [facility] KlonoPIN 0.5MG Oral Tablet 09/12/2018 - 10/23/2018 Provider: CONSUELO PAINTING MD Diagnosis: Panic disorder [episodic paroxysmal anxiety] as directed 1 tab 2 x a day as needed for anxiety Last Documented On 10/23/2018 5:53PM By Nelda Zuniga MD ; [facility] Mydayis 25MG Oral Capsule Extended Release 24 Hour 08/23/2018 - 09/12/2018 Provider: CONSUELO ZUNIGA MD Diagnosis: Attention-defici t hyperactivity disorder, unspecified type 1 Capsule every morning Last Documented On 09/12/2018 5:51PM By Nelda Zuniga MD ; [facility] Mydayis 25MG Oral Capsule Extended Release 24 Hour 07/25/2018 - 08/23/2018 Provider: CONSUELO ZUNIGA MD Diagnosis: Attention-defici t hyperactivity disorder, unspecified type 1 Capsule every morning Last Documented On 9 11:19AM By Nelda Zuniga MD ; [facility] Atenolol 25MG Oral Tablet 07/05/2018 - 10/23/2018 Provider: CONSUELO ZUNIGA MD Diagnosis: Generalized anxi ety disorder TAKE 1 TABLET DAILY Last Documented On 10/23/2018 5:49PM By Nelda Zuniga MD ; [facility] Viibryd 40MG Oral Tablet 06/11/2018 - 10/23/2018 Provider: CONSUELO PAINTING MD Diagnosis: Major depressive disorder, recurrent, moderate TAKE 1 TABLET EVERY MORNING WITH FOOD Last Documented On 10/23/2018 7:18PM By Nelda Zuniga MD ; [facility] busPIRone HCl 15MG Oral Tablet 06/11/2018 - 10/23/2018 Provider: CONSUELO ZUNIGA MD Diagnosis: Generalized anxi ety disorder TAKE 1 TABLET FOUR TIMES A DAY Last Documented On 10/23/2018 7:18PM By Nelda Zuniga MD ; [facility] De[place]in 15 15-90.314MG Oral Capsule, conventional 06/11/2018 - 10/23/2018 Provider: CONSUELO ZUNIGA MD Diagnosis: Major depressive disorder, recurrent, unspecified as directed -- 1 cap in am Last Documented On 10/23/2018 7:18PM By Nelda Zuniga MD ; [facility] buPROPion HCl ER (XL) 150MG Oral Tablet, extended-release 24 hour 06/11/2018 - 10/23/2018 Provider: CONSUELO ZUNIGA MD Diagnosis: Major depressive disorder, recurrent, unspecified as directed 3 tablets in am Last Documented On 10/23/2018 7:18PM By Nelda Zuniga MD ; [facility] KlonoPIN 0.5MG Oral Tablet 06/11/2018 - 09/12/2018 Provider: CONSUELO PAINTING MD Diagnosis: Panic disorder [episodic paroxysmal anxiety] as directed 1 tab 2 x a day as needed for anxiety Last Documented On 09/12/2018 6:16PM By Nelda Zuniga MD ; [facility] traZODone HCl 100MG Oral Tablet 06/11/2018 - 10/23/2018 Provider: CONSUELO ZUNIGA MD Diagnosis: Psychophysiologi c insomnia TAKE ONE AND ONE-HALF TABLET S AT BEDTIME DIRECTED Last Documented On 10/23/2018 5:48PM By Nelda Zuniga MD ; [facility] Trintellix 20MG Oral Tablet 06/11/2018 - 10/23/2018 Provider: CONSUELO PAINTING MD Diagnosis: Dysthymic disord er 1 tablet every morning Last Documented On 10/23/2018 7:18PM By Nelda Zuniga MD ; [facility] Mydayis 25MG Oral Capsule, extended-release 24 hour 06/04/2018 - 07/25/2018 Provider: CONSUELO ZUNIGA MD Diagnosis: Attention-defici t hyperactivity disorder, unspecified type 1 Capsule every morning Last Documented On 9 11:09AM By Nelda Zuniga MD ; [facility] buPROPion HCl ER (XL) 150MG Oral Tablet Extended Release 24 Hour 05/23/2018 - 06/04/2018 Provider: CONSUELO ZUNIGA MD Diagnosis: Major depressive disorder, recurrent, unspecified as directed 3 tablets in am Last Documented On 06/11/2018 3:18AM By Nelda Zuniga MD ; [facility] Mydayis 25MG Oral Capsule Extended Release 24 Hour 05/23/2018 - 06/04/2018 Provider: CONSUELO ZUNIGA MD Diagnosis: Attention-defici t hyperactivity disorder, unspecified type 1 Capsule every morning Last Documented On 06/04/2018 5:16PM By Nelda Zuniga MD ; [facility] KlonoPIN 0.5MG Oral Tablet 05/23/2018 - 06/04/2018 Provider: OCNSUELO PAINTING MD Diagnosis: Panic disorder [episodic paroxysmal anxiety] as directed 1 tab 2 x a day as needed for anxiety Last Documented On 06/11/2018 3:18AM By Nelda Zuniga MD ; [facility] Trintellix 20MG Oral Tablet 04/03/2018 - 06/04/2018 Provider: CONSUELO PAINTING MD Diagnosis: Dysthymic disord er 1 tablet every morning Last Documented On 06/11/2018 3:18AM By Nelda Zuniga MD ; [facility] Viibryd 40MG Oral Tablet 04/03/2018 - 06/04/2018 Provider: CONSUELO PAINTING MD Diagnosis: Major depressive disorder, recurrent, moderate TAKE 1 TABLET EVERY MORNING WITH FOOD Last Documented On 06/11/2018 3:18AM By Nelda Zuniga MD ; [facility] Deplin 15 15-90.314MG Oral Capsule, conventional 04/03/2018 - 06/04/2018 Provider: CONSUELO ZUNIGA MD Diagnosis: Major depressive disorder, recurrent, unspecified as directed -- 1 cap in am Last Documented On 06/11/2018 3:18AM By Nelda Zuniga MD ; [facility] BuPROPion HCl ER (XL) 150MG Oral Tablet, extended-release 24 hour 04/03/2018 - 05/23/2018 Provider: CONSUELO ZUNIGA MD Diagnosis: Major depressive disorder, recurrent, unspecified as directed 3 tablets in am Last Documented On 05/23/2018 1:43PM By Nelda Zuniga MD ; [facility] KlonoPIN 0.5MG Oral Tablet 04/03/2018 - 05/23/2018 Provider: CONSUELO PAINTING MD Diagnosis: Panic disorder [episodic paroxysmal anxiety] as directed 1 tab 2 x a day as needed for anxiety Last Documented On 05/23/2018 1:47PM By Nelda Zuniga MD ; [facility] TraZODone HCl 100MG Oral Tablet 04/03/2018 - 06/04/2018 Provider: CONSUELO ZUNIGA MD Diagnosis: Psychophysiologi c insomnia TAKE ONE AND ONE-HALF TABLET S AT BEDTIME DIRECTED Last Documented On 06/11/2018 3:18AM By Nelda Zuniga MD ; [facility] BusPIRone HCl 15MG Oral Tablet 04/03/2018 - 06/04/2018 Provider: CONSUELO ZUNIGA MD Diagnosis: Dissociative sharda ntity disorder TAKE 1 TABLET FOUR TIMES A DAY Last Documented On 06/11/2018 3:18AM By Nelda Zuniga MD ; [facility] Atenolol 25MG Oral Tablet 04/02/2018 - 07/05/2018 Provider: CONSUELO ZUNIGA MD Diagnosis: Generalized anxi ety disorder TAKE 1 TABLET DAILY Last Documented On 07/05/2018 9:04AM By Nelda Zuniga MD ; [facility] Mydayis 25MG Oral Capsule, extended-release 24 hour 04/02/2018 - 05/23/2018 Provider: CONSUELO ZUNIGA MD Diagnosis: Attention-defici t hyperactivity disorder, unspecified type 1 Capsule every morning Last Documented On 9 11:46AM By Nelda Zuniga MD ; [facility] Mydayis 25MG Oral Capsule Extended Release 24 Hour 02/27/2018 - 04/02/2018 Provider: CONSUELO ZUNIGA MD Diagnosis: Attention-defici t hyperactivity disorder, unspecified type 1 Capsule every morning Last Documented On 04/02/2018 5:03PM By Nelda Zuniga MD ; [facility] Trintellix 20MG Oral Tablet 02/03/2018 - 04/02/2018 Provider: CONSUELO PAINTING MD Diagnosis: Dysthymic disord er 1 tablet every morning Last Documented On 04/03/2018 3:24PM By Nelda Zuniga MD ; [facility] Viibryd 40MG Oral Tablet 01/30/2018 - 04/02/2018 Provider: CONSUELO PAINTING MD Diagnosis: Generalized anxi ety disorder TAKE 1 TABLET EVERY MORNING WITH FOOD Last Documented On 04/03/2018 3:24PM By Nelda Zuniga MD ; [facility] Trintellix 20MG Oral Tablet 01/30/2018 - 01/29/2018 Provider: CONSUELO ZUNIGA MD Diagnosis: Major depressive disorder, recurrent, moderate 1 tablet every morning Last Documented On 8 12:02AM By Nelda Zuniga MD ; [facility] Deplin 15 15-90.314MG Oral Capsule 01/30/2018 - 04/02/2018 Provider: CONSUELO ZUNIGA MD Diagnosis: Major depressive disorder, recurrent, unspecified as directed -- 1 cap in am Last Documented On 04/03/2018 3:24PM By Nelda Zuniga MD ; [facility] Deplin 15 15-90.314MG Oral Capsule 01/30/2018 - 02/05/2019 Provider: CONSUELO ZUNIGA MD Diagnosis: Major depressive disorder, recurrent, moderate 1 Capsule every morning Last Documented On 02/05/2019 5:07PM By SIMONA DOUGLAS ; [facility] BuPROPion HCl ER (XL) 150MG Oral Tablet Extended Release 24 Hour 01/30/2018 - 04/02/2018 Provider: CONSUELO ZUNIGA MD Diagnosis: Major depressive disorder, recurrent, unspecified as directed 3 tablets in am Last Documented On 04/03/2018 3:24PM By Nelda Zuniga MD ; [facility] TraZODone HCl 100MG Oral Tablet 01/30/2018 - 04/02/2018 Provider: CONSUELO ZUNIGA MD Diagnosis: Psychophysiologi c insomnia TAKE ONE AND ONE-HALF TABLET S AT BEDTIME DIRECTED Last Documented On 04/03/2018 3:24PM By Nelda Zuniga MD ; [facility] BusPIRone HCl 15MG Oral Tablet 01/30/2018 - 04/02/2018 Provider: CONSUELO ZUNIGA MD Diagnosis: Generalized anxi ety disorder TAKE 1 TABLET FOUR TIMES A DAY Last Documented On 04/03/2018 3:24PM By Nelda Zuniga MD ; [facility] Mydayis 25MG Oral Capsule Extended Release 24 Hour 01/29/2018 - 02/27/2018 Provider: CONSUELO ZUNIGA MD Diagnosis: Attention-defici t hyperactivity disorder, unspecified type 1 Capsule every morning Last Documented On 02/27/2018 2:22PM By Nelda Zuniga MD ; [facility] KlonoPIN 0.5MG Oral Tablet 01/29/2018 - 04/02/2018 Provider: CONSUELO PAINTING MD Diagnosis: Panic disorder [episodic paroxysmal anxiety] as directed 1 tab 2 x a day as needed for anxiety Last Documented On 04/03/2018 3:24PM By Nelda Zuniga MD ; [facility] Mydayis 25MG Oral Capsule, extended-release 24 hour 01/08/2018 - 01/29/2018 Provider: CONSUELO ZUNIGA MD Diagnosis: Attention-defici t hyperactivity disorder, unspecified type 1 Capsule every morning Last Documented On 01/29/2018 5:35PM By Nelda Zuniga MD ; [facility] Atenolol 25MG Oral Tablet 01/04/2018 - 04/02/2018 Prov ider: CONSUELO ZUNIGA MD Diagnosis: TAKE 1 TABLET DAILY Last Documented On 04/02/2018 5:03PM By Nelda Zuniga MD ; [facility] Mydayis 25MG Oral Capsule Extended Release 24 Hour 12/06/2017 - 01/08/2018 Provider: CONSUELO ZUNIGA MD Diagnosis: Attention-defici t hyperactivity disorder, unspecified type 1 Capsule every morning Last Documented On 01/08/2018 2:29PM By Nelda Zuniga MD ; [facility] BusPIRone HCl 15MG Oral Tablet 11/20/2017 - 01/29/2018 Provider: CONSUELO PAINTING MD Diagnosis: TAKE 1 TABLET FOUR TIMES A DAY Last Documented On 01/30/2018 8:13AM By Nelda Zuniga MD ; [facility] Mydayis 25MG Oral Capsule Extended Release 24 Hour 10/31/2017 - 12/06/2017 Provider: CONSUELO ZUNIGA MD Diagnosis: Attention-defici t hyperactivity disorder, unspecified type 1 Capsule every morning Last Documented On 12/06/2017 2:52PM By Nelda Zuniga MD ; [facility] KlonoPIN 0.5MG Oral Tablet 10/01/2017 - 01/29/2018 Provider: CONSUELO ZUNIGA MD Diagnosis: Panic disorder [episodic paroxysmal anxiety] as directed 1 tab 2 x a day as needed only for panic/anxiety -- called in on 09/18/17 to [facility] Last Documented On 01/29/2018 5:35PM By Nelda Zuniga MD ; [facility] TraZODone HCl 100MG Oral Tablet 10/01/2017 - 01/29/2018 Provider: CONSUELO ZUNIGA MD Diagnosis: Psychophysiologi c insomnia TAKE ONE AND ONE-HALF TABLET S AT BEDTIME DIRECTED Last Documented On 01/30/2018 8:13AM By Nelda Zuniga MD ; [facility] BusPIRone HCl 15MG Oral Tablet 10/01/2017 - 11/20/2017 Provider: CONSUELO ZUNIGA MD Diagnosis: Generalized anxi ety disorder as directed --1 tab 4 x a day Last Documented On 11/20/2017 8:16PM By Nelda Zuniga MD ; [facility] Viibryd 40MG Oral Tablet 10/01/2017 - 01/29/2018 Provider: CONSUELO PAINTING MD Diagnosis: Major depressive disorder, recurrent, moderate TAKE 1 TABLET EVERY MORNING WITH FOOD Last Documented On 01/30/2018 8:13AM By Nelda Zuniga MD ; [facility] Trintellix 20MG Oral Tablet 10/01/2017 - 01/29/2018 Provider: CONSUELO ZUNIGA MD Diagnosis: Major depressive disorder, recurrent, moderate 1 tablet every morning Last Documented On 01/30/2018 8:13AM By Nelda Zuniga MD ; [facility] Mydayis 25MG Oral Capsule Extended Release 24 Hour 09/28/2017 - 10/31/2017 Provider: CONSUELO ZUNIGA MD Diagnosis: Attention-defici t hyperactivity disorder, unspecified type 1 Capsule every morning Last Documented On 10/31/2017 5:56PM By Nelda Zuniga MD ; [facility] KlonoPIN 0.5MG Oral Tablet 09/18/2017 - 09/28/2017 Provider: CONSUELO ZUNIGA MD Diagnosis: Panic disorder [episodic paroxysmal anxiety] as directed 1 tab 2 x a day as needed only for panic/anxiety -- called in 30 on 09/18/17 to [facility] Last Documented On 8 11:10PM By Nelda Zuniga MD ; [facility] Mydayis 25MG Oral Capsule Extended Release 24 Hour 09/18/2017 - 09/28/2017 Provider: CONSUELO ZUNIGA MD Diagnosis: Attention-defici t hyperactivity disorder, unspecified type 1 Capsule every morning Last Documented On 09/28/2017 5:28PM By Nelda Zuniga MD ; [facility] TraZODone HCl 100MG Oral Tablet 08/13/2017 - 09/28/2017 Provider: CONSUELO PAINTING MD Diagnosis: TAKE ONE AND ONE-HALF TABLETS AT BEDTIME DIRE CTED Last Documented On 8 11:10PM By Nelda Zuniga MD ; [facility] Mydayis 25MG Oral Capsule, extended-release 24 hour 08/11/2017 - 09/18/2017 Provider: CONSUELO ZUNIGA MD Diagnosis: Attention-defici t hyperactivity disorder, unspecified type 1 Capsule every morning Last Documented On 09/18/2017 1:47PM By Nelda Zuniga MD ; [facility] KlonoPIN 0.5MG Oral Tablet 08/11/2017 - 09/18/2017 Provider: CONSUELO PAINTING MD Diagnosis: Panic disorder [episodic paroxysmal anxiety] as directed 1 tab 2 x a day as needed only for panic/anxiety -- called in 30 on 08/11/17 Last Documented On 09/18/2017 2:30PM By Nelda Zuniga MD ; [facility] Mydayis 25MG Oral Capsule Extended Release 24 Hour 07/10/2017 - 08/11/2017 Provider: CONSUELO ZUNIGA MD Diagnosis: Attention-defici t hyperactivity disorder, unspecified type 1 Capsule every morning Last Documented On 08/11/2017 1:50PM By Nelda Zuniga MD ; [facility] Trintellix 20MG Oral Tablet 05/23/2017 - 09/28/2017 Provider: CONSUELO ZUNIGA MD Diagnosis: Major depressive disorder, recurrent, moderate TAKE DIRECTED Last Documented On 8 11:10PM By Nelda Zuniga MD ; [facility] KlonoPIN 0.5MG Oral Tablet 05/23/2017 - 08/11/2017 Provider: CONSUELO PAINTING MD Diagnosis: Panic disorder [episodic paroxysmal anxiety] as directed 1 tab 2 x a day as needed only for panic/anxiety -- called in 30 on 02/15/17 -- has 20 left as of 05/22/17 Last Documented On 08/11/2017 5:12PM By Nelda Zuniga MD ; [facility] TraZODone HCl 100MG Oral Tablet 05/23/2017 - 08/13/2017 Provider: CONSUELO ZUNIGA MD Diagnosis: Psychophysiologi c insomnia TAKE ONE AND ONE-HALF TABLET S AT BEDTIME DIRECTED Last Documented On 08/13/2017 7:57PM By Nelda Zuniga MD ; [facility] BusPIRone HCl 15MG Oral Tablet 05/23/2017 - 09/28/2017 Provider: CONSUELO ZUNIGA MD Diagnosis: Generalized anxi ety disorder as directed --1 tab 4 x a day Last Documented On 8 11:10PM By Nelda Zuniga MD ; [facility] Viibryd 40MG Oral Tablet 05/23/2017 - 09/28/2017 Provider: CONSUELO PAINTING MD Diagnosis: Major depressive disorder, recurrent, moderate TAKE 1 TABLET EVERY MORNING WITH FOOD Last Documented On 8 11:10PM By Nelda Zuniga MD ; [facility] Mydayis 25MG Oral Capsule Extended Release 24 Hour 05/22/2017 - 07/10/2017 Provider: CONSUELO ZUNIGA MD Diagnosis: Attention-defici t hyperactivity disorder, unspecified type 1 Capsule every morning Last Documented On 07/10/2017 6:12PM By Nelda Zuniga MD ; [facility] BuPROPion HCl ER (XL) 150MG Oral Tablet Extended Release 24 Hour 05/22/2017 - 01/29/2018 Provider: CONSUELO ZUNIGA MD Diagnosis: Major depressive disorder, recurrent, unspecified as directed 3 tablets in am Last Documented On 01/30/2018 8:13AM By Nelda Zuniga MD ; [facility] Atenolol 25MG Oral Tablet 04/26/2017 - 01/04/2018 Prov ider: CONSUELO ZUNIGA MD Diagnosis: TAKE 1 TABLET DAILY Last Documented On 01/04/2018 6:52PM By Nelda Zuniga MD ; [facility] Viibryd 40MG Oral Tablet 04/26/2017 - 05/22/2017 Provi gerald: CONSUELO ZUNIGA MD Diagnosis: TAKE 1 TABLET EVERY MORNING WITH FOOD Last Documented On 8 12:14AM By Nelda Zuniga MD ; [facility] TraZODone HCl 100MG Oral Tablet 04/26/2017 - 05/22/2017 Provider: CONSUELO PAINTING MD Diagnosis: TAKE ONE AND ONE-HALF TABLETS AT BEDTIME DIRE CTED Last Documented On 8 12:14AM By Nelda Zuniga MD ; [facility] Trintellix 20MG Oral Tablet 04/26/2017 - 05/22/2017 Pr ovider: CONSUELO ZUNIGA MD Diagnosis: TAKE DIRECTED Last Documented On 8 12:14AM By Nelda Zuniga MD ; [facility] Mydayis 25MG Oral Capsule, extended-release 24 hour 04/25/2017 - 05/22/2017 Provider: CONSUELO ZUNIGA MD Diagnosis: Attention-defici t hyperactivity disorder, unspecified type 1 Capsule every morning Last Documented On 05/22/2017 5:31PM By Nelda Zuniga MD ; [facility] Mydayis 25MG Oral Capsule, extended-release 24 hour 03/29/2017 - 04/25/2017 Provider: CONSUELO ZUNIGA MD Diagnosis: Attention-defici t hyperactivity disorder, unspecified type 1 Capsule every morning Last Documented On 04/25/2017 4:20PM By Nelda Zuniga MD ; [facility] KlonoPIN 0.5MG Oral Tablet 02/16/2017 - 05/22/2017 Provider: CONSUELO PAINTING MD Diagnosis: Panic disorder [episodic paroxysmal anxiety] as directed 1 tab 2 x a day as needed only for panic/anxiety -- called in 30 on 02/15/17 Last Documented On 8 12:14AM By Nelda Zuniga MD ; [facility] Mydayis 25MG Oral Capsule, extended-release 24 hour 02/15/2017 - 03/29/2017 Provider: CONSUELO ZUNIGA MD Diagnosis: Attention-defici t hyperactivity disorder, unspecified type 1 Capsule every morning Last Documented On 03/29/2017 5:44PM By Nelda Zuniga MD ; [facility] Trintellix 20MG Oral Tablet 01/16/2017 - 04/26/2017 Provider: CONSUELO PAINTING MD Diagnosis: Dysthymic disord er One tablet daily Last Documented On 04/26/2017 9:22AM By Nelda Zuniga MD ; [facility] BuPROPion HCl ER (XL) 150MG Oral Tablet Extended Release 24 Hour 01/16/2017 - 05/22/2017 Provider: CONSUELO ZUNIGA MD Diagnosis: Major depressive disorder, recurrent, unspecified as directed 3 tablets in am Last Documented On 05/22/2017 5:27PM By Nelda Zuniga MD ; [facility] BusPIRone HCl 15MG Oral Tablet 01/16/2017 - 05/22/2017 Provider: CONSUELO ZUNIGA MD Diagnosis: Generalized anxi ety disorder as directed --1 tab 4 x a day Last Documented On 8 12:14AM By Nelda Zuniga MD ; [facility] Viibryd 40MG Oral Tablet 01/16/2017 - 04/26/2017 Provider: CONSUELO PAINTING MD Diagnosis: Major depressive disorder, recurrent, moderate 1 tablet every morning with food Last Documented On 04/26/2017 9:24AM By Nelda Zuniga MD ; [facility] Mydayis 25MG Oral Capsule Extended Release 24 Hour 01/12/2017 - 02/15/2017 Provider: CONSUELO ZUNIGA MD Diagnosis: Attention-defici t hyperactivity disorder, unspecified type 1 Capsule every morning Last Documented On 02/15/2017 3:52PM By Nelda Zuniga MD ; [facility] Mydayis 25MG Oral Capsule, extended-release 24 hour 12/13/2016 - 01/12/2017 Provider: CONSUELO ZUNIGA MD Diagnosis: Attention-defici t hyperactivity disorder, unspecified type 1 Capsule every morning Last Documented On 01/12/2017 4:08PM By Nelda Zuniga MD ; [facility] KlonoPIN 0.5MG Oral Tablet 11/11/2016 - 02/16/2017 Provider: CONSUELO PAINTING MD Diagnosis: Panic disorder [episodic paroxysmal anxiety] as directed 1 tab 2 x a day as needed only for panic/anxiety -- called in 30 on 08/24/16 -- has 7 tabs left as of 11/11/16 Last Documented On 02/16/2017 9:48AM By Nelda Zuniga MD ; [facility] BuPROPion HCl ER (XL) 150MG Oral Tablet Extended Release 24 Hour 11/11/2016 - 01/12/2017 Provider: CONSUELO ZUNIGA MD Diagnosis: Major depressive disorder, recurrent, unspecified as directed 3 tablets in am Last Documented On 01/16/2017 1:35AM By Nelda Zuniga MD ; [facility] Trintellix 20MG Oral Tablet 11/11/2016 - 01/12/2017 Provider: CONSUELO PAINTING MD Diagnosis: Dysthymic disord er One tablet daily Last Documented On 01/16/2017 1:35AM By Nelda Zuniga MD ; [facility] TraZODone HCl 100MG Oral Tablet 11/11/2016 - 04/26/2017 Provider: CONSUELO ZUNIGA MD Diagnosis: Psychophysiologi c insomnia as directed -- 1 and 1/2 tab at bedtime Last Documented On 04/26/2017 9:23AM By Nelda Zuniga MD ; [facility] Nuvigil 250MG Oral Tablet 11/11/2016 - 01/12/2017 Provider: CONSUELO ZUNIGA MD Diagnosis: Obstructive slee p apnea (adult) (pediatric) as directed --1 tab in am -- pt got it in 03/2016 but did not refill again Last Documented On 01/12/2017 3:53PM By Nelda Zuniga MD ; [facility] Atenolol 25MG Oral Tablet 11/11/2016 - 04/26/2017 Provider: CONSUELO ZUNIGA MD Diagnosis: Generalized anxi ety disorder TAKE 1 TABLET DAILY Last Documented On 04/26/2017 9:27AM By Nelda Zuniga MD ; [facility] BusPIRone HCl 15MG Oral Tablet 11/11/2016 - 01/12/2017 Provider: CONSUELO ZUNIGA MD Diagnosis: Generalized anxi ety disorder as directed --1 tab 4 x a day Last Documented On 01/16/2017 1:35AM By Nelda Zuniga MD ; [facility] Mydayis 25MG Oral Capsule Extended Release 24 Hour 11/11/2016 - 12/13/2016 Provider: CONSUELO ZUNIGA MD Diagnosis: Attention-defici t hyperactivity disorder, unspecified type 1 Capsule every morning Last Documented On 12/13/2016 9:54AM By Nelda Zuniga MD ; [facility] Viibryd 40MG Oral Tablet 11/11/2016 - 01/12/2017 Provider: CONSUELO PAINTING MD Diagnosis: Major depressive disorder, recurrent, moderate 1 tablet every morning with food Last Documented On 01/16/2017 1:35AM By Nelda Zuniga MD ; [facility] BuPROPion HCl ER (XL) 150MG Oral Tablet Extended Release 24 Hour 11/07/2016 - 11/11/2016 Provider: CONSUELO ZUNIGA MD Diagnosis: Major depressive disorder, recurrent, unspecified as directed 3 tablets in am Last Documented On 11/11/2016 5:50PM By Nelda Zuniga MD ; [facility] Atenolol 25MG Oral Tablet 11/07/2016 - 11/11/2016 Provider: CONSUELO ZUNIGA MD Diagnosis: Generalized anxi ety disorder TAKE 1 TABLET DAILY Last Documented On 11/11/2016 5:50PM By Nelda Zuniga MD ; [facility] Trintellix 20MG Oral Tablet 10/14/2016 - 11/11/2016 Provider: CONSUELO PAINTING MD Diagnosis: Dysthymic disord er as directed Last Documented On 11/11/2016 5:50PM By Nelda Zuniga MD ; [facility] BuPROPion HCl ER (XL) 150MG Oral Tablet Extended Release 24 Hour 10/14/2016 - 11/07/2016 Provider: CONSUELO ZUNIGA MD Diagnosis: Major depressive disorder, recurrent, unspecified as directed 3 tablets in am Last Documented On 11/07/2016 9:23AM By Nelda Zuniga MD ; [facility] TraZODone HCl 100MG Oral Tablet 10/14/2016 - 11/11/2016 Provider: CONSUELO ZUNIGA MD Diagnosis: Psychophysiologi c insomnia as directed -- 1 and 1/2 tab at bedtime Last Documented On 11/11/2016 5:50PM By Nelda Zuniga MD ; [facility] KlonoPIN 0.5MG Oral Tablet 10/14/2016 - 11/11/2016 Provider: CONSUELO ZUNIGA MD Diagnosis: Generalized anxi ety disorder as directed 1 tab 2 x a day as needed only for panic/anxiety -- called in 30 on 08/24/16 -- has meds Last Documented On 11/11/2016 5:50PM By Nelda Zuniga MD ; [facility] BusPIRone HCl 15MG Oral Tablet 10/14/2016 - 11/11/2016 Provider: CONSUELO ZUNIGA MD Diagnosis: Generalized anxi ety disorder as directed --1 tab 4 x a day Last Documented On 11/11/2016 5:50PM By Nelda Zuniga MD ; [facility] Viibryd 40MG Oral Tablet 10/14/2016 - 11/11/2016 Provider: CONSUELO PAINTING MD Diagnosis: Major depressive disorder, recurrent, moderate 1 tablet every morning with food Last Documented On 11/11/2016 5:50PM By Nelda Zuniga MD ; [facility] Adderall 20MG Oral Tablet 10/13/2016 - 11/11/2016 Provider: CONSUELO ZUNIGA MD Diagnosis: Attention-defici t hyperactivity disorder, unspecified type as directed --- 1 tab in am, 1 tab at noon Last Documented On 7 3:49PM By DIONE LOVE LPN ; [facility] Mydayis 25MG Oral Capsule Extended Release 24 Hour 10/13/2016 - 11/11/2016 Provider: CONSUELO ZUNIGA MD Diagnosis: Attention-defici t hyperactivity disorder, unspecified type 1 Capsule every morning Last Documented On 11/11/2016 4:10PM By Nelda Zuniga MD ; [facility] Trintellix 20MG Oral Tablet 09/09/2016 - 10/13/2016 Provider: CONSUEOL PAINTING MD Diagnosis: Dysthymic disord er as directed Last Documented On 7 11:51AM By Nelda Zuniga MD ; [facility] BuPROPion HCl ER (XL) 150MG Oral Tablet, extended-release 24 hour 09/09/2016 - 10/13/2016 Provider: CONSUELO ZUNIGA MD Diagnosis: Major depressive disorder, recurrent, unspecified as directed 3 tablets in am Last Documented On 7 11:51AM By Nelda Zuniga MD ; [facility] Adderall 20MG Oral Tablet 09/09/2016 - 10/13/2016 Provider: CONSUELO ZUNIGA MD Diagnosis: Attention-defici t hyperactivity disorder, unspecified type as directed --- 1 tab in am, 1 tab at noon Last Documented On 10/13/2016 5:18PM By Nelda Zuniga MD ; [facility] TraZODone HCl 100MG Oral Tablet 09/09/2016 - 10/13/2016 Provider: CONSUELO ZUNIGA MD Diagnosis: Psychophysiologi c insomnia as directed -- 1 and 1/2 tab at bedtime Last Documented On 7 11:51AM By Nelda Zuniga MD ; [facility] Nuvigil 250MG Oral Tablet 09/09/2016 - 11/11/2016 Provider: CONSUELO ZUNIGA MD Diagnosis: Obstructive slee p apnea (adult) (pediatric) as directed --1 tab in am -- pt got it in 03/2016 but did not refill again Last Documented On 11/11/2016 5:50PM By Nelda Zuniga MD ; [facility] BusPIRone HCl 15MG Oral Tablet 09/09/2016 - 10/13/2016 Provider: CONSUELO ZUNIGA MD Diagnosis: Generalized anxi ety disorder as directed --1 tab 4 x a day Last Documented On 7 11:51AM By Nelda Zuniga MD ; [facility] KlonoPIN 0.5MG Oral Tablet 09/09/2016 - 10/13/2016 Provider: CONSUELO ZUNIGA MD Diagnosis: Generalized anxi ety disorder as directed 1 tab 2 x a day as needed only for panic/anxiety -- called in on 08/24/16 Last Documented On 7 11:51AM By Nelda Zuniga MD ; [facility] Viibryd 40MG Oral Tablet 09/09/2016 - 10/13/2016 Provider: CONSUELO PAINTING MD Diagnosis: Major depressive disorder, recurrent, moderate 1 tablet every morning with food Last Documented On 7 11:51AM By Nelda Zuniga MD ; [facility] KlonoPIN 0.5MG Oral Tablet 08/24/2016 - 08/18/2016 Provider: CONSUELO ZUNIGA MD Diagnosis: Generalized anxi ety disorder as directed 1 tab 2 x a day as needed only for panic/anxiety -- called in 30 on 08/24/16 Last Documented On 09/09/2016 4:30PM By Nelda Zuniga MD ; [facility] Focalin 10MG Oral Tablet 08/18/2016 - 11/11/2016 Provider: CONSUELO ZUNIGA MD Diagnosis: Attention-defici t hyperactivity disorder, unspecified type as directed -- 1 tab at noon Last Documented On 11/11/2016 5:37PM By Nelda Zuniga MD ; [facility] Adderall 20MG Oral Tablet 08/02/2016 - 08/18/2016 Provider: CONSUELO ZUNIGA MD Diagnosis: Attention-defici t hyperactivity disorder, unspecified type as directed --- 1 tab in am, 1 tab at noon Last Documented On 09/09/2016 4:30PM By Nelda Zuniga MD ; [facility] BuPROPion HCl ER (XL) 150MG Oral Tablet Extended Release 24 Hour 07/13/2016 - 08/18/2016 Provider: CONSUELO ZUNIGA MD Diagnosis: Major depressive disorder, recurrent, unspecified as directed 3 tablets in am Last Documented On 09/09/2016 4:30PM By Nelda Zuniga MD ; [facility] Trintellix 20MG Oral Tablet 06/19/2016 - 08/18/2016 Provider: CONSUELO PAINTING MD Diagnosis: Dysthymic disord er as directed Last Documented On 09/09/2016 4:30PM By Nelda Zuniga MD ; [facility] BuPROPion HCl ER (XL) 150MG Oral Tablet Extended Release 24 Hour 06/19/2016 - 07/13/2016 Provider: CONSUELO ZUNIGA MD Diagnosis: Major depressive disorder, recurrent, unspecified as directed 3 tablets in am Last Documented On 07/13/2016 3:57PM By Nelda Zuniga MD ; [facility] Nuvigil 250MG Oral Tablet 06/19/2016 - 08/18/2016 Provider: CONSUELO ZUNIGA MD Diagnosis: Obstructive slee p apnea (adult) (pediatric) as directed --1 tab in am Last Documented On 09/09/2016 4:30PM By Nelda Zuniga MD ; [facility] KlonoPIN 0.5MG Oral Tablet 06/19/2016 - 08/24/2016 Provider: CONSUELO ZUNIGA MD Diagnosis: Generalized anxi ety disorder as directed 1 tab 2 x a day as needed only for panic/anxiety --used it only 4 x as of 05/06/16 Last Documented On 08/24/2016 9:55AM By Nelda Zuniga MD ; [facility] BusPIRone HCl 15MG Oral Tablet 06/19/2016 - 08/18/2016 Provider: CONSUELO ZUNIGA MD Diagnosis: Generalized anxi ety disorder as directed --1 tab 4 x a day Last Documented On 09/09/2016 4:30PM By Nelda Zuniga MD ; [facility] Viibryd 40MG Oral Tablet 06/19/2016 - 08/18/2016 Provider: CONSUELO PAINTING MD Diagnosis: Major depressive disorder, recurrent, moderate 1 tablet every morning with food Last Documented On 09/09/2016 4:30PM By Nelda Zuniga MD ; [facility] Adderall 20MG Oral Tablet 06/16/2016 - 08/02/2016 Provider: CONSUELO ZUNIGA MD Diagnosis: Attention-defici t hyperactivity disorder, unspecified type as directed --- 1 tab in am, 1 tab at noon Last Documented On 08/02/2016 7:00PM By Nelda Zuniga MD ; [facility] Belsomra 15MG Oral Tablet 05/06/2016 - 08/18/2016 Provider: CONSUELO ZUNIGA MD Diagnosis: Psychophysiologi c insomnia One tablet at bed time -- gi roney 15 tabs samples on 05/06/16 Last Documented On 7 4:00PM By DIONE LOVE LPN ; [facility] Adderall 20MG Oral Tablet 05/06/2016 - 06/16/2016 Provider: CONSUELO ZUNIGA MD Diagnosis: Attention-defici t hyperactivity disorder, unspecified type as directed --- 1 tab in am, 1 tab at noon Last Documented On 06/16/2016 3:50PM By Nelda Zuniga MD ; [facility] Viibryd 40MG Oral Tablet 04/26/2016 - 05/06/2016 Provider: CONSUELO PAINTING MD Diagnosis: Dysthymic disord er 1 tablet every morning with food Last Documented On 06/19/2016 3:40PM By Nelda Zuniga MD ; [facility] Atenolol 25MG Oral Tablet 04/26/2016 - 11/07/2016 Provider: CONSUELO ZUNIGA MD Diagnosis: Generalized anxi ety disorder TAKE 1 TABLET DAILY Last Documented On 11/07/2016 9:20AM By Nelda Zuniga MD ; [facility] Belsomra 10 MG Tablet 03/26/2016 - 06/19/2016 Provider: CONSUELO ZUNIGA MD Diagnosis: Psychophysiologi c insomnia as directed --10 mg at hs or 15 mg at hs or 20 mg at hs -- given 6 tabs each dose --total of 18 tabs samples Last Documented On 06/19/2016 3:32PM By Nelda Zuniga MD ; [facility] Nuvigil 250 MG Tablet 03/26/2016 - 05/06/2016 Provider: CONSUELO ZUNIGA MD Diagnosis: Obstructive slee p apnea (adult) (pediatric) as directed --1 tab in am Last Documented On 06/19/2016 3:40PM By Nelda Zuniga MD ; [facility] Trintellix 20 MG Tablet 03/25/2016 - 05/06/2016 Provider: CONSUELO ZUNIGA MD Diagnosis: Major depressive disorder, recurrent, moderate as directed Last Documented On 06/19/2016 3:40PM By Nelda Zuniga MD ; [facility] TraZODone HCl 100 MG Tablet 03/25/2016 - 08/18/2016 Provider: CONSUELO PAINTING MD Diagnosis: Oth insomnia not due to a substance or known physiol cond as directed -- 1 and 1/2 tab at bedtime Last Documented On 09/09/2016 4:30PM By Nelda Zuniga MD ; [facility] Nuvigil 250 MG Tablet 03/25/2016 - 03/25/2016 Provider: CONSUELO ZUNIGA MD Diagnosis: Attention-defici t hyperactivity disorder, unspecified type as directed --1 tab in am Last Documented On 03/26/2016 6:05PM By Nelda Zuniga MD ; [facility] KlonoPIN 0.5 MG Tablet 03/25/2016 - 05/06/2016 Provider: CONSUELO ZUNIGA MD Diagnosis: Generalized anxi ety disorder as directed 1 tab 2 x a day as needed only for panic/anxiety Last Documented On 06/19/2016 3:40PM By Nelda Zuniga MD ; [facility] Adderall 20 MG Tablet 03/25/2016 - 05/06/2016 Provider: CONSUELO ZUNIGA MD Diagnosis: Attention-defici t hyperactivity disorder, unspecified type as directed --- 1 tab in am, 1 tab at noon Last Documented On 05/06/2016 3:53PM By Nelda Zuniga MD ; [facility] Adderall XR 20 MG Capsule Extended Release 24 Hour 03/01/2016 - 03/25/2016 Provider: CONSUELO ZUNIGA MD Diagnosis: Attention-defici t hyperactivity disorder, unspecified type 1 Capsule every morning Last Documented On 7 10:11AM By Nelda Zuniga MD ; [facility] Adderall XR 20 MG Capsule, extended-release 24 hour 01/27/2016 - 03/01/2016 Provider: CONSUELO ZUNIGA MD Diagnosis: Attention-defici t hyperactivity disorder, unspecified type 1 Capsule every morning Last Documented On 03/01/2016 2:45PM By Nelda Zuniga MD ; [facility] Viibryd 40 MG Tablet 12/28/2015 - 04/26/2016 Provider: CONSUELO ZUNIGA MD Diagnosis: Dysthymic disord er 1 tablet every morning with food Last Documented On 04/26/2016 9:45PM By Nelda Zuniga MD ; [facility] Trintellix 10 MG Tablet 12/28/2015 - 06/19/2016 Provider: CONSUELO ZUNIGA MD Diagnosis: Major depressive disorder, recurrent, moderate One tablet daily Last Documented On 06/19/2016 3:39PM By Nelda Zuniga MD ; [facility] KlonoPIN 0.5 MG Tablet 12/25/2015 - 03/25/2016 Provider: CONSUELO ZUNIGA MD Diagnosis: Generalized anxi ety disorder as directed 1 tab a day as n eeded only for panic/anxiety Last Documented On 03/25/2016 9:46AM By Nelda Zuniga MD ; [facility] Adderall XR 20 MG Capsule, extended-release 24 hour 12/25/2015 - 01/27/2016 Provider: CONSUELO ZUNIGA MD Diagnosis: Attention-defici t hyperactivity disorder, unspecified type 1 Capsule every morning Last Documented On 6 10:55AM By Nelda Zuniga MD ; [facility] Adderall XR 20 MG Capsule, extended-release 24 hour 11/17/2015 - 12/25/2015 Provider: CONSUELO ZUNIGA MD Diagnosis: Attention-defici t hyperactivity disorder, unspecified type 1 Capsule every morning Last Documented On 6 10:57AM By Nelda Zuniga MD ; [facility] BusPIRone HCl 15 MG Tablet 10/23/2015 - 05/06/2016 Provider: CONSUELO ZUNIGA MD Diagnosis: Generalized anxi ety disorder as directed --1 tab 4 x a day Last Documented On 06/19/2016 3:40PM By Nelda Zuniga MD ; [facility] Atenolol 25 MG Tablet 10/23/2015 - 04/26/2016 Provider: CONSUELO ZUNIGA MD Diagnosis: Generalized anxi ety disorder One tablet daily Last Documented On 04/26/2016 9:44PM By Nelda Zuniga MD ; [facility] Viibryd 40 MG Tablet 10/22/2015 - 12/25/2015 Provider: CONSUELO ZUNIGA MD Diagnosis: Dysthymic disord er 1 tablet every morning with food Last Documented On 12/28/2015 8:21AM By Nelda Zuniga MD ; [facility] Trintellix 10 MG Tablet 10/22/2015 - 12/25/2015 Provider: CONSUELO ZUNIGA MD Diagnosis: Major depressive disorder, recurrent, moderate One tablet daily Last Documented On 12/28/2015 8:21AM By Nelda Zuniga MD ; [facility] Nuvigil 150 MG Tablet 10/21/2015 - 03/25/2016 Provider: CONSUELO ZUNIGA MD Diagnosis: Attention-defici t hyperactivity disorder, unspecified type 1 tablet every morning Last Documented On 7 10:11AM By Nelda Zuniga MD ; [facility] Adderall XR 20 MG Capsule, extended-release 24 hour 10/21/2015 - 11/17/2015 Provider: CONSUELO ZUNIGA MD Diagnosis: Attention-defici t hyperactivity disorder, unspecified type 1 Capsule every morning Last Documented On 6 10:17AM By Nelda Zuniga MD ; [facility] BuPROPion HCl ER (XL) 150 MG Tablet, extended-release 24 hour 10/21/2015 - 05/06/2016 Provider: CONSUELO ZUNIGA MD Diagnosis: Major depressive disorder, recurrent, unspecified as directed 3 tablets in am Last Documented On 06/19/2016 3:40PM By Nelda Zuniga MD ; [facility] BusPIRone HCl 15 MG Tablet 10/21/2015 - 10/23/2015 Provider: CONSUELO ZUNIGA MD Diagnosis: Generalized anxi ety disorder One tablet four times a day Last Documented On 10/23/2015 1:07PM By Nelda Zuniga MD ; [facility] Adderall XR 20 MG Capsule Extended Release 24 Hour 09/23/2015 - 12/25/2015 Provider: CONSUELO ZUNIGA MD Diagnosis: Attention-defici t hyperactivity disorder, unspecified type 1 Capsule every morning Last Documented On 6 9:59AM By DIONE LOVE LPN ; [facility] Trintellix 10 MG Tablet 09/23/2015 - 10/21/2015 Provider: CONSUELO ZUNIGA MD Diagnosis: Major depressive disorder, recurrent, moderate One tablet daily Last Documented On 10/22/2015 8:22AM By Nelda Zuniga MD ; [facility] KlonoPIN 0.5 MG Tablet 09/23/2015 - 12/25/2015 Provider: CONSUELO ZUNIGA MD Diagnosis: Generalized anxi ety disorder as directed 1 tab a day as n eeded only for panic/anxiety -- called in 30 to [facility] on 09/08/15 by BK Last Documented On 6 10:57AM By Nelda Zuniga MD ; [facility] BuPROPion HCl ER (XL) 150 MG Tablet Extended Release 24 Hour 09/23/2015 - 10/21/2015 Provider: CONSUELO ZUNIGA MD Diagnosis: Major depressive disorder, recurrent, unspecified as directed 3 tablets in am Last Documented On 6 10:40AM By Nelda Zuniga MD ; [facility] KlonoPIN 0.5 MG Tablet 09/08/2015 - 09/23/2015 Provider: CONSUELO ZUNIGA MD Diagnosis: Generalized anxi ety disorder as directed 1 tab a day as n eeded only for panic/anxiety -- called in 30 to [facility] on 09/08/15 by BK Last Documented On 09/23/2015 4:32PM By Nelda Zuniga MD ; [facility] Concerta 36 MG Tablet, controlled-release 09/07/2015 - 10/21/2015 Provider: CONSUELO ZUNIGA MD Diagnosis: Attn-defct hyperactivity disorder, predom inattentive type as directed 1 tab in am then 1 tab at noon Last Documented On 6 10:25AM By Nelda Zuniga MD ; [facility] Concerta 36 MG Tablet Extended Release 08/06/2015 - 09/07/2015 Provider: CONSUELO ZUNIGA MD Diagnosis: Attn-defct hyper activity disorder, predom inattentive type as directed 1 tab in am then 1 tab at noon Last Documented On 09/07/2015 5:57PM By Nelda Zuniga MD ; [facility] KlonoPIN 0.5 MG Tablet 08/06/2015 - 09/07/2015 Provider: CONSUELO ZUNIGA MD Diagnosis: Generalized anxi ety disorder as directed 1 tab a day as n eeded only for panic/anxiety ---15 [facility] 07/[facility] -- pt requesting 30 tabs next time Last Documented On 6 11:08AM By Nelda Zuniga MD ; [facility] Brintellix 10 MG Tablet 08/06/2015 - 10/21/2015 Provider: CONSUELO ZUNIGA MD Diagnosis: Major depressive disorder, recurrent, unspecified One tablet daily Last Documented On 6 10:23AM By Nelda Zuniga MD ; [facility] Concerta 36 MG Tablet Extended Release 07/30/2015 - 08/05/2015 Provider: CONSUELO ZUNIGA MD Diagnosis: Attn-defct hyper activity disorder, predom inattentive type as directed 1 tab in am then 1 tab at noon Last Documented On 08/06/2015 8:15PM By Nelda Zuniga MD ; [facility] BuPROPion HCl ER (XL) 150 MG Tablet Extended Release 24 Hour 07/17/2015 - 09/23/2015 Provider: CONSUELO ZUNIGA MD Diagnosis: Major depressive disorder, recurrent, unspecified as directed 3 tablets in am Last Documented On 09/23/2015 4:32PM By Nelda Zuniga MD ; [facility] KlonoPIN 0.5 MG Tablet 07/17/2015 - 08/05/2015 Provider: CONSUELO ZUNIGA MD Diagnosis: Generalized anxi ety disorder as directed 1 tab a day as n eeded only for panic/anxiety ---[facility] 07/17/15 Last Documented On 08/06/2015 8:15PM By Nelda Zuniga MD ; [facility] TraZODone HCl 100 MG Tablet 07/16/2015 - 03/25/2016 Provider: CONSUELO PAINTING MD Diagnosis: Oth insomnia not due to a substance or known physiol cond as directed -- 1 and 1/2 tab at bedtime Last Documented On 7 10:11AM By Nelda Zuniga MD ; [facility] Concerta 36 MG Tablet, controlled-release 06/23/2015 - 07/30/2015 Provider: CONSUELO ZUNIGA MD Diagnosis: Attn-defct hyperactivity disorder, predom inattentive type as directed 1 tab in am then 1 tab at noon Last Documented On 07/30/2015 1:46PM By Nelda Zuniga MD ; [facility] Concerta 36 MG Tablet, controlled-release 05/14/2015 - 06/23/2015 Provider: CONSUELO ZUNIGA MD Diagnosis: Attn-defct hyperactivity disorder, predom inattentive type as directed 1 tab in am then 1 tab at noon Last Documented On 06/23/2015 5:50PM By Nelda Zuniga MD ; [facility] Concerta 36 MG Tablet Extended Release 04/13/2015 - 05/14/2015 Provider: CONSUELO ZUNIGA MD Diagnosis: Attn-defct hyper activity disorder, predom inattentive type as directed 1 tab in am then 1 tab at noon Last Documented On 05/14/2015 3:10PM By Nelda Zuniga MD ; [facility] Silenor 6 MG Tablet 04/13/2015 - 08/05/2015 Provider: CONSUELO ZUNIGA MD Diagnosis: Psychophysiologi c insomnia One tablet at bed time as ne eded for sleep Last Documented On 08/05/2015 4:22PM By Nelda Zuniga MD ; [facility] KlonoPIN 0.5 MG Tablet 04/12/2015 - 07/17/2015 Provider: CONSUELO ZUNIGA MD Diagnosis: Generalized anxi ety disorder as directed 1 tab a day as n eeded only for panic/anxiety ---[facility] Last Documented On 07/17/2015 9:29AM By Nelda Zuniga MD ; [facility] Viibryd 40 MG Tablet 04/10/2015 - 10/21/2015 Provider: CONSUELO ZUNIGA MD Diagnosis: Dysthymic disord er 1 tablet every morning with food Last Documented On 10/22/2015 8:22AM By Nelda Zuniga MD ; [facility] Atenolol 25 MG Tablet 04/10/2015 - 10/23/2015 Provider: CONSUELO ZUNIGA MD Diagnosis: Generalized anxi ety disorder One tablet daily Last Documented On 10/23/2015 1:06PM By Nelda Zuniga MD ; [facility] KlonoPIN 0.5 MG Tablet 03/30/2015 - 04/12/2015 Provider: CONSUELO ZUNIGA MD Diagnosis: Generalized anxi ety disorder as directed 1 tab a day as n eeded only for panic/anxiety --phoned in 15 on 02/10/15 Last Documented On 04/12/2015 5:47PM By Nelda Zuniga MD ; [facility] BusPIRone HCl 15 MG Tablet 03/27/2015 - 10/21/2015 Provider: CONSUELO ZUNIGA MD Diagnosis: Generalized anxi ety disorder One tablet four times a day Last Documented On 6 10:40AM By Nelda Zuniga MD ; [facility] TraZODone HCl 100 MG Tablet 03/27/2015 - 07/16/2015 Provider: CONSUELO PAINTING MD Diagnosis: Oth insomnia not due to a substance or known physiol cond as directed 1 and 1/2 at bedtime Last Documented On 6 12:19PM By Nelda Zuniga MD ; [facility] BuPROPion HCl ER (XL) 150 MG Tablet, extended-release 24 hour 03/27/2015 - 07/17/2015 Provider: CONSUELO ZUNIGA MD Diagnosis: Major depressive disorder, recurrent, unspecified as directed 3 tablets in am Last Documented On 07/17/2015 5:01PM By Nelda Zuniga MD ; [facility] Brintellix 10 MG Tablet 03/27/2015 - 08/05/2015 Provider: CONSUELO ZUNIGA MD Diagnosis: Major depressive disorder, recurrent, unspecified One tablet daily Last Documented On 08/06/2015 8:15PM By Nelda Zuniga MD ; [facility] Concerta 36 MG Tablet, controlled-release 03/27/2015 - 04/13/2015 Provider: CONSUELO ZUNIGA MD Diagnosis: Attn-defct hyperactivity disorder, predom inattentive type as directed 1 tab in am then 1 tab at noon Last Documented On 6 10:34AM By Nelda Zuniga MD ; [facility] Concerta 36 MG Tablet, controlled-release 02/20/2015 - 03/27/2015 Provider: CONSUELO ZUNIGA MD Diagnosis: Attn-defct hyperactivity disorder, predom inattentive type as directed 1 tab in am then 1 tab at noon Last Documented On 6 10:39AM By Nelda Zuniga MD ; [facility] Concerta 36 MG Tablet, controlled-release 02/16/2015 - 02/20/2015 Provider: CONSUELO ZUNIGA MD Diagnosis: Attn-defct hyperactivity disorder, predom inattentive type as directed 1 tab in am then 1 tab at noon Last Documented On 02/20/2015 3:01PM By Nelda Zuniga MD ; [facility] KlonoPIN 0.5 MG Tablet 02/10/2015 - 03/27/2015 Provider: CONSUELO ZUNIGA MD Diagnosis: Generalized anxi ety disorder as directed 1 tab a day as n eeded only for panic/anxiety --phoned in 15 on 02/10/15 Last Documented On 6 10:38PM By Nelda Zuniga MD ; [facility] Brintellix 10 MG Tablet 02/09/2015 - 03/27/2015 Provider: CONSUELO ZUNIGA MD Diagnosis: Major depressive disorder, recurrent, unspecified One tablet daily Last Documented On 6 10:53AM By Nelda Zuniga MD ; [facility] Concerta 36 MG Tablet Extended Release 01/08/2015 - 02/16/2015 Provider: CONSUELO ZUNIGA MD Diagnosis: Attn-defct hyper activity disorder, predom inattentive type as directed 1 tab in am then 1 tab at noon Last Documented On 02/16/2015 3:57PM By Nedla Zuniga MD ; [facility] Silenor 6 MG Tablet 12/12/2014 - 04/13/2015 Provider: CONSUELO ZUNIGA MD Diagnosis: Psychophysiologi c insomnia One tablet at bed time as ne eded for sleep Last Documented On 6 10:33AM By Nelda Zuniga MD ; [facility] Concerta 36 MG Tablet Extended Release 12/02/2014 - 01/08/2015 Provider: CONSUELO ZUNIGA MD Diagnosis: Attn-defct hyper activity disorder, predom inattentive type as directed 1 tab in am then 1 tab at noon Last Documented On 01/08/2015 8:56AM By Nelda Zuniga MD ; [facility] KlonoPIN 0.5 MG Tablet 11/26/2014 - 02/10/2015 Provider: CONSUELO ZUNIGA MD Diagnosis: Generalized anxi ety disorder as directed 1 tab a day as n eeded only for panic/anxiety --phoned in 15 on 11/26/14 Last Documented On 5 12:05PM By Nelda Zuniga MD ; [facility] Concerta 36 MG Tablet Extended Release 10/27/2014 - 12/02/2014 Provider: CONSUELO ZUNIGA MD Diagnosis: ATTN DEFIC NONHY PERACT as directed 1 tab in am then 1 tab at noon Last Documented On 12/02/2014 2:06PM By Nelda Zuniga MD ; [facility] KlonoPIN 0.5 MG Tablet 10/17/2014 - 11/26/2014 Provider: CONSUELO ZUNIGA MD Diagnosis: GENERALIZED ANXI ETY DIS as directed 1 tab a day as n eeded only for panic/anxiety --phoned in 20 on 10/17/14 Last Documented On 11/26/2014 5:10PM By Nelda Zuniga MD ; [facility] TraZODone HCl 100 MG Tablet 10/04/2014 - 03/27/2015 Provider: CONSUELO PAINTING MD Diagnosis: PERSISTENT INSOM DORETHA as directed 1 and 1/2 at bedtime Last Documented On 6 10:53AM By Nelda Zuniga MD ; [facility] Viibryd 40 MG Tablet 10/04/2014 - 04/10/2015 Provider: CONSUELO ZUNIGA MD Diagnosis: DYSTHYMIC DISORD ER 1 tablet every morning with food Last Documented On 04/10/2015 5:13PM By Nelda Zuniga MD ; [facility] Concerta 36 MG Tablet Extended Release 10/04/2014 - 10/27/2014 Provider: CONSUELO ZUNIGA MD Diagnosis: ATTN DEFIC NONHY PERACT as directed 1 tab in am then 1 tab at noon Last Documented On 10/27/2014 3:58PM By Nelda Zuniga MD ; [facility] Nuvigil 150 MG Tablet 10/03/2014 - 03/27/2015 Provider: CONSUELO PAINTING MD Diagnosis: CHRONIC FATIGUE SYNDROME 1 tablet every morning Last Documented On 6 10:01AM By DIONE LOVE LPN ; [facility] Brintellix 10 MG Tablet 10/03/2014 - 02/09/2015 Provider: CONSUELO ZUNIGA MD Diagnosis: MAJOR DEPRESSION DISORDER/RECURRENT One tablet daily Last Documented On 02/09/2015 9:44AM By Nelda Zuniga MD ; [facility] BusPIRone HCl 15 MG Tablet 10/03/2014 - 03/27/2015 Provider: CONSUELO ZUNIGA MD Diagnosis: GENERALIZED ANXI ETY DIS One tablet four times a day Last Documented On 6 10:53AM By Nelda Zuniga MD ; [facility] Concerta 36 MG Tablet Extended Release 09/24/2014 - 10/03/2014 Provider: CONSUELO ZUNIGA MD Diagnosis: ATTN DEFIC NONHY PERACT as directed 1 tab in am then 1 tab at noon Last Documented On 10/04/2014 5:27PM By Nelda Zuniga MD ; [facility] KlonoPIN 0.5 MG Tablet 08/20/2014 - 10/17/2014 Provider: CONSUELO ZUNIGA MD Diagnosis: GENERALIZED ANXI ETY DIS as directed 1 tab a day as n eeded only for panic/anxiety --phoned in 20 on 08/20/14 Last Documented On 10/17/2014 9:18AM By Nelda Zuniga MD ; [facility] Atenolol 25 MG Tablet 08/20/2014 - 04/10/2015 Provider: CONSUELO ZUNIGA MD Diagnosis: GENERALIZED ANXI ETY DIS One tablet daily Last Documented On 04/10/2015 5:08PM By Nelda Zuniga MD ; [facility] Concerta 36 MG Tablet, controlled-release 08/20/2014 - 09/24/2014 Provider: CONSUELO ZUNIGA MD Diagnosis: ATTN DEFIC NONHYPERACT as directed 1 tab in am then 1 tab at noon Last Documented On 09/24/2014 9:51AM By Nelda Zuniga MD ; [facility] KlonoPIN 0.5 MG Tablet 07/14/2014 - 08/20/2014 Provider: CONSUELO ZUNIGA MD Diagnosis: GENERALIZED ANXI ETY DIS as directed 1 tab a day as n eeded only for panic/anxiety --phoned in 20 on 07/14/14 Last Documented On 5 10:32AM By Nelda Zuniga MD ; [facility] Atenolol 25 MG Tablet 07/10/2014 - 08/20/2014 Provider: CONSUELO ZUNIGA MD Diagnosis: GENERALIZED ANXI ETY DIS One tablet daily Last Documented On 08/20/2014 8:59AM By Nelda Zuniga MD ; [facility] Viibryd 40 MG Tablet 06/26/2014 - 10/03/2014 Provider: CONSUELO ZUNIGA MD Diagnosis: MAJOR DEPRESSION DISORDER/RECURRENT 1 tablet every morning with food Last Documented On 10/04/2014 6:08PM By Nelda Zuniga MD ; [facility] KlonoPIN 0.5 MG Tablet 06/26/2014 - 07/14/2014 Provider: CONSUELO ZUNIGA MD Diagnosis: GENERALIZED ANXI ETY DIS as directed 1 tab a day as n eeded only for panic/anxiety -- has meds Last Documented On 07/14/2014 5:58PM By Nelda Zuniga MD ; [facility] BusPIRone HCl 15 MG Tablet 06/26/2014 - 10/03/2014 Provider: CONSUELO ZUNIGA MD Diagnosis: GENERALIZED ANXI ETY DIS One tablet four times a day Last Documented On 10/03/2014 4:04PM By Nelda Zuniga MD ; [facility] Concerta 36 MG Tablet, controlled-release 06/26/2014 - 08/20/2014 Provider: CONSUELO ZUNIGA MD Diagnosis: ATTN DEFIC NONHYPERACT as directed 1 tab in am then 1 tab at noon Last Documented On 08/20/2014 8:59AM By Nelda Zuniga MD ; [facility] Silenor 6 MG Tablet 06/26/2014 - 12/12/2014 Provider: CONSUELO ZUNIGA MD Diagnosis: PERSISTENT INSOM DORETHA 1 at bedtime as needed for sleep Last Documented On 12/12/2014 9:49AM By Nelda Zuniga MD ; [facility] BuPROPion HCl ER (XL) 150 MG Tablet, extended-release 24 hour 06/26/2014 - 03/27/2015 Provider: CONSUELO ZUNIGA MD Diagnosis: MAJOR DEPRESSION DISORDER/RECURRENT as directed 3 tablets in am Last Documented On 6 10:53AM By Nelda Zuniga MD ; [facility] Concerta 36 MG Tablet, controlled-release 06/17/2014 - 06/26/2014 Provider: CONSUELO ZUNIGA MD Diagnosis: ATTN DEFIC NONHYPERACT as directed 1 tab in am then 1 tab at noon Last Documented On 06/26/2014 3:22PM By Nelda Zuniga MD ; [facility] KlonoPIN 0.5 MG OR TABS 05/16/2014 - 06/26/2014 Provider: CONSUELO ZUNIGA MD Diagnosis: GENERALIZED ANXI ETY DIS 1 tab a day as needed only f or panic/anxiety Last Documented On 06/26/2014 3:26PM By Nelda Zuniga MD ; [facility] Zolpidem Tartrate ER 12.5 MG OR TBCR 05/02/2014 - 06/26/2014 Provider: CONSUELO PAINTING MD Diagnosis: PERSISTENT INSOM DORETHA faxed to pharmacy that this was stopped due to sleep eating Last Documented On 06/26/2014 3:24PM By Nelda Zuniga MD ; [facility] Concerta 36 MG OR TBCR 04/30/2014 - 06/17/2014 Provider: CONSUELO ZUNIGA MD Diagnosis: ATTN DEFIC NONHY PERACT 1 tab in am then 1 tab at noon Last Documented On 06/17/2014 3:04PM By Nelda Zuniga MD ; [facility] Silenor 6 MG OR TABS 04/30/2014 - 06/26/2014 Provider: CONSUELO ZUNIGA MD Diagnosis: PERSISTENT INSOM DORETHA 1/2 to 1 at bedtime as needed for sleep Last Documented On 06/26/2014 3:21PM By Nelda Zuniga MD ; [facility] traZODone HCl 100 MG OR TABS 04/30/2014 - 10/03/2014 Provider: CONSUELO PAINTING MD Diagnosis: PERSISTENT INSOM DORETHA 1 and 1/2 at bedtime Last Documented On 10/04/2014 6:08PM By Nelda Zuniga MD ; [facility] buPROPion HCl ER (XL) 150 MG OR TB24 04/30/2014 - 06/26/2014 Provider: CONSUELO ZUNIGA MD Diagnosis: MAJOR DEPRESSION DISORDER/RECURRENT 3 tablets in am Last Documented On 06/26/2014 3:21PM By Nelda Zuniga MD ; [facility] busPIRone HCl 15 MG OR TABS 04/30/2014 - 06/26/2014 Provider: CONSUELO ZUNIGA MD Diagnosis: GENERALIZED ANXI ETY DIS Last Documented On 06/26/2014 3:26PM By Nelda Zuniga MD ; [facility] KlonoPIN 0.5 MG OR TABS 03/31/2014 - 05/16/2014 Provider: CONSUELO ZUNIGA MD Diagnosis: GENERALIZED ANXI ETY DIS 1 tab a day as needed only f or panic/anxiety Last Documented On 05/16/2014 5:51PM By Nelda Zuniga MD ; [facility] Concerta 36 MG OR TBCR 03/29/2014 - 04/30/2014 Provider: CONSUELO ZUNIGA MD Diagnosis: ATTN DEFIC NONHY PERACT 1 tab in am then 1 tab at noon Last Documented On 04/30/2014 3:56PM By Nelda Zuniga MD ; [facility] Atenolol 25 MG OR TABS 03/14/2014 - 07/10/2014 Provider: CONSUELO ZUNIGA MD Diagnosis: GENERALIZED ANXI ETY DIS Last Documented On 07/10/2014 6:26PM By Nelda Zuniga MD ; [facility] Atenolol 25 MG OR TABS 03/10/2014 - 03/14/2014 Provider: CONSUELO ZUNIGA MD Diagnosis: GENERALIZED ANXI ETY DIS Last Documented On 03/14/2014 4:33PM By Nelda Zuniga MD ; [facility] KlonoPIN 0.5 MG OR TABS 02/26/2014 - 03/31/2014 Provider: CONSUELO ZUNIGA MD Diagnosis: GENERALIZED ANXI ETY DIS 1 tab a day as needed only f or panic/anxiety Last Documented On 03/31/2014 5:52PM By Nelda Zuniga MD ; [facility] traZODone HCl 100 MG OR TABS 02/26/2014 - 04/30/2014 Provider: CONSUELO PAINTING MD Diagnosis: PERSISTENT INSOM DORETHA 2 at bedtime as needed for s leep -- takes 1 at night Last Documented On 04/30/2014 3:52PM By Nelda Zuniga MD ; [facility] Viibryd 40 MG OR TABS 02/26/2014 - 06/26/2014 Provider: CONSUELO PAINTING MD Diagnosis: MAJOR DEPRESSION DISORDER/RECURRENT Last Documented On 06/26/2014 3:30PM By Nelda Zuniga MD ; [facility] buPROPion HCl ER (XL) 150 MG OR TB24 02/26/2014 - 04/30/2014 Provider: CONSUELO ZUNIGA MD Diagnosis: MAJOR DEPRESSION DISORDER/RECURRENT 3 tablets in am Last Documented On 04/30/2014 3:52PM By Nelda Zuniga MD ; [facility] Concerta 36 MG OR TBCR 02/26/2014 - 03/29/2014 Provider: CONSUELO ZUNIGA MD Diagnosis: ATTN DEFIC NONHY PERACT 1 tab in am then 1 tab at noon Last Documented On 03/29/2014 6:25PM By Nelda Zuniga MD ; [facility] busPIRone HCl 15 MG OR TABS 01/31/2014 - 04/30/2014 Provider: CONSUELO ZUNIGA MD Diagnosis: GENERALIZED ANXI ETY DIS Last Documented On 04/30/2014 3:52PM By Nelda Zuniga MD ; [facility] busPIRone HCl 15 MG OR TABS 01/30/2014 - 01/31/2014 Provider: CONSUELO ZUNIGA MD Diagnosis: GENERALIZED ANXI ETY DIS Last Documented On 4 11:30AM By Nelda Zuniga MD ; [facility] KlonoPIN 0.5 MG OR TABS 01/27/2014 - 02/26/2014 Provider: CONSUELO ZUNIGA MD Diagnosis: GENERALIZED ANXI ETY DIS 1 tab a day as needed only f or panic/anxiety Last Documented On 02/26/2014 4:01PM By Nelda Zuniga MD ; [facility] Atenolol 25 MG OR TABS 01/03/2014 - 03/10/2014 Provider: CONSUELO ZUNIGA MD Diagnosis: GENERALIZED ANXI ETY DIS Last Documented On 4 11:31AM By Nelda Zuniga MD ; [facility] traZODone HCl 100 MG OR TABS 01/03/2014 - 02/26/2014 Provider: CONSUELO PAINTING MD Diagnosis: PERSISTENT INSOM DORETHA 2 at bedtime as needed for s leep -- will try 1 and 1/2 tab at night since 2 is too much for him Last Documented On 02/26/2014 3:55PM By Nelda Zuniga MD ; [facility] Viibryd 40 MG OR TABS 01/03/2014 - 02/26/2014 Provider: CONSULEO PAINTING MD Diagnosis: MAJOR DEPRESSION DISORDER/RECURRENT Last Documented On 02/26/2014 3:55PM By Nelda Zuniga MD ; [facility] Concerta 36 MG OR TBCR 01/03/2014 - 02/26/2014 Provider: CONSUELO ZUNIGA MD Diagnosis: ATTN DEFIC NONHY PERACT 1 tab in am then 1 tab at noon Last Documented On 02/26/2014 3:55PM By Nelda Zuniga MD ; [facility] Viibryd 40 MG OR TABS 09/27/2013 - 01/03/2014 Provider: CONSUELO PAINTING MD Diagnosis: MAJOR DEPRESSION DISORDER/RECURRENT Last Documented On 01/03/2014 4:26PM By Nelda Zuniga MD ; [facility] traZODone HCl 100 MG OR TABS 09/27/2013 - 01/03/2014 Provider: CONSUELO PAINTING MD Diagnosis: PERSISTENT INSOM DORETHA 2 at bedtime as needed for s leep -- will try 1 and 1/2 tab at night since 2 is too much for him Last Documented On 01/03/2014 4:26PM By Nelda Zuniga MD ; [facility] buPROPion HCl ER (XL) 150 MG OR TB24 09/27/2013 - 02/26/2014 Provider: CONSUELO ZUNIGA MD Diagnosis: MAJOR DEPRESSION DISORDER/RECURRENT 3 tablets in am Last Documented On 02/26/2014 3:55PM By Nelda Zuniga MD ; [facility] Zolpidem Tartrate ER 12.5 MG OR TBCR 09/27/2013 - 05/02/2014 Provider: CONSUELO PAINTING MD Diagnosis: PERSISTENT INSOM DORETHA Last Documented On 05/02/2014 5:01PM By Nelda Zuniga MD ; [facility] busPIRone HCl 15 MG OR TABS 09/27/2013 - 01/30/2014 Provider: CONSUELO ZUNIGA MD Diagnosis: GENERALIZED ANXI ETY DIS Last Documented On 01/30/2014 4:04PM By Nelda Zuniga MD ; [facility] Concerta 36 MG OR TBCR 09/27/2013 - 01/03/2014 Provider: CONSUELO ZUNIGA MD Diagnosis: ATTN DEFIC NONHY PERACT 1 tab in am then 1 tab at noon Last Documented On 01/03/2014 4:26PM By Nelda Zuniga MD ; [facility] busPIRone HCl 15 MG OR TABS 09/16/2013 - 09/27/2013 Provider: CONSUELO ZUNIGA MD Diagnosis: GENERALIZED ANXI ETY DIS TAKE 1 TABLET FOUR TIMES A DAY Last Documented On 09/27/2013 2:44PM By Nelda Zuniga MD ; [facility] Zolpidem Tartrate ER 12.5 MG OR TBCR 06/14/2013 - 09/27/2013 Provider: CONSUELO PAINTING MD Diagnosis: PERSISTENT INSOM DORETHA has 1 refill Last Documented On 09/27/2013 2:44PM By Nelda Zuniga MD ; [facility] traZODone HCl 100 MG OR TABS 06/14/2013 - 09/27/2013 Provider: CONSUELO PAINTING MD Diagnosis: PERSISTENT INSOM DORETHA 2 at bedtime as needed for sleep Last Documented On 09/27/2013 2:56PM By Nelda Zuniga MD ; [facility] Viibryd 20 MG OR TABS 06/14/2013 - 09/27/2013 Provider: CONSUELO PAINTING MD Diagnosis: MAJOR DEPRESSION DISORDER/RECURRENT Last Documented On 09/27/2013 2:53PM By Nelda Zuniga MD ; [facility] buPROPion HCl ER (XL) 150 MG OR TB24 06/14/2013 - 09/27/2013 Provider: CONSUELO ZUNIGA MD Diagnosis: MAJOR DEPRESSION DISORDER/RECURRENT 3 tablets in am Last Documented On 09/27/2013 2:56PM By Nelda Zuniga MD ; [facility] busPIRone HCl 15 MG OR TABS 06/14/2013 - 09/16/2013 Provider: CONSUELO ZUNIGA MD Diagnosis: GENERALIZED ANXI ETY DIS Last Documented On 09/16/2013 8:55AM By Nelda Zuniga MD ; [facility] Concerta 36 MG OR TBCR 06/14/2013 - 09/27/2013 Provider: CONSUELO ZUNIGA MD Diagnosis: ATTN DEFIC NONHY PERACT 1 tab in am then 1 tab at noon Last Documented On 09/27/2013 2:44PM By Nelda Zuniga MD ; [facility] KlonoPIN 0.5 MG OR TABS 04/06/2013 - 01/27/2014 Provider: CONSUELO ZUNIGA MD Diagnosis: GENERALIZED ANXI ETY DIS 1 tab a day as needed only f or panic/anxiety Last Documented On 01/27/2014 3:28PM By Nelda Zuniga MD ; [facility] buPROPion HCl ER (XL) 150 MG OR TB24 04/06/2013 - 06/14/2013 Provider: CONSUELO ZUNIGA MD Diagnosis: MAJOR DEPRESSION DISORDER/RECURRENT 3 tablets in am Last Documented On 06/14/2013 3:51PM By Nelda Zuniga MD ; [facility] Viibryd 10 & 20 & 40 MG OR KIT 04/06/2013 - 09/27/2013 Provider: CONSUELO ZUNIGA MD Diagnosis: MAJOR DEPRESSION DISORDER/RECURRENT 10 mg in am with food for 2 weeks and if tolerated may increase to 20 mg in am thereafter ---given 1 month samples Last Documented On 09/27/2013 2:53PM By Nelda Zuniga MD ; [facility] KlonoPIN 0.5 MG OR TABS 04/06/2013 - 06/14/2013 Provider: CONSUELO ZUNIGA MD Diagnosis: GENERALIZED ANXI ETY DIS 1 a day as needed for panic/ anxiety --pt has 3 left Last Documented On 4 3:07PM By DAV DOUGLAS ; [facility] Concerta 36 MG OR TBCR 04/06/2013 - 06/14/2013 Provider: CONSUELO ZUNIGA MD Diagnosis: ATTN DEFIC NONHY PERACT increase to 1 tab in am then 1 tab at noon Last Documented On 06/14/2013 3:51PM By Nelda Zuniga MD ; [facility] busPIRone HCl 15 MG OR TABS 04/05/2013 - 06/14/2013 Provider: CONSUELO ZUNIGA MD Diagnosis: GENERALIZED ANXI ETY DIS Last Documented On 06/14/2013 3:51PM By Nelda Zuniga MD ; [facility] traZODone HCl 100 MG OR TABS 04/05/2013 - 06/14/2013 Provider: CONSUELO PAINTING MD Diagnosis: PERSISTENT INSOM DORETHA 2 at bedtime as needed for sleep Last Documented On 06/14/2013 3:54PM By Nelda Zuniga MD ; [facility] Concerta 36 MG OR TBCR 03/10/2013 - 04/06/2013 Provider: CONSUELO ZUNIGA MD Diagnosis: ATTN DEFIC NONHY PERACT 1 tab in am for 2 weeks and if tolerated may increase to 2 tabs in am thereafter Last Documented On 04/06/2013 5:42PM By Nelda Zuniga MD ; [facility] traZODone HCl 100 MG OR TABS 03/10/2013 - 04/05/2013 Provider: CONSUELO PAINTING MD Diagnosis: PERSISTENT INSOM DORETHA 2 at bedtime as needed for sleep Last Documented On 04/05/2013 2:32PM By Nleda Zuniga MD ; [facility] busPIRone HCl 15 MG OR TABS 03/10/2013 - 04/05/2013 Provider: CONSUELO ZUNIGA MD Diagnosis: GENERALIZED ANXI ETY DIS Last Documented On 04/05/2013 2:35PM By Nelda Zuniga MD ; [facility] buPROPion HCl ER (XL) 150 MG OR TB24 03/08/2013 - 04/05/2013 Provider: CONSUELO ZUNIGA MD Diagnosis: MAJOR DEPRESSION DISORDER/RECURRENT 3 tablets in am Last Documented On 04/06/2013 5:37PM By Nelda Zuniga MD ; [facility] traZODone HCl 100 MG OR TABS 01/27/2013 - 03/08/2013 Provider: CONSUELO PAINTING MD Diagnosis: PERSISTENT INSOM DORETHA 2 at bedtime as needed for sleep Last Documented On 03/10/2013 5:18PM By Nelda Zuniga MD ; [facility] Zolpidem Tartrate ER 12.5 MG OR TBCR 01/27/2013 - 04/06/2013 Provider: CONSUELO PAINTING MD Diagnosis: PERSISTENT INSOM DORETHA Last Documented On 04/06/2013 5:42PM By Nelda Zuniga MD ; [facility] Focalin XR 30 MG OR CP24 01/27/2013 - 03/10/2013 Provider: CONSUELO ZUNIGA MD Diagnosis: ATTN DEFIC NONHY PERACT after 2 weeks of 20 mg in am may increase to 30 mg in am if tolerated Last Documented On 03/10/2013 5:16PM By Nelda Zuniga MD ; [facility] buPROPion HCl ER (XL) 150 MG OR TB24 01/19/2013 - 03/08/2013 Provider: CONSUELO ZUNIGA MD Diagnosis: MAJOR DEPRESSION DISORDER/RECURRENT 3 tablets in am Last Documented On 03/08/2013 3:06PM By Nelda Zuniga MD ; [facility] Focalin XR 20 MG OR CP24 01/18/2013 - 03/10/2013 Provider: CONSUELO PAINTING MD Diagnosis: ATTN DEFIC NONHY PERACT Last Documented On 03/10/2013 5:16PM By Nelda Zuniga MD ; [facility] busPIRone HCl 15 MG OR TABS 12/19/2012 - 03/08/2013 Provider: CONSUELO ZUNIGA MD Diagnosis: GENERALIZED ANXI ETY DIS Last Documented On 03/10/2013 5:18PM By Nelda Zuniga MD ; [facility] Strattera 60 MG OR CAPS 12/19/2012 - 04/06/2013 Provider: CONSUELO ZUNIGA MD Diagnosis: ATTN DEFIC NONHY PERACT 60 mg in am for 2 - 4 weeks then if no improvement may increase to 80 mg in am---given 1 month samples to try Last Documented On 04/06/2013 5:42PM By Nelda Zuniga MD ; [facility] Lunesta 2 MG OR TABS 12/19/2012 - 01/27/2013 Provider: CONSUELO ZUNIGA MD Diagnosis: PERSISTENT INSOM DORETHA as needed for sleep----given 5 tablet samples to try Last Documented On 01/27/2013 5:35AM By Nelda Zuniga MD ; [facility] buPROPion HCl ER (XL) 150 MG OR TB24 12/19/2012 - 01/18/2013 Provider: CONSUELO ZUNIGA MD Diagnosis: MAJOR DEPRESSION DISORDER/RECURRENT 3 tablets in am Last Documented On 01/19/2013 1:33PM By Nelda Zuniga MD ; [facility] Strattera 40 MG OR CAPS 11/29/2012 - 01/18/2013 Provid er: Diagnosis: Last Documented On 3 1:58PM By DAV DOUGLAS ; [facility] Zolpidem Tartrate 10 MG OR TABS 10/11/2012 - 12/19/2012 Provider: CONSUELO PAINTING MD Diagnosis: PERSISTENT INSOM DORETHA at bedtime as needed only--- given by Dr. Lara Last Documented On 3 10:53PM By Nelda Zuniga MD ; [facility] busPIRone HCl 10 MG OR TABS 10/11/2012 - 03/10/2013 Provider: CONSUELO ZUNIGA MD Diagnosis: GENERALIZED ANXI ETY DIS as needed for anxiety Last Documented On 03/10/2013 5:14PM By Nelda Zuniga MD ; [facility] traZODone HCl 50 MG OR TABS 10/11/2012 - 01/19/2013 Provider: CONSUELO PAINTING MD Diagnosis: PERSISTENT INSOM DORETHA 1 at bedtime---given by Dr. Lara Last Documented On 01/19/2013 1:28PM By Nelda Zuniga MD ; [facility] Concerta 36 MG OR TBCR 10/11/2012 - 11/29/2012 Provider: CONSUELO PAINTING MD Diagnosis: ATTN DEFICIT W HYPERACT 2 tablets in am Last Documented On 11/29/2012 9:51AM By SANDEE KAUR ; [facility] buPROPion HCl ER (XL) 150 MG OR TB24 10/11/2012 - 12/12/2012 Provider: CONSUELO ZUNIGA MD Diagnosis: MAJOR DEPRESSION DISORDER/RECURRENT 3 tablets in am Last Documented On 3 10:52PM By Nelda Zuniga MD ; [facility] Concerta 36 MG OR TBCR 09/11/2012 - 10/11/2012 Provider: CONSUELO PAINTING MD Diagnosis: ATTN DEFICIT W HYPERACT 2 tablets in am Last Documented On 10/11/2012 1:48PM By Nelda Zuniga MD ; [facility] Zolpidem Tartrate 10 MG OR TABS 09/11/2012 - 10/11/2012 Provider: CONSUELO PAINTING MD Diagnosis: PERSISTENT INSOM DORETHA at bedtime as needed only Last Documented On 10/11/2012 3:58PM By Nelda Zuniga MD ; [facility] buPROPion HCl ER (XL) 300 MG OR TB24 09/11/2012 - 04/2012 Provider: Diagnosis: Last Documented On 3 4:07PM By DAV DOUGLAS ; [facility] traZODone HCl 50 MG OR TABS 09/11/2012 - 10/11/2012 Provider: CONSUELO PAINTING MD Diagnosis: DYSTHYMIC DISORD ER 1 at bedtime Last Documented On 10/11/2012 3:58PM By Nelda Zuniga MD ; [facility] buPROPion HCl ER (XL) 150 MG OR TB24 09/11/2012 - 10/11/2012 Provider: CONSUELO ZUNIGA MD Diagnosis: MAJOR DEPRESSION DISORDER/RECURRENT 3 tablets in am Last Documented On 10/11/2012 1:48PM By Nelda Zuniga MD ; [facility] traZODone HCl 50 MG OR TABS 09/11/2012 - 09/11/2012 Pr ovider: Diagnosis: at bedtime Last Documented On 3 10:35PM By Nelda Zuniga MD ; [facility] Zolpidem Tartrate 10 MG OR TABS 09/11/2012 - 3 Provider: Diagnosis: at bedtime Last Documented On 3 10:35PM By Nelda Zuniga MD ; [facility] Medications Administered Includes: Administered Medications in patient's chart No Administered Medications Recorded Results Includes: Results from 06/01/2023 through 05/31/2024 No Results Recorded For Specified Dates History of Present Illness History of Present Illness not supported for this document type No History of Present Illness Recorded Social History Description Last Updated Alcohol use - will 3-6 beers every night and was asked to please abstain from alcohol since ETOH is a [employer] depressant 05/16/2022 Last Documented On 3 11:26PM ; [facility] Drug use madeboraa he tried a couple of times but has not used for quite awhile 03/13/2022 Last Documented On 3 7:48PM ; [facility] Daily coffee consumption -- drinks 1 cup of coffee every morning, no soda or tea 09/29/2020 Last Documented On 1 1:46PM ; [facility] Alcohol 09/29/2020 Last Documented On 1 1:46PM ; [facility] Current nonsmoker 05/28/2020 Last Documented On 1 8:27AM ; [facility] Non-smoker 09/09/2019 Last Documented On 0 3:48PM ; [facility] He was born in [facility] and raised in [place]. 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 He has completed trade school. 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 02/02/2018 Last Documented On 8 12:03AM ; [facility] Marital history -- 03/27/2015 Last Documented On 6 10:47PM ; [facility] Smoking Status Unknown Medical History Includes: Medical History in patient's chart Description Last Updated History of coronavirus 2019- nCoV vaccine - Moderna #1 06/2020 #2 07/2020 #3 04/202108/02/2021 Last Documented On 2 10:31AM ; [facility] History of mouth cyst - grow th in mouth removed 06/02/20 -- given Amoxil 875 mg, Ibuprofen 800 mg and Tramadol 50 mg 09/29/2020 Last Documented On 1 1:46PM ; [facility] Primary Care Provider: Dr. Darlene Lara ~Dr. Len Hernandez, DMD -- Dentist 09/29/2020 Last Documented On 1 1:46PM ; [facility] History of toxic reaction to venom of spider - on 10/02/19 -- given Keflex 500 mg and Triamcinolone cream 0.05 % by Dr. Valente and on 10/06/19 he was seen at [facility] by Dr. Hopkins and given Clindaymycin 150 mg -- for spider bite on right calf 10/23/2019 Last Documented On 0 2:22AM ; [facility] History of colonoscopy - 2017 -- no poly ps 02/25/2019 Last Documented On 9 12:00AM ; [facility] History of irritable bowel syndrome 01/12 Last Documented On 9 12:00AM ; [facility] History of keloid scar -- re moval ( on left ear lobe) 03/[address] 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 Pt had PT for both arms and elbow -- 04/201401/29/2018 Last Documented On 8 12:03AM ; [facility] History of Raynaud's syndrom e --taking amlodipine for this --given by Dr. Barcenas 11/11/2016 Last Documented On 7 5:52PM ; [facility] History of colitis 03/27/2015 Last Documented On 6 10:47PM ; [facility] History of systemic lupus erythematosus 10/03/2014 Last Documented On 5 6:09PM ; [facility] History of dysthymic disorder 12/12/2012 Last Documented On 3 11:19PM ; [facility] Family History Includes: Family History in patient's chart Description Last Updated Maternal history of depressi on -- mother, Dx with Lymphoma, DEBORAH Polyneuropathy and Waldenstroms Disorder 09/28/2017 Last Documented On 8 11:13PM ; [facility] Review of Systems Review of Systems not supported for this document type No Review of Systems Recorded Mental Status No Mental Status Recorded Functional Status No Functional Status Recorded Physical Exam Physical Exam not supported for this document type No Physical Exam Recorded Allergies Includes: Active, inactive, and resolved Allergies No Known Allergies Insurance Includes: Active Insurance Policies Plan Name Member ID Group # Subscriber Relationship Effect sunday Dates 1 - [facility] [id number] DANIEL FLOWERS Self Clinical Notes Includes: Signed Clinical Notes starting from 04/01/2022 No Clinical Notes Recorded
[2024-05-31 08:10] VITALS: BP 156/104; PULSE 107; RESP 18; TEMP 36.3; O2SAT 97
[2024-05-31] MEDS: LACTATED RINGERS 1,000 ML 150 ML IV CONT (08:19)
--- NOTE | 2024-05-31 09:05 | WPDANESEPPF ---
Anes - Initial Pre Proc Eval Procedure: Operation Date: 05/31/24 09:30 Proposed Procedures p Colonoscopy - Christopher Oreilly MD Date/Time: 05/31/24 09:05 Surgeon: Christopher Oreilly MD Pre Op Diagnosis: diverticulitis of intestine Patient Data Age: 58 Gender: M Height: 1.83 m Weight: 89.7 kg Last Vital Signs Temp 97.3 F L 05/31/24 08:10 Pulse 107 H 05/31/24 08:10 Resp 18 05/31/24 08:10 BP 156/104 H 05/31/24 08:10 Pulse Ox 97 05/31/24 08:10 O2 Del Method Room Air 05/31/24 08:10 Allergies Allergy/AdvReac Type Severity Reaction Status Date / Time No Known Allergies Allergy Verified 05/31/24 08:08 Home Medications ?Medication ?Instructions ?Recorded ?Confirmed ?Type atenolol 25 mg tablet 25 mg PO DAILY 04/25/19 05/31/24 History dextroamphetamine-amphetamine ER PO 10/06/19 05/06/24 History 37.5 mg capsule, 3 bead, ext rel 24hr (Mydayis) trazodone 100 mg tablet 10/06/19 05/06/24 History vortioxetine 20 mg tablet 20 mg PO DAILY 10/06/19 05/31/24 History (Trintellix) buspirone 15 mg tablet 15 mg PO QID 10/18/22 05/31/24 History clonazepam 0.5 mg tablet 0.5 mg PO DAILY PRN anxiety 10/18/22 05/06/24 History mirtazapine 15 mg tablet 15 mg PO QHS 10/18/22 05/31/24 History vilazodone 40 mg tablet (Viibryd) 40 mg PO DAILY 10/18/22 05/06/24 History bupropion HCl 200 mg tablet,12 hr 200 mg PO BID 09/26/23 05/31/24 History sustained-release amlodipine 5 mg tablet See Rx Instructions .Route 12/08/23 05/31/24 Rx .COMPLEX #90 tabs syringe with needle 3 mL 18 x 1 #24 ea 02/26/24 05/06/24 Rx 1/2 (BD Luer-Fern Syringe) syringe with needle 3 mL 23 gauge #4 ea 03/20/24 05/06/24 Rx x 1 1/2 (BD Luer-Fern Syringe) testosterone cypionate 200 mg/mL 100 mg (0.5 mL) IM WEEKLY #10 mL 05/06/24 05/27/24 Rx intramuscular oil (Depo-Testosterone) Patient hx anesthesia problems: none Family hx anesthesia problems: none Results Review: All pre-operative results and documents have been reviewed as part of the pre-operative evaluation. [facility] Past Medical History Medical History COVID-19 Major depressive disorder without psychotic features Long-term current use of testosterone cypionate ADD (attention deficit disorder) Depression Leukopenia Memory loss Hypertension Raynauds disease Umbilical hernia Family History Family History Mother Depression Cancer of unknown origin Father Hypertension Esophageal cancer Social History Social History Social History: Caffeine- Rarely Smoking status: Never smoker Alcohol intake: current Alcohol use details: rarely Substance use: never Substance use type: does not use Do You Feel Safe in your Home?: Yes Lack of Transportation: No Lack of Food: Never True Current Housing: I Have Housing Concerned About Future Housing: No Difficulty Paying Gas/Electric Bills: No Difficulty Paying for Meds: No Currently Unemployed: No Education: Trade/Vocational Certificate Difficulty w/ Childcare or Family Care: No Living arrangements: with family Spiritual care concerns: No Anes - Eval Final PreProcedure Day of Procedure 05/31/24 09:05 Patient weight: normal Heart: regular rate and rhythm Lungs: clear to auscultation Airway: Mallampati scale class II Neurological: alert and oriented Last oral intake: >/= 8 hours ASA classification: II Emergent: no Anesthetic plan: proceed Anesthesia type and monitoring: general GIVS and standard monitoring Results Review: All pre-operative results and documents have been reviewed as part of the pre-operative evaluation. Informed Consent: The patient's anesthetic plan and its attendant risks and benefits were discussed with the patient/family/POA. Questions were solicited and answers provided to the satisfaction of the patient/family/POA.
--- NOTE | 2024-05-31 09:17 | PM.IMHP ---
H&P: HPI History of Present Illness Date/Time: 05/31/24 09:17 Chief Complaint: History of recent diverticulitis Narrative: the patient had his 2nd episode of acute diverticulitis in January 2024. He had a screening colonoscopy when he was 51. There is no family history of colorectal cancer. He is currently asymptomatic. Review of Systems Review of Systems: All systems reviewed & are unremarkable except as noted in HPI and below PMFSH Past Medical History Medical History COVID-19 Major depressive disorder without psychotic features Long-term current use of testosterone cypionate ADD (attention deficit disorder) Depression Leukopenia Memory loss Hypertension Raynauds disease Umbilical hernia Family History Family History Mother Depression Cancer of unknown origin Father Hypertension Esophageal cancer Social History Social History Social History: Caffeine- Rarely Smoking status: Never smoker Alcohol intake: current Alcohol use details: rarely Substance use: never Substance use type: does not use Do You Feel Safe in your Home?: Yes Lack of Transportation: No Lack of Food: Never True Current Housing: I Have Housing Concerned About Future Housing: No Difficulty Paying Gas/Electric Bills: No Difficulty Paying for Meds: No Currently Unemployed: No Education: Trade/Vocational Certificate Difficulty w/ Childcare or Family Care: No Living arrangements: with family Spiritual care concerns: No Meds Home Medications and Allergies Home Medications ?Medication ?Instructions ?Recorded ?Confirmed ?Type atenolol 25 mg tablet 25 mg PO DAILY 04/25/19 05/31/24 History dextroamphetamine-amphetamine ER PO 10/06/19 05/06/24 History 37.5 mg capsule, 3 bead, ext rel 24hr (Mydayis) trazodone 100 mg tablet 10/06/19 05/06/24 History vortioxetine 20 mg tablet 20 mg PO DAILY 10/06/19 05/31/24 History (Trintellix) buspirone 15 mg tablet 15 mg PO QID 10/18/22 05/31/24 History clonazepam 0.5 mg tablet 0.5 mg PO DAILY PRN anxiety 10/18/22 05/06/24 History mirtazapine 15 mg tablet 15 mg PO QHS 10/18/22 05/31/24 History vilazodone 40 mg tablet (Viibryd) 40 mg PO DAILY 10/18/22 05/06/24 History bupropion HCl 200 mg tablet,12 hr 200 mg PO BID 09/26/23 05/31/24 History sustained-release amlodipine 5 mg tablet See Rx Instructions .Route 12/08/23 05/31/24 Rx .COMPLEX #90 tabs syringe with needle 3 mL 18 x 1 #24 ea 02/26/24 05/06/24 Rx 1/2 (BD Luer-Fern Syringe) syringe with needle 3 mL 23 gauge #4 ea 03/20/24 05/06/24 Rx x 1 1/2 (BD Luer-Fern Syringe) testosterone cypionate 200 mg/mL 100 mg (0.5 mL) IM WEEKLY #10 mL 05/06/24 05/27/24 Rx intramuscular oil (Depo-Testosterone) Allergies Allergy/AdvReac Type Severity Reaction Status Date / Time No Known Allergies Allergy Verified 05/31/24 08:08 Vital Signs Vital Signs - 24 hr 05/31/24 08:10 Temperature 97.3 F L Pulse Rate 107 H Respiratory Rate 18 Blood Pressure 156/104 H Pulse Oximetry 97 Oxygen Delivery Room Air Exam Const: General: cooperative and healthy appearing Resp: Effort & Inspection: normal respiratory effort and able to speak in complete sentences Auscultation: clear to auscultation bilaterally Cardio: Rate: regular rate Rhythm: regular rhythm GI: Inspection: normal to inspection GI Palp: No No hepatosplenomegaly present Auscultation: normal bowel sounds Rectal Exam: deferred Skin: General skin exam: normal color Psych: Appearance: grossly normal Mental Status: mental status grossly normal Assessment and Plan Assessment and plan (1) Diverticulitis: Code(s): K57.92 - Diverticulitis of intestine, part unspecified, without perforation or abscess without bleeding Status: Acute Assessment and Plan: The patient is deemed a good candidate for the procedure. Consent signed. Will proceed.
[2024-05-31] MEDS: SIMETHICONE ORAL SUSPENSION 20 MG/0.3 ML 30 ML BOTTLE 0.6 ML IRRIGATION (09:32)
[2024-05-31 09:42] VITALS: BP 142/106; PULSE 87; RESP 26; O2SAT 94
[2024-05-31 09:52] VITALS: BP 139/107; PULSE 81; RESP 23; O2SAT 96
[2024-05-31 10:02] VITALS: BP 144/112; PULSE 77; RESP 22; O2SAT 98
== END 2024-05-31 10:22 | disposition home or self-care (01) ==
PROVIDERS: PCP Internal Medicine; Referring Provider Internal Medicine; Visit Provider Internal Medicine Gastroenterology
PROC: 0DJD8ZZ Inspection of Lower Intestinal Tract, Via Natural or Artificial Opening Endoscopic (ICD-10-PCS; CPT 45378; principal; 2024-05-31 09:30)
DX: Z09 Encounter for follow-up examination after completed treatment for conditions other than malignant neoplasm (principal); K57.30 Diverticulosis of large intestine without perforation or abscess without bleeding; Z87.19 Personal history of other diseases of the digestive system
CPT/HCPCS: 45378; J2003; J2704; J7120